=== PATIENT | female | born 1945 | race Two or more races ===

== ENCOUNTER 2019-12-06 09:49 | Outpatient (REF) | payer MEDICARE, SELFPAY ==
[2019-12-06 10:15] LABS: MANUAL DIFF FLAG NO
[2019-12-06 10:21] LABS: Basophils Percent Auto 0.5 % (0-2); Eosinophils Absolute Auto 0.2 X10*3/uL (0.0-0.4); Eosinophils Percent Auto 2.2 % (0-4); Hematocrit 36.3 % (37-47); Hemoglobin 11.6 g/dl (12.0-16.0); Imm Gran Abs Auto 0.02 X10*3/uL (0.00-0.03); Imm Gran Pct Auto 0.2 % (0.0-0.4); Lymphocytes Absolute Auto 2.4 X10*3/uL (1.2-4.9); Mean Corpuscular Hemoglobin 27.1 pg (27.0-33.0); Mean Corpuscular Volume 84.8 fL (80-98); Mean Platelet Volume 9.7 fL (9.4-12.3); Monocytes Absolute Auto 0.4 X10*3/uL (0.1-1.2); Monocytes Percent Auto 4.8 % (2-11); Neutrophils Absolute Auto 5.5 X10*3/uL (2.0-8.3); Neutrophils Percent Auto 64.3 % (45-73); Platelet Count 238 X10*3/uL (160-400); Red Blood Count 4.28 X10*6/uL (4.20-5.50); Red Cell Distribution Width 13.7 % (11.0-16.0); White Blood Count 8.6 X10*3/uL (4.8-10.8)
[2019-12-06 10:45] LABS: Alanine Aminotransferase 22 U/L (0-31); Albumin Level 4.1 g/dL (3.5-5.0); Alkaline Phosphatase 115 U/L (39-117); Anion Gap 13 (12-20); Aspartate Amino Transferase 32 U/L (5-31); Bilirubin Total 0.7 mg/dL (0.0-1.0); Blood Urea Nitrogen 13 mg/dL (9-16); Calcium 9.6 mg/dL (8.4-10.2); Carbon Dioxide 30 mmol/L (22-29); Chloride 97 mmol/L (96-108); Estimated Glomerular Filt Rate > 60; Glucose Random 273 mg/dL (60-115); Lipase 61 U/L (8-78); Sodium 136 mmol/L (135-145); Total Protein 7.2 g/dL (6.5-8.0)
== END 2019-12-06 09:50 | disposition home or self-care (01) ==
LOC: HO.LAB 09:49
PROVIDERS: PCP Internal Medicine; Visit Provider Internal Medicine
DX: R10.84 Generalized abdominal pain (principal)
CPT/HCPCS: 36415; 80053; 83690; 85025

== ENCOUNTER → 2020-01-03 12:53 | Outpatient (BNVA) | payer SELFPAY | PROVIDERS: PCP Internal Medicine; Referring Provider Internal Medicine; Visit Provider Internal Medicine Cardiovascular Disease | DX: R07.9 Chest pain, unspecified (principal); R06.01 Orthopnea; I10 Essential (primary) hypertension; G47.30 Sleep apnea, unspecified | CPT/HCPCS: 93005; 99212 ==

== ENCOUNTER → 2020-01-10 14:31 | Outpatient (BNVA) | payer MEDICARE, SELFPAY | PROVIDERS: PCP Internal Medicine; Visit Provider Internal Medicine Cardiovascular Disease | DX: Z76.89 Persons encountering health services in other specified circumstances (principal) ==

== ENCOUNTER → 2020-02-29 10:05 | Outpatient (BNVA) | payer SELFPAY | PROVIDERS: Visit Provider Nurse Practitioner Family | DX: Z13.89 Encounter for screening for other disorder (principal) ==

== ENCOUNTER → 2020-04-03 14:02 | Outpatient (BNVA) | payer OTHER, SELFPAY | PROVIDERS: PCP Internal Medicine; Visit Provider Internal Medicine Cardiovascular Disease | DX: R10.12 Left upper quadrant pain (principal) | CPT/HCPCS: 93005; 99212 ==

== ENCOUNTER → 2020-04-06 10:40 | Outpatient (BNVA) | payer OTHER, SELFPAY | PROVIDERS: PCP Internal Medicine; Visit Provider Nurse Practitioner Gerontology | DX: Z76.89 Persons encountering health services in other specified circumstances (principal) | CPT/HCPCS: Q3014 ==

== ENCOUNTER → 2020-04-25 08:28 | Outpatient (BNVA) | payer OTHER, SELFPAY | PROVIDERS: PCP Internal Medicine; Visit Provider Nurse Practitioner Family | DX: Z13.89 Encounter for screening for other disorder (principal) | CPT/HCPCS: Q3014 ==

== ENCOUNTER → 2020-05-02 08:07 | Outpatient (BNVA) | payer OTHER, SELFPAY | PROVIDERS: PCP Internal Medicine; Visit Provider Internal Medicine Gastroenterology | DX: R10.12 Left upper quadrant pain (principal); K62.5 Hemorrhage of anus and rectum; Z80.0 Family history of malignant neoplasm of digestive organs | CPT/HCPCS: Q3014 ==

== ENCOUNTER → 2020-05-25 14:30 | Outpatient (BNVA) | payer MEDICARE, SELFPAY | PROVIDERS: PCP Internal Medicine; Visit Provider Nurse Practitioner Gerontology | DX: Z13.89 Encounter for screening for other disorder (principal) | CPT/HCPCS: Q3014 ==

== ENCOUNTER 2020-06-02 09:09 | Outpatient (REF) | payer MEDICARE, SELFPAY ==
[2020-06-02 10:16] LABS: MANUAL DIFF FLAG NO
[2020-06-02 10:25] LABS: Estimated Average Glucose 217 mg/dL; Hemoglobin A1c % 9.2 %
[2020-06-02 10:31] LABS: Basophils Percent Auto 0.4 % (0-2); Eosinophils Absolute Auto 0.1 X10*3/uL (0.0-0.4); Eosinophils Percent Auto 1.2 % (0-4); Hematocrit 34.3 % (37-47); Imm Gran Abs Auto 0.03 X10*3/uL (0.00-0.03); Imm Gran Pct Auto 0.4 % (0.0-0.4); Lymphocytes Absolute Auto 2.6 X10*3/uL (1.2-4.9); Lymphocytes Percent Auto 31.2 % (20-40); Mean Corpuscular HGB Conc 32.1 g/dl (31.0-35.0); Mean Corpuscular Hemoglobin 26.5 pg (27.0-33.0); Mean Corpuscular Volume 82.7 fL (80-98); Mean Platelet Volume 9.8 fL (9.4-12.3); Monocytes Absolute Auto 0.5 X10*3/uL (0.1-1.2); Monocytes Percent Auto 5.4 % (2-11); Neutrophils Absolute Auto 5.1 X10*3/uL (2.0-8.3); Neutrophils Percent Auto 61.4 % (45-73); Platelet Count 267 X10*3/uL (160-400); Red Blood Count 4.15 X10*6/uL (4.20-5.50); Red Cell Distribution Width 14.6 % (11.0-16.0); White Blood Count 8.3 X10*3/uL (4.8-10.8)
[2020-06-02 10:34] LABS: Alanine Aminotransferase 25 U/L (0-31); Albumin Level 4.1 g/dL (3.5-5.0); Alkaline Phosphatase 143 U/L (39-117); Anion Gap 13 (12-20); Aspartate Amino Transferase 51 U/L (5-31); Bilirubin Total 0.3 mg/dL (0.0-1.0); Blood Urea Nitrogen 15 mg/dL (9-16); Calcium 9.2 mg/dL (8.4-10.2); Carbon Dioxide 32 mmol/L (22-29); Chloride 101 mmol/L (96-108); Cholesterol 211 mg/dL; Estimated Glomerular Filt Rate > 60; Glucose Fasting 219 mg/dL (60-99); HDL Cholesterol 44 mg/dL; LDL Cholesterol Calculated 122 mg/dl; Potassium 4.5 mmol/L (3.3-5.1); Sodium 141 mmol/L (135-145); Total Protein 7.4 g/dL (6.5-8.0); Triglycerides 229 mg/dL
[2020-06-02 10:47] LABS: Glucose Urine UA NEG (NEG); Leukocyte Esterase Urine TRACE (NEG); Nitrite Urine NEG (NEG); UACC Culture Trigger YES; Urine Blood NEG (NEG); Urine Ketones NEG (NEG); Urine Protein TRACE MG/DL (NEG-TRACE)
[2020-06-02 10:49] LABS: Appearance Urine HAZY; Color Urine YELLOW
[2020-06-02 10:56] LABS: TSH reflex Free T4 4.47 uIU/mL (0.32-4.0)
[2020-06-02 11:25] LABS: Bacteria Urine TRACE /LPF; RBC Urine 0-2 /HPF (0); Squamous Epithelial Cell Urine 1+ /LPF
[2020-06-02 11:40] LABS: Erythrocyte Sedimentation Rate 57 MM/HR (0-20)
[2020-06-02 11:44] LABS: Creatinine Urine 176.36 mg/dL; Microalbum/Creatinine Ratio Ur 76.5 ug/mg cr
[2020-06-03 07:07] LABS: LDL Cholesterol Direct 127 mg/dL (<100)
== END 2020-06-02 09:10 | disposition home or self-care (01) ==
LOC: HO.LAB 09:09
PROVIDERS: Absent Provider Internal Medicine; PCP Internal Medicine; Visit Provider Nurse Practitioner Gerontology
DX: E11.65 Type 2 diabetes mellitus with hyperglycemia (principal); I10 Essential (primary) hypertension; E78.00 Pure hypercholesterolemia, unspecified; E66.9 Obesity, unspecified; K21.9 Gastro-esophageal reflux disease without esophagitis; M19.011 Primary osteoarthritis, right shoulder; M51.36 Other intervertebral disc degeneration, lumbar region; Z79.4 Long term (current) use of insulin
CPT/HCPCS: 36415; 80053; 80061; 81001; 81003; 82043; 83036; 83721; 84439; 84443; 85025; 85652; 87086; 87147

== ENCOUNTER 2020-06-05 10:23 | Day surgery (SDC) | payer MEDICARE, SELFPAY ==
--- NOTE | 2020-06-01 14:23 | HO.ANESPROP2 ---
Documented by User: Sherry Sams 06/01/20 14:28 HPI - Anesthesia Eval Consult details Narrative: 75yo F for Colonoscopy PMFSH Active Problems Active Problems: All Active Problems (Updated 05/03/20 @ 12:57 by Sherry Sams) FH: colon cancer in first degree relative <60 years old (Acute) Rectal bleeding (Acute) LUQ abdominal pain (Acute) Type 2 diabetes mellitus with hyperglycemia, with long-term current use of insulin (Acute) Type 2 diabetes mellitus with other diabetic kidney complication (Acute) Proteinuria (Acute) Hypertension (Acute) Hyperlipidemia LDL goal <100 (Acute) Obesity (BMI 30-39.9) (Acute) Abdominal pain (Acute) Chest pain (Acute) Orthopnea (Acute) Sleep disorder breathing (Acute) Snoring (Acute) Hypersomnia (Acute) Benign essential hypertension (Acute) Diabetes mellitus (Acute) Pure hypercholesterolemia (Acute) Primary osteoarthritis, right shoulder (Acute) GERD without esophagitis (Acute) Anxiety (Acute) Depression (Acute) Lumbar degenerative disc disease (Acute) Past Medical History Medical History Anxiety Benign essential hypertension Chest pain Depression Diabetes mellitus GERD without esophagitis Hyperlipidemia LDL goal <100 Hypertension Lumbar degenerative disc disease Obesity (BMI 30-39.9) Primary osteoarthritis, right shoulder Proteinuria Pure hypercholesterolemia Type 2 diabetes mellitus with hyperglycemia, with long-term current use of insulin Type 2 diabetes mellitus with other diabetic kidney complication Family History Family History Father Diabetes Mother Diabetes Daughter Diabetes CVD (cardiovascular disease) Surgical History Surgical History H/O colonoscopy History of cataract surgery History of cholecystectomy History of esophagogastroduodenoscopy (EGD) History of mammogram Social History Social History Household Members: Children Alcohol intake: current Alcohol intake frequency: does not drink Smoking Status: Never smoker Advance Directives: No Advance Directives Information Provided: Yes Meds Allergies Allergy/AdvReac Type Severity Reaction Status Date / Time No Known Allergies Allergy Verified 05/25/20 15:02 [No Known Allergies*] Home Medications Medication Instructions Recorded Confirmed Last Taken Type buspirone 5 mg tablet 5 mg PO BID 01/03/20 05/25/20 Unknown History hydroxyzine HCl 25 mg tablet 25 mg PO Q8H PRN 01/03/20 05/25/20 Unknown History metformin 1,000 mg tablet 1,000 mg PO BID 01/03/20 05/25/20 Unknown History estradiol 1 g VAGINAL 3XW g 03/12/20 05/25/20 Unknown History Exam Exam Date and Time: June 01, 2020 1423 Narrative Narrative: Laboratory Tests 12/06/19 12/06/19 10:09 10:09 WBC 8.6 Hgb 11.6 L Hct 36.3 L Plt Count 238 Sodium 136 Potassium 4.0 Chloride 97 Carbon Dioxide 30 H BUN 13 Creatinine 0.82 EKG at cardiol : SR, left axis deviation, septal infarct, QTc 463 msec Assessment and Plan Assessment Anesthesia Assessment: Chart Reviewed Documented by User: Renita Osborne 06/05/20 10:54 PMFSH Past Medical History Medical History Anxiety Benign essential hypertension Chest pain Depression Diabetes mellitus GERD without esophagitis Hyperlipidemia LDL goal <100 Hypertension Lumbar degenerative disc disease Obesity (BMI 30-39.9) Primary osteoarthritis, right shoulder Proteinuria Pure hypercholesterolemia Type 2 diabetes mellitus with hyperglycemia, with long-term current use of insulin Type 2 diabetes mellitus with other diabetic kidney complication Family History Family History Father Diabetes Mother Diabetes Daughter Diabetes CVD (cardiovascular disease) Surgical History Surgical History H/O colonoscopy History of cataract surgery History of cholecystectomy History of esophagogastroduodenoscopy (EGD) History of mammogram Social History Social History Household Members: Children Alcohol intake: current Alcohol intake frequency: does not drink Smoking Status: Never smoker Advance Directives: No Advance Directives Information Provided: Yes Meds Allergies Allergy/AdvReac Type Severity Reaction Status Date / Time No Known Allergies Allergy Verified 05/25/20 15:02 [No Known Allergies*] Home Medications Medication Instructions Recorded Confirmed Last Taken Type buspirone 5 mg tablet 5 mg PO BID 01/03/20 05/25/20 Unknown History hydroxyzine HCl 25 mg tablet 25 mg PO Q8H PRN 01/03/20 05/25/20 Unknown History metformin 1,000 mg tablet 1,000 mg PO BID 01/03/20 05/25/20 Unknown History estradiol 1 g VAGINAL 3XW g 03/12/20 05/25/20 Unknown History Exam Airway Mallampati Class: II TM Dist: >3cm Neck ROM: Limited Denture: Upper Loose/Missing/Broken Teeth: Yes Heart: RRR Lungs: Acta Assessment and Plan Assessment Anesthesia Assessment: Anesthesia Plan Discussed and Chart Reviewed Final Anesthetic Review NPO: Yes ASA Class: III Final Preanesthetic Review: Meds/Allgs Chart Reviewed, Consent Obtained/Reviewed and Anes Risks/Benef Reviewed Patient Risk: Intermediate Procedure Risk: Intermediate Anesthetic Plan Anesthetic Plan: MAC: Disposition: Standard PACU
--- NOTE | 2020-06-05 10:40 | P.HPSUR_ITS ---
Pre-Procedural Eval Section B Chief Complaint: Rectal Bleeding Details of Present Illness: upper abdominal pain and FH of CRC in son Relevant Family History (Specify if Yes): Yes Relevant Social History: None Present Medications: see Short Stay Collaborative assessment Medical History: Significant History (Anxiety Benign essential hypertension Chest pain Depression Diabetes mellitus GERD without esophagitis Hyperlipidemia LDL goal <100 Hypertension Lumbar degenerative disc disease Obesity (BMI 30- 39.9) Primary osteoarthritis, right shoulder Proteinuria Pure hypercholesterolemia Type 2 diabetes mellitu) History of Previous Operations: Relevant previous surgery/procedure and date(s) (H/O colonoscopy History of cataract surgery History of cholecystectomy History of esophagogastroduodenoscopy (EGD) History of mammogram) Allergies: Allergies Allergy/AdvReac Type Severity Reaction Status Date / Time No Known Allergies Allergy Verified 05/25/20 15:02 [No Known Allergies*] Review of Systems Sugical H&P ROS: Negative: Constitution, Cardiovascular, Respiratory, Neurological, Psychiatric, Hem-Onc, Allergic/Immunologic, Gastrointestinal, Genitourinary, Musculoskeletal, Integumentary, Endocrine and Eyes/Ears/Nose/Throat Exam Surgical H&P Exam: Normal: HEENT, Normal: Heart, Normal: Lungs, Normal: Extr emities, Normal: Abdomen, Normal: Skin and Normal: Neurological Plan Diagnosis/Plan: Unchanged I have reviewed the history and physical and performed a pertinent physical examination on my patient. No changes have occurred unless specified.
--- NOTE | 2020-06-05 10:42 | PM.OP ---
Brief Operative Note Date of Service: 06/05/20 Pre-op diagnosis: LUQ pain, FH of CRC in son Post-op diagnosis: same Procedure: see op note Surgeon: Kristi Hernandez MD Anesthesia: MAC Estimated blood loss (mL): 0 Condition: stable Disposition: PACU
--- NOTE | 2020-06-05 10:43 | W.PM.OPN ---
Operative Note Operative Note Date of Service: 06/05/20 Narrative: Operative Information Procedure Description: EGD, Colonoscopy FLEXIBLE TRANSORAL UPPER GASTROINTESTINAL ENDOSCOPY AND COLONOSCOPY PROCEDURE NOTE UPPER ENDOSCOPY Consent: Indications for the procedure and potential complications of bleeding, perforation, reaction to medications and missed diagnosis were discussed with the patient and informed consent was obtained. Instrument: Olympus GIF H 190 J mid size upper endoscope Monitoring: Vital signs and clinical assessment, continuous EKG monitoring, Pulse oximetry, Carbon Dioxide monitoring and blood pressure monitoring were done throughout the procedure. Procedure: The patient was placed in the left lateral decubitis position and pre-procedure medications were administered and a bite block was placed. The endoscope was inserted into the mouth and advanced under direct vision to the third part of duodenum. A careful inspection was made as the upper endoscope was withdrawn including a retroflexed examination of the proximal stomach; Findings and interventions are described below. Findings: Larynx:normal Esophagus: GE junction at 39 cm, diaphragm hiatus at 39 cm, possible tongue of short segment barretts noted and biospy taken Stomach: Patchy erythema. Biopsies were obtained. Grade 2 flap valve on retroflexed examination of the cardia. Duodenum: Normal bulb and descending duodenum, bx taken Intervention: Biopsies as noted above COLONOSCOPY Instrument: Olympus variable stiffness Adult scope 190L Colonoscopy Monitoring: Vital signs and clinical assessment, continuous EKG monitoring, Pulse oximetry, Carbon Dioxide monitoring and blood pressure monitoring were done throughout the procedure. Colon withdrawal time was 10 minutes. Procedure: The patient was placed in the left lateral decubitis position and pre-procedure medications were administered. After a digital rectal examination of the ano-rectum, the video colonoscope was inserted into the rectum and advanced through the colon to the cecum/TI. The colonoscope was slowly withdrawn in a retrograde panoramic fashion and the colon mucosa was carefully examined including a retroflexed view of the rectum. Findings and interventions are described below. Procedure Difficulty:moderate due to looping Findings: Terminal Ileum-normal Cecum:normal Ascending Colon: normal Transverse Colon -normal Descending Colon:normal Sigmoid Colon: scattered diverticula Rectum: Retroflexion with moderate sized mildly inflammed internal hemorrhoids, grade II Anorectum - internal hemorrhoids seen at anal verge Colon preparation: [place] Bowel Preparation Scale Right colon; 2 Transverse colon: 3 Left colon; 2 (0 = Unprepared colon segment with mucosa not seen due to solid stool that cannot be cleared. 1 = Portion of mucosa of the colon segment seen, but other areas of the colon segment not well seen due to staining, residual stool and/or opaque liquid. 2 = Minor amount of residual staining, small fragments of stool and/or opaque liquid, but mucosa of colon segment seen well. 3 = Entire mucosa of colon segment seen well with no residual staining, small fragments of stool or opaque liquid) Impression and Post Procedure Diagnosis: Endoscopy Findings: gastritis possible barretts Colonoscopy Findings: internal hemorrhoids diverticular disease Plan: Await Pathology results Repeat Colonoscopy in 5 years due to FH of CRC or earlier if clinically indicated High fiber diet leaflet avoid straining at stool, epsom salts and sitz bath, anusol supps or cream prn Above findings were reviewed with the patient and relevant handouts were provided if indicated.
[2020-06-05 10:51] VITALS: BP 183/73; PULSE 86; RESP 18; TEMP 36.9; O2SAT 97
[2020-06-05 10:52] LABS: Glucose, Whole Blood 183 mg/dL (60-115)
[2020-06-05 10:59] VITALS: BMI 33.3
[2020-06-05] MEDS: Lactated Ringers 1,000 ML 100 ML IVCONT (11:05)
[2020-06-05 11:53] VITALS: BP 140/57; PULSE 89; RESP 16; TEMP 36.8; O2SAT 95
[2020-06-05 12:08] VITALS: BP 143/50; PULSE 84; RESP 16; O2SAT 96
== END 2020-06-05 13:01 | disposition home or self-care (01) ==
PROVIDERS: PCP Internal Medicine; Visit Provider Internal Medicine Gastroenterology
PROC: (CPT 45380; principal; 2020-06-05 11:10)
DX: K62.5 Hemorrhage of anus and rectum (principal); K57.30 Diverticulosis of large intestine without perforation or abscess without bleeding; K64.1 Second degree hemorrhoids; K29.70 Gastritis, unspecified, without bleeding; K44.9 Diaphragmatic hernia without obstruction or gangrene; K21.9 Gastro-esophageal reflux disease without esophagitis; I10 Essential (primary) hypertension; E11.65 Type 2 diabetes mellitus with hyperglycemia; E11.29 Type 2 diabetes mellitus with other diabetic kidney complication; N28.9 Disorder of kidney and ureter, unspecified; Z79.84 Long term (current) use of oral hypoglycemic drugs; Z79.899 Other long term (current) drug therapy
CPT/HCPCS: 45380; 43239; 82947; 88305; 88342; J3010

== ENCOUNTER 2020-06-17 08:53 | Outpatient (REF) | payer MEDICARE, SELFPAY ==
[2020-06-17 10:29] LABS: Alanine Aminotransferase 18 U/L (0-31); Albumin Level 4.1 g/dL (3.5-5.0); Alkaline Phosphatase 135 U/L (39-117); Anion Gap 16 (12-20); Aspartate Amino Transferase 31 U/L (5-31); Bilirubin Total 0.5 mg/dL (0.0-1.0); Blood Urea Nitrogen 18 mg/dL (9-16); Calcium 9.3 mg/dL (8.4-10.2); Carbon Dioxide 29 mmol/L (22-29); Chloride 99 mmol/L (96-108); Cholesterol 154 mg/dL; Estimated Glomerular Filt Rate 58; Glucose Fasting 183 mg/dL (60-99); HDL Cholesterol 48 mg/dL; LDL Cholesterol Calculated 79 mg/dl; Potassium 4.4 mmol/L (3.3-5.1); Sodium 140 mmol/L (135-145); Total Protein 7.4 g/dL (6.5-8.0); Triglycerides 139 mg/dL
[2020-06-17 10:35] LABS: Microalbum/Creatinine Ratio Ur 69.9 ug/mg cr
[2020-06-20 23:42] LABS: Alk.Phos Iso. Macrohepatic 0 % (<=0); Alk.Phos Isoenzymes Bone 28 % (28-66); Alk.Phos Isoenzymes Intest 13 % (1-24); Alk.Phos Isoenzymes Liver 59 % (25-69); Alk.Phos Isoenzymes Placental 0 % (<=0); Alk.Phos Isoenzymes Total 122 U/L (37-153)
== END 2020-06-17 08:54 | disposition home or self-care (01) ==
LOC: HO.LAB 08:53
PROVIDERS: PCP Internal Medicine; Visit Provider Nurse Practitioner Gerontology
DX: E11.9 Type 2 diabetes mellitus without complications (principal); E78.00 Pure hypercholesterolemia, unspecified; I10 Essential (primary) hypertension; R74.8 Abnormal levels of other serum enzymes
CPT/HCPCS: 36415; 80053; 80061; 82043; 84080

== ENCOUNTER 2020-06-28 09:25 | Outpatient (REF) | payer MEDICARE, SELFPAY ==
--- NOTE | ~2020-06-28 | US_ITS ---
EXAMINATION: US ABDOMEN COMPLETE CLINICAL INFORMATION: Left lower quadrant pain. COMPARISON: X-ray abdomen 07/05/2019.CT abdomen 10/10/2018. X-ray abdomen 04/15/2018. TECHNIQUE: Real-time imaging of the abdominal viscera. FINDINGS: PANCREAS: Normal. ABDOMINAL AORTA: Not well visualized due to bowel gas INFERIOR VENA CAVA: Not well visualized due to bowel gas LIVER: Liver echotexture is increased. The liver is enlarged. This probably represents fatty infiltration. The liver contour is normal. No focal hepatic lesion. There is no intrahepatic biliary duct dilatation seen. GALLBLADDER: Surgically absent. COMMON BILE DUCT: Normal in caliber measuring 0.4 cm in diameter. RIGHT KIDNEY: Normal. No hydronephrosis. No renal calculi or focal parenchymal lesions. The kidney measures 10.4 cm in maximum dimension. LEFT KIDNEY: There is a 4 mm stone in the lower pole. No hydronephrosis or focal parenchymal lesions. The kidney measures 10.3 cm in maximum dimension. SPLEEN: Normal. The spleen measures 9.6 cm in maximum dimension. FREE FLUID: None. US/US abdomen complete IMPRESSION: Enlarged echogenic liver probably representing fatty infiltration. Left renal stone. Limited visualization of the pancreas, aorta and IVC.
--- NOTE | ~2020-06-28 | US_ITS ---
EXAMINATION: US PELVIS COMPLETE CLINICAL INFORMATION: Left lower quadrant pain, COMPARISON: None TECHNIQUE: Transabdominal and transvaginal imaging of pelvis is performed. FINDINGS: The uterus is anteverted, anteflexed measuring 8.79 cm in length, 3.02 cm in AP and 4.40 cm in width and volume 61.16 mL. The endometrial thickness is 0.39 cm. There is is echogenic calcification along the periphery of the uterus. Left ovary measures 1.81 x 1.73 x 0.88 cm. It appears unremarkable. Right ovary measures 1.86 x 2.13 x 1.54 cm. It appears unremarkable. There is no free fluid in the cul-de-sac. US/US pelvic complete IMPRESSION: Echogenic calcifications along the periphery of the uterus likely old inflammatory process. No focal lesion seen. The ovaries are unremarkable
--- NOTE | ~2020-06-28 | US_ITS ---
EXAMINATION: US PELVIS COMPLETE CLINICAL INFORMATION: Left lower quadrant pain, COMPARISON: None TECHNIQUE: Transabdominal and transvaginal imaging of pelvis is performed. FINDINGS: The uterus is anteverted, anteflexed measuring 8.79 cm in length, 3.02 cm in AP and 4.40 cm in width and volume 61.16 mL. The endometrial thickness is 0.39 cm. There is is echogenic calcification along the periphery of the uterus. Left ovary measures 1.81 x 1.73 x 0.88 cm. It appears unremarkable. Right ovary measures 1.86 x 2.13 x 1.54 cm. It appears unremarkable. There is no free fluid in the cul-de-sac. US/US transvaginal IMPRESSION: Echogenic calcifications along the periphery of the uterus likely old inflammatory process. No focal lesion seen. The ovaries are unremarkable
== END 2020-06-28 09:26 | disposition home or self-care (01) ==
LOC: HO.US 09:25
PROVIDERS: PCP Internal Medicine; Visit Provider Internal Medicine
DX: R10.32 Left lower quadrant pain (principal)
CPT/HCPCS: 76700; 76830; 76856

== ENCOUNTER → 2020-08-08 11:32 | Outpatient (BNVA) | payer MEDICARE, SELFPAY | PROVIDERS: PCP Internal Medicine; Visit Provider Internal Medicine Gastroenterology ==

== ENCOUNTER → 2020-08-31 13:04 | Outpatient (BNVA) | payer MEDICARE, SELFPAY | PROVIDERS: PCP Internal Medicine; Visit Provider Nurse Practitioner Gerontology | CPT/HCPCS: Q3014 ==

== ENCOUNTER → 2020-09-29 10:43 | Outpatient (BNVA) | payer MEDICARE, SELFPAY | PROVIDERS: PCP Internal Medicine; Referring Provider Internal Medicine; Visit Provider Internal Medicine Gastroenterology | DX: R10.12 Left upper quadrant pain (principal) | CPT/HCPCS: 99212 ==

== ENCOUNTER → 2020-10-10 08:00 | Outpatient (REF) | payer MEDICARE, SELFPAY | LOC: HO.NUCMED 08:00 | PROVIDERS: Visit Provider Internal Medicine Gastroenterology | DX: Z13.89 Encounter for screening for other disorder (principal) ==

== ENCOUNTER 2021-05-31 13:47 | Outpatient (REF) | payer OTHER, SELFPAY ==
--- NOTE | 2021-05-31 14:14 | ECG_ITS ---
Test Reason : DIZZINESS Blood Pressure : / mmHG Vent. Rate : 072 BPM Atrial Rate : 072 BPM P-R Int : 164 ms QRS Dur : 086 ms QT Int : 386 ms P-R-T Axes : 062 007 047 degrees QTc Int : 422 ms Normal sinus rhythm Low voltage QRS Cannot rule out Anterior infarct , age undetermined Abnormal ECG When compared with ECG of 10-OCT-2018 18:19, Low voltage QRS is now Present Referred By: Joel Su Electronically Signed By:ESTUARDO IRIZARRY MD
[2021-05-31 14:50] LABS: Hematocrit 36.8 % (37.0-47.0); Hemoglobin 11.6 g/dl (12.0-16.0); Mean Corpuscular HGB Conc 31.5 g/dl (31.0-35.0); Mean Corpuscular Hemoglobin 26.2 pg (27.0-33.0); Mean Corpuscular Volume 83.3 fL (80.0-98.0); Mean Platelet Volume 9.5 fL (9.4-12.3); Platelet Count 268 X10*3/uL (160-400); Red Blood Count 4.42 X10*6/uL (4.20-5.50); Red Cell Distribution Width 14.5 % (11.0-16.0); White Blood Count 8.2 X10*3/uL (4.8-10.8)
[2021-05-31 15:21] LABS: Appearance Urine HAZY; Color Urine YELLOW; Glucose Urine UA 100 MG/DL (NEG); Leukocyte Esterase Urine TRACE (NEG); Nitrite Urine NEG (NEG); PH 5.5 (5.0-8.0); Specific Gravity - Urine >= 1.030 (1.005-1.025); UACC Culture Trigger YES; Urine Blood NEG (NEG); Urine Ketones NEG (NEG); Urine Protein TRACE MG/DL (NEG-TRACE)
[2021-05-31 15:26] LABS: Alanine Aminotransferase 23 U/L (0-31); Albumin Level 4.2 g/dL (3.5-5.0); Alkaline Phosphatase 154 U/L (39-117); Anion Gap 14 (12-20); Aspartate Amino Transferase 37 U/L (5-31); Bilirubin Direct 0.2 mg/dL (0.0-0.5); Bilirubin Total 0.5 mg/dL (0.0-1.0); Blood Urea Nitrogen 23 mg/dL (9-16); Calcium 9.9 mg/dL (8.4-10.2); Carbon Dioxide 29 mmol/L (22-29); Chloride 99 mmol/L (96-108); Estimated Glomerular Filt Rate 53; Glucose Random 354 mg/dL (60-115); Potassium 5.2 mmol/L (3.3-5.1); Sodium 137 mmol/L (135-145); Total Protein 7.9 g/dL (6.5-8.0)
[2021-05-31 15:34] LABS: Bacteria Urine 1+ /LPF; RBC Urine 0 /HPF (0); Squamous Epithelial Cell Urine 1+ /LPF; WBC Urine 0-2 /HPF (0-4)
== END 2021-05-31 13:48 | disposition home or self-care (01) ==
LOC: HO.LAB 13:47
PROVIDERS: PCP Internal Medicine; Visit Provider Physician Assistant
DX: R42 Dizziness and giddiness (principal)
CPT/HCPCS: 36415; 80048; 80076; 81001; 85027; 87086; 93005

== ENCOUNTER → 2021-11-14 13:41 | Outpatient (BNVA) | payer OTHER, SELFPAY | PROVIDERS: PCP Internal Medicine; Referring Provider Internal Medicine; Visit Provider Nurse Practitioner Family | DX: R07.89 Other chest pain (principal); I10 Essential (primary) hypertension; E78.5 Hyperlipidemia, unspecified; E11.65 Type 2 diabetes mellitus with hyperglycemia; Z79.4 Long term (current) use of insulin | CPT/HCPCS: 99212 ==

== ENCOUNTER 2021-12-18 11:11 | Outpatient (REF) | payer OTHER, SELFPAY ==
--- NOTE | ~2021-12-18 | XR_ITS ---
EXAMINATION: XR LUMBOSACRAL SPINE CLINICAL INFORMATION: Low back pain COMPARISON: 09/08/2019 TECHNIQUE: Three views of the lumbosacral spine. FINDINGS: There is lumbar lordotic straightening. 5 lumbar type vertebral bodies are maintained in height. Multilevel osteophytes again seen. No significant change grade 1 anterolisthesis L4 and L5 although increasing L4 for 5 moderate to moderately severe disc space narrowing. Severe disc space narrowing and sclerosis L5-S1 again seen. Pedicles are intact. Mild bilateral SI sclerotic changes are stable. Bilateral hip joint narrowings again seen. XR/XR lumbar spine 2-3V IMPRESSION: Stable lumbar lordotic straightening, severe L5-S1 disc space narrowing and L4 on L5 anterolisthesis. Increasing L4-L5 disc space narrowing.
[2021-12-18 11:33] LABS: MANUAL DIFF FLAG NO
[2021-12-18 12:49] LABS: Basophils Percent Auto 0.4 % (0-2); Eosinophils Absolute Auto 0.1 X10*3/uL (0.0-0.4); Eosinophils Percent Auto 1.5 % (0-4); Hematocrit 35.1 % (37.0-47.0); Imm Gran Abs Auto 0.03 X10*3/uL (0.00-0.03); Imm Gran Pct Auto 0.3 % (0.0-0.4); Lymphocytes Absolute Auto 2.9 X10*3/uL (1.2-4.9); Lymphocytes Percent Auto 29.7 % (20-40); Mean Corpuscular HGB Conc 31.3 g/dl (31.0-35.0); Mean Corpuscular Hemoglobin 26.7 pg (27.0-33.0); Mean Corpuscular Volume 85.2 fL (80.0-98.0); Mean Platelet Volume 10.2 fL (9.4-12.3); Monocytes Absolute Auto 0.5 X10*3/uL (0.1-1.2); Neutrophils Percent Auto 63.1 % (45-73); Platelet Count 229 X10*3/uL (160-400); Red Blood Count 4.12 X10*6/uL (4.20-5.50); White Blood Count 9.6 X10*3/uL (4.8-10.8)
[2021-12-18 13:30] LABS: Alanine Aminotransferase 17 U/L (0-31); Alkaline Phosphatase 124 U/L (39-117); Anion Gap 18 (12-20); Aspartate Amino Transferase 29 U/L (5-31); Bilirubin Total 0.6 mg/dL (0.0-1.0); Blood Urea Nitrogen 12 mg/dL (9-16); Calcium 9.3 mg/dL (8.4-10.2); Carbon Dioxide 29 mmol/L (22-29); Chloride 100 mmol/L (96-108); Cholesterol 132 mg/dL; Estimated Glomerular Filt Rate > 60; Glucose Fasting 216 mg/dL (60-99); HDL Cholesterol 45 mg/dL; LDL Cholesterol Calculated 61 mg/dl; Potassium 4.6 mmol/L (3.3-5.1); Sodium 142 mmol/L (135-145); Total Protein 7.2 g/dL (6.5-8.0); Triglycerides 130 mg/dL
[2021-12-18 13:42] LABS: Vitamin D 25-OH Total 14.1 ng/mL (>30)
[2021-12-18 15:09] LABS: Appearance Urine Turbid; Color Urine Dark Yellow; Glucose Urine UA Negative (Negative); Leukocyte Esterase Urine Large (3+) (Negative); Nitrite Urine Negative (Negative); Specific Gravity - Urine 1.025 (1.005-1.025); UMIC TRIGGER UACC YES; Urine Blood Negative (Negative); Urine Ketones Trace mg/dL (Negative); Urine Protein 100 (2+) mg/dL (Neg-Trace)
[2021-12-18 15:32] LABS: Creatinine Urine 197.08 mg/dL; Microalbum/Creatinine Ratio Ur 192.3 ug/mg cr
[2021-12-18 16:02] LABS: Bacteria Urine 4+ (None Seen); RBC Urine 0-2 /HPF (0-2); Squamous Epithelial Cell Urine >20 /HPF (0-2); UACC Culture Trigger YES; WBC Urine >50 /HPF (0-5)
[2021-12-19 16:56] LABS: C Peptide 1.83 ng/mL (0.80-3.85)
== END 2021-12-18 11:12 | disposition home or self-care (01) ==
LOC: HO.XRAY 11:11
PROVIDERS: PCP Internal Medicine; Visit Provider Internal Medicine
DX: I10 Essential (primary) hypertension (principal); M54.50 Low back pain, unspecified; E55.9 Vitamin D deficiency, unspecified; E78.00 Pure hypercholesterolemia, unspecified; E11.9 Type 2 diabetes mellitus without complications
CPT/HCPCS: 36415; 72100; 80053; 80061; 81001; 82043; 82306; 84681; 85025; 87086; 87147

== ENCOUNTER 2022-03-27 11:19 | Outpatient (REF) | payer OTHER, SELFPAY ==
--- NOTE | ~2022-03-27 | XR_ITS ---
EXAMINATION: XR LUMBOSACRAL SPINE CLINICAL INFORMATION: Lower back pain. COMPARISON: Radiographs dated 12/18/2021. TECHNIQUE: AP and lateral views of the lumbar spine and lateral view of the lumbosacral junction. FINDINGS: Vertebral body heights and alignment are normal. At L4-L5, there is a 4 mm anterolisthesis. At L5-S1, there is marked disc space narrowing, vacuum phenomenon. 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 No acute fracture or spondylolisthesis is seen. There is multi-level moderately severe lower thoracic and lumbar spondylosis. There is multi-level lumbar facet arthropathy, most pronounced at L4-L5 and L5-S1. There are aortoiliac atherosclerotic calcifications. XR/XR lumbar spine 2-3V IMPRESSION: 1. There is moderate degenerative disc disease at L4-L5, and marked degenerative disease is seen at L5-S1. 2. 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 3. There is multi-level lumbar spondylosis and facet arthropathy.
--- NOTE | ~2022-03-27 | XR_ITS ---
EXAMINATION: XR TIBIA AND FIBULA, LEFT CLINICAL INFORMATION: Pain. COMPARISON: None TECHNIQUE: AP and lateral views of the left tibia and fibula were obtained. FINDINGS: Bony alignment and mineralization are normal. No fracture or dislocation is seen. The lateral, medial and patellofemoral joint space compartments of the knee are well-maintained. There is left knee tricompartment peripheral osteophyte formation. There is no left ankle joint effusion. There is a moderately large posterior calcaneal spur. There are atherosclerotic calcifications. XR/XR tibia fibula LT 2V IMPRESSION: 1. No fracture or dislocation is seen. 2. There are degenerative changes of the knee. 3. A posterior calcaneal spur is noted.
== END 2022-03-27 11:20 | disposition home or self-care (01) ==
LOC: HO.XRAY 11:19
PROVIDERS: PCP Internal Medicine; Visit Provider Internal Medicine
DX: M79.662 Pain in left lower leg (principal); M54.50 Low back pain, unspecified; E11.65 Type 2 diabetes mellitus with hyperglycemia; Z79.4 Long term (current) use of insulin
CPT/HCPCS: 72100; 73590; 82947; 99212

== ENCOUNTER 2022-05-30 09:50 | Outpatient (REF) | payer OTHER, SELFPAY ==
[2022-05-30 10:42] LABS: Basophils Absolute Auto 0.1 X10*3/uL (0.0-0.2); Basophils Percent Auto 0.5 % (0-2); Eosinophils Absolute Auto 0.2 X10*3/uL (0.0-0.4); Eosinophils Percent Auto 2.4 % (0-4); Hematocrit 35.5 % (37.0-47.0); Hemoglobin 11.2 g/dl (12.0-16.0); Imm Gran Abs Auto 0.03 X10*3/uL (0.00-0.03); Imm Gran Pct Auto 0.3 % (0.0-0.4); Lymphocytes Absolute Auto 3.8 X10*3/uL (1.2-4.9); Lymphocytes Percent Auto 39.4 % (20-40); MANUAL DIFF FLAG NO; Mean Corpuscular HGB Conc 31.5 g/dl (31.0-35.0); Mean Corpuscular Hemoglobin 26.5 pg (27.0-33.0); Mean Corpuscular Volume 84.1 fL (80.0-98.0); Mean Platelet Volume 9.9 fL (9.4-12.3); Monocytes Absolute Auto 0.5 X10*3/uL (0.1-1.2); Monocytes Percent Auto 5.4 % (2-11); Neutrophils Absolute Auto 5.1 x10*3/uL (2.0-8.3); Platelet Count 260 X10*3/uL (160-400); Red Blood Count 4.22 X10*6/uL (4.20-5.50); Red Cell Distribution Width 14.4 % (11.0-16.0); White Blood Count 9.7 X10*3/uL (4.8-10.8)
[2022-05-30 10:58] LABS: Estimated Average Glucose 226 mg/dL; Hemoglobin A1c % 9.5 %
[2022-05-30 11:05] LABS: Appearance Urine Clear; Color Urine Yellow; Glucose Urine UA Negative (Negative); Leukocyte Esterase Urine Negative (Negative); Nitrite Urine Negative (Negative); UMIC TRIGGER UACC YES; Urine Blood Negative (Negative); Urine Ketones Negative (Negative); Urine Protein 30 (1+) mg/dL (Neg-Trace)
[2022-05-30 11:16] LABS: Alanine Aminotransferase 19 U/L (0-31); Albumin Level 3.9 g/dL (3.5-5.0); Alkaline Phosphatase 135 U/L (39-117); Anion Gap 14 (12-20); Aspartate Amino Transferase 21 U/L (5-31); Bilirubin Total 0.6 mg/dL (0.0-1.0); Blood Urea Nitrogen 14 mg/dL (9-16); Calcium 9.2 mg/dL (8.4-10.2); Carbon Dioxide 30 mmol/L (22-29); Chloride 103 mmol/L (96-108); Cholesterol 185 mg/dL; Estimated Glomerular Filt Rate > 60; Glucose Fasting 115 mg/dL (60-99); HDL Cholesterol 44 mg/dL; LDL Cholesterol Calculated 105 mg/dl; Potassium 4.2 mmol/L (3.3-5.1); Sodium 143 mmol/L (135-145); Total Protein 7.2 g/dL (6.5-8.0); Triglycerides 183 mg/dL
[2022-05-30 11:32] LABS: TSH reflex Free T4 7.67 uIU/mL (0.32-4.0); Vitamin D 25-OH Total 20.8 ng/mL (>30)
[2022-05-30 11:36] LABS: Creatinine Urine 143.72 mg/dL
[2022-05-30 12:11] LABS: Bacteria Urine None Seen (None Seen); Hyaline Casts Urine 0-2 /LPF (0-2); RBC Urine 0-2 /HPF (0-2); Specific Gravity - Urine >= 1.030 (1.005-1.025); WBC Urine 0-5 /HPF (0-5)
== END 2022-05-30 09:51 | disposition home or self-care (01) ==
LOC: HO.LAB 09:50
PROVIDERS: PCP Internal Medicine; Visit Provider Internal Medicine
DX: E55.9 Vitamin D deficiency, unspecified (principal); I10 Essential (primary) hypertension; E78.00 Pure hypercholesterolemia, unspecified; E11.9 Type 2 diabetes mellitus without complications; R30.0 Dysuria
CPT/HCPCS: 36415; 80053; 80061; 81001; 81003; 82043; 82306; 83036; 84439; 84443; 85025

== ENCOUNTER → 2022-08-13 13:34 | Outpatient (BNVA) | payer OTHER, SELFPAY | PROVIDERS: PCP Internal Medicine; Visit Provider Registered Nurse Diabetes Educator | DX: E11.65 Type 2 diabetes mellitus with hyperglycemia (principal); Z79.4 Long term (current) use of insulin | CPT/HCPCS: 99211 ==

== ENCOUNTER 2022-09-24 10:55 | Outpatient (AMB) | payer OTHER, SELFPAY ==
--- NOTE | 2022-09-24 10:58 | MHC.PC.OV ---
Vital Signs 09/24/22 10:59 Height 5 ft 2 in Weight 186 lb 6 oz BMI 34.1 BP 146/72 H Blood Pressure Location Lt brachial Position Sitting Pulse 75 Pulse Source Pulse Oximeter Pulse Oximetry (%) 95 Oxygen Delivery Method Room Air Intake Visit Reasons: DM, HTN, hyperlipidemia Skein Winder Required: No Accompanied by: Self / Same As Patient Allergies No Known Allergies [No Known Allergies*] Allergy (Verified 09/24/22 11:30) Medication List - Last Reconciled 09/24/22 by Charan Delgado MD amlodipine 10 mg PO DAILY 90 days atorvastatin 10 mg PO DAILY [bed pads As directed] [BLADDER PADS As directed] blood pressure test kit-large As directed blood sugar diagnostic (FreeStyle Lite Strips) As directed three times a day blood-glucose meter (FreeStyle Lite Meter kit) As directed 3x/day blood-glucose meter (FreeStyle Lite Meter kit) As directed 3x/day buspirone 5 mg PO BID 30 days clonidine HCl 0.1 mg PO BEDTIME gabapentin 100 mg PO BID 30 days hydroxyzine HCl 25 mg PO Q8H PRN ibuprofen 600 mg PO TID [incontinence wipes As directed] insulin degludec (Tresiba FlexTouch U-100 insulin) 24 units (0.24 mL) subcut BEDTIME lancets (FreeStyle Lancets) As directed three time a day lisinopril 40 mg PO BID 90 days lorazepam 1 mg PO Q8H PRN 30 days meclizine 25 mg PO DAILY 14 days metformin 1,000 mg PO BID metoprolol succinate ER 25 mg PO DAILY 90 days mirtazapine 15 mg PO BEDTIME miscellaneous medical supply 1 ea miscellaneous .QD miscellaneous medical supply size: Large, PADS for incontinence. nabumetone 500 mg PO BID omeprazole 20 mg PO DAILY 90 days pen needle, diabetic (BD Ultra-Fine Mini Pen Needle) USE 1 NEEDLE DAILY sertraline 150 mg (1.5 x 100 mg) PO DAILY 30 days Tobacco use date assessed: 09/24/22 Fall risk assessment: 1 Fall in past year Last assessed Fall Risk: 09/24/22 Dental Screening Dental Screen Date: 09/24/22 Did you have a dental visit in the last 12 months?: No Did you have a dental problem in the last 6 months where you did not have access to dental care?: No Was dental information given to patient?: Patient has dentist HPI DM, HTN, hyperlipidemia HPI Details Patient comes in today for her follow up visit States that she is still experiencing recurrent left-sided abdominal pains often Was scheduled for abdominal and pelvic US back in June 2022 for further evaluation of her abdominal complaints but patient did not get the tests done Her daughter would like for us to reorder these tests and states that she will make sure patient gets them done this time Patient denies any nausea / vomiting and states that she moves her bowels regularly so she is not constipated; also denies any diarrhea or change in her bowel habits lately She denies any headaches or dizziness Denies any chest pains, no SOB Needs her pen needle Rx refilled Also did not get her follow up labs done recently [facility] Medical History (Updated 09/24/22 @ 12:07 by Charan Delgado MD) Anxiety Benign essential hypertension Chest pain Depression Diabetes mellitus GERD without esophagitis Hyperlipidemia LDL goal <100 Hypertension Left lower quadrant abdominal pain Lumbar degenerative disc disease Obesity (BMI 30-39.9) Primary osteoarthritis, right shoulder Proteinuria Pure hypercholesterolemia Type 2 diabetes mellitus with hyperglycemia, with long-term current use of insulin Type 2 diabetes mellitus with other diabetic kidney complication Surgical History H/O colonoscopy History of cataract surgery History of cholecystectomy History of esophagogastroduodenoscopy (EGD) History of mammogram Family History Father Diabetes Mother Diabetes Daughter Diabetes CVD (cardiovascular disease) Unknown Substance use disorder Social History Household Members: Children Housing: Apartment Alcohol intake: current Alcohol intake frequency: does not drink Patient Tobacco Use Status: Never used Tobacco e-Cigarette/Vaping Use: Never Used Second Hand Smoke Exposure: No service: No Current occupational status: disabled Cognitive needs: Yes (Pt has a cane and walker at home.) Hearing needs: Yes (Bilateral hearng loss per Pt) Vision needs: Yes (wear glasses.) Questionnaire PHQ-9 Over the last 2 weeks, how often have you been bothered by any of the following problems? 1. Little interest or pleasure in doing things: more than half the days 2. Feeling down, depressed, or hopeless: more than half the days 3. Trouble falling or staying asleep, or sleeping too much: more than half the days 4. Feeling tired or having little energy: more than half the days 5. Poor appetite or overeating: more than half the days 6. Feeling bad about yourself - or that you are a failure or have let yourself or your family down: more than half the days 7. Trouble concentrating on things, such as reading the newspaper or watching television: more than half the days 8. Moving or speaking so slowly that other people could have noticed. Or the opposite - being so fidgety or restless that you have been moving around a lot more than usual: more than half the days 9. Thoughts that you would be better off or of hurting yourself in some way: not at all Total score: 16 Depression Screening Interpretation: Positive Depression Screening Follow-up: Existing condition and In treatment [address]70 - PHQ-9 Billing: Yes Source: Developed by Drs. Terrance Courtney, Latesha Ace, Romero Graham and colleagues, with an educational deidra from [employer] ([employer]). Thrive Questionnaire Date Thrive assessed: 09/24/22 I am a: Patient What is your living situation today?: I have a steady place to live Within the past 12 months, did the food you bought not last and you didn't have the money to get more?: Never true Within the past 12 months, did you worry whether your food would run out before you got money to buy more?: Never true Do you have trouble paying for medicines?: No Do you have trouble getting transportation to medical appointments?: No Do you have trouble paying your heating and electricity bill?: No Do you have trouble taking care of your child, family member or friend?: No Do you have trouble with day-to-day activities such as bathing, preparing meals, shopping, managing finances, etc.?: No Are you currently unemployed and looking for a job?: No Are you interested in more education?: No Please select the resources that you would like help with: None Currently or been in a relationship where the following occur: no concerns reported AUDIT C Alcohol Use Questionnaire (AUDIT-C) 1. How often do you have a drink containing alcohol?: Never 3. How often do you have six or more drinks on one occasion?: Never Total Score: 0 Score Reviewed/Action Taken: Yes ANTONIETA-7 AMB Questionnaire ANTONIETA-7 Date ANTONIETA - 7 assessed: 09/24/22 Feeling nervous, anxious, or on edge: 2 = More than half the days (family passing) Not being able to stop or control worryin = More than half the days Worrying too much about different things: 2 = More than half the days Trouble relaxin = More than half the days Being so restless that it is hard to sit still: 2 = More than half the days Becoming easily annoyed or irritable: 0 = Not at all Feeling afraid as if something awful might happen: 0 = Not at all Total ANTONIETA-7 score (0-4 normal; 5-9 mild; 10-14 moderate; 15-21 severe): 10 Source: Developed by Drs. Terrance Courtney, Latesha Ace, Romero Graham and colleagues, with an educational deidra from [employer] ([employer]). Review of Systems Const Reports difficulty sleeping, Denies fatigue, Denies fever(s) and Denies headache(s) ENT Denies dysphagia, Denies dizziness, Denies otalgia, Denies headache(s), Denies neck pain and Denies sore throat Card Denies chest pain, Denies palpitations and Denies dyspnea Resp Denies cough and Denies dyspnea GI Reports abdominal pain (on and off over the left side of the abdomen), Denies hematochezia, Denies constipation, Denies dysphagia, Denies heartburn, Denies diarrhea, Denies nausea and Denies vomiting Denies difficulty voiding, Denies nocturia and Denies dysuria Musc Details: (+) on and off pain over her left lower leg Reports back pain (over the lower back, on and off), Reports arthralgias (in the left knee) and Denies neck pain Neuro Denies dizziness and Denies headache(s) Psych Reports anxiety (controlled with Lorazepam as needed) Endo Denies fatigue and Denies palpitations Physical exam (Primary Care) Vital Signs: Last Vital Signs Pulse 75 09/24/22 10:59 BP 146/72 H 09/24/22 10:59 Pulse Ox 95 09/24/22 10:59 Oxygen Delivery Method Room Air 09/24/22 10:59 BMI result Body Mass Index 34.1 Tobacco/Smoking Status: Tobacco use Status Tobacco use date assessed 09/24/22 09/24/22 11:07 Patient Tobacco Use Status Never used Tobacco 09/24/22 11:07 e-Cigarette/Vaping Use Never Used 09/24/22 11:07 PHQ-9: PHQ-9 Score PHQ-9: Total score 16 09/24/22 11:07 Depression Screening Interpretation: Positive Depression Screening Follow-up: Existing condition and In treatment Thrive Assessment: Date of Thrive Assessment Date Thrive assessed 09/24/22 09/24/22 11:07 Currently or been in a relationship where the following occur: no concerns reported Const General: no acute distress and alert HENMT Ears: TM's normal bilaterally and EAC's normal Throat: Yes posterior oropharynx normal and Yes tonsils normal (no TP congestion) Neck Neck: Yes no lymphadenopathy and Yes supple Resp Auscultation: clear to auscultation bilaterally, no rales and no wheezes Cardio Rate: regular rate Rhythm: regular rhythm Heart sounds: no murmurs GI Palpation (GI): Soft to palpation, Tenderness to palpation present (GI) (over the left side of the abdomen, including the LLQ area), no guarding, not rigid, No hepatosplenomegaly present and No Rebound tenderness present Auscultation: normal bowel sounds Back/Spine/Pelvis Thoracic/Lumbar Spine: lumbar spinal tenderness Skin Rashes: no rashes Extrem General: No clubbing, No cyanosis and Yes edema (1+ bipedal edema) Left lower extremity: knee Details: tenderness; no swelling Results AMB Hemoglobin A1c AMB Hemoglobin A1c 10.6 % Last Edit by Parisa Urena on 09/24/22 11:32 Results Reviewed Results Reviewed: Laboratory Tests 05/30/22 05/30/22 05/30/22 09:55 10:00 10:00 WBC 9.7 Hgb 11.2 L Hct 35.5 L Plt Count 260 Sodium Potassium Creatinine Estimated GFR Fasting Glucose Hemoglobin A1c % Calcium AST ALT Triglycerides Cholesterol LDL Cholesterol, Calc HDL Cholesterol 25-OH Vitamin D Total TSH Free T4 Ur Specific [place] >= 1.030 H Urine Protein 30 (1+) H Urine Glucose (UA) Negative Urine Blood Negative Microalb/Creat Ratio 96.0 05/30/22 05/30/22 Unknown Unknown WBC Hgb Hct Plt Count Sodium 143 Potassium 4.2 Creatinine 0.76 Estimated GFR > 60 Fasting Glucose 115 H Hemoglobin A1c % 9.5 Calcium 9.2 AST 21 ALT 19 Triglycerides 183 Cholesterol 185 LDL Cholesterol, Calc 105 HDL Cholesterol 44 25-OH Vitamin D Total 20.8 TSH 7.67 H Free T4 1.00 Ur Specific [place] Urine Protein Urine Glucose (UA) Urine Blood Microalb/Creat Ratio Assessment and Plan Assessment & Plan (1) Type 2 diabetes mellitus with hyperglycemia, with long-term current use of insulin: Code(s): E11.65 - Type 2 diabetes mellitus with hyperglycemia; Z79.4 - shelter (current) use of insulin Plan: In-office HgbA1c done today was at 10.6% (HgbA1c was at 9.5% a few months ago in May 2022) - goal is < 7.0% Reinforced diabetic diet Continue Metformin 1000 mg BID and Tresiba FlexTouch 30 units once a day; Januvia was previoulsy discontinued due to her history of pancreatitis Patient now sees Dr. Paredes for endocrinology follow up and management of her diabetes Was last seen by unclaimed property officer in late July 2022 and has a follow up appointment with Dr. Paredes at the end of this month (2) Benign essential hypertension: Code(s): I10 - Essential (primary) hypertension Plan: Reinforced low-sodium diet - goal is systolic BP of at least 140 mm or less Continue Lisinopril 40 mg BID, Metoprolol ER 25 mg QD and Amlodipine 10 mg QD (3) Pure hypercholesterolemia: Code(s): E78.00 - Pure hypercholesterolemia, unspecified Plan: Was again not able to get her follow up labs done prior to her visit today She did have some labs done a day after her last appointment in May 2022 - results reviewed and discussed with patient's daughter Reinforced low cholesterol diet Continue Atorvastatin 20 mg QD Will recheck labs in 3 months for follow-up and she is again reminded to get these done BEFORE her appointment (4) GERD without esophagitis: Code(s): K21.9 - Gastro-esophageal reflux disease without esophagitis Plan: Dietary restrictions reinforced Continue Omeprazole 40 mg QD Abdominal and pelvic US done in 2020 revealed (+) left renal stone and enlarged echogenic liver due to fatty infiltration, echogenic calcifications along the periphery of the uterus likely old inflammatory process. Ovaries, pancreas, aorta and IVC are all unremarkable (5) Left sided abdominal pain: Code(s): R10.9 - Unspecified abdominal pain Plan: Will try sending her again for abdominal and pelvic US for further evaluation - US was ordered previously but patient was not able to get them done when they were scheduled in June 2022 (6) Primary osteoarthritis, right shoulder: Comment: X-rays of the right shoulder done in 2019 showed (+) OA changes Code(s): M19.011 - Primary osteoarthritis, right shoulder Plan: Symptoms have improved partially with physical therapy in the past; will refer again when needed Continue Nabumetone 500 mg twice a day with food as needed for pain (7) Lumbar degenerative disc disease: Code(s): M51.36 - Other intervertebral disc degeneration, lumbar region Plan: Reinforced activity and weight-lifting restrictions Lumbar spine x-rays done in November 2021 revealed stable lumbar lordotic straightening, severe L5-S1 disc space narrowing and L4 on L5 anterolisthesis and increasing L4-L5 disc space narrowing Repeat x-rays done again on 03/27/2022 revealed moderate degenerative disc disease at L4-L5 and marked degenerative disease at L5-S1, with multi-level lumbar spondylosis and facet arthropathy; no acute findings are seen Continue Lidocaine 5% patch to apply to the painful areas on her lower back QD PRN as instructed (8) Pain in left lower leg: Code(s): M79.662 - Pain in left lower leg Plan: X-rays (of the distal left lower leg) done previously came out normal but she does have (+) OA changes in the left knee and (+) large heel spurs on her left foot, which are most likely contributing to her leg symptoms Continue OTC Tylenol PRN for pain; continue Gabapentin 100 mg BID (9) Anxiety: Code(s): F41.9 - Anxiety disorder, unspecified Plan: Continue Lorazepam 1 mg every 8 hours as needed and Sertraline 150 mg (1.5 tablets) QD (10) Depression: Code(s): F32.9 - Major depressive disorder, single episode, unspecified Qualifiers: Depression Type: major depressive disorder Major depression recurrence: recurrent Active/Remission status: currently active Major depression episode severity: unspecified Qualified Code(s): F33.9 - Major depressive disorder, recurrent, unspecified Plan: Continue Mirtazapine 50 mg once a day at bedtime and Clonidine 0.1 mg 1 tablet daily at bedtime Continue Sertraline 150 mg QD - dose was increased at her last appt Follow-up with Psychiatry as scheduled (11) Obesity (BMI 30-39.9): Code(s): E66.9 - Obesity, unspecified Plan: Reinforced diet/exercise as tolerated/lose weight Plan Follow up in 3 months Orders: Orders US abdomen complete Today R10.32 - Left lower quadrant pain US pelvic complete Today R10.32 - Left lower quadrant pain Complete Blood Count Auto Diff 3 Months I10 - Essential (primary) hypertension Comprehensive [place]. Panel Fast 3 Months E78.00 - Pure hypercholesterolemia, unspecified Lipid Panel 3 Months E78.00 - Pure hypercholesterolemia, unspecified Hemoglobin A1c 3 Months E11.9 - Type 2 diabetes mellitus without complications Microalbumin, Random (w Creat) 3 Months E11.9 - Type 2 diabetes mellitus without complications TSH reflex Free T4 3 Months E78.00 - Pure hypercholesterolemia, unspecified UA CC w/rflx Micro + Cult 3 Months R30.0 - Dysuria Vitamin D 25-OH Total 3 Months E55.9 - Vitamin D deficiency, unspecified AMB Hemoglobin A1c Today E11.65 - Type 2 diabetes mellitus with hyperglycemia, Z79.4 - shelter (current) use of insulin Medications: New pen needle, diabetic (BD Stephanie 2nd Gen Pen Needle) As directed 100 ea 5RF E11.65 - Type 2 diabetes mellitus with hyperglycemia, Z79.4 - 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 of 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 Coding Level of Care Code Est Pt Level 4 (13926) Diagnoses Type 2 diabetes mellitus with hyperglycemia, with long-term current use of insulin E11.65; Z79.4 Benign essential hypertension I10 Pure hypercholesterolemia E78.00 GERD without esophagitis K21.9 Left sided abdominal pain R10.9 Primary osteoarthritis, right shoulder M19.011 Lumbar degenerative disc disease M51.36 Pain in left lower leg M79.662 Anxiety F41.9 Depression F33.9 Depression Type: major depressive disorder Major depression recurrence: recurrent Active/Remission status: currently active Major depression episode severity: unspecified Obesity (BMI 30-39.9) E66.9
[2022-09-24 10:59] VITALS: BP 146/72; PULSE 75; O2SAT 95; BMI 34.1
== END 2022-09-24 11:48 | disposition home or self-care (01) ==
PROVIDERS: Visit Provider Internal Medicine
DX: E11.65 Type 2 diabetes mellitus with hyperglycemia (principal); Z79.4 Long term (current) use of insulin; I10 Essential (primary) hypertension; K21.9 Gastro-esophageal reflux disease without esophagitis; E78.00 Pure hypercholesterolemia, unspecified; M19.011 Primary osteoarthritis, right shoulder; F41.9 Anxiety disorder, unspecified; R10.9 Unspecified abdominal pain; M51.36 Other intervertebral disc degeneration, lumbar region; M79.662 Pain in left lower leg; E66.9 Obesity, unspecified; F33.9 Major depressive disorder, recurrent, unspecified
CPT/HCPCS: 83036; 99214

== ENCOUNTER 2022-11-04 09:40 | Outpatient (REF) | payer OTHER, SELFPAY ==
--- NOTE | ~2022-11-04 | US_ITS ---
EXAMINATION: US ABDOMEN LIMITED CLINICAL INFORMATION: Left lower quadrant pain, left kidney and spleen. COMPARISON: Ultrasound abdomen complete 06/28/2020. TECHNIQUE: Real-time imaging of the abdominal viscera. FINDINGS: LEFT KIDNEY: Benign-appearing renal cysts and likely benign renal cysts measuring up to 1 cm, 1 with mural calcification or layering milk of calcium. No follow-up imaging recommended. No hydronephrosis or renal calculi. The kidney measures 10.3 cm in maximum dimension. SPLEEN: Normal. The spleen measures 9.8 cm in maximum dimension. FREE FLUID: None. US/US abdomen limited IMPRESSION: No findings to explain symptoms of abdominal pain.
--- NOTE | ~2022-11-04 | US_ITS ---
EXAMINATION: US PELVIS COMPLETE CLINICAL INFORMATION: Left lower quadrant pain COMPARISON: Pelvic ultrasound 06/28/2020 TECHNIQUE: Transabdominal and transvaginal imaging was performed. FINDINGS: The uterus is of normal size and echogenicity measuring 9.0 x 3.0 x 4.0 cm. The endometrium is abnormally thickened measuring 1.1 cm. No myometrial vascular calcifications. The right ovary was not identified sonographically. The left measures 1.3 x 0.9 x 1.2 cm for a volume of 0.7 mL and is unremarkable in appearance. There is no pelvic free fluid. US/US pelvic and transvaginal IMPRESSION: 1. Endometrium is abnormally thickened for the postmenopausal state measuring 1.1 cm. Recommend collection with any symptoms of postmenopausal bleeding and gynecologic evaluation and management. 2. Unremarkable sonographic appearance of the left ovary. The right ovary was not identified sonographically.
== END 2022-11-04 09:41 | disposition home or self-care (01) ==
LOC: HO.US 09:40
PROVIDERS: PCP Internal Medicine; Visit Provider Internal Medicine
DX: R10.32 Left lower quadrant pain (principal)
CPT/HCPCS: 76705; 76830; 76856

== ENCOUNTER 2023-01-02 09:47 | Outpatient (AMB) | payer OTHER, MEDICAID, SELFPAY ==
[2023-01-02 09:50] VITALS: BP 142/80; PULSE 75; O2SAT 95; BMI 33.7
--- NOTE | 2023-01-02 09:50 | MHC.PC.OV ---
Vital Signs 01/02/23 09:50 Height 5 ft 2 in Weight 184 lb 6 oz BMI 33.7 BP 142/80 H Blood Pressure Location Lt brachial Position Sitting Pulse 75 Pulse Source Pulse Oximeter Pulse Oximetry (%) 95 Oxygen Delivery Method Room Air Intake Visit Reasons: 3 month follow up/DM, HTN, hyperlipidemia Coal Shooter Required: No Accompanied by: Self / Same As Patient Allergies No Known Allergies [No Known Allergies*] Allergy (Verified 01/02/23 10:33) Medication List - Last Reconciled 01/02/23 by Charan Delgado MD [adult pull ups As directed] amlodipine 10 mg PO DAILY 90 days atorvastatin 10 mg PO DAILY [bed pads As directed] [BLADDER PADS As directed] blood pressure test kit-large As directed blood sugar diagnostic (FreeStyle Lite Strips) As directed three times a day blood-glucose meter (FreeStyle Lite Meter kit) As directed 3x/day blood-glucose meter (FreeStyle Lite Meter kit) As directed 3x/day buspirone 5 mg PO BID 30 days clonidine HCl 0.1 mg PO BEDTIME gabapentin 100 mg PO BID 30 days hydroxyzine HCl 25 mg PO Q8H PRN ibuprofen 600 mg PO TID [incontinence wipes As directed] insulin degludec (Tresiba FlexTouch U-100 insulin) 24 units (0.24 mL) subcut BEDTIME lancets (FreeStyle Lancets) As directed three time a day lisinopril 40 mg PO BID 90 days lorazepam 1 mg PO Q8H PRN 30 days meclizine 25 mg PO DAILY 14 days metformin 1,000 mg PO BID metoprolol succinate ER 25 mg PO DAILY 90 days mirtazapine 15 mg PO BEDTIME miscellaneous medical supply 1 ea miscellaneous .QD miscellaneous medical supply size: Large, PADS for incontinence. nabumetone 500 mg PO BID omeprazole 20 mg PO DAILY 90 days pen needle, diabetic (BD Stephanie 2nd Gen Pen Needle) As directed pen needle, diabetic (BD Ultra-Fine Mini Pen Needle) USE 1 NEEDLE DAILY sertraline 150 mg (1.5 x 100 mg) PO DAILY 30 days Tobacco use date assessed: 01/02/23 Fall risk assessment: 1 Fall in past year Last assessed Fall Risk: 01/02/23 Dental Screening Dental Screen Date: 11/09/23 Did you have a dental visit in the last 12 months?: Yes Did you have a dental problem in the last 6 months where you did not have access to dental care?: No Was dental information given to patient?: Patient has dentist HPI 3 month follow up/DM, HTN, hyperlipidemia HPI Details Patient comes in today for her follow up visit Is still complaining of recurrent lower left-sided abdominal pain and would like to know how her US done a few weeks ago came out States that she feels okay otherwise and mainly needs her Lorazepam Rx refilled today She denies any headaches or dizziness Denies any chest pains, no SOB No nausea/vomiting and no change in bowel habits noted She denies any acute urinary symptoms and denies any vaginal discharge or bleeding lately Patient again did not get her follow up labs done recently - her daughter thinks that she had some labs done a couple of months ago when she went for her sonogram but have advised them that patient's most recent labs in her file at [facility] was from May 2022 and she did not appear to have anything else done since other than HgbA1c readings that were done here in the office during her follow up visits [facility] Medical History Left lower quadrant abdominal pain Hyperlipidemia LDL goal <100 Proteinuria Type 2 diabetes mellitus with other diabetic kidney complication Type 2 diabetes mellitus with hyperglycemia, with long-term current use of insulin Lumbar degenerative disc disease Obesity (BMI 30-39.9) Depression Anxiety GERD without esophagitis Primary osteoarthritis, right shoulder Pure hypercholesterolemia Diabetes mellitus Benign essential hypertension Chest pain Hypertension Surgical History H/O colonoscopy History of esophagogastroduodenoscopy (EGD) History of mammogram History of cataract surgery History of cholecystectomy Family History Father Diabetes Mother Diabetes Daughter Diabetes CVD (cardiovascular disease) Unknown Substance use disorder Social History Household Members: Children Housing: Apartment Alcohol intake: current Alcohol intake frequency: does not drink Patient Tobacco Use Status: Never used Tobacco e-Cigarette/Vaping Use: Never Used Second Hand Smoke Exposure: No service: No Current occupational status: disabled Cognitive needs: Yes (Pt has a cane and walker at home.) Hearing needs: Yes (Bilateral hearng loss per Pt) Vision needs: Yes (wear glasses.) Questionnaire PHQ-9 Over the last 2 weeks, how often have you been bothered by any of the following problems? 1. Little interest or pleasure in doing things: more than half the days 2. Feeling down, depressed, or hopeless: more than half the days 3. Trouble falling or staying asleep, or sleeping too much: more than half the days 4. Feeling tired or having little energy: more than half the days 5. Poor appetite or overeating: more than half the days 6. Feeling bad about yourself - or that you are a failure or have let yourself or your family down: more than half the days 7. Trouble concentrating on things, such as reading the newspaper or watching television: more than half the days 8. Moving or speaking so slowly that other people could have noticed. Or the opposite - being so fidgety or restless that you have been moving around a lot more than usual: more than half the days 9. Thoughts that you would be better off or of hurting yourself in some way: not at all Total score: 16 Depression Screening Interpretation: Positive Depression Screening Follow-up: Existing condition and In treatment Depression Screening Done: Yes 14202 - PHQ-9 Billing: Yes Source: Developed by Drs. Terrance Courtney, Latesha Ace, Romero Graham and colleagues, with an educational deidra from [email or web address]. Thrive Questionnaire Date Thrive assessed: 01/02/23 I am a: Patient What is your living situation today?: I have a steady place to live Within the past 12 months, did the food you bought not last and you didn't have the money to get more?: Never true Within the past 12 months, did you worry whether your food would run out before you got money to buy more?: Never true Do you have trouble paying for medicines?: No Do you have trouble getting transportation to medical appointments?: No Do you have trouble paying your heating and electricity bill?: No Do you have trouble taking care of your child, family member or friend?: No Do you have trouble with day-to-day activities such as bathing, preparing meals, shopping, managing finances, etc.?: No Are you currently unemployed and looking for a job?: No Are you interested in more education?: No Please select the resources that you would like help with: None Currently or been in a relationship where the following occur: no concerns reported AUDIT C Alcohol Use Questionnaire (AUDIT-C) 1. How often do you have a drink containing alcohol?: Never 3. How often do you have six or more drinks on one occasion?: Never Total Score: 0 Score Reviewed/Action Taken: Yes ANTONIETA-7 AMB Questionnaire ANTONIETA-7 Date ANTONIETA - 7 assessed: 01/02/23 Feeling nervous, anxious, or on edge: 2 = More than half the days (family passing) Not being able to stop or control worryin = More than half the days Worrying too much about different things: 2 = More than half the days Trouble relaxin = More than half the days Being so restless that it is hard to sit still: 2 = More than half the days Becoming easily annoyed or irritable: 0 = Not at all Feeling afraid as if something awful might happen: 0 = Not at all Total ANTONIETA-7 score (0-4 normal; 5-9 mild; 10-14 moderate; 15-21 severe): 10 Source: Developed by Drs. Terrance Courtney, Latesha Ace, Romero Graham and colleagues, with an educational deidra from [email or web address]. Review of Systems Const Denies chills, Reports difficulty sleeping, Denies fatigue, Denies fever(s) and Denies headache(s) ENT Denies dysphagia, Denies dizziness, Denies otalgia, Denies headache(s), Denies neck pain, Denies odynophagia and Denies sore throat Card Denies chest pain, Denies palpitations and Denies dyspnea Resp Denies cough and Denies dyspnea GI Reports abdominal pain (on and off over the lower left side of the abdomen), Denies hematochezia, Denies constipation, Denies dysphagia, Denies heartburn, Denies diarrhea, Denies nausea, Denies odynophagia and Denies vomiting Denies abnormal vaginal bleeding, Denies difficulty voiding, Denies nocturia, Denies dysuria and Denies vaginal discharge Musc Details: (+) on and off pain over her left lower leg Reports back pain (over the lower back, on and off), Reports arthralgias (in the left knee) and Denies neck pain Skin/Breast Denies rash Neuro Denies dizziness and Denies headache(s) Psych Reports anxiety (controlled with Lorazepam as needed) Endo Denies fatigue and Denies palpitations Physical exam (Primary Care) Vital Signs: Last Vital Signs Pulse 75 01/02/23 09:50 BP 142/80 H 01/02/23 09:50 Pulse Ox 95 01/02/23 09:50 Oxygen Delivery Method Room Air 01/02/23 09:50 BMI result Body Mass Index 33.7 Tobacco/Smoking Status: Tobacco use Status Tobacco use date assessed 01/02/23 01/02/23 10:00 Patient Tobacco Use Status Never used Tobacco 01/02/23 10:00 e-Cigarette/Vaping Use Never Used 01/02/23 10:00 PHQ-9: PHQ-9 Score PHQ-9: Total score 16 01/02/23 10:06 Depression Screening Interpretation: Positive Depression Screening Follow-up: Existing condition and In treatment Thrive Assessment: Date of Thrive Assessment Date Thrive assessed 01/02/23 01/02/23 10:00 Currently or been in a relationship where the following occur: no concerns reported Const General: no acute distress and alert HENMT Ears: TM's normal bilaterally and EAC's normal Throat: Yes posterior oropharynx normal and Yes tonsils normal (no TP congestion) Neck Neck: Yes no lymphadenopathy and Yes supple Resp Auscultation: clear to auscultation bilaterally, no rales and no wheezes Cardio Rate: regular rate Rhythm: regular rhythm Heart sounds: no murmurs GI Palpation (GI): Soft to palpation, Tenderness to palpation present (GI) (over the left side of the abdomen, including the LLQ area), no guarding, not rigid, No hepatosplenomegaly present and No Rebound tenderness present Auscultation: normal bowel sounds Back/Spine/Pelvis Thoracic/Lumbar Spine: lumbar spinal tenderness Skin Rashes: no rashes Extrem General: No clubbing, No cyanosis and Yes edema (1+ bipedal edema) Left lower extremity: knee Details: tenderness; no swelling Results AMB Hemoglobin A1c AMB Hemoglobin A1c 9.6 % Last Edit by Parisa Urena on 01/02/23 10:06 Results Reviewed Results Reviewed: Laboratory Last Values Hgb A1c (Clinic) 9.6 % (4.0-6.0) H 01/02/23 10:05 Assessment and Plan Assessment & Plan (1) Endometrial thickening on ultrasound: Code(s): R93.89 - Abnormal findings on diagnostic imaging of other specified body structures Plan: Have advised patient and her daughter that patient's recent abdominal US done a couple of months ago came out normal with no findings that would help explain patient's left lower abdominal pain although her pelvic US revealed (+) abnormal thickening of the endometrium measuring 1.1 cm; left ovary was normal and right ovary was not seen Have recommended that she see gynecology TAMARA for further evaluation of her recent finding of thickened endometrial lining - URGENT referral to gynecology placed (2) Type 2 diabetes mellitus with hyperglycemia, with long-term current use of insulin: Code(s): E11.65 - Type 2 diabetes mellitus with hyperglycemia; Z79.4 - half-way (current) use of insulin Plan: In-office HgbA1c done today was at 9.6% (HgbA1c was at 10.6% a few months ago) - goal is < 7.0% Reinforced diabetic diet Continue Metformin 1000 mg BID and Tresiba FlexTouch 30 units once a day; Januvia was previoulsy discontinued due to her history of pancreatitis Patient now sees Dr. Paredes for endocrinology follow up and management of her diabetes - to follow up with endocrinology as scheduled (3) Benign essential hypertension: Code(s): I10 - Essential (primary) hypertension Plan: Reinforced low-sodium diet - goal is systolic BP of at least 140 mm or less Continue Lisinopril 40 mg BID, Metoprolol ER 25 mg QD and Amlodipine 10 mg QD (4) Pure hypercholesterolemia: Code(s): E78.00 - Pure hypercholesterolemia, unspecified Plan: Was again not able to get her follow up labs done prior to her visit today - they are instructed to go and get these done [facility] as she has not had any follow up labs done since May 2022 Reinforced low cholesterol diet Continue Atorvastatin 20 mg QD Will recheck her labs and fasting lipids in 3 months for follow-up - patient and her daughter are again reminded to get these done BEFORE her appointment (5) GERD without esophagitis: Code(s): K21.9 - Gastro-esophageal reflux disease without esophagitis Plan: Dietary restrictions reinforced Continue Omeprazole 40 mg QD Abdominal and pelvic US done in 2020 revealed (+) left renal stone and enlarged echogenic liver due to fatty infiltration, echogenic calcifications along the periphery of the uterus likely old inflammatory process. Ovaries, pancreas, aorta and IVC are all unremarkable (6) Primary osteoarthritis, right shoulder: Comment: X-rays of the right shoulder done in 2019 showed (+) OA changes Code(s): M19.011 - Primary osteoarthritis, right shoulder Plan: Symptoms have improved partially with physical therapy in the past; will refer again when needed Continue Nabumetone 500 mg twice a day with food as needed for pain (7) Lumbar degenerative disc disease: Code(s): M51.36 - Other intervertebral disc degeneration, lumbar region Plan: Reinforced activity and weight-lifting restrictions Lumbar spine x-rays done in November 2021 revealed stable lumbar lordotic straightening, severe L5-S1 disc space narrowing and L4 on L5 anterolisthesis and increasing L4-L5 disc space narrowing Repeat x-rays done again on 03/27/2022 revealed moderate degenerative disc disease at L4-L5 and marked degenerative disease at L5-S1, with multi-level lumbar spondylosis and facet arthropathy; no acute findings are seen Continue Lidocaine 5% patch to apply to the painful areas on her lower back QD PRN as instructed (8) Pain in left lower leg: Code(s): M79.662 - Pain in left lower leg Plan: X-rays (of the distal left lower leg) done previously came out normal but she does have (+) OA changes in the left knee and (+) large heel spurs on her left foot, which are most likely contributing to her leg symptoms Continue OTC Tylenol PRN for pain; continue Gabapentin 100 mg BID (9) Anxiety: Code(s): F41.9 - Anxiety disorder, unspecified Plan: Continue Lorazepam 1 mg every 8 hours as needed (Rx refilled) and Sertraline 150 mg (1.5 tablets) QD (10) Depression: Code(s): F32.9 - Major depressive disorder, single episode, unspecified Qualifiers: Depression Type: major depressive disorder Major depression recurrence: recurrent Active/Remission status: currently active Major depression episode severity: unspecified Qualified Code(s): F33.9 - Major depressive disorder, recurrent, unspecified Plan: Continue Mirtazapine 50 mg Q HS and Clonidine 0.1 mg Q HS Continue Sertraline 150 mg QD - dose was increased a few months ago Follow-up with Psychiatry as scheduled (11) Obesity (BMI 30-39.9): Code(s): E66.9 - Obesity, unspecified Plan: Reinforced diet; exercise and weight loss are unrealistic expectations in this patient due to her age, relative physical inactivity and comorbidities Plan Follow up in 3 months Orders: Orders Lipid Panel 3 Months E78.00 - Pure hypercholesterolemia, unspecified Complete Blood Count Auto Diff 3 Months I10 - Essential (primary) hypertension TSH reflex Free T4 3 Months E78.00 - Pure hypercholesterolemia, unspecified UA CC w/rflx Micro + Cult 3 Months R30.0 - Dysuria AMB Hemoglobin A1c Today Z13.9 - Encounter for screening, unspecified Comprehensive [place]. Panel Fast 3 Months E78.00 - Pure hypercholesterolemia, unspecified Hemoglobin A1c 3 Months E11.9 - Type 2 diabetes mellitus without complications Microalbumin, Random (w Creat) 3 Months E11.9 - Type 2 diabetes mellitus without complications Referrals [employer] Referral R93.89 - Abnormal findings on diagnostic imaging of other specified body structures Medications: Refilled lorazepam 1 mg PO Q8H PRN 90 tabs 1RF anxiety 30 days F41.9 - Anxiety disorder, unspecified Coding Level of Care Code Est Pt Level 4 (20739) Diagnoses Endometrial thickening on ultrasound R93.89 Type 2 diabetes mellitus with hyperglycemia, with long-term current use of insulin E11.65; Z79.4 Benign essential hypertension I10 Pure hypercholesterolemia E78.00 GERD without esophagitis K21.9 Primary osteoarthritis, right shoulder M19.011 Lumbar degenerative disc disease M51.36 Pain in left lower leg M79.662 Anxiety F41.9 Episode of recurrent major depressive disorder, unspecified depression episode severity F33.9 Depression Type: major depressive disorder Major depression recurrence: recurrent Active/Remission status: currently active Major depression episode severity: unspecified Obesity (BMI 30-39.9) E66.9
== END 2023-01-02 10:33 | disposition home or self-care (01) ==
PROVIDERS: PCP Internal Medicine; Visit Provider Internal Medicine
DX: E11.65 Type 2 diabetes mellitus with hyperglycemia (principal); Z79.4 Long term (current) use of insulin
CPT/HCPCS: 83036; 99214

== ENCOUNTER 2023-01-02 10:45 | Outpatient (REF) | payer OTHER, SELFPAY ==
[2023-01-02 11:07] LABS: MANUAL DIFF FLAG NO
[2023-01-02 12:04] LABS: Basophils Absolute Auto 0.1 X10*3/uL (0.0-0.2); Basophils Percent Auto 0.5 % (0-2); Eosinophils Absolute Auto 0.2 X10*3/uL (0.0-0.4); Eosinophils Percent Auto 1.5 % (0-4); Hematocrit 36.5 % (37.0-47.0); Hemoglobin 11.7 g/dl (12.0-16.0); Imm Gran Abs Auto 0.05 X10*3/uL (0.00-0.03); Imm Gran Pct Auto 0.5 % (0.0-0.4); Lymphocytes Absolute Auto 3.5 X10*3/uL (1.2-4.9); Lymphocytes Percent Auto 32.9 % (20-40); Mean Corpuscular HGB Conc 32.1 g/dl (31.0-35.0); Mean Corpuscular Volume 84.3 fL (80.0-98.0); Mean Platelet Volume 9.7 fL (9.4-12.3); Monocytes Absolute Auto 0.6 X10*3/uL (0.1-1.2); Neutrophils Absolute Auto 6.2 x10*3/uL (2.0-8.3); Neutrophils Percent Auto 58.6 % (45-73); Platelet Count 261 X10*3/uL (160-400); Red Blood Count 4.33 X10*6/uL (4.20-5.50); Red Cell Distribution Width 14.2 % (11.0-16.0); White Blood Count 10.6 X10*3/uL (4.8-10.8)
[2023-01-02 12:16] LABS: Estimated Average Glucose 220 mg/dL; Hemoglobin A1c % 9.3 % (<6.0)
[2023-01-02 13:03] LABS: Alanine Aminotransferase 17 U/L (0-31); Albumin Level 4.1 g/dL (3.5-5.0); Alkaline Phosphatase 118 U/L (39-117); Anion Gap 13 (12-20); Aspartate Amino Transferase 27 U/L (5-31); Bilirubin Total 0.5 mg/dL (0.0-1.0); Blood Urea Nitrogen 14 mg/dL (9-16); Calcium 9.6 mg/dL (8.4-10.2); Carbon Dioxide 32 mmol/L (22-29); Chloride 102 mmol/L (96-108); Cholesterol 166 mg/dL (<200); Estimated Glomerular Filt Rate > 60; Glucose Fasting 145 mg/dL (60-99); HDL Cholesterol 45 mg/dL (>40); LDL Cholesterol Calculated 82 mg/dL (<100); Potassium 4.5 mmol/L (3.3-5.1); Sodium 142 mmol/L (135-145); TSH reflex Free T4 5.19 uIU/mL (0.32-4.0); Triglycerides 196 mg/dL (<150); Vitamin D 25-OH Total 17.7 ng/mL (>30)
[2023-01-02 13:48] LABS: Free T4 (Free Thyroxine) 0.99 ng/dL (0.71-1.85)
== END 2023-01-02 10:46 | disposition home or self-care (01) ==
LOC: HO.LAB 10:45
PROVIDERS: PCP Internal Medicine; Visit Provider Internal Medicine
DX: E11.9 Type 2 diabetes mellitus without complications (principal); I10 Essential (primary) hypertension; E55.9 Vitamin D deficiency, unspecified; E78.00 Pure hypercholesterolemia, unspecified
CPT/HCPCS: 36415; 80053; 80061; 82306; 83036; 84439; 84443; 85025

== ENCOUNTER 2023-02-06 09:14 | Outpatient (AMB) | payer OTHER, SELFPAY ==
--- NOTE | 2023-02-06 09:20 | A.OFFVIS_ITS ---
Intake Vital Signs 02/06/23 09:23 Height 5 ft 2 in Weight 184 lb 15.485 oz BMI 33.8 BP 130/68 Blood Pressure Location Rt brachial Position Sitting Pulse 67 Pulse Source Pulse Oximeter Intake Visit Reasons: DM-CONFIRMED Intake Note: Patient presents today to follow up on DMT. 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 [employer] Allergies No Known Allergies [No Known Allergies*] Allergy (Verified 02/06/23 09:27) Medication List - Last Reconciled 02/06/23 by Lizbet Jovel LPN [adult pull ups As directed] amlodipine 10 mg PO DAILY 90 days atorvastatin 10 mg PO DAILY [bed pads As directed] [BLADDER PADS As directed] blood pressure test kit-large As directed blood sugar diagnostic (FreeStyle Lite Strips) As directed three times a day blood-glucose meter (FreeStyle Lite Meter kit) As directed 3x/day blood-glucose meter (FreeStyle Lite Meter kit) As directed 3x/day buspirone 5 mg PO BID 30 days clonidine HCl 0.1 mg PO BEDTIME gabapentin 100 mg PO BID 30 days hydroxyzine HCl 25 mg PO Q8H PRN ibuprofen 600 mg PO TID [incontinence wipes As directed] insulin degludec (Tresiba FlexTouch U-100 insulin) 30 units subcut BEDTIME lancets (FreeStyle Lancets) As directed three time a day lisinopril 40 mg PO BID 90 days lorazepam 1 mg PO Q8H PRN 30 days meclizine 25 mg PO DAILY 14 days metformin 1,000 mg PO BID metoprolol succinate ER 25 mg PO DAILY 90 days mirtazapine 15 mg PO BEDTIME miscellaneous medical supply 1 ea miscellaneous .QD miscellaneous medical supply size: Large, PADS for incontinence. nabumetone 500 mg PO BID omeprazole 20 mg PO DAILY 90 days pen needle, diabetic (BD Stephanie 2nd Gen Pen Needle) As directed pen needle, diabetic (BD Ultra-Fine Mini Pen Needle) USE 1 NEEDLE DAILY sertraline 150 mg (1.5 x 100 mg) PO DAILY 30 days HPI HPI Comments History of Present Illness Details Patient is a 78 yo female with DM type 2 diagnosed approximately 2000, who presents for for management of diabetes. Patient was last seen08/31 by Parvin Johsnon NP she relies on her family members to administer her insulin. Today reports has been able to use insulin on daily basis wiht the help of her family members and she has not missed any doses. Today she reports that she had pancreatitis 25 years ago. Past medical history:DM2, HTN, HLD, cataracts Micro and macrovascular complications: + nephropathy, Diabetes medications: Tresiba 30 units, Metformin 1000 mg BID, Intolerant of Invokana. Reports had pancreatitis 25 years ago and was in hospital for 2 months. Symptoms reported: numbness, tingling in toes Hypoglycemia: denies Hyperglycemia: + urinary frequency, + nocturia(5-6x/week), + polydypsia Blood glucose monitoring: checking sporadically - 2 blood sugars in glucometer Exercise: Lives on the 3rd floor and goes up and down stairs, does exercise at home Eye exam: 09/2022 and 10/2022 Laboratory Tests 06/02/20 06/02/20 06/17/20 09:30 09:30 09:15 Creatinine 0.94 Estimated GFR 58 Hemoglobin A1c % 9.2 LDL Cholesterol Di rect 127 H LDL Cholesterol, C alc 79 Microalb/Creat Rat io 06/17/20 09:15 Creatinine Estimated GFR Hemoglobin A1c % LDL Cholesterol Di rect LDL Cholesterol, C alc Microalb/Creat Rat io 69.9 [facility] Medical History Left lower quadrant abdominal pain Hyperlipidemia LDL goal <100 Proteinuria Type 2 diabetes mellitus with other diabetic kidney complication Type 2 diabetes mellitus with hyperglycemia, with long-term current use of insulin Lumbar degenerative disc disease Obesity (BMI 30-39.9) Depression Anxiety GERD without esophagitis Primary osteoarthritis, right shoulder Pure hypercholesterolemia Diabetes mellitus Benign essential hypertension Chest pain Hypertension Surgical History H/O colonoscopy History of esophagogastroduodenoscopy (EGD) History of mammogram History of cataract surgery History of cholecystectomy Family History Father Diabetes Mother Diabetes Daughter Diabetes CVD (cardiovascular disease) Unknown Substance use disorder Social History Household Members: Children Housing: Apartment Alcohol intake: current Alcohol intake frequency: does not drink Patient Tobacco Use Status: Never used Tobacco e-Cigarette/Vaping Use: Never Used Second Hand Smoke Exposure: No service: No Current occupational status: disabled Cognitive needs: Yes (Pt has a cane and walker at home.) Hearing needs: Yes (Bilateral hearng loss per Pt) Vision needs: Yes (wear glasses.) Physical Exam Vital Signs: Last Vital Signs Pulse 67 02/06/23 09:23 BP 130/68 02/06/23 09:23 BMI result Body Mass Index 33.8 Absence of Cushingoid features. Absence of acromegalic features. Neck exam reveals nl size thyroid about 15 gms. No thyroid nodules palpable. No carotid bruits present. Lungs CTA. Heart S1 S2, Reg R/R. No M/R/ G. Skin exam reveals absence of vitiligo or acanthosis nigricans. Abdominal exam reveals Soft NT/ND with NA BS. No organomegaly present. Neck Other: . Extrem Other: Visual exam of foot performed. No ulcerations or open lesions. No onchomycosis, no callouses.Pulses 2 + distally Sensation intact to monofilament exam. Vibratory sensation sensed is decreased with 128 Hz tuning fork Results Reviewed Results Reviewed: Laboratory Last Values Glucose (Clinic) 175 mg/dL (60-115) H 02/06/23 09:43 Assessment & Plan Assessment & Plan (1) Type 2 diabetes mellitus with hyperglycemia, with long-term current use of insulin: Code(s): E11.65 - Type 2 diabetes mellitus with hyperglycemia; Z79.4 - terminal operations manager (current) use of insulin Plan: This is a 78-year-old female with history of type 2 diabetes being treated with metformin and basal insulin with poor glycemic control and known microvascular complications namely micro albuminuria. The plan is that the patient check her point cares pre and post meals. Cannot make any changes to the regimen because of lack of data. Will f/u with educator to start Dexcom G7 Once we have more information, could start either prandial insulin or consider using an alternative SGLT 2 inhibitor like Farxiga for renal protection. With the help of the science interpreter I explained the relationship of poor glycemic control to development and progression complications Medications: Changed From insulin degludec (Tresiba FlexTouch U-100 insulin) 24 units (0.24 mL) subcut BEDTIME 15 mL 3RF E11.65 - Type 2 diabetes mellitus with hyperglycemia, Z79.4 - terminal operations manager (current) use of insulin To insulin degludec (Tresiba FlexTouch U-100 insulin) 30 units subcut BEDTIME E11.65 - Type 2 diabetes mellitus with hyperglycemia, Z79.4 - [facility] (current) use of insulin Refilled pen needle, diabetic (BD Stephanie 2nd Gen Pen Needle) As directed 1,200 ea 11RF E11.65 - Type 2 diabetes mellitus with hyperglycemia, Z79.4 - terminal operations manager (current) use of insulin blood sugar diagnostic (FreeStyle Lite Strips) As directed three times a day 300 ea 5RF E11.65 - Type 2 diabetes mellitus with hyperglycemia, Z79.4 - terminal operations manager (current) use of insulin Coding Level of Care Code Est Pt Level 4 (57759) Diagnoses Type 2 diabetes mellitus with hyperglycemia, with long-term current use of insulin E11.65; Z79.4
[2023-02-06 09:23] VITALS: BP 130/68; PULSE 67; BMI 33.8
[2023-02-06 09:53] LABS: Glucose, Whole Blood 175 mg/dL (60-115)
== END 2023-02-06 10:01 | disposition home or self-care (01) ==
PROVIDERS: PCP Internal Medicine; Visit Provider Internal Medicine Endocrinology, Diabetes & Metabolism
DX: E11.65 Type 2 diabetes mellitus with hyperglycemia (principal); Z79.4 Long term (current) use of insulin
CPT/HCPCS: 99214

== ENCOUNTER → 2023-02-06 09:14 | Outpatient (BNVA) | payer OTHER, SELFPAY | PROVIDERS: PCP Internal Medicine; Visit Provider Internal Medicine Endocrinology, Diabetes & Metabolism | DX: E11.65 Type 2 diabetes mellitus with hyperglycemia (principal); Z79.4 Long term (current) use of insulin | CPT/HCPCS: 82947; 99212 ==

== ENCOUNTER 2023-06-04 16:16 | Outpatient (AMB) | payer OTHER, SELFPAY ==
[2023-06-04 16:21] VITALS: BP 130/72; PULSE 78; O2SAT 97; BMI 32.9
--- NOTE | 2023-06-04 16:21 | A.OFFPC_ITS ---
Vital Signs 06/04/23 16:21 Height 5 ft 2 in Weight 180 lb 0.6 oz BMI 32.9 BP 130/72 Blood Pressure Location Lt brachial Position Sitting Pulse 78 Pulse Source Pulse Oximeter Pulse Oximetry (%) 97 Oxygen Delivery Method Room Air Intake Visit Reasons: DM, HTN, GERD Allergies No Known Allergies [No Known Allergies*] Allergy (Verified 06/04/23 17:00) Medication List - Last Reconciled 06/04/23 by Charan Delgado MD [adult pull ups As directed] amlodipine 10 mg PO DAILY 90 days atorvastatin 10 mg PO DAILY [bed pads As directed] [BLADDER PADS As directed] blood pressure test kit-large As directed blood sugar diagnostic (FreeStyle Lite Strips) As directed three times a day blood-glucose meter (FreeStyle Lite Meter kit) As directed 3x/day blood-glucose meter (FreeStyle Lite Meter kit) As directed 3x/day buspirone 5 mg PO BID 30 days clonidine HCl 0.1 mg PO BEDTIME gabapentin 100 mg PO BID 30 days hydroxyzine HCl 25 mg PO Q8H PRN ibuprofen 600 mg PO TID [incontinence wipes As directed] insulin degludec (Tresiba FlexTouch U-100 insulin) 30 units (0.3 mL) subcut BEDTIME lancets (FreeStyle Lancets) As directed three time a day lisinopril 40 mg PO BID 90 days lorazepam 1 mg PO Q8H PRN 30 days meclizine 25 mg PO DAILY 14 days metformin 1,000 mg PO BID metoprolol succinate ER 25 mg PO DAILY 90 days mirtazapine 15 mg PO BEDTIME miscellaneous medical supply 1 ea miscellaneous .QD miscellaneous medical supply size: Large, PADS for incontinence. nabumetone 500 mg PO BID nebulizer accessories nebulizer mask and accessories omeprazole 20 mg PO DAILY 90 days pen needle, diabetic (BD Ultra-Fine Mini Pen Needle) USE 1 NEEDLE DAILY pen needle, diabetic (BD Stephanie 2nd Gen Pen Needle) As directed sertraline 150 mg (1.5 x 100 mg) PO DAILY 30 days Tobacco use date assessed: 06/04/23 Fall risk assessment: 1 Fall in past year Last assessed Fall Risk: 06/04/23 Dental Screening Dental Screen Date: 06/04/23 Did you have a dental visit in the last 12 months?: No Did you have a dental problem in the last 6 months where you did not have access to dental care?: No HPI DM, HTN, GERD HPI Details Patient comes in today for her follow up visit States that she has been experiencing increased pain in her left shoulder since she fell on her left side about a month ago Notes that the pain has been gradually improving but has not yet cleared up completely Relates that she used to hardly be able to move her left arm but can now raise it up although she still notes (+) pain in the shoulder States that she has also been experiencing increasing anxiety lately, mostly related to one of her son going through some significant health issues lately, and states that her Lorazepam 1 mg TID is not helping enough Would also like to request for a referral for some therapy and counseling She denies any headaches or dizziness Denies any chest pains, no SOB No nausea/vomiting, no abdominal pain No change in bowel habits noted She did not get her follow up labs done prior to her appointment today - her daughter states that she had labs done right after her visit a few months ago and did not think that she needs to get any additional labs done since [facility] Medical History Left lower quadrant abdominal pain Hyperlipidemia LDL goal <100 Proteinuria Type 2 diabetes mellitus with other diabetic kidney complication Type 2 diabetes mellitus with hyperglycemia, with long-term current use of insulin Lumbar degenerative disc disease Obesity (BMI 30-39.9) Depression Anxiety GERD without esophagitis Primary osteoarthritis, right shoulder Pure hypercholesterolemia Diabetes mellitus Benign essential hypertension Chest pain Hypertension Surgical History H/O colonoscopy History of esophagogastroduodenoscopy (EGD) History of mammogram History of cataract surgery History of cholecystectomy Family History Father Diabetes Mother Diabetes Daughter Diabetes CVD (cardiovascular disease) Unknown Substance use disorder Social History Household Members: Children Housing: Apartment Alcohol intake: current Alcohol intake frequency: does not drink Patient Tobacco Use Status: Never used Tobacco e-Cigarette/Vaping Use: Never Used Second Hand Smoke Exposure: No service: No Current occupational status: disabled Cognitive needs: Yes (Pt has a cane and walker at home.) Hearing needs: Yes (Bilateral hearng loss per Pt) Vision needs: Yes (wear glasses.) Questionnaire PHQ-9 Over the last 2 weeks, how often have you been bothered by any of the following problems? 1. Little interest or pleasure in doing things: more than half the days 2. Feeling down, depressed, or hopeless: more than half the days 3. Trouble falling or staying asleep, or sleeping too much: more than half the days 4. Feeling tired or having little energy: more than half the days 5. Poor appetite or overeating: more than half the days 6. Feeling bad about yourself - or that you are a failure or have let yourself or your family down: more than half the days 7. Trouble concentrating on things, such as reading the newspaper or watching television: more than half the days 8. Moving or speaking so slowly that other people could have noticed. Or the opposite - being so fidgety or restless that you have been moving around a lot more than usual: more than half the days 9. Thoughts that you would be better off or of hurting yourself in some way: not at all Total score: 16 Depression Screening Interpretation: Positive Depression Screening Follow-up: Existing condition and In treatment Depression Screening Done: Yes [id number] - PHQ-9 Billing: Yes Source: Developed by Drs. Terrance Courtney, Latesha Ace, Romero Graham and colleagues, with an educational deidra from [employer]. Thrive Questionnaire Date Thrive assessed: 06/04/23 I am a: Patient What is your living situation today?: I have a steady place to live Within the past 12 months, did the food you bought not last and you didn't have the money to get more?: Never true Within the past 12 months, did you worry whether your food would run out before you got money to buy more?: Never true Do you have trouble paying for medicines?: No Do you have trouble getting transportation to medical appointments?: No Do you have trouble paying your heating and electricity bill?: No Do you have trouble taking care of your child, family member or friend?: No Do you have trouble with day-to-day activities such as bathing, preparing meals, shopping, managing finances, etc.?: No Are you currently unemployed and looking for a job?: No Are you interested in more education?: No Please select the resources that you would like help with: None Currently or been in a relationship where the following occur: no concerns reported THRIVE Score: 0 AUDIT C Alcohol Use Questionnaire (AUDIT-C) 1. How often do you have a drink containing alcohol?: Never 3. How often do you have six or more drinks on one occasion?: Never Total Score: 0 Score Reviewed/Action Taken: Yes ANTONIETA-7 AMB Questionnaire ANTONIETA-7 Date ANTONIETA - 7 assessed: 06/04/23 Feeling nervous, anxious, or on edge: 2 = More than half the days (family passing) Not being able to stop or control worryin = More than half the days Worrying too much about different things: 2 = More than half the days Trouble relaxin = More than half the days Being so restless that it is hard to sit still: 2 = More than half the days Becoming easily annoyed or irritable: 0 = Not at all Feeling afraid as if something awful might happen: 0 = Not at all Total ANTONIETA-7 score (0-4 normal; 5-9 mild; 10-14 moderate; 15-21 severe): 10 Source: Developed by Drs. Terrance Courtney, Latesha Ace, Romero Graham and colleagues, with an educational deidra from [employer]. Review of Systems Const Denies chills, Reports difficulty sleeping, Denies fatigue, Denies fever(s) and Denies headache(s) ENT Denies dysphagia, Denies dizziness, Denies otalgia, Denies headache(s), Denies neck pain, Denies odynophagia and Denies sore throat Card Denies chest pain, Denies palpitations and Denies dyspnea Resp Denies cough and Denies dyspnea GI Denies abdominal pain, Denies constipation, Denies dysphagia, Denies heartburn, Denies diarrhea, Denies nausea, Denies odynophagia and Denies vomiting Denies abnormal vaginal bleeding, Denies difficulty voiding, Denies nocturia, Denies dysuria and Denies urinary urgency Musc Details: (+) on and off pain over her left lower leg Reports back pain (over the lower back, on and off), Reports arthralgias (in the left knee; also in the left shoulder for the past month) and Denies neck pain Skin/Breast Denies rash Neuro Denies dizziness and Denies headache(s) Psych Reports anxiety (increased lately) Endo Denies fatigue and Denies palpitations Physical exam (Primary Care) Vital Signs: Last Vital Signs Pulse 78 06/04/23 16:21 BP 130/72 06/04/23 16:21 Pulse Ox 97 06/04/23 16:21 Oxygen Delivery Method Room Air 06/04/23 16:21 BMI result Body Mass Index 32.9 Tobacco/Smoking Status: Tobacco use Status Tobacco use date assessed 06/04/23 06/04/23 16:40 Patient Tobacco Use Status Never used Tobacco 06/04/23 16:21 e-Cigarette/Vaping Use Never Used 06/04/23 16:21 Depression Screening Interpretation: Positive Depression Screening Follow-up: Existing condition and In treatment Thrive Assessment: Date of Thrive Assessment Date Thrive assessed 01/02/23 06/04/23 16:21 Currently or been in a relationship where the following occur: no concerns repo rted Const General: no acute distress and alert HENMT Ears: TM's normal bilaterally and EAC's normal Throat: Yes posterior oropharynx normal and Yes tonsils normal (no TP congestion) Neck Neck: Yes no lymphadenopathy and Yes supple Thyroid: Thyroid normal Resp Auscultation: clear to auscultation bilaterally, no rales and no wheezes Cardio Rate: regular rate Rhythm: regular rhythm Heart sounds: no murmurs GI Palpation (GI): Soft to palpation and nontender Auscultation: normal bowel sounds General: Yes no CVA tenderness Back/Spine/Pelvis Back: no CVA tenderness Thoracic/Lumbar Spine: lumbar spinal tenderness Skin Rashes: no rashes Extrem General: No clubbing, No cyanosis and Yes edema (1+ bipedal edema) Left upper extremity: shoulder/upper arm Details: tenderness Location: of the A- C joint and over the deltoid bursa and normal ROM Left lower extremity: knee Details: tenderness; no swelling Results AMB Hemoglobin A1c AMB Hemoglobin A1c 9.5 % Last Edit by ANIYA Torres on 06/04/23 16:43 Results Reviewed Results Reviewed: Laboratory Last Values Hgb A1c (Clinic) 9.5 % (4.0-6.0) H 06/04/23 16:20 Assessment and Plan Assessment & Plan (1) Type 2 diabetes mellitus with hyperglycemia, with long-term current use of insulin: Code(s): E11.65 - Type 2 diabetes mellitus with hyperglycemia; 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 Paredes for endocrinology follow up and management of her diabetes and as she is scheduled to be seen by Dr. Paredes next week on 06/11/2023, I will hold off on making any changes to her diabetes medication regimen She is advised to get her follow up labs done BEFORE she goes to see Dr. Paredes next week - her previous lab orders are all updated and printed out for patient to help REMIND her to get these done TAMARA (2) Benign essential hypertension: Code(s): I10 - Essential (primary) hypertension Plan: Reinforced low-sodium diet - goal is systolic BP of at least 140 mm or less Continue Lisinopril 40 mg BID, Metoprolol ER 25 mg QD and Amlodipine 10 mg QD (3) Pure hypercholesterolemia: Code(s): E78.00 - Pure hypercholesterolemia, unspecified Plan: She is again not able to get her follow up labs done prior to her visit today - they are instructed to go and get these done TAMARA before her appointment with Dr. Paredes next week Reinforced low cholesterol diet Continue Atorvastatin 20 mg QD Will recheck her labs and fasting lipids in 3 months for follow-up - patient and her daughter are again reminded to get these done BEFORE her appointment and her orders are printed out and handed to them to help remind them although uncertain if they will remember this or not as they have proven to be unreliable multiple times in the past (4) GERD without esophagitis: Code(s): K21.9 - Gastro-esophageal reflux disease without esophagitis Plan: Dietary restrictions reinforced Continue Omeprazole 40 mg QD Abdominal and pelvic US done in 2020 revealed (+) left renal stone and enlarged echogenic liver due to fatty infiltration, echogenic calcifications along the periphery of the uterus likely old inflammatory process. Ovaries, pancreas, aorta and IVC are all unremarkable (5) Primary osteoarthritis, right shoulder: Comment: X-rays of the right shoulder done in 2019 showed (+) OA changes Code(s): M19.011 - Primary osteoarthritis, right shoulder Plan: Symptoms have improved partially with physical therapy in the past; will refer again when needed Continue Nabumetone 500 mg twice a day with food as needed for pain (6) Left shoulder pain: Code(s): M25.512 - Pain in left shoulder Qualifiers: Chronicity: acute Qualified Code(s): M25.512 - Pain in left shoulder Plan: Ongoing over the past month since she fell on her left side about a month ago She states that her shoulder pain has gradually improved since to the point that she is now able to move her left arm and shoulder much better than she did a month ago Will send her for left shoulder x-rays TAMARA for further evaluation (7) Lumbar degenerative disc disease: Code(s): M51.36 - Other intervertebral disc degeneration, lumbar region Plan: Reinforced activity and weight-lifting restrictions Lumbar spine x-rays done in November 2021 revealed stable lumbar lordotic straightening, severe L5-S1 disc space narrowing and L4 on L5 anterolisthesis and increasing L4-L5 disc space narrowing Repeat x-rays done again on 03/27/2022 revealed moderate degenerative disc disease at L4-L5 and marked degenerative disease at L5-S1, with multi-level lumbar spondylosis and facet arthropathy; no acute findings are seen Continue Lidocaine 5% patch to apply to the painful areas on her lower back QD PRN as instructed (8) Pain in left lower leg: Code(s): M79.662 - Pain in left lower leg Plan: X-rays (of the distal left lower leg) done previously came out normal but she does have (+) OA changes in the left knee and (+) large heel spurs on her left foot, which are most likely contributing to her leg symptoms Continue OTC Tylenol PRN for pain; continue Gabapentin 100 mg BID (9) Anxiety: Code(s): F41.9 - Anxiety disorder, unspecified Plan: Continue Lorazepam 1 mg every 8 hours as needed and Sertraline 150 mg (1.5 tablets) QD Per request, will refer her to psychiatry for counseling and therapy Will also increase her Buspirone from 5 mg BID to 10 mg BID to help with her increased anxiety lately (10) Depression: Code(s): F32.9 - Major depressive disorder, single episode, unspecified Qualifiers: Depression Type: major depressive disorder Major depression recurrence: recurrent Active/Remission status: currently active Major depression episode severity: unspecified Qualified Code(s): F33.9 - Major depressive disorder, recurrent, unspecified Plan: Continue Mirtazapine Q HS and Clonidine 0.1 mg Q HS - she was supposed to be on Mirtazapine 15 mg Q HS but admits to only taking 1/2 tablet (7.5 mg) lately as she did not want to get too sleepy or sedated since her son, who is currently having some significant health issues of his own, will try to wake her up at night when he needs her to do something Continue Sertraline 150 mg QD Follow up with psychiatry as scheduled (11) Obesity (BMI 30-39.9): Code(s): E66.9 - Obesity, unspecified Plan: Reinforced diet; exercise and weight loss are unrealistic expectations in this patient due to her age, relative physical inactivity and comorbidities Plan Follow up in 3 months Orders: Orders Comprehensive [place]. Panel Fast 3 Months E78.00 - Pure hypercholesterolemia, unspecified Microalbumin, Random (w Creat) 3 Months E11.9 - Type 2 diabetes mellitus without complications UA CC w/rflx Micro + Cult 3 Months R30.0 - Dysuria Vitamin D 25-OH Total 3 Months E55.9 - Vitamin D deficiency, unspecified Vitamin B12 and Folate 3 Months E53.8 - Deficiency of other specified B group vitamins AMB Hemoglobin A1c Today E11.29 - Type 2 diabetes mellitus with other diabetic kidney complication XR shoulder LT min 2V Today M25.512 - Pain in left shoulder Complete Blood Count Auto Diff 3 Months D64.9 - Anemia, unspecified Lipid Panel 3 Months E78.00 - Pure hypercholesterolemia, unspecified TSH reflex Free T4 3 Months E78.00 - Pure hypercholesterolemia, unspecified Hemoglobin A1c 3 Months E11.9 - Type 2 diabetes mellitus without complications Referrals Psychiatry Referral F33.9 - Major depressive disorder, recurrent, unspecified, F41.9 - Anxiety disorder, unspecified Medications: Changed From buspirone 5 mg PO BID 30 days 60 tabs 1RF To buspirone 10 mg PO BID 30 days 60 tabs 3RF Coding Level of Care Code Est Pt Level 4 (76460) Diagnoses Type 2 diabetes mellitus with hyperglycemia, with long-term current use of insulin E11.65; Z79.4 Benign essential hypertension I10 Pure hypercholesterolemia E78.00 GERD without esophagitis K21.9 Primary osteoarthritis, right shoulder M19.011 Acute pain of left shoulder M25.512 Chronicity: acute Lumbar degenerative disc disease M51.36 Pain in left lower leg M79.662 Anxiety F41.9 Episode of recurrent major depressive disorder, unspecified depression episode severity F33.9 Depression Type: major depressive disorder Major depression recurrence: recurrent Active/Remission status: currently active Major depression episode severity: unspecified Obesity (BMI 30-39.9) E66.9
== END 2023-06-04 17:09 | disposition home or self-care (01) ==
PROVIDERS: PCP Internal Medicine; Visit Provider Internal Medicine
DX: E11.29 Type 2 diabetes mellitus with other diabetic kidney complication (principal)
CPT/HCPCS: 83036; 99214

== ENCOUNTER 2023-06-10 08:42 | Outpatient (REF) | payer OTHER, SELFPAY ==
[2023-06-10 09:02] LABS: MANUAL DIFF FLAG NO
[2023-06-10 09:33] LABS: Basophils Percent Auto 0.4 % (0-2); Eosinophils Absolute Auto 0.2 X10*3/uL (0.0-0.4); Eosinophils Percent Auto 2.3 % (0-4); Hematocrit 37.6 % (37.0-47.0); Hemoglobin 11.8 g/dl (12.0-16.0); Imm Gran Abs Auto 0.03 X10*3/uL (0.00-0.03); Imm Gran Pct Auto 0.3 % (0.0-0.4); Lymphocytes Absolute Auto 3.3 X10*3/uL (1.2-4.9); Mean Corpuscular HGB Conc 31.4 g/dl (31.0-35.0); Mean Corpuscular Hemoglobin 26.5 pg (27.0-33.0); Mean Corpuscular Volume 84.3 fL (80.0-98.0); Mean Platelet Volume 9.9 fL (9.4-12.3); Monocytes Absolute Auto 0.5 X10*3/uL (0.1-1.2); Platelet Count 247 X10*3/uL (160-400); Red Blood Count 4.46 X10*6/uL (4.20-5.50); Red Cell Distribution Width 14.2 % (11.0-16.0)
[2023-06-10 10:02] LABS: Alanine Aminotransferase 24 U/L (0-31); Alkaline Phosphatase 151 U/L (39-117); Anion Gap 14 (12-20); Aspartate Amino Transferase 22 U/L (5-31); Bilirubin Total 0.4 mg/dL (0.0-1.0); Blood Urea Nitrogen 26 mg/dL (9-16); Carbon Dioxide 30 mmol/L (22-29); Chloride 102 mmol/L (96-108); Cholesterol 210 mg/dL (<200); Estimated Glomerular Filt Rate > 60; Glucose Fasting 209 mg/dL (60-99); HDL Cholesterol 45 mg/dL (>40); LDL Cholesterol Calculated 102 mg/dL (<100); Potassium 5.2 mmol/L (3.3-5.1); Sodium 141 mmol/L (135-145); Total Protein 7.8 g/dL (6.5-8.0); Triglycerides 318 mg/dL (<150)
[2023-06-10 10:10] LABS: Appearance Urine Cloudy; Color Urine Yellow; Glucose Urine UA Negative (Negative); Leukocyte Esterase Urine Moderate (2+) (Negative); Nitrite Urine Negative (Negative); PH 5.5 (5.0-9.0); Specific Gravity - Urine 1.025 (1.005-1.025); UMIC TRIGGER UACC YES; Urine Blood Negative (Negative); Urine Ketones Trace mg/dL (Negative); Urine Protein Trace mg/dL (Neg-Trace)
[2023-06-10 10:19] LABS: Bacteria Urine None Seen (None Seen); Hyaline Casts Urine 0-2 /LPF (0-2); RBC Urine 0-2 /HPF (0-2); UACC Culture Trigger YES
[2023-06-10 10:20] LABS: TSH reflex Free T4 7.81 uIU/mL (0.32-4.0)
[2023-06-10 11:00] LABS: Creatinine Urine 135.49 mg/dL; Microalbum/Creatinine Ratio Ur 68.6 ug/mg cr (<30)
[2023-06-10 11:40] LABS: Free T4 (Free Thyroxine) 1.09 ng/dL (0.71-1.85)
== END 2023-06-10 08:43 | disposition home or self-care (01) ==
LOC: HO.LAB 08:42
PROVIDERS: Visit Provider Internal Medicine
DX: E11.9 Type 2 diabetes mellitus without complications (principal); E78.00 Pure hypercholesterolemia, unspecified; I10 Essential (primary) hypertension; R30.0 Dysuria
CPT/HCPCS: 36415; 80053; 80061; 81001; 81003; 82043; 82570; 84439; 84443; 85025; 87086

== ENCOUNTER 2023-06-11 10:27 | Outpatient (AMB) | payer OTHER, SELFPAY ==
--- NOTE | 2023-06-11 10:31 | A.OFFVIS_ITS ---
Intake Vital Signs 06/11/23 10:32 Height 5 ft 2 in Weight 184 lb 1.376 oz BMI 33.7 BP 150/50 H Blood Pressure Location Lt brachial Position Sitting Pulse 96 Pulse Source Pulse Oximeter Intake Visit Reasons: f/u Type 2 DM-confirmed Intake Note: Patient presents today to follow up on D2MT. Last Diabetic Eye exam: 01/2023 Last Podiatry Visit: Doesn't have one Random Glucose: 255 mg/dl HgA1c: 9.5% 06/04/23 Generator Assembler Required: Yes Generator Assembler Language: Automotive Alignment Specialist Name: Deidra Information Interpreted: non-clinical & clinical Accompanied by: Grand Child Allergies No Known Allergies [No Known Allergies*] Allergy (Verified 06/11/23 10:37) Medication List - Last Reconciled 06/11/23 by Terrance Paredes MD [adult pull ups As directed] amlodipine 10 mg PO DAILY 90 days atorvastatin 10 mg PO DAILY [bed pads As directed] [BLADDER PADS As directed] blood pressure test kit-large As directed blood sugar diagnostic (FreeStyle Lite Strips) As directed three times a day blood-glucose meter (FreeStyle Lite Meter kit) As directed 3x/day blood-glucose meter (FreeStyle Lite Meter kit) As directed 3x/day buspirone 10 mg PO BID 30 days clonidine HCl 0.1 mg PO BEDTIME gabapentin 100 mg PO BID 30 days hydroxyzine HCl 25 mg PO Q8H PRN ibuprofen 600 mg PO TID [incontinence wipes As directed] insulin degludec (Tresiba FlexTouch U-100 insulin) 30 units (0.3 mL) subcut BEDTIME lancets (FreeStyle Lancets) As directed three time a day lisinopril 40 mg PO BID 90 days lorazepam 1 mg PO Q8H PRN 30 days meclizine 25 mg PO DAILY 14 days metformin 1,000 mg PO BID metoprolol succinate ER 25 mg PO DAILY 90 days mirtazapine 15 mg PO BEDTIME miscellaneous medical supply 1 ea miscellaneous .QD miscellaneous medical supply size: Large, PADS for incontinence. nabumetone 500 mg PO BID nebulizer accessories nebulizer mask and accessories omeprazole 20 mg PO DAILY 90 days pen needle, diabetic (BD Ultra-Fine Mini Pen Needle) USE 1 NEEDLE DAILY pen needle, diabetic (BD Stephanie 2nd Gen Pen Needle) As directed sertraline 150 mg (1.5 x 100 mg) PO DAILY 30 days HPI HPI Comments History of Present Illness Details Patient is a 78 yo female with DM type 2 diagnosed approximately 2000, who presents for for management of diabetes. she relies on her family members to administer her insulin. she reports that she had pancreatitis 25 years ago. Past medical history:DM2, HTN, HLD, cataracts Micro and macrovascular complications: + nephropathy, Diabetes medications: Tresiba 30 units, Metformin 1000 mg BID, Intolerant of Invokana. Reports had pancreatitis 25 years ago and was in hospit al for 2 months. Symptoms reported: numbness, tingling in toes Hypoglycemia: denies Hyperglycemia: + urinary frequency, + nocturia(5-6x/week), + polydypsia Blood glucose monitoring: Glucometer download shows she is checking her point cares once a day. Average glucose is 246 with a range of 127-353. 7% range with 93% hyperglycemia and no hypoglycemia Exercise: Lives on the 3rd floor and goes up and down stairs, does exercise at home Eye exam: Jan 2023 Laboratory Tests 06/02/20 06/02/20 06/17/20 09:30 09:30 09:15 Creatinine 0.94 Estimated GFR 58 Hemoglobin A1c % 9.2 LDL Cholesterol Di rect 127 H LDL Cholesterol, C alc 79 Microalb/Creat Rat io 06/17/20 09:15 Creatinine Estimated GFR Hemoglobin A1c % LDL Cholesterol Di rect LDL Cholesterol, C alc Microalb/Creat Rat io 69.9 PFSH Medical History Left lower quadrant abdominal pain Hyperlipidemia LDL goal <100 Proteinuria Type 2 diabetes mellitus with other diabetic kidney complication Type 2 diabetes mellitus with hyperglycemia, with long-term current use of insulin Lumbar degenerative disc disease Obesity (BMI 30-39.9) Depression Anxiety GERD without esophagitis Primary osteoarthritis, right shoulder Pure hypercholesterolemia Diabetes mellitus Benign essential hypertension Chest pain Hypertension Surgical History H/O colonoscopy History of esophagogastroduodenoscopy (EGD) History of mammogram History of cataract surgery History of cholecystectomy Family History Father Diabetes Mother Diabetes Daughter Diabetes CVD (cardiovascular disease) Unknown Substance use disorder Social History Household Members: Children Housing: Apartment Alcohol intake: current Alcohol intake frequency: does not drink Patient Tobacco Use Status: Never used Tobacco e-Cigarette/Vaping Use: Never Used Second Hand Smoke Exposure: No service: No Current occupational status: disabled Cognitive needs: Yes (Pt has a cane and walker at home.) Hearing needs: Yes (Bilateral hearng loss per Pt) Vision needs: Yes (wear glasses.) Physical Exam Vital Signs: Last Vital Signs Pulse 96 06/11/23 10:32 BP 150/50 H 06/11/23 10:32 BMI result Body Mass Index 33.7 Absence of Cushingoid features. Absence of acromegalic features. Neck exam reveals nl size thyroid about 15 gms. No thyroid nodules palpable. No carotid bruits present. Lungs CTA. Heart S1 S2, Reg R/R. No M/R/ G. Skin exam reveals absence of vitiligo or acanthosis nigricans. Abdominal exam reveals Soft NT/ND with NA BS. No organomegaly present. Neck Other: . Extrem Other: Visual exam of foot performed. No ulcerations or open lesions. No onchomycosis, no callouses.Pulses 2 + distally Sensation intact to monofilament exam. 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 The plan is that the patient check her point cares pre and post meals. Patient was prescribed with Dexcom last visit which daughter states was not compatible. I will represcribe Dexcom Cannot make any changes to the regimen because of la ck of data. Will have patient f/u with educator to start Dexcom Once we have more information, could start either prandial insulin or consider using an alternative SGLT 2 inhibitor like Farxiga for renal protection. With the help of the belt turner I explained the relationship of poor glycemic control to development and progression complications. 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
[2023-06-11 10:32] VITALS: BP 150/50; PULSE 96; BMI 33.7
[2023-06-11 10:42] LABS: Glucose, Whole Blood 255 mg/dL (60-115)
== END 2023-06-11 11:03 | disposition home or self-care (01) ==
PROVIDERS: PCP Internal Medicine; Visit Provider Internal Medicine Endocrinology, Diabetes & Metabolism
DX: E11.65 Type 2 diabetes mellitus with hyperglycemia (principal); Z79.4 Long term (current) use of insulin
CPT/HCPCS: 99214

== ENCOUNTER → 2023-06-11 10:27 | Outpatient (BNVA) | payer OTHER, SELFPAY | PROVIDERS: PCP Internal Medicine; Visit Provider Internal Medicine Endocrinology, Diabetes & Metabolism | DX: E11.65 Type 2 diabetes mellitus with hyperglycemia (principal); Z79.4 Long term (current) use of insulin | CPT/HCPCS: 82947; 99212 ==

== ENCOUNTER 2023-07-01 09:53 | Outpatient (AMB) | payer OTHER, SELFPAY ==
--- NOTE | 2023-07-01 10:26 | MHC.AMDMED ---
Intake Intake Visit Reasons: T2DM/CONFIRMED Want Ad Supervisor Required: Yes Want Ad Supervisor Language: Supply Coordinator Name: Tre [facility] Information Interpreted: non-clinical & clinical Accompanied by: Grand Child Allergies No Known Allergies [No Known Allergies*] Allergy (Verified 06/11/23 10:37) HPI Comprehensive Diabetes Asmnt Most Recent Diabetes Results: Hemoglobin A1c 10.9 % 04/06/18 Microalb/Creat Ratio 68.6 ug/mg cr (<30) H 06/10/23 Cholesterol 210 mg/dL (<200) H 06/10/23 HDL Cholesterol 45 mg/dL (>40) 06/10/23 Triglycerides 318 mg/dL (<150) H 06/10/23 Creatinine 0.90 mg/dL (0.5-1.4) 06/10/23 Blood Urea Nitrogen 26 mg/dL (9-16) H 06/10/23 Sodium 141 mmol/L (135-145) 06/10/23 Potassium 5.2 mmol/L (3.3-5.1) H 06/10/23 Chloride 102 mmol/L (96-108) 06/10/23 Carbon Dioxide 30 mmol/L (22-29) H 06/10/23 Calcium 10.0 mg/dL (8.4-10.2) 06/10/23 AST 22 U/L (5-31) 06/10/23 ALT 24 U/L (0-31) 06/10/23 Total Protein 7.8 g/dL (6.5-8.0) 06/10/23 Albumin 4.0 g/dL (3.5-5.0) 06/10/23 [facility] Medical History Left lower quadrant abdominal pain Hyperlipidemia LDL goal <100 Proteinuria Type 2 diabetes mellitus with other diabetic kidney complication Type 2 diabetes mellitus with hyperglycemia, with long-term current use of insulin Lumbar degenerative disc disease Obesity (BMI 30-39.9) Depression Anxiety GERD without esophagitis Primary osteoarthritis, right shoulder Pure hypercholesterolemia Diabetes mellitus Benign essential hypertension Chest pain Hypertension Surgical History H/O colonoscopy History of esophagogastroduodenoscopy (EGD) History of mammogram History of cataract surgery History of cholecystectomy Family History Father Diabetes Mother Diabetes Daughter Diabetes CVD (cardiovascular disease) Unknown Substance use disorder Social History Household Members: Children Housing: Apartment Alcohol intake: current Alcohol intake frequency: does not drink Patient Tobacco Use Status: Never used Tobacco e-Cigarette/Vaping Use: Never Used Second Hand Smoke Exposure: No service: No Current occupational status: disabled Cognitive needs: Yes (Pt has a cane and walker at home.) Hearing needs: Yes (Bilateral hearng loss per Pt) Vision needs: Yes (wear glasses.) Assessment & Plan Assessment & Plan (1) Type 2 diabetes mellitus with hyperglycemia, with long-term current use of insulin: Code(s): E11.65 - Type 2 diabetes mellitus with hyperglycemia; 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 Discussed lag time between finger stick and sensor data.? Instructed patient she should always keep blood glucometer for backup testing if needed Reviewed delay of CGM from fingersticks Reminded pt that if symptoms do not match sensor still needs to check fingersticks. Follow up with healthcare educator in 2 weeks Patient Instructions: Instrucciones para el paciente: CGM proporciona informaci?n sobre el control de la glucosa en rafia a lo amy del d?a, incluidas la hiperglucemia y la hipoglucemia. Contin?e controlando la glucosa en rafia seg?n las instrucciones. Siga las pautas de nutrici?n proporcionadas. Informe cualquier molestia de inmediato al proveedor de atenci?n m?dica. Mantente art hidratado. Puede ba?arse, ducharse, nadar y hacer ejercicio mientras usa el sensor de glucosa. No sumerja el sensor de glucosa en agua yoli m?s de 30 minutos. Retire el sensor para bailey resonancia magn?nils o bailey tomograf?a computarizada. Evite la m?quina de shane X en los aeropuertos: retire el sensor o solicite la varita Coding Level of Care Code Est Pt Level 1 (13606) Diagnoses Type 2 diabetes mellitus with hyperglycemia, with long-term current use of insulin E11.65; Z79.4
== END 2023-07-01 10:30 | disposition home or self-care (01) ==
PROVIDERS: PCP Internal Medicine; Visit Provider Registered Nurse Diabetes Educator
DX: E11.65 Type 2 diabetes mellitus with hyperglycemia (principal); Z79.4 Long term (current) use of insulin

== ENCOUNTER → 2023-07-01 09:53 | Outpatient (BNVA) | payer OTHER, SELFPAY | PROVIDERS: PCP Internal Medicine; Visit Provider Registered Nurse Diabetes Educator | DX: E11.65 Type 2 diabetes mellitus with hyperglycemia (principal); Z79.4 Long term (current) use of insulin | CPT/HCPCS: 99211 ==

== ENCOUNTER 2023-07-15 10:57 | Outpatient (AMB) | payer OTHER, SELFPAY ==
--- NOTE | 2023-07-15 11:29 | MHC.AMDMED ---
Intake Intake Visit Reasons: CGM review/CONFIRMED Hearth Feeder Required: Yes Hearth Feeder Name: Mehul [id number] Information Interpreted: non-clinical & clinical Accompanied by: Grand Child Allergies No Known Allergies [No Known Allergies*] Allergy (Verified 06/11/23 10:37) [facility] Comprehensive Diabetes Asmnt Most Recent Diabetes Results: Hemoglobin A1c 10.9 % 04/06/18 Microalb/Creat Ratio 68.6 ug/mg cr (<30) H 06/10/23 Cholesterol 210 mg/dL (<200) H 06/10/23 HDL Cholesterol 45 mg/dL (>40) 06/10/23 Triglycerides 318 mg/dL (<150) H 06/10/23 Creatinine 0.90 mg/dL (0.5-1.4) 06/10/23 Blood Urea Nitrogen 26 mg/dL (9-16) H 06/10/23 Sodium 141 mmol/L (135-145) 06/10/23 Potassium 5.2 mmol/L (3.3-5.1) H 06/10/23 Chloride 102 mmol/L (96-108) 06/10/23 Carbon Dioxide 30 mmol/L (22-29) H 06/10/23 Calcium 10.0 mg/dL (8.4-10.2) 06/10/23 AST 22 U/L (5-31) 06/10/23 ALT 24 U/L (0-31) 06/10/23 Total Protein 7.8 g/dL (6.5-8.0) 06/10/23 Albumin 4.0 g/dL (3.5-5.0) 06/10/23 [facility] Medical History Left lower quadrant abdominal pain Hyperlipidemia LDL goal <100 Proteinuria Type 2 diabetes mellitus with other diabetic kidney complication Type 2 diabetes mellitus with hyperglycemia, with long-term current use of insulin Lumbar degenerative disc disease Obesity (BMI 30-39.9) Depression Anxiety GERD without esophagitis Primary osteoarthritis, right shoulder Pure hypercholesterolemia Diabetes mellitus Benign essential hypertension Chest pain Hypertension Surgical History H/O colonoscopy History of esophagogastroduodenoscopy (EGD) History of mammogram History of cataract surgery History of cholecystectomy Family History Father Diabetes Mother Diabetes Daughter Diabetes CVD (cardiovascular disease) Unknown Substance use disorder Social History Household Members: Children Housing: Apartment Alcohol intake: current Alcohol intake frequency: does not drink Patient Tobacco Use Status: Never used Tobacco e-Cigarette/Vaping Use: Never Used Second Hand Smoke Exposure: No service: No Current occupational status: disabled Cognitive needs: Yes (Pt has a cane and walker at home.) Hearing needs: Yes (Bilateral hearng loss per Pt) Vision needs: Yes (wear glasses.) Assessment & Plan Assessment & Plan (1) Type 2 diabetes mellitus with hyperglycemia, with long-term current use of insulin: Code(s): E11.65 - Type 2 diabetes mellitus with hyperglycemia; 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 The patient met all learning objectives and was able to verbalize understanding and provide teach back of education topics discussed . The patient was provided with the opportunity to ask questions and all questions were answered. Patient Assessment Assess patient education level/literacy/barriers, Patient questions/concerns, patient's last A1c 06/04/2023 was 10% Patient currently taking Tresiba 30 units daily, recommended at today's visit to increase Tresiba to 36 units Metformin 1000 mg b.i.d. Recommended patient make appointment with registered dietitian, message sent to provider to submit nutrition referral What is Diabetes? Pathophysiology How the body produces and uses insulin Identify type of DM Risk factors Signs of Diabetes Brief overview of Diabetes Management Monitoring blood sugar Following a meal plan Regular exercise Maintaining a healthy weight Taking medication as needed Members of the care team (PCP, RN, MA, RD, CDE, concrete sculptor) Blood glucose monitoring When/how often to test Target blood sugar ranges Patient uses Dexcom G7 Average glucose for the past 14 days 280 mg/dL Patient above target 92% Patient at target 8% Patient below target 0% Patient's granddaughter assist patient in changing sensors every 10 days Introduction to Nutrition Importance of healthy diet in managing DM Diet is personalized to individual preference Review patient?s regular diet/food preferences Who prepares meals/does food shopping/ Dining out?/ Barriers? How diet effects glucose Eating 3 balanced meals a day with small, healthy snacks between meals Review food groups Carbohydrates: What is a carbohydrate/Which food/food groups are considered carbohydrates Effect of carbohydrates on blood glucose Portion sizes Reading food labels Basic carb counting (if applicable per nursing assessment) Plate method Meal planning Recommendations: Follow plate method, consistent carbs and read nutritional labels. Smart Goal: Educational Materials: The patient was provided with the following written educational materials: Planning Healthy Meals Carbohydrates in Common [place] [employer] foods Handout Patient Response to instructions: Comprehension of Instructions: Fair Readiness to make changes: Contemplation How confident they feel about making changes: Positive Patient Instructions: Incluir actividad diaria regular. ADA recomienda 30 minutos de ejercicio 5 d?as a la semana. P?rdida de peso, hable con el PCP o el cardi?logo antes de comenzar un nuevo plan. Mida el nivel de az?car en la rafia seg?n las indicaciones; Ayuno y comida m?s winnie de 2hpp. Observe las tendencias en los resultados. Utilice los resultados y eval?e c?mo los alimentos, la actividad f?duran y los medicamentos afectan los resultados de az?car en la rafia. Lleve el gluc?metro o CGM a la pr?xima visita. Conocer los medicamentos para la diabetes, mcgill acci?n, los efectos secundarios, la eficacia, la toxicidad, la dosis prescrita, el momento y la frecuencia de administraci?n apropiados, el efecto de las dosis olvidadas y retrasadas y las instrucciones de almacenamiento, viaje y seguridad. T?cnicas de resoluci?n de problemas para el seguimiento de episodios de hipo/hiperglucemia y tratamientos. Reducir los comportamientos de reducci?n de riesgos, dejar de fumar, ex?menes regulares de ojos, pies y dentales.Aumentar tresiba de 30 unidades a 36 unidades diarias Seguimiento en 1 mes Coding Level of Care Code Est Pt Level 1 (91736) Diagnoses Type 2 diabetes mellitus with hyperglycemia, with long-term current use of insulin E11.65; Z79.4
== END 2023-07-15 11:38 | disposition home or self-care (01) ==
PROVIDERS: PCP Internal Medicine; Visit Provider Registered Nurse Diabetes Educator
DX: E11.65 Type 2 diabetes mellitus with hyperglycemia (principal); Z79.4 Long term (current) use of insulin

== ENCOUNTER → 2023-07-15 10:57 | Outpatient (BNVA) | payer OTHER, SELFPAY | PROVIDERS: PCP Internal Medicine; Visit Provider Registered Nurse Diabetes Educator | DX: E11.65 Type 2 diabetes mellitus with hyperglycemia (principal); Z79.4 Long term (current) use of insulin | CPT/HCPCS: 99211 ==

== ENCOUNTER 2023-07-24 10:57 | Outpatient (AMB) | payer OTHER, SELFPAY ==
[2023-07-24 11:02] VITALS: BP 134/70; PULSE 74; O2SAT 96; BMI 34.7
--- NOTE | 2023-07-24 11:02 | A.OFFPC_ITS ---
Vital Signs 07/24/23 11:02 Height 5 ft 2 in Weight 190 lb BMI 34.7 BP 134/70 Blood Pressure Location Lt brachial Position Sitting Pulse 74 Pulse Source Pulse Oximeter Pulse Oximetry (%) 96 Oxygen Delivery Method Room Air Intake Visit Reasons: [facility] [place] 06/20 Fell Dynamometer Repairer Required: Yes Continuity Tester: Present Accompanied by: Grand Child Allergies No Known Allergies [No Known Allergies*] Allergy (Verified 07/24/23 11:30) Medication List - Last Reconciled 07/24/23 by Charan Delgado MD [adult pull ups As directed] amlodipine 10 mg PO DAILY 90 days atorvastatin 10 mg PO DAILY [bed pads As directed] [BLADDER PADS As directed] blood pressure test kit-large As directed blood sugar diagnostic (FreeStyle Lite Strips) As directed three times a day blood-glucose meter (FreeStyle Lite Meter kit) As directed 3x/day blood-glucose meter (FreeStyle Lite Meter kit) As directed 3x/day buspirone 10 mg PO BID 30 days clonidine HCl 0.1 mg PO BEDTIME gabapentin 100 mg PO BID 30 days hydroxyzine HCl 25 mg PO Q8H PRN ibuprofen 600 mg PO TID [incontinence wipes As directed] insulin degludec (Tresiba FlexTouch U-100 insulin) 36 units (0.36 mL) subcut BEDTIME lancets (FreeStyle Lancets) As directed three time a day lisinopril 40 mg PO BID 90 days lorazepam 1 mg PO Q8H PRN 30 days meclizine 25 mg PO DAILY 14 days metformin 1,000 mg PO BID metoprolol succinate ER 25 mg PO DAILY 90 days mirtazapine 15 mg PO BEDTIME miscellaneous medical supply 1 ea miscellaneous .QD miscellaneous medical supply size: Large, PADS for incontinence. nabumetone 500 mg PO BID nebulizer accessories nebulizer mask and accessories omeprazole 20 mg PO DAILY 90 days pen needle, diabetic (BD Ultra-Fine Mini Pen Needle) USE 1 NEEDLE DAILY pen needle, diabetic (BD Stephanie 2nd Gen Pen Needle) As directed sertraline 150 mg (1.5 x 100 mg) PO DAILY 30 days [shower bench As directed] Tobacco use date assessed: 06/04/23 Fall risk assessment: 1 Fall in past year Last assessed Fall Risk: 07/24/23 Dental Screening Dental Screen Date: 06/04/23 HPI [facility] 06/20 Fell HPI Details Patient comes in today for her F follow up visit She reportedly fell and her family found her on the floor when they came back from (bringing something out to) the car Patient does not remember how she fell but thinks that she lost her balance and fell on her left side She also thinks that she may have hit the left side of her forehead when she fell as she was also experiencing some pain over the left side of her forehead at the time but she did not appear to have lost consciousness from the fall She was brought by her family to the ER at [facility] for further evaluation Work ups done included labs, EKG and CT of the head, cervical spine, chest and abdomen, all of which came back negative for acute injuries She was sent home with reassurance that she had no significant injuries from her fall other than local musculoskeletal pain / injuries Patient's family has noticed that she has been experiencing frequent DOMINGO lately and often has to sit and rest for a while after walking some distance - states that patient has never had this issue before Patient has also been complaining of bilateral ear pain and discomfort, which she states have been going on for a couple of weeks now She denies any fever or sore throat; denies any headaches or dizziness Denies any exertional chest pains No nausea/vomiting, no abdominal pain No change in bowel habits noted [facility] Medical History Left lower quadrant abdominal pain Hyperlipidemia LDL goal <100 Proteinuria Type 2 diabetes mellitus with other diabetic kidney complication Type 2 diabetes mellitus with hyperglycemia, with long-term current use of insulin Lumbar degenerative disc disease Obesity (BMI 30-39.9) Depression Anxiety GERD without esophagitis Primary osteoarthritis, right shoulder Pure hypercholesterolemia Diabetes mellitus Benign essential hypertension Chest pain Hypertension Surgical History H/O colonoscopy History of esophagogastroduodenoscopy (EGD) History of mammogram History of cataract surgery History of cholecystectomy Family History Father Diabetes Mother Diabetes Daughter Diabetes CVD (cardiovascular disease) Unknown Substance use disorder Social History Household Members: Children Housing: Apartment Alcohol intake: current Alcohol intake frequency: does not drink Patient Tobacco Use Status: Never used Tobacco e-Cigarette/Vaping Use: Never Used Second Hand Smoke Exposure: No service: No Current occupational status: disabled Cognitive needs: Yes (Pt has a cane and walker at home.) Hearing needs: Yes (Bilateral hearng loss per Pt) Vision needs: Yes (wear glasses.) Questionnaire Thrive Questionnaire Date Thrive assessed: 06/04/23 ANTONIETA-7 AMB Questionnaire ANTONIETA-7 Date ANTONIETA - 7 assessed: 06/04/23 Source: Developed by Drs. Terrance Courtney, Latesha Ace, Romero Graham and colleagues, with an educational deidra from [employer]. Review of Systems Const Denies chills, Reports difficulty sleeping, Denies fatigue, Denies fever(s) and Denies headache(s) ENT Denies dysphagia, Denies dizziness, Denies ear discharge, Reports otalgia (bilaterally, over the past couple of weeks), Denies headache(s), Reports hearing loss (in both ears), Denies neck pain, Denies odynophagia and Denies sore throat Card Reports chest pain (over the upper left chest wall area), Denies chest pain with activity, Denies palpitations and Reports dyspnea on exertion (recurrent lately, per family) Resp Denies cough, Reports dyspnea on exertion (recurrent lately, per family) and Denies wheezing GI Denies abdominal pain, Denies constipation, Denies dysphagia, Denies heartburn, Denies diarrhea, Denies nausea, Denies odynophagia and Denies vomiting Denies abnormal vaginal bleeding, Denies difficulty voiding, Denies nocturia, Denies dysuria and Denies urinary urgency Musc Details: (+) on and off pain over her left lower leg Reports back pain (over the lower back, on and off), Reports arthralgias (in the left knee; also in the left shoulder for the past month) and Denies neck pain Skin/Breast Denies rash Neuro Denies dizziness and Denies headache(s) Psych Reports anxiety (increased lately) Endo Denies fatigue and Denies palpitations Aller/Immun Denies wheezing Physical exam (Primary Care) Vital Signs: Last Vital Signs Pulse 74 07/24/23 11:02 BP 134/70 07/24/23 11:02 Pulse Ox 96 07/24/23 11:02 Oxygen Delivery Method Room Air 07/24/23 11:02 BMI result Body Mass Index 34.7 Tobacco/Smoking Status: Tobacco use Status Tobacco use date assessed 06/04/23 07/24/23 11:08 Patient Tobacco Use Status Never used Tobacco 07/24/23 11:08 e-Cigarette/Vaping Use Never Used 07/24/23 11:08 Thrive Assessment: Date of Thrive Assessment Date Thrive assessed 06/04/23 07/24/23 11:08 Const General: no acute distress and alert HENMT Ears: TM's normal bilaterally and Abnormal EAC present EAC tenderness bilateral Throat: Yes posterior oropharynx normal and Yes tonsils normal (no TP congestion) Neck Neck: Yes no lymphadenopathy and Yes supple Thyroid: Thyroid normal Chest Other: (+) tenderness on deep palpation over the left upper chest wall/ribs; no external bruising noted Resp Auscultation: clear to auscultation bilaterally, no rales and no wheezes Cardio Rate: regular rate Rhythm: regular rhythm Heart sounds: no murmurs GI Palpation (GI): Soft to palpation and nontender Auscultation: normal bowel sounds General: Yes no CVA tenderness Back/Spine/Pelvis Back: no CVA tenderness Thoracic/Lumbar Spine: lumbar spinal tenderness Skin Rashes: no rashes Extrem General: No clubbing, No cyanosis and Yes edema (1+ bipedal edema) Left upper extremity: shoulder/upper arm Details: tenderness Location: of the A- C joint and over the deltoid bursa and normal ROM Left lower extremity: knee Details: tenderness; no swelling Assessment and Plan Assessment & Plan (1) Left-sided chest wall pain: Code(s): R07.89 - Other chest pain Plan: Patient is advised that this is likely still due to the chest wall contusion that she incurred when she fell last month and is not cardiac-related Have advised her to try applying some warm compress to her left chest wall PRN for symptomatic relief (2) Status post fall: Code(s): Z91.81 - History of falling Plan: Incident occurred on 06/21/2023 - see HPI Imaging studies, including CT of the head, cervical spine, chest and abdomen, al l revealed NO acute injuries Labs and EKG done at the ER came out normal as well She likely ended up with some left chest wall contusion and other musculoskeletal injuries of minor significance Fall precautions reinforced (3) Ear pain: Code(s): H92.09 - Otalgia, unspecified ear Qualifiers: Laterality: bilateral Qualified Code(s): H92.03 - Otalgia, bilateral Plan: Per request, and also in light of her hearing impairment, will refer her to ENT for further evaluation and management (4) Exertional dyspnea: Code(s): R06.09 - Other forms of dyspnea Plan: Will send her for echocardiogram for further evaluation Will refer her as well, per her daughter's request, to cardiology for further evaluation and management (5) Type 2 diabetes mellitus with hyperglycemia, with long-term current use of insulin: Code(s): E11.65 - Type 2 diabetes mellitus with hyperglycemia; Z79.4 - long-term (current) use of insulin Plan: Her in-office HgbA1c done last month was still elevated at 9.5% (was at 9.6% a few months ago) - goal is < 7.0% Reinforced diabetic diet Continue Metformin 1000 mg BID and Tresiba FlexTouch 30 units once a day; Januvia was previoulsy discontinued due to her history of pancreatitis Patient now sees Dr. Paredes for endocrinology follow up and management of her diabetes - was seen last month but no changes were made yet at the time (6) Benign essential hypertension: Code(s): I10 - Essential (primary) hypertension Plan: Reinforced low-sodium diet - goal is systolic BP of at least 140 mm or less Continue Lisinopril 40 mg BID, Metoprolol ER 25 mg QD and Amlodipine 10 mg QD (7) Pure hypercholesterolemia: Code(s): E78.00 - Pure hypercholesterolemia, unspecified Plan: Reinforced low cholesterol diet Continue Atorvastatin 20 mg QD Will recheck her labs and fasting lipids in 2 to 3 months for follow-up (8) GERD without esophagitis: Code(s): K21.9 - Gastro-esophageal reflux disease without esophagitis Plan: Dietary restrictions reinforced Continue Omeprazole 40 mg QD Abdominal and pelvic US done in 2020 revealed (+) left renal stone and enlarged echogenic liver due to fatty infiltration, echogenic calcifications along the periphery of the uterus likely old inflammatory process. Ovaries, pancreas, aorta and IVC are all unremarkable (9) Primary osteoarthritis, right shoulder: Comment: X-rays of the right shoulder done in 2019 showed (+) OA changes Code(s): M19.011 - Primary osteoarthritis, right shoulder Plan: Symptoms have improved partially with physical therapy in the past; will refer again when needed Continue Nabumetone 500 mg twice a day with food as needed for pain (10) Lumbar degenerative disc disease: Code(s): M51.36 - Other intervertebral disc degeneration, lumbar region Plan: Reinforced activity and weight-lifting restrictions Lumbar spine x-rays done in November 2021 revealed stable lumbar lordotic straightening, severe L5-S1 disc space narrowing and L4 on L5 anterolisthesis and increasing L4-L5 disc space narrowing Repeat x-rays done again on 03/27/2022 revealed moderate degenerative disc disease at L4-L5 and marked degenerative disease at L5-S1, with multi-level lumbar spondylosis and facet arthropathy; no acute findings are seen Continue Lidocaine 5% patch to apply to the painful areas on her lower back QD PRN as instructed (11) Pain in left lower leg: Code(s): M79.662 - Pain in left lower leg Plan: X-rays (of the distal left lower leg) done previously came out normal but she does have (+) OA changes in the left knee and (+) large heel spurs on her left foot, which are most likely contributing to her leg symptoms Continue OTC Tylenol PRN for pain; continue Gabapentin 100 mg BID (12) Anxiety: Code(s): F41.9 - Anxiety disorder, unspecified Plan: Continue Lorazepam 1 mg every 8 hours as needed, Sertraline 150 mg (1.5 tablets) QD and Buspirone 10 mg BID Per request, she was also referred to psychiatry for counseling and therapy We also increased her Buspirone from 5 mg BID to 10 mg BID last month to help with her increased anxiety (13) Depression: Code(s): F32.9 - Major depressive disorder, single episode, unspecified Qualifiers: Depression Type: major depressive disorder Major depression recurrence: recurrent Active/Remission status: currently active Major depression episode severity: unspecified Qualified Code(s): F33.9 - Major depressive disorder, recurrent, unspecified Plan: Continue Mirtazapine Q HS and Clonidine 0.1 mg Q HS - she was supposed to be on Mirtazapine 15 mg Q HS but admits to only taking 1/2 tablet (7.5 mg) lately as she did not want to get too sleepy or sedated since her son, who is currently having some significant health issues of his own, will try to wake her up at night when he needs her to do something Continue Sertraline 150 mg QD Follow up with psychiatry as scheduled (14) Obesity (BMI 30-39.9): Code(s): E66.9 - Obesity, unspecified Plan: Reinforced diet; exercise and weight loss are unrealistic expectations in this patient due to her age, relative physical inactivity and comorbidities Plan Follow up as scheduled in August 2023 Orders: Orders CA echo transthoracic complete Today R06.09 - Other forms of dyspnea Referrals Cardiology Referral R06.09 - Other forms of dyspnea Ear/Nose/Throat Referral H91.90 - Unspecified hearing loss, unspecified ear, H92.09 - Otalgia, unspecified ear Coding Level of Care Code Est Pt Level 4 (24676) Diagnoses Left-sided chest wall pain R07.89 Status post fall Z91.81 Otalgia of both ears H92.03 Laterality: bilateral Exertional dyspnea R06.09 Type 2 diabetes mellitus with hyperglycemia, with long-term current use of insulin E11.65; Z79.4 Benign essential hypertension I10 Pure hypercholesterolemia E78.00 GERD without esophagitis K21.9 Primary osteoarthritis, right shoulder M19.011 Lumbar degenerative disc disease M51.36 Pain in left lower leg M79.662 Anxiety F41.9 Episode of recurrent major depressive disorder, unspecified depression episode severity F33.9 Depression Type: major depressive disorder Major depression recurrence: recurrent Active/Remission status: currently active Major depression episode severity: unspecified Obesity (BMI 30-39.9) E66.9
== END 2023-07-24 11:40 | disposition home or self-care (01) ==
PROVIDERS: PCP Internal Medicine; Visit Provider Internal Medicine
DX: R07.89 Other chest pain (principal); Z91.81 History of falling; H92.03 Otalgia, bilateral; R06.09 Other forms of dyspnea; E11.65 Type 2 diabetes mellitus with hyperglycemia; Z79.4 Long term (current) use of insulin; I10 Essential (primary) hypertension; E78.00 Pure hypercholesterolemia, unspecified; K21.9 Gastro-esophageal reflux disease without esophagitis; M19.011 Primary osteoarthritis, right shoulder; F33.9 Major depressive disorder, recurrent, unspecified; M51.36 Other intervertebral disc degeneration, lumbar region
CPT/HCPCS: 99214

== ENCOUNTER 2023-08-29 09:28 | Outpatient (AMB) | payer OTHER, SELFPAY ==
[2023-08-29 09:33] VITALS: BP 136/64; PULSE 76; O2SAT 92; BMI 34.2
--- NOTE | 2023-08-29 09:33 | MHC.PC.OV ---
Vital Signs 08/29/23 09:33 Height 5 ft 2 in Weight 187 lb BMI 34.2 BP 136/64 Blood Pressure Location Lt brachial Position Sitting Pulse 76 Pulse Source Pulse Oximeter Pulse Oximetry (%) 92 Oxygen Delivery Method Room Air Intake Visit Reasons: abscess on LEFT BIG TOE Shank Rander Required: No Allergies No Known Allergies [No Known Allergies*] Allergy (Verified 08/29/23 09:48) Medication List - Last Reconciled 08/29/23 by Charan Delgado MD [adult pull ups As directed] amlodipine 10 mg PO DAILY 90 days atorvastatin 10 mg PO DAILY [bed pads As directed] [BLADDER PADS As directed] blood pressure test kit-large As directed blood sugar diagnostic (FreeStyle Lite Strips) As directed three times a day blood-glucose meter (FreeStyle Lite Meter kit) As directed 3x/day blood-glucose meter (FreeStyle Lite Meter kit) As directed 3x/day buspirone 10 mg PO BID 30 days cephalexin 500 mg PO QID clonidine HCl 0.1 mg PO BEDTIME gabapentin 100 mg PO BID 30 days hydroxyzine HCl 25 mg PO Q8H PRN ibuprofen 600 mg PO TID [incontinence wipes As directed] insulin degludec (Tresiba FlexTouch U-100 insulin) 36 units (0.36 mL) subcut BEDTIME lancets (FreeStyle Lancets) As directed three time a day lisinopril 40 mg PO BID 90 days lorazepam 1 mg PO Q8H PRN 30 days meclizine 25 mg PO DAILY 14 days metformin 1,000 mg PO BID metoprolol succinate ER 25 mg PO DAILY 90 days mirtazapine 15 mg PO BEDTIME miscellaneous medical supply 1 ea miscellaneous .QD miscellaneous medical supply size: Large, PADS for incontinence. nabumetone 500 mg PO BID nebulizer accessories nebulizer mask and accessories omeprazole 20 mg PO DAILY 90 days pen needle, diabetic (BD Ultra-Fine Mini Pen Needle) USE 1 NEEDLE DAILY pen needle, diabetic (BD Stephanie 2nd Gen Pen Needle) As directed sertraline 150 mg (1.5 x 100 mg) PO DAILY 30 days [shower bench As directed] [shower chair As directed] [walker As directed] Tobacco use date assessed: 06/04/23 Fall risk assessment: No Falls in past year Last assessed Fall Risk: 08/29/23 Dental Screening Dental Screen Date: 06/04/23 HPI abscess on LEFT BIG TOE HPI Details Patient comes in today for evaluation of an abscess on her left big toe that she states has been present for about a week now Her family states that they are not exactly sure how she got the wound on her toe but they first noticed it over a week ago when they were cleaning her feet States that the wound looks like it was slowly getting bigger and was starting to drain so they contacted her visiting nurse and patient somehow ended up being prescribed/started on Cephalexin 500 mg Q 6 hours x 7 days on 08/21/2023 - she is currently still finishing up her Abx States that the wound looks like it has gotten smaller and is starting to dry out; patient also denies any pain over her affected toe She denies any fever, headaches or dizziness Denies any chest pains, no SOB No nausea/vomiting, no abdominal pain No change in bowel habits noted PFSH Medical History (Updated 08/29/23 @ 10:08 by Charan Delgado MD) Left lower quadrant abdominal pain Hyperlipidemia LDL goal <100 Proteinuria Type 2 diabetes mellitus with other diabetic kidney complication Type 2 diabetes mellitus with hyperglycemia, with long-term current use of insulin Lumbar degenerative disc disease Obesity (BMI 30-39.9) Depression Anxiety GERD without esophagitis Primary osteoarthritis, right shoulder Pure hypercholesterolemia Diabetes mellitus Benign essential hypertension Chest pain Hypertension Surgical History H/O colonoscopy History of esophagogastroduodenoscopy (EGD) History of mammogram History of cataract surgery History of cholecystectomy Family History Father Diabetes Mother Diabetes Daughter Diabetes CVD (cardiovascular disease) Unknown Substance use disorder Social History Household Members: Children Housing: Apartment Alcohol intake: current Alcohol intake frequency: does not drink Patient Tobacco Use Status: Never used Tobacco e-Cigarette/Vaping Use: Never Used Second Hand Smoke Exposure: No service: No Current occupational status: disabled Cognitive needs: Yes (Pt has a cane and walker at home.) Hearing needs: Yes (Bilateral hearng loss per Pt) Vision needs: Yes (wear glasses.) Questionnaire Thrive Questionnaire Date Thrive assessed: 06/04/23 AUDIT C Alcohol Use Questionnaire (AUDIT-C) 1. How often do you have a drink containing alcohol?: Never 3. How often do you have six or more drinks on one occasion?: Never Total Score: 0 Score Reviewed/Action Taken: Yes ANTONIETA-7 AMB Questionnaire ANTONIETA-7 Date ANTONIETA - 7 assessed: 06/04/23 Source: Developed by Drs. Terrance Courtney, Latesha Ace, Romero Graham and colleagues, with an educational deidra from [employer]. Review of Systems Const Denies chills, Reports difficulty sleeping, Denies fatigue, Denies fever(s) and Denies headache(s) ENT Denies dysphagia, Denies dizziness, Denies otalgia, Denies headache(s), Reports hearing loss (in both ears), Denies neck pain, Denies odynophagia and Denies sore throat Card Denies chest pain, Denies palpitations and Reports dyspnea on exertion (mild) Resp Denies cough, Reports dyspnea on exertion (mild) and Denies wheezing GI Denies abdominal pain, Denies constipation, Denies dysphagia, Denies heartburn, Denies diarrhea, Denies nausea, Denies odynophagia and Denies vomiting Denies difficulty voiding, Denies nocturia, Denies dysuria and Denies urinary urgency Musc Details: (+) on and off pain over her left lower leg Reports back pain (over the lower back, on and off), Reports arthralgias (in the left knee; left shoulder at times) and Denies neck pain Skin/Breast Details: (+) ulcer on the left big toe Denies rash Neuro Denies dizziness and Denies headache(s) Psych Reports anxiety Endo Denies fatigue and Denies palpitations Aller/Immun Denies wheezing Physical exam (Primary Care) Vital Signs: Last Vital Signs Pulse 76 08/29/23 09:33 BP 136/64 08/29/23 09:33 Pulse Ox 92 08/29/23 09:33 Oxygen Delivery Method Room Air 08/29/23 09:33 BMI result Body Mass Index 34.2 Tobacco/Smoking Status: Tobacco use Status Tobacco use date assessed 06/04/23 08/29/23 09:33 Patient Tobacco Use Status Never used Tobacco 08/29/23 09:33 e-Cigarette/Vaping Use Never Used 08/29/23 09:33 Thrive Assessment: Date of Thrive Assessment Date Thrive assessed 06/04/23 08/29/23 09:33 Const General: no acute distress and alert HENMT Throat: Yes posterior oropharynx normal and Yes tonsils normal (no TP congestion) Neck Neck: Yes no lymphadenopathy and Yes supple Thyroid: Thyroid normal Resp Auscultation: clear to auscultation bilaterally, no rales and no wheezes Cardio Rate: regular rate Rhythm: regular rhythm Heart sounds: no murmurs GI Palpation (GI): Soft to palpation and nontender Auscultation: normal bowel sounds General: Yes no CVA tenderness Back/Spine/Pelvis Back: no CVA tenderness Thoracic/Lumbar Spine: lumbar spinal tenderness Skin Rashes: no rashes Extrem Other: (+) small ulcer on the medial and plantar aspect of the left big toe, with minimal clear drainage noted from the ulcer; there are callous formation noted along the edges of the ulcer but no increased erythema is seen General: No clubbing, No cyanosis and Yes edema (1+ bipedal edema) Left upper extremity: shoulder/upper arm Details: tenderness Location: of the A-C joint and over the deltoid bursa and normal ROM Left lower extremity: knee Details: tenderness; no swelling Results AMB Hemoglobin A1c AMB Hemoglobin A1c 8.2 % Last Edit by ANIYA Torres on 08/29/23 09:55 Assessment and Plan Assessment & Plan (1) Cellulitis of great toe, left: Code(s): L03.032 - Cellulitis of left toe Plan: Continue Cephalexin 500 mg Q 6 hours - she only has 1 day left on her current Rx Will start her additionally on Doxycycline 100 mg BID x 7 days as there is still some minimal drainage from the ulcer on her left big toe Have also advised patient to continue with daily wound care and to keep her left leg and foot elevated as often as she can (2) Skin ulcer of left great toe: Code(s): L97.529 - Non-pressure chronic ulcer of other part of left foot with unspecified severity Qualifiers: Non-pressure ulcer stage: unspecified non-pressure ulcer stage Qualified Code(s): L97.529 - Non-pressure chronic ulcer of other part of left foot with unspecified severity Plan: Will refer her to the [facility] for further management (3) Type 2 diabetes mellitus with hyperglycemia, with long-term current use of insulin: Code(s): E11.65 - Type 2 diabetes mellitus with hyperglycemia; 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
== END 2023-08-29 10:14 | disposition home or self-care (01) ==
PROVIDERS: PCP Internal Medicine; Visit Provider Internal Medicine
DX: L03.032 Cellulitis of left toe (principal); L97.529 Non-pressure chronic ulcer of other part of left foot with unspecified severity; E11.65 Type 2 diabetes mellitus with hyperglycemia; Z79.4 Long term (current) use of insulin
CPT/HCPCS: 83036; 99213

== ENCOUNTER 2023-09-09 14:24 | Outpatient (AMB) | payer OTHER, SELFPAY ==
--- NOTE | 2023-09-09 14:29 | A.OFFPC_ITS ---
Vital Signs 09/09/23 14:30 Height 5 ft 2 in Weight 183 lb 4 oz BMI 33.5 BP 112/72 Blood Pressure Location Lt brachial Position Sitting Pulse 65 Pulse Source Pulse Oximeter Pulse Oximetry (%) 95 Oxygen Delivery Method Room Air Intake Visit Reasons: Follow Up Intake Note: Patient is here to follow up on DM, HTN, HLD, LDDD. Complaint of left big toe open wound. Pt is request for naproxen for pain in her legs Driver/Sales Workers Required: Yes Driver/Sales Workers Language: Furs Salesperson Name: Gutierrez([phone]) Information Interpreted: non-clinical & clinical Credit Negotiator: Present Accompanied by: Self / Same As Patient Allergies No Known Allergies [No Known Allergies*] Allergy (Verified 09/09/23 15:29) Medication List - Last Reconciled 09/09/23 by Charan Delgado MD [adult pull ups As directed] amlodipine 10 mg PO DAILY 90 days atorvastatin 10 mg PO DAILY [bed pads As directed] [BLADDER PADS As directed] blood pressure test kit-large As directed blood sugar diagnostic (FreeStyle Lite Strips) As directed three times a day blood-glucose meter (FreeStyle Lite Meter kit) As directed 3x/day blood-glucose meter (FreeStyle Lite Meter kit) As directed 3x/day buspirone 10 mg PO BID 30 days clonidine HCl 0.1 mg PO BEDTIME gabapentin 100 mg PO BID 30 days hydroxyzine HCl 25 mg PO Q8H PRN [incontinence wipes As directed] insulin degludec (Tresiba FlexTouch U-100 insulin) 36 units (0.36 mL) subcut BEDTIME lancets (FreeStyle Lancets) As directed three time a day lisinopril 40 mg PO BID 90 days lorazepam 1 mg PO Q8H PRN 30 days meclizine 25 mg PO DAILY 14 days metformin 1,000 mg PO BID metoprolol succinate ER 25 mg PO DAILY 90 days mirtazapine 15 mg PO BEDTIME miscellaneous medical supply 1 ea miscellaneous .QD miscellaneous medical supply size: Large, PADS for incontinence. nebulizer accessories nebulizer mask and accessories omeprazole 20 mg PO DAILY 90 days pen needle, diabetic (BD Ultra-Fine Mini Pen Needle) USE 1 NEEDLE DAILY pen needle, diabetic (BD Stephanie 2nd Gen Pen Needle) As directed sertraline 150 mg (1.5 x 100 mg) PO DAILY 30 days [shower bench As directed] [shower chair As directed] [walker As directed] Tobacco use date assessed: 09/09/23 Fall risk assessment: No Falls in past year Last assessed Fall Risk: 09/09/23 Dental Screening Dental Screen Date: 06/04/23 HPI Follow Up HPI Details Patient comes in today for her follow-up visit States that she still has a wound on her left big toe that has been present for about 3 weeks now States that she just finished the oral Doxycycline that she was prescribed for an abscess on her left big toe back on 08/29/2023 She was also referred back then to the wound clinic but she still has no appointment scheduled with them yet Adds that she has been experiencing increased anxiety lately and would like to see if she can have her Lorazepam dosage increased - needs her Lorazepam Rx refilled today She denies any fever, headaches or dizziness Denies any chest pains; she still has frequent shortness of breath on exertion No nausea/ vomiting, no abdominal pain No change in bowel habits noted She has not been able to get her follow-up labs done yet [facility] Medical History Left lower quadrant abdominal pain Hyperlipidemia LDL goal <100 Proteinuria Type 2 diabetes mellitus with other diabetic kidney complication Type 2 diabetes mellitus with hyperglycemia, with long-term current use of insulin Lumbar degenerative disc disease Obesity (BMI 30-39.9) Depression Anxiety GERD without esophagitis Primary osteoarthritis, right shoulder Pure hypercholesterolemia Diabetes mellitus Benign essential hypertension Chest pain Hypertension Surgical History H/O colonoscopy History of esophagogastroduodenoscopy (EGD) History of mammogram History of cataract surgery History of cholecystectomy Family History Father Diabetes Mother Diabetes Daughter Diabetes CVD (cardiovascular disease) Unknown Substance use disorder Social History Household Members: Children Housing: Apartment Alcohol intake: current Alcohol intake frequency: does not drink Patient Tobacco Use Status: Never used Tobacco e-Cigarette/Vaping Use: Never Used Second Hand Smoke Exposure: No service: No Current occupational status: disabled Cognitive needs: Yes (Pt has a cane and walker at home.) Hearing needs: Yes (Bilateral hearng loss per Pt) Vision needs: Yes (wear glasses.) Questionnaire Thrive Questionnaire Date Thrive assessed: 06/04/23 ANTONIETA-7 AMB Questionnaire ANTONIETA-7 Date ANTONIETA - 7 assessed: 06/04/23 Source: Developed by Drs. Terrance Courtney, Latesha Ace, Romero lopez nd colleagues, with an educational deidra from [employer]. Review of Systems Const Denies chills, Reports difficulty sleeping, Denies fatigue, Denies fever(s) and Denies headache(s) ENT Denies dysphagia, Denies dizziness, Denies otalgia, Denies headache(s), Reports hearing loss (in both ears), Denies neck pain, Denies odynophagia and Denies sore throat Card Denies chest pain, Denies palpitations and Reports dyspnea on exertion (mild) Resp Denies cough, Reports dyspnea on exertion (mild) and Denies wheezing GI Denies abdominal pain, Denies constipation, Denies dysphagia, Denies heartburn, Denies diarrhea, Denies nausea, Denies odynophagia and Denies vomiting Denies difficulty voiding, Denies nocturia, Denies dysuria and Denies urinary urgency Musc Details: (+) on and off pain over her left lower leg Reports back pain (over the lower back, on and off), Reports arthralgias (in the left knee; left shoulder at times) and Denies neck pain Skin/Breast Details: (+) ulcer on the left big toe Denies rash Neuro Denies dizziness and Denies headache(s) Psych Reports anxiety Endo Denies fatigue and Denies palpitations Aller/Immun Denies wheezing Physical exam (Primary Care) Vital Signs: Last Vital Signs Pulse 65 09/09/23 14:30 BP 112/72 09/09/23 14:30 Pulse Ox 95 09/09/23 14:30 Oxygen Delivery Method Room Air 09/09/23 14:30 BMI result Body Mass Index 33.5 Tobacco/Smoking Status: Tobacco use Status Tobacco use date assessed 09/09/23 09/09/23 14:46 Patient Tobacco Use Status Never used Tobacco 09/09/23 14:46 e-Cigarette/Vaping Use Never Used 07/16/24 14:46 Thrive Assessment: Date of Thrive Assessment Date Thrive assessed 06/04/23 09/09/23 14:46 Const General: no acute distress and alert HENMT Throat: Yes posterior oropharynx normal and Yes tonsils normal (no TP con gestion) Neck Neck: Yes no lymphadenopathy and Yes supple Thyroid: Thyroid normal Resp Auscultation: clear to auscultation bilaterally, no rales and no wheezes Cardio Rate: regular rate Rhythm: regular rhythm Heart sounds: no murmurs GI Palpation (GI): Soft to palpation and nontender Auscultation: normal bowel sounds General: Yes no CVA tenderness Back/Spine/Pelvis Back: no CVA tenderness Thoracic/Lumbar Spine: lumbar spinal tenderness Skin Rashes: no rashes Extrem Other: (+) small ulcer on the medial and plantar aspect of the left big toe, with minimal clear drainage noted from the ulcer; there are callous formation noted along the edges of the ulcer but no increased erythema is seen General: No clubbing, No cyanosis and Yes edema (1+ bipedal edema) Left upper extremity: shoulder/upper arm Details: tenderness Location: of the A- C joint and over the deltoid bursa and normal ROM Left lower extremity: knee Details: tenderness; no swelling Assessment and Plan Assessment & Plan (1) Skin ulcer of left great toe: Code(s): L97.529 - Non-pressure chronic ulcer of other part of left foot with unspecified severity Qualifiers: Non-pressure ulcer stage: unspecified non-pressure ulcer stage Qualified Code(s): L97.529 - Non-pressure chronic ulcer of other part of left foot with unspecified severity Plan: S/P oral Doxycycline - states that she just finished her Abx a couple of days ago She was referred to the [facility] for further management of her left toe ulcer but she is currently still waiting for them to schedule her (2) Type 2 diabetes mellitus with hyperglycemia, with long-term current use of insulin: Code(s): E11.65 - Type 2 diabetes mellitus with hyperglycemia; 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 Paredes for endocrinology follow up and management of her diabetes (3) Exertional dyspnea: Code(s): R06.09 - Other forms of dyspnea Plan: She was sent for echocardiogram for further evaluation and is now scheduled to get this done next week on 09/17/2023 She was also referred to cardiology for further evaluation and management and is scheduled to see cardiology in early October 2023 (4) Benign essential hypertension: Code(s): I10 - Essential (primary) hypertension Plan: Reinforced low-sodium diet - goal is systolic BP of at least 140 mm or less Continue Lisinopril 40 mg BID, Metoprolol ER 25 mg QD and Amlodipine 10 mg QD (5) Pure hypercholesterolemia: Code(s): E78.00 - Pure hypercholesterolemia, unspecified Plan: She was not able to get her follow-up labs done prior to today's visit and she is advised to try to get her labs done TAMARA Reinforced low cholesterol diet Continue Atorvastatin 20 mg QD Will recheck her labs and fasting lipids in 3 months for follow-up (6) GERD without esophagitis: Code(s): K21.9 - Gastro-esophageal reflux disease without esophagitis Plan: Dietary restrictions reinforced Continue Omeprazole 40 mg QD Abdominal and pelvic US done in 2020 revealed (+) left renal stone and enlarged echogenic liver due to fatty infiltration, echogenic calcifications along the periphery of the uterus likely old inflammatory process. Ovaries, pancreas, aorta and IVC are all unremarkable (7) Primary osteoarthritis, right shoulder: Comment: X-rays of the right shoulder done in 2019 showed (+) OA changes Code(s): M19.011 - Primary osteoarthritis, right shoulder Plan: Symptoms have improved partially with physical therapy in the past; will refer again when needed Continue Nabumetone 500 mg twice a day with food as needed for pain (8) Lumbar degenerative disc disease: Code(s): M51.36 - Other intervertebral disc degeneration, lumbar region Plan: Reinforced activity and weight-lifting restrictions Lumbar spine x-rays done in November 2021 revealed stable lumbar lordotic straightening, severe L5-S1 disc space narrowing and L4 on L5 anterolisthesis and increasing L4-L5 disc space narrowing Repeat x-rays done again on 03/27/2022 revealed moderate degenerative disc disease at L4-L5 and marked degenerative disease at L5-S1, with multi-level lumbar spondylosis and facet arthropathy; no acute findings are seen Continue Lidocaine 5% patch to apply to the painful areas on her lower back QD PRN as instructed (9) Pain in left lower leg: Code(s): M79.662 - Pain in left lower leg Plan: X-rays (of the distal left lower leg) done previously came out normal but she does have (+) OA changes in the left knee and (+) large heel spurs on her left foot, which are most likely contributing to her leg symptoms Continue OTC Tylenol PRN for pain; continue Gabapentin 100 mg BID (10) Anxiety: Code(s): F41.9 - Anxiety disorder, unspecified Plan: Continue Lorazepam 1 mg every 8 hours as needed (Rx refilled), Sertraline 150 mg (1.5 tablets) QD and Buspirone 10 mg BID Per request, she was also referred to psychiatry for counseling and therapy We also increased her Buspirone from 5 mg BID to 10 mg BID last month to help with her increased anxiety but she reports that it is not helping Will now increase her Buspirone to 15 mg BID She is advised that I will not increase her Lorazepam dosage any further as it is likely not going to help much in the long run and will just increase her risk of dependence on the medication (11) Depression: Code(s): F32.9 - Major depressive disorder, single episode, unspecified Qualifiers: Active/Remission status: currently active Depression Type: major depressive disorder Major depression episode severity: unspecified Major depression recurrence: recurrent Qualified Code(s): F33.9 - Major depressive disorder, recurrent, unspecified Plan: Continue Mirtazapine Q HS and Clonidine 0.1 mg Q HS - she was supposed to be on Mirtazapine 15 mg Q HS but admits to only taking 1/2 tablet (7.5 mg) lately as she did not want to get too sleepy or sedated since her son, who is currently having some significant health issues of his own, will try to wake her up at night when he needs her to do something Continue Sertraline 150 mg QD Follow up with psychiatry as scheduled (12) Obesity (BMI 30-39.9): Code(s): E66.9 - Obesity, unspecified Plan: Reinforced diet; exercise and weight loss are unrealistic expectations in this patient due to her age, relative physical inactivity and comorbidities Plan Follow up in 3 months Orders: Orders Complete Blood Count Auto Diff 3 Months D64.9 - Anemia, unspecified Hemoglobin A1c 3 Months E11.9 - Type 2 diabetes mellitus without complications Lipid Panel 3 Months E78.00 - Pure hypercholesterolemia, unspecified Comprehensive [place]. Panel Fast 3 Months E78.00 - Pure hypercholesterolemia, unspecified Microalbumin, Random (w Creat) 3 Months E11.9 - Type 2 diabetes mellitus without complications Medications: Changed From buspirone 10 mg PO BID 30 days 60 tabs 1RF To buspirone 15 mg PO BID 30 days 60 tabs 1RF anxiety Refilled lorazepam 1 mg PO Q8H 30 days PRN 90 tabs 1RF anxiety F41.9 - Anxiety disorder, unspecified Coding Level of Care Code Est Pt Level 4 (98610) Complex EM visit Add On G2211 Diagnoses Skin ulcer of left great toe, unspecified ulcer stage L97.529 Non-pressure ulcer stage: unspecified non-pressure ulcer stage Type 2 diabetes mellitus with hyperglycemia, with long-term current use of insulin E11.65; Z79.4 Exertional dyspnea R06.09 Benign essential hypertension I10 Pure hypercholesterolemia E78.00 GERD without esophagitis K21.9 Primary osteoarthritis, right shoulder M19.011 Lumbar degenerative disc disease M51.36 Pain in left lower leg M79.662 Anxiety F41.9 Episode of recurrent major depressive disorder, unspecified depression episode severity F33.9 Active/Remission status: currently active Depression Type: major depressive disorder Major depression episode severity: unspecified Major depression recurrence: recurrent Obesity (BMI 30-39.9) E66.9
[2023-09-09 14:30] VITALS: BP 112/72; PULSE 65; O2SAT 95; BMI 33.5
== END 2023-09-09 15:47 | disposition home or self-care (01) ==
PROVIDERS: PCP Internal Medicine; Visit Provider Internal Medicine
DX: E11.65 Type 2 diabetes mellitus with hyperglycemia (principal); L97.529 Non-pressure chronic ulcer of other part of left foot with unspecified severity; F33.9 Major depressive disorder, recurrent, unspecified; Z79.4 Long term (current) use of insulin; R06.09 Other forms of dyspnea; I10 Essential (primary) hypertension; E78.00 Pure hypercholesterolemia, unspecified; K21.9 Gastro-esophageal reflux disease without esophagitis; M19.011 Primary osteoarthritis, right shoulder; M51.36 Other intervertebral disc degeneration, lumbar region; M79.662 Pain in left lower leg; F41.9 Anxiety disorder, unspecified; E66.9 Obesity, unspecified
CPT/HCPCS: 99214; G2211

== ENCOUNTER 2023-10-28 12:38 | Outpatient (RCR) | payer OTHER, SELFPAY | END 2024-01-16 14:06 | disposition home or self-care (01) | LOC: HO.WCC 12:38 | PROVIDERS: PCP Internal Medicine; Visit Provider Physician Assistant | DX: E10.621 Type 1 diabetes mellitus with foot ulcer (principal); L97.522 Non-pressure chronic ulcer of other part of left foot with fat layer exposed; E10.43 Type 1 diabetes mellitus with diabetic autonomic (poly)neuropathy; L84 Corns and callosities; Z79.899 Other long term (current) drug therapy | CPT/HCPCS: 11042; 99212 ==

== ENCOUNTER 2023-10-31 13:27 | Outpatient (AMB) | payer OTHER, SELFPAY ==
[2023-10-31 13:29] VITALS: BP 122/64; PULSE 82; O2SAT 94; BMI 32.8
--- NOTE | 2023-10-31 13:29 | MHC.PC.OV ---
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 Required: No Accompanied by: Self / Same As Patient Allergies No Known Allergies [No Known Allergies*] Allergy (Verified 11/02/23 19:07) Medication List - Last Reconciled 11/02/23 by Charan Delgado MD [adult pull ups As directed] amlodipine 10 mg PO DAILY 90 days atorvastatin 10 mg PO DAILY [bed pads As directed] [BLADDER PADS As directed] blood pressure test kit-large As directed blood sugar diagnostic (FreeStyle Lite Strips) As directed three times a day blood-glucose meter (FreeStyle Lite Meter kit) As directed 3x/day blood-glucose meter (FreeStyle Lite Meter kit) As directed 3x/day buspirone 15 mg PO BID 30 days clonidine HCl 0.1 mg PO BEDTIME gabapentin 100 mg PO BID 30 days hydroxyzine HCl 25 mg PO Q8H PRN [incontinence wipes As directed] insulin degludec (Tresiba FlexTouch U-100 insulin) 36 units (0.36 mL) subcut BEDTIME lancets (FreeStyle Lancets) As directed three time a day lisinopril 40 mg PO BID 90 days lorazepam 1 mg PO Q8H PRN 30 days meclizine 25 mg PO DAILY 14 days metformin 1,000 mg PO BID metoprolol succinate ER 25 mg PO DAILY 90 days mirtazapine 15 mg PO BEDTIME miscellaneous medical supply 1 ea miscellaneous .QD miscellaneous medical supply size: Large, PADS for incontinence. nebulizer accessories nebulizer mask and accessories omeprazole 20 mg PO DAILY 90 days pen needle, diabetic (BD Stephanie 2nd Gen Pen Needle) As directed pen needle, diabetic (BD Ultra-Fine Mini Pen Needle) USE 1 NEEDLE DAILY sertraline 150 mg (1.5 x 100 mg) PO DAILY 30 days [shower bench As directed] [shower chair As directed] [walker As directed] Tobacco use date assessed: 10/31/23 Fall risk assessment: 2 + Falls in past year Last assessed Fall Risk: 10/31/23 Dental Screening Dental Screen Date: 10/31/23 Did you have a dental visit in the last 12 months?: Yes Did you have a dental problem in the last 6 months where you did not have access to dental care?: No Was dental information given to patient?: Patient has dentist HPI referral podiatry HPI Details Patient comes in today mainly to request for a referral to podiatry for her left toe ulcer States that she's had an open sore/ulcer on the bottom of her left big toe for a while now She is currently being seen and managed by the wound clinic for her toe ulcer but has reportedly been advised that she should also try to get in to see podiatry for her ulcer as well as for her toenails, which are long, thickened and disfigured She also has a chronic red/erythematous rash on her left lower leg and her daughter would like for her to see dermatology for this Patient currently denies any headaches or dizziness She denies any chest pains, no increased SOB No nausea/vomiting, no abdominal pain No change in bowel habits noted She needs a few of her Rx refilled PFSH Medical History Left lower quadrant abdominal pain Hyperlipidemia LDL goal <100 Proteinuria Type 2 diabetes mellitus with other diabetic kidney complication Type 2 diabetes mellitus with hyperglycemia, with long-term current use of insulin Lumbar degenerative disc disease Obesity (BMI 30-39.9) Depression Anxiety GERD without esophagitis Primary osteoarthritis, right shoulder Pure hypercholesterolemia Diabetes mellitus Benign essential hypertension Chest pain Hypertension Surgical History H/O colonoscopy History of esophagogastroduodenoscopy (EGD) History of mammogram History of cataract surgery History of cholecystectomy Family History Father Diabetes Mother Diabetes Daughter Diabetes CVD (cardiovascular disease) Unknown Substance use disorder Social History Household Members: Children Housing: Apartment Alcohol intake: current Alcohol intake frequency: does not drink Patient Tobacco Use Status: Never used Tobacco e-Cigarette/Vaping Use: Never Used Second Hand Smoke Exposure: No service: No Current occupational status: disabled Cognitive needs: Yes (Pt has a cane and walker at home.) Hearing needs: Yes (Bilateral hearng loss per Pt) Vision needs: Yes (wear glasses.) Questionnaire PHQ-9 Over the last 2 weeks, how often have you been bothered by any of the following problems? 1. Little interest or pleasure in doing things: more than half the days 2. Feeling down, depressed, or hopeless: more than half the days 3. Trouble falling or staying asleep, or sleeping too much: more than half the days 4. Feeling tired or having little energy: more than half the days 5. Poor appetite or overeating: more than half the days 6. Feeling bad about yourself - or that you are a failure or have let yourself or your family down: more than half the days 7. Trouble concentrating on things, such as reading the newspaper or watching television: more than half the days 8. Moving or speaking so slowly that other people could have noticed. Or the opposite - being so fidgety or restless that you have been moving around a lot more than usual: more than half the days 9. Thoughts that you would be better off or of hurting yourself in some way: not at all Total score: 16 Depression Screening Interpretation: Positive Depression Screening Follow-up: Existing condition and In treatment Depression Screening Done: Yes 46223 - PHQ-9 Billing: Yes Source: Developed by Drs. Terrance Courtney, Latesha Ace, Romero Graham and colleagues, with an educational deidra from [employer] Thrive Questionnaire Date Thrive assessed: 10/31/23 I am a: Patient What is your living situation today?: I have a steady place to live Within the past 12 months, did the food you bought not last and you didn't have the money to get more?: Never true Within the past 12 months, did you worry whether your food would run out before you got money to buy more?: Never true Do you have trouble paying for medicines?: No Do you have trouble getting transportation to medical appointments?: No Do you have trouble paying your heating and electricity bill?: No Do you have trouble taking care of your child, family member or friend?: No Do you have trouble with day-to-day activities such as bathing, preparing meals, shopping, managing finances, etc.?: No Are you currently unemployed and looking for a job?: No Are you interested in more education?: No Please select the resources that you would like help with: None Currently or been in a relationship where the following occur: No concerns reported THRIVE Score: 0 AUDIT C Alcohol Use Questionnaire (AUDIT-C) 1. How often do you have a drink containing alcohol?: Never 3. How often do you have six or more drinks on one occasion?: Never Total Score: 0 Score Reviewed/Action Taken: Yes ANTONIETA-7 AMB Questionnaire ANTONIETA-7 Date ANTONIETA - 7 assessed: 10/31/23 Feeling nervous, anxious, or on edge: 0 = Not at all Not being able to stop or control worryin = Not at all Worrying too much about different things: 0 = Not at all Trouble relaxin = Not at all Being so restless that it is hard to sit still: 0 = Not at all Becoming easily annoyed or irritable: 0 = Not at all Feeling afraid as if something awful might happen: 0 = Not at all Total ANTONIETA-7 score (0-4 normal; 5-9 mild; 10-14 moderate; 15-21 severe): 0 Source: Developed by Drs. Terrance Courtney, Latesha Ace, Romero Graham and colleagues, with an educational deidra from [employer] Review of Systems Const Reports difficulty sleeping, Denies fatigue, Denies fever(s) and Denies headache(s) ENT Denies dysphagia, Denies dizziness, Denies otalgia, Denies headache(s), Reports hearing loss (in both ears), Denies neck pain, Denies odynophagia and Denies sore throat Card Denies chest pain, Denies palpitations and Reports dyspnea on exertion (mild) Resp Denies cough, Reports dyspnea on exertion (mild) and Denies wheezing GI Denies abdominal pain, Denies constipation, Denies dysphagia, Denies heartburn, Denies diarrhea, Denies nausea, Denies odynophagia and Denies vomiting Denies difficulty voiding, Denies nocturia, Denies dysuria and Denies urinary urgency Musc Details: (+) on and off pain over her left lower leg Reports back pain (over the lower back, on and off), Reports arthralgias (in the left knee; left shoulder at times) and Denies neck pain Skin/Breast Details: (+) ulcer on the left big toe Reports rash ((+) chronic rash on the left lower leg) Neuro Denies dizziness and Denies headache(s) Psych Reports anxiety Endo Denies fatigue and Denies palpitations Aller/Immun Denies wheezing Physical exam (Primary Care) Vital Signs: Last Vital Signs Pulse 82 10/31/23 13:29 BP 122/64 10/31/23 13:29 Pulse Ox 94 10/31/23 13:29 Oxygen Delivery Method Room Air 10/31/23 13:29 BMI result Body Mass Index 32.8 Tobacco/Smoking Status: Tobacco use Status Tobacco use date assessed 10/31/23 10/31/23 13:31 Patient Tobacco Use Status Never used Tobacco 10/31/23 13:31 e-Cigarette/Vaping Use Never Used 10/31/23 13:31 PHQ-9: PHQ-9 Score PHQ-9: Total score 16 10/31/23 14:09 Depression Screening Interpretation: Positive Depression Screening Follow-up: Existing condition and In treatment Thrive Assessment: Date of Thrive Assessment Date Thrive assessed 10/31/23 10/31/23 13:31 Currently or been in a relationship where the following occur: No concerns reported Const General: no acute distress and alert HENMT Throat: Yes posterior oropharynx normal and Yes tonsils normal (no TP congestion) Neck Neck: Yes no lymphadenopathy and Yes supple Thyroid: Thyroid normal Resp Auscultation: clear to auscultation bilaterally, no rales and no wheezes Cardio Rate: regular rate Rhythm: regular rhythm Heart sounds: no murmurs GI Palpation (GI): Soft to palpation and nontender Auscultation: normal bowel sounds General: Yes no CVA tenderness Back/Spine/Pelvis Back: no CVA tenderness Thoracic/Lumbar Spine: lumbar spinal tenderness Skin Other: (+) large patch of erythematous rash over the anteromedial aspect of the distal third of the left lower leg Extrem Other: (+) small ulcer on the medial and plantar aspect of the left big toe, with minimal clear drainage noted from the ulcer; there are callous formation noted along the edges of the ulcer but no increased erythema is seen General: No clubbing, No cyanosis and Yes edema (1+ bipedal edema) Left lower extremity: knee Details: tenderness; no swelling Assessment and Plan Assessment & Plan (1) Skin ulcer of left great toe: Code(s): L97.529 - Non-pressure chronic ulcer of other part of left foot with unspecified severity Qualifiers: Non-pressure ulcer stage: unspecified non-pressure ulcer stage Qualified Code(s): L97.529 - Non-pressure chronic ulcer of other part of left foot with unspecified severity Plan: Patient is now being seen by the wound clinic for management of her left big toe ulcer Per request, will refer her to podiatry for further evaluation and management (2) Onychomycosis: Code(s): B35.1 - Tinea unguium Plan: Involving the toenails on both feet Will refer her to podiatry for this issue as well (3) Erythematous rash: Code(s): R21 - Rash and other nonspecific skin eruption Plan: Per request, will refer her to dermatology for further evaluation and management (4) Type 2 diabetes mellitus with hyperglycemia, with long-term current use of insulin: Code(s): E11.65 - Type 2 diabetes mellitus with hyperglycemia; Z79.4 - FDC (current) use of insulin Plan: Her in-office HgbA1c was at 8.2% when checked a couple of months ago (was previously at 9.5%) - goal is < 7.0% Reinforced diabetic diet Continue Metformin 1000 mg BID and Tresiba FlexTouch 36 units QD (Rx refilled); Januvia was discontinued due to her history of pancreatitis Patient now sees Dr. Paredes for endocrinology follow up and management of her diabetes (5) Benign essential hypertension: Code(s): I10 - Essential (primary) hypertension Plan: Reinforced low-sodium diet - goal is systolic BP of at least 140 mm or less Continue Lisinopril 40 mg BID, Metoprolol ER 25 mg QD (Rx refilled) and Amlodipine 10 mg QD (6) Pure hypercholesterolemia: Code(s): E78.00 - Pure hypercholesterolemia, unspecified Plan: Reinforced low cholesterol diet Continue Atorvastatin 20 mg QD She is reminded to get her labs and fasting lipids rechecked as scheduled in a couple of months for follow-up (7) GERD without esophagitis: Code(s): K21.9 - Gastro-esophageal reflux disease without esophagitis Plan: Dietary restrictions reinforced Continue Omeprazole 40 mg QD Abdominal and pelvic US done in 2020 revealed (+) left renal stone and enlarged echogenic liver due to fatty infiltration (8) Primary osteoarthritis, right shoulder: Comment: X-rays of the right shoulder done in 2019 showed (+) OA changes Code(s): M19.011 - Primary osteoarthritis, right shoulder Plan: Her right shoulder symptoms have improved partially with physical therapy in the past; will refer again if needed Continue Nabumetone 500 mg twice a day with food as needed for pain (9) Lumbar degenerative disc disease: Code(s): M51.36 - Other intervertebral disc degeneration, lumbar region Plan: Reinforced activity and weight-lifting restrictions Lumbar spine x-rays done in November 2021 revealed stable lumbar lordotic straightening, severe L5-S1 disc space narrowing and L4 on L5 anterolisthesis and increasing L4-L5 disc space narrowing Repeat x-rays done again on 03/27/2022 revealed moderate degenerative disc disease at L4-L5 and marked degenerative disease at L5-S1, with multi-level lumbar spondylosis and facet arthropathy; no acute findings are seen Continue Lidocaine 5% patch to apply to the painful areas on her lower back QD PRN as instructed (10) Anxiety: Code(s): F41.9 - Anxiety disorder, unspecified Plan: Continue Lorazepam 1 mg every 8 hours as needed, Sertraline 150 mg (1.5 tablets) QD and Buspirone 15 mg BID Per request, she was referred to psychiatry for counseling and therapy (11) Depression: Code(s): F32.9 - Major depressive disorder, single episode, unspecified Qualifiers: Depression Type: major depressive disorder Major depression recurrence: recurrent Active/Remission status: currently active Major depression episode severity: unspecified Qualified Code(s): F33.9 - Major depressive disorder, recurrent, unspecified Plan: Continue Mirtazapine Q HS and Clonidine 0.1 mg Q HS - she was supposed to be on Mirtazapine 15 mg Q HS but admits to only taking 1/2 tablet (7.5 mg) lately as she did not want to get too sleepy or sedated since her son, who is currently having some significant health issues of his own, will try to wake her up at night when he needs her to do something Continue Sertraline 150 mg QD Follow up with psychiatry as scheduled (12) Obesity (BMI 30-39.9): Code(s): E66.9 - Obesity, unspecified Plan: Reinforced diet; exercise and weight loss are unrealistic expectations in this patient due to her age, relative physical inactivity and comorbidities Plan Follow up as scheduled in December 2023 Orders: Referrals Podiatry Referral E11.65 - Type 2 diabetes mellitus with hyperglycemia, L97.529 - Non-pressure chronic ulcer of other part of left foot with unspecified severity, Z79.4 - bed bug exterminator (current) use of insulin Dermatology Referral R21 - Rash and other nonspecific skin eruption Medications: Refilled pen needle, diabetic (BD Stephanie 2nd Gen Pen Needle) As directed 100 ea 11RF E11.65 - Type 2 diabetes mellitus with hyperglycemia, Z79.4 - FDC (current) use of insulin insulin degludec (Tresiba FlexTouch U-100 insulin) 36 units (0.36 mL) subcut BEDTIME 15 mL 3RF E11.65 - Type 2 diabetes mellitus with hyperglycemia, Z79.4 - FDC (current) use of insulin metoprolol succinate ER 25 mg PO DAILY 90 days 90 tabs 1RF I10 - Essential (primary) hypertension Coding Level of Care Code Est Pt Level 4 (24265) Diagnoses Skin ulcer of left great toe, unspecified ulcer stage L97.529 Non-pressure ulcer stage: unspecified non-pressure ulcer stage Onychomycosis B35.1 Erythematous rash R21 Type 2 diabetes mellitus with hyperglycemia, with long-term current use of insulin E11.65; Z79.4 Benign essential hypertension I10 Pure hypercholesterolemia E78.00 GERD without esophagitis K21.9 Primary osteoarthritis, right shoulder M19.011 Lumbar degenerative disc disease M51.36 Anxiety F41.9 Episode of recurrent major depressive disorder, unspecified depression episode severity F33.9 Depression Type: major depressive disorder Major depression recurrence: recurrent Active/Remission status: currently active Major depression episode severity: unspecified Obesity (BMI 30-39.9) E66.9
== END 2023-10-31 16:05 | disposition home or self-care (01) ==
PROVIDERS: PCP Internal Medicine; Visit Provider Internal Medicine
DX: L97.529 Non-pressure chronic ulcer of other part of left foot with unspecified severity (principal); B35.1 Tinea unguium; E11.65 Type 2 diabetes mellitus with hyperglycemia; Z79.4 Long term (current) use of insulin; I10 Essential (primary) hypertension; E78.00 Pure hypercholesterolemia, unspecified; K21.9 Gastro-esophageal reflux disease without esophagitis; M19.011 Primary osteoarthritis, right shoulder; M51.36 Other intervertebral disc degeneration, lumbar region; F41.9 Anxiety disorder, unspecified; F33.9 Major depressive disorder, recurrent, unspecified; E66.9 Obesity, unspecified
CPT/HCPCS: 99214

== ENCOUNTER 2023-11-18 10:28 | Outpatient (AMB) | payer OTHER, SELFPAY ==
[2023-11-18 10:31] VITALS: BP 110/72; PULSE 79; O2SAT 95; BMI 33.5
--- NOTE | 2023-11-18 10:31 | A.OFFPC_ITS ---
Vital Signs 11/18/23 10:31 Height 5 ft 2 in Weight 183 lb 3 oz BMI 33.5 BP 110/72 Blood Pressure Location Lt brachial Position Sitting Pulse 79 Pulse Source Pulse Oximeter Pulse Oximetry (%) 95 Oxygen Delivery Method Room Air Intake Visit Reasons: Ear pain Transcription Specialist Required: No Accompanied by: Self / Same As Patient Allergies No Known Allergies [No Known Allergies*] Allergy (Verified 11/18/23 10:50) Medication List - Last Reconciled 11/18/23 by Charan Delgado MD [adult pull ups As directed] amlodipine 10 mg PO DAILY 90 days atorvastatin 10 mg PO DAILY [bed pads As directed] [BLADDER PADS As directed] blood pressure test kit-large As directed blood sugar diagnostic (FreeStyle Lite Strips) As directed three times a day blood-glucose meter (FreeStyle Lite Meter kit) As directed 3x/day blood-glucose meter (FreeStyle Lite Meter kit) As directed 3x/day buspirone 15 mg PO BID 30 days clonidine HCl 0.1 mg PO BEDTIME gabapentin 100 mg PO BID 30 days hydroxyzine HCl 25 mg PO Q8H PRN [incontinence wipes As directed] insulin degludec (Tresiba FlexTouch U-100 insulin) 36 units (0.36 mL) subcut BEDTIME lancets (FreeStyle Lancets) As directed three time a day lisinopril 40 mg PO BID 90 days lorazepam 1 mg PO Q8H PRN 30 days meclizine 25 mg PO DAILY 14 days metformin 1,000 mg PO BID metoprolol succinate ER 25 mg PO DAILY 90 days mirtazapine 15 mg PO BEDTIME miscellaneous medical supply 1 ea miscellaneous .QD miscellaneous medical supply size: Large, PADS for incontinence. nebulizer accessories nebulizer mask and accessories omeprazole 20 mg PO DAILY 90 days pen needle, diabetic (BD Stephanie 2nd Gen Pen Needle) As directed pen needle, diabetic (BD Ultra-Fine Mini Pen Needle) USE 1 NEEDLE DAILY sertraline 150 mg (1.5 x 100 mg) PO DAILY 30 days [shower bench As directed] [shower chair As directed] [walker As directed] Tobacco use date assessed: 11/18/23 Fall risk assessment: 2 + Falls in past year Last assessed Fall Risk: 11/18/23 Dental Screening Dental Screen Date: 11/18/23 Did you have a dental visit in the last 12 months?: Yes Did you have a dental problem in the last 6 months where you did not have access to dental care?: No Was dental information given to patient?: Patient has dentist HPI Ear pain HPI Details Patient comes in today complaining of increased left ear pain for the past 2 to 3 days States that she now also has pain over the entire left side of her face and feels that all this is pain radiating from her ear States that she has been taking some OTC Acetaminophen lately but it is not helping much - would like to get something stronger to help with the pain, especially at night She has not noticed any ear drainage She denies any fever or sore throat Denies any chest pains, no SOB No nausea/vomiting, no abdominal pain No change in bowel habits noted States that she is already being seen by the wound clinic for her left big toe ulcer and she has another appointment with them later this afternoon [facility] Medical History Left lower quadrant abdominal pain Hyperlipidemia LDL goal <100 Proteinuria Type 2 diabetes mellitus with other diabetic kidney complication Type 2 diabetes mellitus with hyperglycemia, with long-term current use of insulin Lumbar degenerative disc disease Obesity (BMI 30-39.9) Depression Anxiety GERD without esophagitis Primary osteoarthritis, right shoulder Pure hypercholesterolemia Diabetes mellitus Benign essential hypertension Chest pain Hypertension Surgical History H/O colonoscopy History of esophagogastroduodenoscopy (EGD) History of mammogram History of cataract surgery History of cholecystectomy Family History Father Diabetes Mother Diabetes Daughter Diabetes CVD (cardiovascular disease) Unknown Substance use disorder Social History Household Members: Children Housing: Apartment Alcohol intake: current Alcohol intake frequency: does not drink Patient Tobacco Use Status: Never used Tobacco e-Cigarette/Vaping Use: Never Used Second Hand Smoke Exposure: No service: No Current occupational status: disabled Cognitive needs: Yes (Pt has a cane and walker at home.) Hearing needs: Yes (Bilateral hearng loss per Pt) Vision needs: Yes (wear glasses.) Questionnaire PHQ-9 Over the last 2 weeks, how often have you been bothered by any of the following problems? 1. Little interest or pleasure in doing things: more than half the days 2. Feeling down, depressed, or hopeless: more than half the days 3. Trouble falling or staying asleep, or sleeping too much: more than half the days 4. Feeling tired or having little energy: more than half the days 5. Poor appetite or overeating: more than half the days 6. Feeling bad about yourself - or that you are a failure or have let yourself or your family down: more than half the days 7. Trouble concentrating on things, such as reading the newspaper or watching television: more than half the days 8. Moving or speaking so slowly that other people could have noticed. Or the opposite - being so fidgety or restless that you have been moving around a lot more than usual: more than half the days 9. Thoughts that you would be better off or of hurting yourself in some way: not at all Total score: 16 Depression Screening Interpretation: Positive Depression Screening Follow-up: Existing condition and In treatment Depression Screening Done: Yes 37244 - PHQ-9 Billing: Yes Source: Developed by Drs. Terrance Courtney, Latesha Ace, Romero Graham and colleagues, with an educational deidra from [employer]. Thrive Questionnaire Date Thrive assessed: 11/18/23 I am a: Patient What is your living situation today?: I have a steady place to live Within the past 12 months, did the food you bought not last and you didn't have the money to get more?: Never true Within the past 12 months, did you worry whether your food would run out before you got money to buy more?: Never true Do you have trouble paying for medicines?: No Do you have trouble getting transportation to medical appointments?: No Do you have trouble paying your heating and electricity bill?: No Do you have trouble taking care of your child, family member or friend?: No Do you have trouble with day-to-day activities such as bathing, preparing meals, shopping, managing finances, etc.?: No Are you currently unemployed and looking for a job?: No Are you interested in more education?: No Please select the resources that you would like help with: None Currently or been in a relationship where the following occur: No concerns reported THRIVE Score: 0 AUDIT C Alcohol Use Questionnaire (AUDIT-C) 1. How often do you have a drink containing alcohol?: Never 3. How often do you have six or more drinks on one occasion?: Never Total Score: 0 Score Reviewed/Action Taken: Yes ANTONIETA-7 AMB Questionnaire ANTONIETA-7 Date ANTONIETA - 7 assessed: 11/18/23 Feeling nervous, anxious, or on edge: 0 = Not at all Not being able to stop or control worryin = Not at all Worrying too much about different things: 0 = Not at all Trouble relaxin = Not at all Being so restless that it is hard to sit still: 0 = Not at all Becoming easily annoyed or irritable: 0 = Not at all Feeling afraid as if something awful might happen: 0 = Not at all Total ANTONIETA-7 score (0-4 normal; 5-9 mild; 10-14 moderate; 15-21 severe): 0 Source: Developed by Drs. Terrance Corutney, Latesha Ace, Romero Graham and colleagues, with an educational deidra from [employer]. Review of Systems Const Reports difficulty sleeping, Denies fatigue, Denies fever(s) and Denies headache(s) ENT Denies dysphagia, Denies dizziness, Reports otalgia (in the left ear and over the entire left side of the face - see HPI), Denies headache(s), Reports hearing loss (in both ears), Denies neck pain, Denies odynophagia and Denies sore throat Card Denies chest pain, Denies palpitations and Reports dyspnea on exertion (mild) Resp Denies cough, Reports dyspnea on exertion (mild) and Denies wheezing GI Denies abdominal pain, Denies constipation, Denies dysphagia, Denies heartburn, Denies diarrhea, Denies nausea, Denies odynophagia and Denies vomiting Denies difficulty voiding, Denies nocturia, Denies dysuria and Denies urinary urgency Musc Details: (+) on and off pain over her left lower leg Reports back pain (over the lower back, on and off), Reports arthralgias (in the left knee; left shoulder at times) and Denies neck pain Skin/Breast Details: (+) ulcer on the left big toe Reports rash ((+) chronic rash on the left lower leg) Neuro Denies dizziness and Denies headache(s) Psych Reports anxiety Endo Denies fatigue and Denies palpitations Aller/Immun Denies wheezing Physical exam (Primary Care) Vital Signs: Last Vital Signs Pulse 79 11/18/23 10:31 BP 110/72 11/18/23 10:31 Pulse Ox 95 11/18/23 10:31 Oxygen Delivery Method Room Air 11/18/23 10:31 BMI result Body Mass Index 33.5 Tobacco/Smoking Status: Tobacco use Status Tobacco use date assessed 11/18/23 11/18/23 10:39 Patient Tobacco Use Status Never used Tobacco 11/18/23 10:39 e-Cigarette/Vaping Use Never Used 11/18/23 10:39 PHQ-9: PHQ-9 Score PHQ-9: Total score 16 11/18/23 10:39 Depression Screening Interpretation: Positive Depression Screening Follow-up: Existing condition and In treatment Thrive Assessment: Date of Thrive Assessment Date Thrive assessed 11/18/23 11/18/23 10:39 Currently or been in a relationship where the following occur: No concerns reported Const General: no acute distress and alert HENMT Ears: TM normal on the right, EAC's normal (in the right ear), Abnormal EAC pre sent (in the left ear) edema on the left; no otic discharge and unable to visualize TM (due to significant edema (and tenderness) of the EAC in the left ear) on the left Throat: Yes posterior oropharynx normal and Yes tonsils normal (no TP congestion) Neck Neck: Yes supple and Yes lymphadenopathy (on the left posterior cervical area of the neck) Thyroid: Thyroid normal Resp Auscultation: clear to auscultation bilaterally, no rales and no wheezes Cardio Rate: regular rate Rhythm: regular rhythm Heart sounds: no murmurs GI Palpation (GI): Soft to palpation and nontender Auscultation: normal bowel sounds General: Yes no CVA tenderness Back/Spine/Pelvis Back: no CVA tenderness Thoracic/Lumbar Spine: lumbar spinal tenderness Skin Other: (+) large patch of erythematous rash over the anteromedial aspect of the distal third of the left lower leg Extrem Other: (+) small ulcer on the medial and plantar aspect of the left big toe, with minimal clear drainage noted from the ulcer; there are callous formation noted along the edges of the ulcer but no increased erythema is seen General: No clubbing, No cyanosis and Yes edema (1+ bipedal edema) Left lower extremity: knee Details: tenderness; no swelling Assessment and Plan Assessment & Plan (1) Otitis externa of left ear: Code(s): H60.92 - Unspecified otitis externa, left ear Qualifiers: Otitis externa type: unspecified type Chronicity: acute Qualified Code(s): H60.502 - Unspecified acute noninfective otitis externa, left ear Plan: Will start her on Augmentin 875 mg BID x 10 days for her ear infection Will also start her on Tramadol 50 mg but advised her to take this only Q HS as it can cause drowsiness and can increase her risks of fall and injury if taken often during the daytime Can continue taking OTC Acetaminophen PRN during the day for pain (2) Skin ulcer of left great toe: Code(s): L97.529 - Non-pressure chronic ulcer of other part of left foot with unspecified severity Qualifiers: Non-pressure ulcer stage: unspecified non-pressure ulcer stage Qualified Code(s): L97.529 - Non-pressure chronic ulcer of other part of left foot with unspecified severity Plan: Patient is now being seen by the wound clinic for management of her left big toe ulcer and she has an appointment scheduled with them for later this afternoon (3) Type 2 diabetes mellitus with hyperglycemia, with long-term current use of insulin: Code(s): E11.65 - Type 2 diabetes mellitus with hyperglycemia; Z79.4 - scrap hooker (current) use of insulin Plan: Her in-office HgbA1c was at 8.2% when last checked a couple of months ago (was previously at 9.5%) - goal is < 7.0% Reinforced diabetic diet Continue Metformin 1000 mg BID and Tresiba FlexTouch 36 units QD; Januvia was discontinued due to her history of pancreatitis Follow up with endocrinology (Dr. Paredes) as scheduled (4) Urinary incontinence: Code(s): R32 - Unspecified urinary incontinence Qualifiers: Urinary Incontinence type: unspecified incontinence Qualified Code(s): R32 - Unspecified urinary incontinence Plan: Per request, will provide her with a new Rx for Adult pull-ups - they are instructed to bring this to their medical supply store for processing of this Rx Plan Follow up as scheduled in December 2023 Medications: New amoxicillin-pot clavulanate 875-125 mg 1 tab PO BID 10 days 20 tabs 0RF otitis externa of left ear tramadol Take at bedtime only as needed for severe pain 50 mg PO BEDTIME PRN 7 tabs 0RF severe ear pain Refilled [ADULT PULL-UPS (large)] As directed 100 ea 12RF incontinence R32 - Unspecified urinary incontinence Coding Level of Care Code Est Pt Level 3 (73190) Diagnoses Acute otitis externa of left ear, unspecified type H60.502 Otitis externa type: unspecified type Chronicity: acute Skin ulcer of left great toe, unspecified ulcer stage L97.529 Non-pressure ulcer stage: unspecified non-pressure ulcer stage Type 2 diabetes mellitus with hyperglycemia, with long-term current use of insulin E11.65; Z79.4 Urinary incontinence, unspecified type R32 Urinary Incontinence type: unspecified incontinence
== END 2023-11-18 16:43 | disposition home or self-care (01) ==
PROVIDERS: PCP Internal Medicine; Visit Provider Internal Medicine
DX: H60.502 Unspecified acute noninfective otitis externa, left ear (principal); L97.529 Non-pressure chronic ulcer of other part of left foot with unspecified severity; E11.65 Type 2 diabetes mellitus with hyperglycemia; Z79.4 Long term (current) use of insulin; R32 Unspecified urinary incontinence

== ENCOUNTER → 2023-11-18 10:28 | Outpatient (BNVA) | payer OTHER, SELFPAY | PROVIDERS: PCP Internal Medicine; Visit Provider Internal Medicine | DX: H60.502 Unspecified acute noninfective otitis externa, left ear (principal); L97.529 Non-pressure chronic ulcer of other part of left foot with unspecified severity; E11.65 Type 2 diabetes mellitus with hyperglycemia; R32 Unspecified urinary incontinence; Z79.4 Long term (current) use of insulin | CPT/HCPCS: 99212 ==

== ENCOUNTER 2023-12-26 09:29 | Outpatient (REF) | payer OTHER, SELFPAY ==
[2023-12-26 10:02] LABS: MANUAL DIFF FLAG NO
[2023-12-26 10:57] LABS: Basophils Percent Auto 0.4 % (0-2); Eosinophils Absolute Auto 0.2 X10*3/uL (0.0-0.4); Eosinophils Percent Auto 1.5 % (0-4); Hematocrit 34.3 % (37.0-47.0); Hemoglobin 11.1 g/dl (12.0-16.0); Imm Gran Abs Auto 0.03 X10*3/uL (0.00-0.03); Imm Gran Pct Auto 0.3 % (0.0-0.4); Lymphocytes Absolute Auto 3.1 X10*3/uL (1.2-4.9); Mean Corpuscular HGB Conc 32.4 g/dl (31.0-35.0); Mean Corpuscular Volume 80.3 fL (80.0-98.0); Mean Platelet Volume 9.1 fL (9.4-12.3); Monocytes Absolute Auto 0.6 X10*3/uL (0.1-1.2); Monocytes Percent Auto 5.7 % (2-11); Neutrophils Absolute Auto 6.1 x10*3/uL (2.0-8.3); Neutrophils Percent Auto 61.1 % (45-73); Platelet Count 295 X10*3/uL (160-400); Red Blood Count 4.27 X10*6/uL (4.20-5.50); Red Cell Distribution Width 16.7 % (11.0-16.0)
[2023-12-26 11:08] LABS: Estimated Average Glucose 146 mg/dL; Hemoglobin A1C 141.9693 umol/L; Hemoglobin A1c % 6.7 % (<6.0); Total Hemoglobin (HGBA1C) 2878.7397 umol/L
[2023-12-26 12:07] LABS: Vitamin D 25-OH Total 12.7 ng/mL (>30)
[2023-12-26 12:08] LABS: Anion Gap 14 (12-20)
[2023-12-26 12:11] LABS: Folate 10.9 ng/mL (> or = 4.0); Vitamin B12 237 pg/mL (200-900)
[2023-12-26 12:13] LABS: Alanine Aminotransferase 17 U/L (0-31); Alkaline Phosphatase 101 U/L (39-117); Aspartate Amino Transferase 27 U/L (5-31); Bilirubin Total 0.4 mg/dL (0.0-1.0); Blood Urea Nitrogen 18 mg/dL (9-16); Calcium 10.5 mg/dL (8.4-10.2); Carbon Dioxide 29 mmol/L (22-29); Chloride 104 mmol/L (96-108); Cholesterol 144 mg/dL (<200); Estimated Glomerular Filt Rate > 60; Glucose Fasting 106 mg/dL (60-99); HDL Cholesterol 46 mg/dL (>40); LDL Cholesterol Calculated 68 mg/dL (<100); Potassium 4.3 mmol/L (3.3-5.1); Sodium 143 mmol/L (135-145); Total Protein 7.7 g/dL (6.5-8.0); Triglycerides 154 mg/dL (<150)
[2023-12-26 12:38] LABS: Free T4 (Free Thyroxine) 1.02 ng/dL (0.71-1.85)
== END 2023-12-26 09:30 | disposition home or self-care (01) ==
LOC: HO.LAB 09:29
PROVIDERS: PCP Internal Medicine; Visit Provider Internal Medicine
DX: D64.9 Anemia, unspecified (principal); E11.9 Type 2 diabetes mellitus without complications; E78.00 Pure hypercholesterolemia, unspecified; E55.9 Vitamin D deficiency, unspecified; E53.8 Deficiency of other specified B group vitamins
CPT/HCPCS: 36415; 80053; 80061; 82306; 82607; 82746; 83036; 84439; 84443; 85025

== ENCOUNTER 2023-12-29 14:12 | Outpatient (REF) | payer OTHER, SELFPAY ==
[2023-12-29 17:19] LABS: Appearance Urine Clear; Color Urine Yellow; Glucose Urine UA Negative (Negative); Leukocyte Esterase Urine Negative (Negative); Nitrite Urine Negative (Negative); Specific Gravity - Urine 1.015 (1.005-1.025); Urine Blood Negative (Negative); Urine Ketones Negative (Negative); Urine Protein Trace mg/dL (Neg-Trace)
[2023-12-29 17:41] LABS: Creatinine Urine 56.71 mg/dL; Microalbum/Creatinine Ratio Ur 126.9 ug/mg cr (<30)
== END 2023-12-29 14:13 | disposition home or self-care (01) ==
LOC: HO.LNP 14:12
PROVIDERS: PCP Internal Medicine; Visit Provider Internal Medicine
DX: M54.16 Radiculopathy, lumbar region (principal); L97.529 Non-pressure chronic ulcer of other part of left foot with unspecified severity; E11.65 Type 2 diabetes mellitus with hyperglycemia; I10 Essential (primary) hypertension; E78.00 Pure hypercholesterolemia, unspecified; K21.9 Gastro-esophageal reflux disease without esophagitis; M19.011 Primary osteoarthritis, right shoulder; F41.9 Anxiety disorder, unspecified; F33.9 Major depressive disorder, recurrent, unspecified; E66.9 Obesity, unspecified; H91.93 Unspecified hearing loss, bilateral; R30.0 Dysuria; Z79.4 Long term (current) use of insulin; Z79.899 Other long term (current) drug therapy
CPT/HCPCS: 81003; 82043; 82570; 96127; 99212

== ENCOUNTER 2023-12-29 14:12 | Outpatient (AMB) | payer OTHER, SELFPAY ==
[2023-12-29 14:24] VITALS: BP 126/74; PULSE 87; O2SAT 95; BMI 32.6
--- NOTE | 2023-12-29 14:24 | MHC.PC.OV ---
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: No Accompanied by: Self / Same As Patient Allergies No Known Allergies [No Known Allergies*] Allergy (Verified 12/29/23 14:57) Medication List - Last Reconciled 12/29/23 by Charan Delgado MD [ADULT PULL-UPS (large) As directed] amlodipine 10 mg PO DAILY 90 days atorvastatin 10 mg PO DAILY [bed pads As directed] [BLADDER PADS As directed] blood pressure test kit-large As directed blood sugar diagnostic (FreeStyle Lite Strips) As directed three times a day blood-glucose meter (FreeStyle Lite Meter kit) As directed 3x/day blood-glucose meter (FreeStyle Lite Meter kit) As directed 3x/day buspirone 15 mg PO BID 30 days clonidine HCl 0.1 mg PO BEDTIME gabapentin 100 mg PO BID 30 days hydroxyzine HCl 25 mg PO Q8H PRN [incontinence wipes As directed] insulin degludec (Tresiba FlexTouch U-100 insulin) 36 units (0.36 mL) subcut BEDTIME lancets (FreeStyle Lancets) As directed three time a day lisinopril 40 mg PO BID 90 days lorazepam 1 mg PO Q8H PRN 30 days meclizine 25 mg PO DAILY 14 days metformin 1,000 mg PO BID metoprolol succinate ER 25 mg PO DAILY 90 days mirtazapine 15 mg PO BEDTIME miscellaneous medical supply 1 ea miscellaneous .QD miscellaneous medical supply size: Large, PADS for incontinence. nebulizer accessories nebulizer mask and accessories omeprazole 20 mg PO DAILY 90 days pen needle, diabetic (BD Stephanie 2nd Gen Pen Needle) As directed pen needle, diabetic (BD Ultra-Fine Mini Pen Needle) USE 1 NEEDLE DAILY sertraline 150 mg (1.5 x 100 mg) PO DAILY 30 days [shower bench As directed] [shower chair As directed] tramadol 50 mg PO BEDTIME PRN [walker As directed] Tobacco use date assessed: 12/29/23 Fall risk assessment: 2 + Falls in past year Last assessed Fall Risk: 12/29/23 Dental Screening Dental Screen Date: 12/29/23 Did you have a dental visit in the last 12 months?: Yes Did you have a dental problem in the last 6 months where you did not have access to dental care?: No Was dental information given to patient?: Patient has dentist HPI 3mth f/u HPI Details Patient comes in today for her follow-up visit States that she has been experiencing increased pain over her right lower back and in her right hip lately She denies any recent injury or trauma to her lower back or right hip States that she feels okay otherwise She denies any headaches or dizziness Denies any chest pains, no increased shortness of breath No nausea/vomiting, no abdominal pain No change in bowel habits noted She had her follow-up labs done a few days ago - to discuss her results [facility] Medical History Left lower quadrant abdominal pain Hyperlipidemia LDL goal <100 Proteinuria Type 2 diabetes mellitus with other diabetic kidney complication Type 2 diabetes mellitus with hyperglycemia, with long-term current use of insulin Lumbar degenerative disc disease Obesity (BMI 30-39.9) Depression Anxiety GERD without esophagitis Primary osteoarthritis, right shoulder Pure hypercholesterolemia Diabetes mellitus Benign essential hypertension Chest pain Hypertension Surgical History H/O colonoscopy History of esophagogastroduodenoscopy (EGD) History of mammogram History of cataract surgery History of cholecystectomy Family History Father Diabetes Mother Diabetes Daughter Diabetes CVD (cardiovascular disease) Unknown Substance use disorder Social History Household Members: Children Housing: Apartment Alcohol intake: current Alcohol intake frequency: does not drink Patient Tobacco Use Status: Never used Tobacco e-Cigarette/Vaping Use: Never Used Second Hand Smoke Exposure: No service: No Current occupational status: disabled Cognitive needs: Yes (Pt has a cane and walker at home.) Hearing needs: Yes (Bilateral hearng loss per Pt) Vision needs: Yes (wear glasses.) Questionnaire PHQ-9 Over the last 2 weeks, how often have you been bothered by any of the following problems? 1. Little interest or pleasure in doing things: more than half the days 2. Feeling down, depressed, or hopeless: more than half the days 3. Trouble falling or staying asleep, or sleeping too much: more than half the days 4. Feeling tired or having little energy: more than half the days 5. Poor appetite or overeating: more than half the days 6. Feeling bad about yourself - or that you are a failure or have let yourself or your family down: more than half the days 7. Trouble concentrating on things, such as reading the newspaper or watching television: more than half the days 8. Moving or speaking so slowly that other people could have noticed. Or the opposite - being so fidgety or restless that you have been moving around a lot more than usual: more than half the days 9. Thoughts that you would be better off or of hurting yourself in some way: not at all Total score: 16 Depression Screening Interpretation: Positive Depression Screening Follow-up: Existing condition and In treatment Depression Screening Done: Yes [id number] - PHQ-9 Billing: Yes Source: Developed by Drs. Terrance Courtney, Latesha Ace, Romero Graham and colleagues, with an educational deidra from [employer]. Thrive Questionnaire Date Thrive assessed: 12/29/23 I am a: Patient What is your living situation today?: I have a steady place to live Within the past 12 months, did the food you bought not last and you didn't have the money to get more?: Never true Within the past 12 months, did you worry whether your food would run out before you got money to buy more?: Never true Do you have trouble paying for medicines?: No Do you have trouble getting transportation to medical appointments?: No Do you have trouble paying your heating and electricity bill?: No Do you have trouble taking care of your child, family member or friend?: No Do you have trouble with day-to-day activities such as bathing, preparing meals, shopping, managing finances, etc.?: No Are you currently unemployed and looking for a job?: No Are you interested in more education?: No Please select the resources that you would like help with: None Currently or been in a relationship where the following occur: No concerns reported THRIVE Score: 0 AUDIT C Alcohol Use Questionnaire (AUDIT-C) 1. How often do you have a drink containing alcohol?: Never 3. How often do you have six or more drinks on one occasion?: Never Total Score: 0 Score Reviewed/Action Taken: Yes ANTONIETA-7 AMB Questionnaire ANTONIETA-7 Date ANTONIETA - 7 assessed: 12/29/23 Feeling nervous, anxious, or on edge: 0 = Not at all Not being able to stop or control worryin = Not at all Worrying too much about different things: 0 = Not at all Trouble relaxin = Not at all Being so restless that it is hard to sit still: 0 = Not at all Becoming easily annoyed or irritable: 0 = Not at all Feeling afraid as if something awful might happen: 0 = Not at all Total ANTONIETA-7 score (0-4 normal; 5-9 mild; 10-14 moderate; 15-21 severe): 0 Source: Developed by Drs. Terrance Courtney, Latesha Ace, Romero Graham and colleagues, with an educational deidra from [employer]. Review of Systems Const Reports difficulty sleeping, Denies fatigue, Denies fever(s) and Denies headache(s) ENT Denies dysphagia, Denies dizziness, Denies otalgia, Denies headache(s), Reports hearing loss (in both ears), Denies neck pain, Denies odynophagia and Denies sore throat Card Denies chest pain, Denies palpitations and Reports dyspnea on exertion (mild) Resp Denies chest congestion, Denies cough and Reports dyspnea on exertion (mild) GI Denies abdominal pain, Denies constipation, Denies dysphagia, Denies heartburn, Denies diarrhea, Denies nausea, Denies odynophagia and Denies vomiting Denies difficulty voiding, Denies nocturia, Denies dysuria and Denies urinary urgency Musc Details: (+) on and off pain over her left lower leg Reports back pain (increased pain over the right lower back lately), Reports arthralgias (in the left knee; left shoulder at times; in the R hip lately) and Denies neck pain Skin/Breast Details: (+) ulcer on the left big toe Reports rash ((+) chronic rash on the left lower leg) Neuro Denies dizziness and Denies headache(s) Psych Reports anxiety Endo Denies fatigue and Denies palpitations Physical exam (Primary Care) Vital Signs: Last Vital Signs Pulse 87 12/29/23 14:24 BP 126/74 12/29/23 14:24 Pulse Ox 95 12/29/23 14:24 Oxygen Delivery Method Room Air 12/29/23 14:24 BMI result Body Mass Index 32.6 Tobacco/Smoking Status: Tobacco use Status Tobacco use date assessed 12/29/23 12/29/23 14:29 Patient Tobacco Use Status Never used Tobacco 12/29/23 14:29 e-Cigarette/Vaping Use Never Used 12/29/23 14:29 PHQ-9: PHQ-9 Score PHQ-9: Total score 16 12/29/23 15:08 Depression Screening Interpretation: Positive Depression Screening Follow-up: Existing condition and In treatment Thrive Assessment: Date of Thrive Assessment Date Thrive assessed 12/29/23 12/29/23 14:29 Currently or been in a relationship where the following occur: No concerns reported Const General: no acute distress and alert HENMT Ears: TM's normal bilaterally and EAC's normal Throat: Yes posterior oropharynx normal and Yes tonsils normal (no TP congestion) Neck Neck: Yes no lymphadenopathy and Yes supple Thyroid: Thyroid normal Resp Auscultation: clear to auscultation bilaterally, no rales and no wheezes Cardio Rate: regular rate Rhythm: regular rhythm Heart sounds: no murmurs GI Palpation (GI): Soft to palpation and nontender Auscultation: normal bowel sounds General: Yes no CVA tenderness Back/Spine/Pelvis Back: no CVA tenderness Thoracic/Lumbar Spine: lumbar spinal tenderness Skin Rashes: no rashes Extrem Other: (+) small ulcer on the medial and plantar aspect of the left big toe, with minimal clear drainage noted from the ulcer; there are callous formation noted along the edges of the ulcer but no increased erythema is seen General: No clubbing, No cyanosis and Yes edema (1+ bipedal edema) Left lower extremity: knee Details: tenderness; no swelling Results Reviewed Results Reviewed: Laboratory Tests 12/26/23 10:00 WBC 10.0 Hgb 11.1 L Hct 34.3 L Plt Count 295 Sodium 143 Potassium 4.3 Creatinine 0.81 Estimated GFR > 60 Fasting Glucose 106 H Hemoglobin A1c % 6.7 H Calcium 10.5 H AST 27 ALT 17 Triglycerides 154 H Cholesterol 144 LDL Cholesterol, Calc 68 HDL Cholesterol 46 Vitamin B12 237 25-OH Vitamin D Total 12.7 L TSH 4.70 H Free T4 1.02 Coding Level of Care Code Est Pt Level 4 (14593) Diagnoses Lumbar back pain with radiculopathy affecting right lower extremity M54.16 Skin ulcer of left great toe, unspecified ulcer stage L97.529 Non-pressure ulcer stage: unspecified non-pressure ulcer stage Type 2 diabetes mellitus with hyperglycemia, with long-term current use of insulin E11.65; Z79.4 Benign essential hypertension I10 Pure hypercholesterolemia E78.00 GERD without esophagitis K21.9 Primary osteoarthritis, right shoulder M19.011 Anxiety F41.9 Episode of recurrent major depressive disorder, unspecified depression episode severity F33.9 Depression Type: major depressive disorder Major depression recurrence: recurrent Active/Remission status: currently active Major depression episode severity: unspecified Obesity (BMI 30-39.9) E66.9 Bilateral hearing loss, unspecified hearing loss type H91.93 Hearing loss type: unspecified Laterality: bilateral Assessment & Plan Assessment & Plan (1) Lumbar back pain with radiculopathy affecting right lower extremity: Code(s): M54.16 - Radiculopathy, lumbar region Category: Medical Plan: Reinforced activity and weight-lifting restrictions Lumbar spine x-rays done in November 2021 revealed stable lumbar lordotic straightening, severe L5-S1 disc space narrowing and L4 on L5 anterolisthesis and increasing L4-L5 disc space narrowing Repeat x-rays done again on 03/27/2022 revealed moderate degenerative disc disease at L4-L5 and marked degenerative disease at L5-S1, with multi-level lumbar spondylosis and facet arthropathy; no acute findings are seen Due to her recently increased right-sided low back pain, will send patient for repeat x-rays of the lumbar spine and right hip TAMARA for further evaluation Will start her back on Lidocaine 5% patches QD PRN (2) Skin ulcer of left great toe: Code(s): L97.529 - Non-pressure chronic ulcer of other part of left foot with unspecified severity Category: Medical Qualifiers: Non-pressure ulcer stage: unspecified non-pressure ulcer stage Qualified Code(s): L97.529 - Non-pressure chronic ulcer of other part of left foot with unspecified severity Plan: Follow up with the wound clinic and with podiatry as scheduled (3) Type 2 diabetes mellitus with hyperglycemia, with long-term current use of insulin: Code(s): E11.65 - Type 2 diabetes mellitus with hyperglycemia; Z79.4 - 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 Paredes) as scheduled (4) Benign essential hypertension: Code(s): I10 - Essential (primary) hypertension Category: Medical Plan: Reinforced low-sodium diet - goal is systolic BP of at least 140 mm or less Continue Lisinopril 40 mg BID, Metoprolol ER 25 mg QD and Amlodipine 10 mg QD (5) Pure hypercholesterolemia: Code(s): E78.00 - Pure hypercholesterolemia, unspecified Category: Medical Plan: Results of her labs done a few days ago reviewed and discussed with patient Reinforced low cholesterol diet Continue Atorvastatin 20 mg QD Will recheck her labs and fasting lipids in 3 months for follow up (6) GERD without esophagitis: Code(s): K21.9 - Gastro-esophageal reflux disease without esophagitis Category: Medical Plan: Dietary restrictions reinforced Continue Omeprazole 40 mg QD Abdominal and pelvic US done in 2020 revealed (+) left renal stone and enlarged echogenic liver due to fatty infiltration (7) Primary osteoarthritis, right shoulder: Comment: X-rays of the right shoulder done in 2019 showed (+) OA changes Code(s): M19.011 - Primary osteoarthritis, right shoulder Category: Medical Plan: Her right shoulder symptoms have improved partially with physical therapy in the past; will refer again if needed Continue Nabumetone 500 mg twice a day with food as needed for pain (8) Anxiety: Code(s): F41.9 - Anxiety disorder, unspecified Category: Medical Plan: Continue Lorazepam 1 mg every 8 hours as needed, Sertraline 150 mg (1.5 tablets) QD and Buspirone 15 mg BID (9) Depression: Code(s): F32.9 - Major depressive disorder, single episode, unspecified Category: Medical Qualifiers: Depression Type: major depressive disorder Major depression recurrence: recurrent Active/Remission status: currently active Major depression episode severity: unspecified Qualified Code(s): F33.9 - Major depressive disorder, recurrent, unspecified Plan: Continue Mirtazapine Q HS and Clonidine 0.1 mg Q HS - she was supposed to be on Mirtazapine 15 mg Q HS but admits to only taking 1/2 tablet (7.5 mg) lately as she did not want to get too sleepy or sedated since her son, who is currently having some significant health issues of his own, will try to wake her up at night when he needs her to do something Continue Sertraline 150 mg QD Follow up with psychiatry as scheduled (10) Obesity (BMI 30-39.9): Code(s): E66.9 - Obesity, unspecified Category: Medical Plan: Reinforced diet/exercise as tolerated/lose weight (11) Hearing impairment: Code(s): H91.90 - Unspecified hearing loss, unspecified ear Category: Medical Qualifiers: Hearing loss type: unspecified Laterality: bilateral Qualified Code(s): H91.93 - Unspecified hearing loss, bilateral Plan: Per request, will refer patient for hearing evaluation Plan Follow up in 3 months Orders: Orders XR hip RT min 2V 12/29/23 M25.551 - Pain in right hip, M54.16 - Radiculopathy, lumbar region, M54.50 - Low back pain, unspecified Complete Blood Count Auto Diff 3 Months D64.9 - Anemia, unspecified Vitamin D 25-OH Total 3 Months E55.9 - Vitamin D deficiency, unspecified XR lumbar spine 2-3V 12/29/23 M54.16 - Radiculopathy, lumbar region, M54.50 - Low back pain, unspecified XR sacroiliac joint 1-2V 12/29/23 M54.16 - Radiculopathy, lumbar region, M54.50 - Low back pain, unspecified Comprehensive Stevenson. Panel Fast 3 Months E78.00 - Pure hypercholesterolemia, unspecified Lipid Panel 3 Months E78.00 - Pure hypercholesterolemia, unspecified Hemoglobin A1c 3 Months E11.9 - Type 2 diabetes mellitus without complications UA CC w/rflx Micro + Cult 3 Months R30.0 - Dysuria TSH reflex Free T4 3 Months E78.00 - Pure hypercholesterolemia, unspecified Microalbumin, Random (w Creat) 3 Months E11.9 - Type 2 diabetes mellitus without complications Referrals Speech and Hearing Referral H91.90 - Unspecified hearing loss, unspecified ear Medications: New lidocaine 5% leave on most painful area for up to 12 hrs 1 patch topical DAILY 30 ea 1RF pain cholecalciferol (vitamin D3) 50 mcg PO DAILY 90 days 90 caps 3RF E55.9 - Vitamin D deficiency, unspecified Refilled [incontinence wipes] As directed 300 ea 5RF K62.5 - Hemorrhage of anus and rectum, R32 - Unspecified urinary incontinence
== END 2023-12-29 15:13 | disposition home or self-care (01) ==
LOC: HO.HMCH 14:12
PROVIDERS: PCP Internal Medicine; Visit Provider Internal Medicine
DX: E11.65 Type 2 diabetes mellitus with hyperglycemia (principal); Z79.4 Long term (current) use of insulin; L97.529 Non-pressure chronic ulcer of other part of left foot with unspecified severity; F33.9 Major depressive disorder, recurrent, unspecified; E66.9 Obesity, unspecified; Z68.32 Body mass index [BMI] 32.0-32.9, adult; M54.16 Radiculopathy, lumbar region; I10 Essential (primary) hypertension; E78.00 Pure hypercholesterolemia, unspecified; K21.9 Gastro-esophageal reflux disease without esophagitis; M19.011 Primary osteoarthritis, right shoulder; F41.9 Anxiety disorder, unspecified

== ENCOUNTER → 2024-01-16 12:35 | Outpatient (REF) | payer OTHER, SELFPAY ==
--- NOTE | 2024-01-16 12:38 | CA_ITS ---
Transthoracic Echocardiogram Patient (Last, First, Middle): Clarisa Soto, Gender: Female Date of : 1945 Age: 79 Procedure Date: 01/16/2024 Procedure Type: Transthoracic Echocardiogram Location: OP Height: 154.94 cm Weight: 83.01 kg BSA: 1.82 m2 Heart Rate: 71 bpm BP: 130 / 82 mmHg Sign Erector: Referring MD: Charan Delgado MD Wool Supplier: Andres Duggan MD Symptoms: R06.09 - Other forms of dyspnea Study Quality: Technically Difficult ECG Rhythm: Sinus Conclusions: - 1. Technically limited study 2. Normal LV ejection fraction of 60 65% with mild LVH with elevated filling pressures 3. At least mild biatrial enlargement 4. Cardiac valvular Dopplers within normal limits Findings Left Ventricle Normal left ventricular size and systolic function. There is mildly increased left ventricular wall thickness. The visually estimated ejection fraction is between 60-65%. Regional wall motion abnormalities can not be excluded due to suboptimal endocardial definition. Spectral Doppler is indicative of an impaired relaxation filling pattern. Elevated filling pressures. E/E prime ratio is >15, consistent with elevated filling pressures. Right Ventricle Normal right ventricular cavity size and systolic function. Atria The left atrium is mildly dilated. There is no evidence of interatrial shunt. The right atrium is likely dilated. Aortic Valve The aortic valve was not well visualized. There is no aortic valve stenosis. There is no aortic valve regurgitation. Mitral Valve The mitral valve was not well visualized. There is trace mitral valve regurgitation. There is no mitral valve stenosis. Pulmonic Valve The pulmonic valve was not well visualized. Tricuspid Valve The tricuspid valve was not well visualized. There is mild tricuspid valve regurgitation. The right ventricular systolic pressure is not calculated. Indeterminate right atrial pressure. Great Vessels The aorta was not well visualized. The pulmonary artery was not well visualized. There is no dilatation of the ascending aorta measuring 3.20 cm. Venous The inferior vena cava was not well visualized. Pericardium/Pleural The pericardium was not well visualized. Measurements 2D Linear Measurements IVSd: 1.25 0.6-0.9/0.6-1.0 cm LVIDd: 4.22 3.9-5.3/4.2-5.9 cm LVIDd Index: 2.32 2.4-3.2/2.2-3.1 cm/m2 LVIDs: 2.61 2.0-3.6 cm LVPWd: 1.25 0.7-1.1 cm LA Diam: 3.70 2.7-3.8/3.0-4.0 cm LAIDs Index: 2.03 1.5-2.3 cm/m2 LV Mass: 237.45 67-162/88-224 g LV Mass Index: 130.46 43-95/49-115 g/m2 LVOT Diam: 2.10 3.0+(-)1.3 cm Mitral Valve MV Pk E: 0.99 MV PK A: 1.07 MV Decel Time: 157.00 E/A: 0.90 E'Lateral: 6.09 E'Medial: 4.46 E/E' Med: 22.20 E/E' Lat: 16.30 PHT: 46.00 MVA PHT: 4.78 Decel [place]: 6.32 Aortic Valve AoV Pk Chris: 1.47 AoV Pk Grad: 9.00 JACINTA: 2.11 LVOT LVOT Pk Chris: 0.90 LVOT Mn Chris: 0.63 LVOT VTI: 0.23 LVOT Pk Grad: 3.00 LVOT Mn Grad: 2.00 LVOT Diam: 2.10 LVOT Area: 3.46 Diastolic Function MV Pk E: 0.99 MV Pk A: 1.07 E/A: 0.90 E'Medial: 4.46 E/E' Med: 22.20 E' Laterial: 6.09 E/E' Lat: 16.30 Right Ventricle TAPSE (mm): 27.20 TVS' Chris: 13.10 Tricuspid Valve TR Pk Chris: 2.60 TR Pk Grad: 27.00 Great Vessels Aorta Sinus of Valsalva: 2.60 2.0-3.5 cm Ao Asc: 3.20 2.1-3.4 cm Pulmonary Valve PV Pk Chris: 0.95 Peak PV Grad: 4.00 Updated in Other Vendor System with Status of Final Andres Duggan MD electronically signed on 01/17/2024 10:26:58 AM with status of Final
== END ==
LOC: HO.CARD 12:35
PROVIDERS: PCP Internal Medicine; Visit Provider Internal Medicine
DX: R06.09 Other forms of dyspnea (principal)
CPT/HCPCS: 93306

== ENCOUNTER → 2024-01-16 12:38 | Outpatient (BNV) | payer OTHER, SELFPAY | PROVIDERS: PCP Internal Medicine; Visit Provider Internal Medicine Cardiovascular Disease | DX: I36.1 Nonrheumatic tricuspid (valve) insufficiency (principal); I51.7 Cardiomegaly | CPT/HCPCS: 93306 ==

== ENCOUNTER 2024-01-26 11:17 | Outpatient (REF) | payer OTHER, SELFPAY ==
--- NOTE | ~2024-01-26 | XR_ITS ---
EXAMINATION: XR LUMBAR SPINE CLINICAL INFORMATION: Low back pain, unspecified M54.50. COMPARISON: XR Lumbar spine 03/27/2022 TECHNIQUE: Three views of the lumbosacral spine. FINDINGS: Normal vertebral body heights. No acute fractures. Degenerative changes with disc space narrowing and osteophyte formation is seen at L4/5 and L5/S1. Posterior facet joint arthropathy is seen L3/4, L4/5 and L5/S1. There is a grade 1 anterolisthesis of L4 on L5 due to posterior facet joint arthropathy at this level. The paraspinal soft tissues are normal. XR/XR lumbar spine 2-3V IMPRESSION: Degenerative disc disease and posterior facet joint arthropathy as described above. Electronically signed by: Daniel Quezada MD 02/17/2024 11:11 AM [facility]
== END 2024-01-26 11:18 | disposition home or self-care (01) ==
LOC: HO.XRAY 11:17
PROVIDERS: PCP Internal Medicine; Visit Provider Internal Medicine
DX: M54.50 Low back pain, unspecified (principal); M54.16 Radiculopathy, lumbar region; M25.551 Pain in right hip
CPT/HCPCS: 72100; 72200; 73502

== ENCOUNTER 2024-03-12 11:09 | Outpatient (AMB) | payer OTHER, SELFPAY ==
--- NOTE | 2024-03-12 11:33 | A.OFFPC_ITS ---
Vital Signs 03/12/24 11:34 Height 5 ft 2 in Weight 172 lb BMI 31.5 BP 128/72 Blood Pressure Location Lt brachial Position Sitting Pulse 75 Pulse Source Pulse Oximeter Pulse Oximetry (%) 98 Oxygen Delivery Method Room Air Intake Visit Reasons: fell-lump on head Certified Master Safe Technician Required: Yes Certified Master Safe Technician Language: French Allergies No Known Allergies [No Known Allergies*] Allergy (Verified 03/12/24 11:54) Medication List - Last Reconciled 03/12/24 by Charan Delgado MD [ADULT PULL-UPS (large) As directed] amlodipine 10 mg PO DAILY 90 days atorvastatin 10 mg PO DAILY [bed pads As directed] [BLADDER PADS As directed] blood pressure test kit-large As directed blood sugar diagnostic (FreeStyle Lite Strips) As directed three times a day blood-glucose meter (FreeStyle Lite Meter kit) As directed 3x/day blood-glucose meter (FreeStyle Lite Meter kit) As directed 3x/day buspirone 15 mg PO BID 30 days cholecalciferol (vitamin D3) 50 mcg PO DAILY 90 days clonidine HCl 0.1 mg PO BEDTIME gabapentin 100 mg PO BID 30 days hydroxyzine HCl 25 mg PO Q8H PRN [incontinence wipes As directed] insulin degludec (Tresiba FlexTouch U-100 insulin) 36 units (0.36 mL) subcut BEDTIME lancets (FreeStyle Lancets) As directed three time a day lidocaine 5% 1 patch topical DAILY lisinopril 40 mg PO BID 90 days lorazepam 1 mg PO Q8H PRN 30 days meclizine 25 mg PO DAILY 14 days metformin 1,000 mg PO BID metoprolol succinate ER 25 mg PO DAILY 90 days mirtazapine 15 mg PO BEDTIME miscellaneous medical supply 1 ea miscellaneous .QD miscellaneous medical supply size: Large, PADS for incontinence. nebulizer accessories nebulizer mask and accessories omeprazole 20 mg PO DAILY 90 days pen needle, diabetic (BD Stephanie 2nd Gen Pen Needle) As directed pen needle, diabetic (BD Ultra-Fine Mini Pen Needle) USE 1 NEEDLE DAILY sertraline 150 mg (1.5 x 100 mg) PO DAILY 30 days [shower bench As directed] [shower chair As directed] tramadol 50 mg PO BEDTIME PRN [walker As directed] Tobacco use date assessed: 03/12/24 Fall risk assessment: 1 Fall in past year Last assessed Fall Risk: 03/12/24 Dental Screening Dental Screen Date: 03/12/24 Did you have a dental visit in the last 12 months?: Yes Did you have a dental problem in the last 6 months where you did not have access to dental care?: No Was dental information given to patient?: Patient has dentist HPI fell-lump on head HPI Details Patient comes in today for further evaluation of a lump on the back of her head Her granddaughter states that patient's legs apparently got crossed up after she closed her refrigerator door about 3 days ago, lost her balance and fell onto her back with the back of her head hitting the floor of her kitchen Patient recalls feeling dizzy for a while after her fall and head trauma but denies any LOC Her granddaughter states that patient had a large lump on the back of her head then but no bleeding was noted They brought patient to the ER at [facility] at the time for further evaluation but after supposedly waiting over 5 hours without being seen yet, patient decided that she wants to go home so she was never evaluated after her fall Her granddaughter states that the lump on the back of her head appears to have subsided now as they can no longer see or feel it Other than some residual soreness over the back of her head, patient currently denies any headaches or dizziness Denies any chest pains, no SOB No nausea/vomiting but reports that she has been experiencing frequent abdominal bloating and abdominal fullness and discomfort for a few days now - thinks that she may have a hernia inside her abdomen that is exerting a lot of pressure and causing her abdominal pain and discomfort No change in bowel habits noted They would also like to know how her lower back x-rays done early last month came out [facility] Medical History Left lower quadrant abdominal pain Hyperlipidemia LDL goal <100 Proteinuria Type 2 diabetes mellitus with other diabetic kidney complication Type 2 diabetes mellitus with hyperglycemia, with long-term current use of insulin Lumbar degenerative disc disease Obesity (BMI 30-39.9) Depression Anxiety GERD without esophagitis Primary osteoarthritis, right shoulder Pure hypercholesterolemia Diabetes mellitus Benign essential hypertension Chest pain Hypertension Surgical History H/O colonoscopy History of esophagogastroduodenoscopy (EGD) History of mammogram History of cataract surgery History of cholecystectomy Family History Father Diabetes Mother Diabetes Daughter Diabetes CVD (cardiovascular disease) Unknown Substance use disorder Social History Household Members: Children Housing: Apartment Alcohol intake: current Alcohol intake frequency: does not drink Patient Tobacco Use Status: Never used Tobacco Tobacco use type: Cigarette e-Cigarette/Vaping Use: Never Used Second Hand Smoke Exposure: No service: No Current occupational status: disabled Cognitive needs: Yes (Pt has a cane and walker at home.) Hearing needs: Yes (Bilateral hearng loss per Pt) Vision needs: Yes (wear glasses.) Questionnaire PHQ-9 Over the last 2 weeks, how often have you been bothered by any of the following problems? 1. Little interest or pleasure in doing things: more than half the days 2. Feeling down, depressed, or hopeless: more than half the days 3. Trouble falling or staying asleep, or sleeping too much: more than half the days 4. Feeling tired or having little energy: more than half the days 5. Poor appetite or overeating: more than half the days 6. Feeling bad about yourself - or that you are a failure or have let yourself or your family down: more than half the days 7. Trouble concentrating on things, such as reading the newspaper or watching television: more than half the days 8. Moving or speaking so slowly that other people could have noticed. Or the opposite - being so fidgety or restless that you have been moving around a lot more than usual: more than half the days 9. Thoughts that you would be better off or of hurting yourself in some way: not at all Total score: 16 Depression Screening Interpretation: Positive Depression Screening Follow-up: Existing condition and In treatment Depression Screening Done: Yes 18827 - PHQ-9 Billing: Yes Source: Developed by Drs. Terrance Courtney, Latesha Ace, Romero Graham and colleagues, with an educational deidra from [employer]. Thrive Questionnaire Date Thrive assessed: 03/12/24 I am a: Patient What is your living situation today?: I have a steady place to live Within the past 12 months, did the food you bought not last and you didn't have the money to get more?: Never true Within the past 12 months, did you worry whether your food would run out before you got money to buy more?: Never true Do you have trouble paying for medicines?: No Do you have trouble getting transportation to medical appointments?: No Do you have trouble paying your heating and electricity bill?: No Do you have trouble taking care of your child, family member or friend?: No Do you have trouble with day-to-day activities such as bathing, preparing meals, shopping, managing finances, etc.?: No Are you currently unemployed and looking for a job?: No Are you interested in more education?: No Please select the resources that you would like help with: None Currently or been in a relationship where the following occur: No concerns reported THRIVE Score: 0 AUDIT C Alcohol Use Questionnaire (AUDIT-C) 1. How often do you have a drink containing alcohol?: Never 3. How often do you have six or more drinks on one occasion?: Never Total Score: 0 Score Reviewed/Action Taken: Yes ANTONIETA-7 AMB Questionnaire ANTONIETA-7 Date ANTONIETA - 7 assessed: 03/12/24 Feeling nervous, anxious, or on edge: 0 = Not at all Not being able to stop or control worryin = Not at all Worrying too much about different things: 0 = Not at all Trouble relaxin = Not at all Being so restless that it is hard to sit still: 0 = Not at all Becoming easily annoyed or irritable: 0 = Not at all Feeling afraid as if something awful might happen: 0 = Not at all Total ANTONIETA-7 score (0-4 normal; 5-9 mild; 10-14 moderate; 15-21 severe): 0 Source: Developed by Drs. Terrance Courtney, Latesha Ace, Romero Graham and colleagues, with an educational deidra from [employer]. Review of Systems Const Details: (+) mild pain over the right side of the back of the head Denies fatigue, Denies fever(s) and Denies headache(s) ENT Denies dysphagia, Reports dizziness, Denies otalgia, Denies headache(s), Reports hearing loss (in both ears), Denies neck pain, Denies odynophagia and Denies sore throat Card Denies chest pain, Denies palpitations and Reports dyspnea on exertion (mild) Resp Denies chest congestion, Denies cough and Reports dyspnea on exertion (mild) GI Reports abdominal pain (mild, diffuse), Reports bloating, Denies constipation, Denies dysphagia, Denies heartburn, Denies diarrhea, Denies nausea, Denies odynophagia and Denies vomiting Denies difficulty voiding, Denies nocturia, Denies dysuria and Denies urinary urgency Musc Details: (+) on and off pain over her left lower leg Reports back pain (increased pain over the right lower back lately), Reports arthralgias (in the left knee; left shoulder at times; in the R hip lately) and Denies neck pain Skin/Breast Details: (+) ulcer on the left big toe Reports rash ((+) chronic rash on the left lower leg) Neuro Reports dizziness and Denies headache(s) Psych Reports anxiety Endo Denies fatigue and Denies palpitations Physical exam (Primary Care) Vital Signs: Last Vital Signs Pulse 75 03/12/24 11:34 BP 128/72 03/12/24 11:34 Pulse Ox 98 03/12/24 11:34 Oxygen Delivery Method Room Air 03/12/24 11:34 BMI result Body Mass Index 31.5 Tobacco/Smoking Status: Tobacco use Status Tobacco use date assessed 03/12/24 03/12/24 11:36 Patient Tobacco Use Status Never used Tobacco 03/12/24 11:34 Tobacco use type Cigarette 03/12/24 11:36 e-Cigarette/Vaping Use Never Used 03/12/24 11:34 PHQ-9: PHQ-9 Score PHQ-9: Total score 16 03/12/24 11:36 Depression Screening Interpretation: Positive Depression Screening Follow-up: Existing condition and In treatment Thrive Assessment: Date of Thrive Assessment Date Thrive assessed 03/12/24 03/12/24 11:36 Currently or been in a relationship where the following occur: No concerns reported Const General: no acute distress and alert HENMT Other: (+) mild tenderness over the right occipital scalp area, with (+) mild abrasions noted but no palpable lump or swelling is evident on exam today Throat: Yes posterior oropharynx normal and Yes tonsils normal (no TP congestion) Neck Neck: Yes supple and No lymphadenopathy Thyroid: Thyroid normal Resp Auscultation: clear to auscultation bilaterally, no rales and no wheezes Cardio Rate: regular rate Rhythm: regular rhythm Heart sounds: no murmurs GI Palpation (GI): Soft to palpation, Tenderness to palpation present (GI) (mild diffuse tenderness and discomfort on exam), no guarding, not rigid, no masses and No Rebound tenderness present Auscultation: normal bowel sounds General: Yes no CVA tenderness Back/Spine/Pelvis Back: no CVA tenderness Thoracic/Lumbar Spine: lumbar spinal tenderness Sacroiliac joints: bilaterally tender to palpation (L > R) Skin Other: (+) minor / superficial abrasions noted over the right occipital scalp area Rashes: no rashes Extrem General: No clubbing, No cyanosis and Yes edema (1+ bipedal edema) Left lower extremity: knee Details: tenderness; no swelling Coding Level of Care Code Est Pt Level 4 (70083) Diagnoses Fall, initial encounter W19.XXXA Encounter type: initial encounter Traumatic injury of head, initial encounter S09.90XA Encounter type: initial encounter Left upper quadrant abdominal pain R10.12 Abdominal location: left upper quadrant Lumbar back pain with radiculopathy affecting right lower extremity M54.16 Otalgia of both ears H92.03 Laterality: bilateral Additional Codes PHQ-9 - 00930 - PHQ-9 Billing: Yes ([id number]) Assessment & Plan Assessment & Plan (1) Fall: Code(s): W19.XXXA - Unspecified fall, initial encounter Category: Medical Qualifiers: Encounter type: initial encounter Qualified Code(s): W19.XXXA - Unspecified fall, initial encounter Plan: Fall occurred about 3 days ago on 03/09/2024 when patient's leg apparently got crossed up and she lost her balance and fell on her back after closing the door to her refrigerator at home (2) Head trauma: Code(s): S09.90XA - Unspecified injury of head, initial encounter Category: Medical Qualifiers: Encounter type: initial encounter Qualified Code(s): S09.90XA - Unspecified injury of head, initial encounter Plan: Patient relates that she fell on her back and the back of her head hit the kitchen floor but she denies any LOC She recalls feeling dizzy for a while after her fall and head trauma Her granddaughter states that patient had a large lump on the back of her head at the time but no bleeding was noted They brought patient to the ER at [facility] for further evaluation but after supposedly waiting over 5 hours without being seen, patient decided that she wa nts to go home so she was never evaluated after her fall She presently still has some mild tenderness and superficial abrasions on the right side of her occipital area but no palpable masses or lumps are noted Will go ahead and send her for a head CT TAMARA for further evaluation (3) Abdominal pain: Comment: Epigastric and left-sided upper abdominal pain and tenderness. She has background of esophagitis and gastroesophageal reflux disease. She is saying abdominal pain gets worse with eating. Code(s): R10.9 - Unspecified abdominal pain Category: Medical Qualifiers: Abdominal location: left upper quadrant Qualified Code(s): R10.12 - Left upper quadrant pain Plan: Patient reports experiencing frequent abdominal bloating and abdominal fullness and discomfort for the past few days and thinks that she may have a hernia inside her abdomen causing her abdominal pressure/pain and discomfort Will send her for abdominal US for further evaluation (4) Lumbar back pain with radiculopathy affecting right lower extremity: Code(s): M54.16 - Radiculopathy, lumbar region Category: Medical Plan: Patient is advised that her x-rays done last month revealed (+) degenerative disc disease and posterior facet joint arthropathy, moderate right hip osteoarthritis and mild left SI joint osteoarthritis She is advised that all of these are likely contributing to her increased low back pain recently and would recommend physical therapy if her symptoms do not subside over the next few weeks or so As she appears to also be having some issues with balance and gait (appears unsteady), advised that physical therapy can also help with gait training and strengthening - patient states that she will think about this and decide if she wants to try PT She does have an upcoming appointment scheduled in about 2 to 3 weeks and we can discuss this again at her next appointment then (5) Ear pain: Code(s): H92.09 - Otalgia, unspecified ear Category: Medical Qualifiers: Laterality: bilateral Qualified Code(s): H92.03 - Otalgia, bilateral Plan: She continues to complain of on and off bilateral ear pain that is worse in the right ear She was referred to ENT back in June 2023 but they have not yet been scheduled for an appointment Her granddaughter recalls that they were told by the ENT office that they were booking out into early 2025 and they wanted to check with us first if they can be referred to another ENT office and be seen earlier Have advised them that the ENT practice that they were referred to were the only group that accepts her insurance - have advised them to just take whatever appointment they are given and ask to be placed also on a cancellation list Will start her in the meantime on Cortisporin ear drops 5 drops into the affected ear TID x 7 days for symptomatic relief Plan Follow up as scheduled next month Orders: Orders CT head/brain wo IV con Today R42 - Dizziness and giddiness, S09.90XA - Unspecified injury of head, initial encounter, W19.XXXA - Unspecified fall, initial encounter US abdomen complete Today R10.9 - Unspecified abdominal pain Medications: New [id number]-[id number]-thonzonium 3.3-3-10-0.5 mg/mL (Cortisporin-TC) 5 drps otic (ear) left QID 7 days 10 mL 0RF
[2024-03-12 11:34] VITALS: BP 128/72; PULSE 75; O2SAT 98; BMI 31.5
== END 2024-03-12 12:12 | disposition home or self-care (01) ==
PROVIDERS: PCP Internal Medicine; Visit Provider Internal Medicine
DX: R10.12 Left upper quadrant pain (principal); S09.90XA Unspecified injury of head, initial encounter; W19.XXXA Unspecified fall, initial encounter; M54.16 Radiculopathy, lumbar region; H92.03 Otalgia, bilateral

== ENCOUNTER → 2024-03-12 11:09 | Outpatient (BNVA) | payer OTHER, SELFPAY | PROVIDERS: PCP Internal Medicine; Visit Provider Internal Medicine | DX: S09.90XA Unspecified injury of head, initial encounter (principal); W19.XXXA Unspecified fall, initial encounter; R10.12 Left upper quadrant pain; H92.03 Otalgia, bilateral; M54.16 Radiculopathy, lumbar region | CPT/HCPCS: 96127; 99212 ==

== ENCOUNTER → 2024-03-31 13:26 | Outpatient (BNVA) | payer OTHER, SELFPAY | PROVIDERS: PCP Internal Medicine; Visit Provider Internal Medicine | DX: M54.16 Radiculopathy, lumbar region (principal); L97.529 Non-pressure chronic ulcer of other part of left foot with unspecified severity; E11.65 Type 2 diabetes mellitus with hyperglycemia; I10 Essential (primary) hypertension; E78.00 Pure hypercholesterolemia, unspecified; K21.9 Gastro-esophageal reflux disease without esophagitis; M19.011 Primary osteoarthritis, right shoulder; M79.641 Pain in right hand; M79.671 Pain in right foot; F41.9 Anxiety disorder, unspecified; F33.9 Major depressive disorder, recurrent, unspecified; E66.9 Obesity, unspecified; Z79.4 Long term (current) use of insulin | CPT/HCPCS: 83036; 96127; 99212 ==

== ENCOUNTER 2024-09-06 12:43 | Outpatient (AMB) | payer OTHER, SELFPAY ==
--- NOTE | 2024-09-06 12:47 | A.OFFPC_ITS ---
Vital Signs 09/06/24 12:48 Height 5 ft 2 in Weight 171 lb BMI 31.3 BP 128/70 Blood Pressure Location Lt brachial Position Sitting Pulse 72 Pulse Source Pulse Oximeter Pulse Oximetry (%) 97 Oxygen Delivery Method Room Air Intake Visit Reasons: 3M follow up Intake Note: Patient here for a 3 month follow up Trauma Manager Required: No Accompanied by: Grand Child Allergies No Known Allergies (No Known Allergies*) Allergy (Verified 09/06/24 13:04) Medication List - Last Reconciled 09/06/24 by Charan Delgado MD [ADULT PULL-UPS (large) As directed] amlodipine 10 mg PO DAILY 90 days atorvastatin 10 mg PO DAILY [bed pads As directed] [BLADDER PADS As directed] blood pressure test kit-large As directed blood sugar diagnostic (FreeStyle Lite Strips) As directed three times a day blood-glucose meter (FreeStyle Lite Meter kit) As directed 3x/day blood-glucose meter (FreeStyle Lite Meter kit) As directed 3x/day buspirone 15 mg PO BID 30 days cholecalciferol (vitamin D3) 50 mcg PO DAILY 90 days clonidine HCl 0.1 mg PO BEDTIME gabapentin 100 mg PO BID 30 days hydroxyzine HCl 25 mg PO Q8H PRN [incontinence wipes As directed] insulin degludec (Tresiba FlexTouch U-100 insulin) 36 units (0.36 mL) subcut BEDTIME lancets (FreeStyle Lancets) As directed three time a day lidocaine 5% 1 patch topical DAILY lisinopril 40 mg PO BID 90 days lorazepam 1 mg PO Q8H PRN 30 days meclizine 25 mg PO DAILY 14 days metformin 1,000 mg PO BID metoprolol succinate ER 25 mg PO DAILY 90 days mirtazapine 15 mg PO BEDTIME miscellaneous medical supply 1 ea miscellaneous .QD miscellaneous medical supply size: Large, PADS for incontinence. nebulizer accessories nebulizer mask and accessories rmbnmmib-vyxklu-TH-thonzonium 3.3-3-10-0.5 mg/mL (Cortisporin-TC) 5 drps otic (ear) left QID 7 days ofloxacin 0.3% 5 drps otic (ears) BID 7 days omeprazole 20 mg PO DAILY 90 days pen needle, diabetic (BD Stephanie 2nd Gen Pen Needle) As directed pen needle, diabetic (BD Ultra-Fine Mini Pen Needle) USE 1 NEEDLE DAILY sertraline 150 mg (1.5 x 100 mg) PO DAILY 30 days [shower bench As directed] [shower chair As directed] tramadol 50 mg PO BEDTIME PRN [walker As directed] Tobacco use date assessed: 03/31/24 Dental Screening Dental Screen Date: 03/31/24 HPI 3M follow up HPI Details Patient comes in today for her follow up visit - is accompanied as before by her granddaughter, who acts as foreign language interpreter and spokesperson for patient as patient does not speak Fijian Patient states that she feels okay Still has frequent sensation of a ball or something falling out of her vaginal area and she would like to get a referral again to gynecology to get this checked out She has been referred for this previously but her granddaughter states that patient missed her last appointment She denies any headaches or dizziness Denies any chest pains, no increased SOB No nausea/vomiting, no abdominal pain No change in bowel habits noted Adds that she has been experiencing frequent/recurrent numbness of her entire left leg for the past month or so Her granddaughter has noticed that patient has a tendency to curl up her toes on her left foot when she is walking and she puts her weight on her left foot Patient denies any pain in her left foot and leg Needs her glucometer test strips Rx refilled She was again not able to get her previously ordered follow up labs done prior to her visit today [facility] Medical History Left lower quadrant abdominal pain Hyperlipidemia LDL goal <100 Proteinuria Type 2 diabetes mellitus with other diabetic kidney complication Type 2 diabetes mellitus with hyperglycemia, with long-term current use of insulin Lumbar degenerative disc disease Obesity (BMI 30-39.9) Depression Anxiety GERD without esophagitis Primary osteoarthritis, right shoulder Pure hypercholesterolemia Diabetes mellitus Benign essential hypertension Chest pain Hypertension Surgical History H/O colonoscopy History of esophagogastroduodenoscopy (EGD) History of mammogram History of cataract surgery History of cholecystectomy Family History Father Diabetes Mother Diabetes Daughter Diabetes CVD (cardiovascular disease) Unknown Substance use disorder Social History Household Members: Children Housing: Apartment Alcohol intake: current Alcohol intake frequency: does not drink Patient Tobacco Use Status: Never used Tobacco e-Cigarette/Vaping Use: Never Used Second Hand Smoke Exposure: No service: No Current occupational status: disabled Cognitive needs: Yes (Pt has a cane and walker at home.) Hearing needs: Yes (Bilateral hearng loss per Pt) Vision needs: Yes (wear glasses.) Questionnaire PHQ-9 Over the last 2 weeks, how often have you been bothered by any of the following problems? 1. Little interest or pleasure in doing things: not at all 2. Feeling down, depressed, or hopeless: not at all 3. Trouble falling or staying asleep, or sleeping too much: not at all 4. Feeling tired or having little energy: more than half the days 5. Poor appetite or overeating: not at all 6. Feeling bad about yourself - or that you are a failure or have let yourself or your family down: not at all 7. Trouble concentrating on things, such as reading the newspaper or watching television: not at all 8. Moving or speaking so slowly that other people could have noticed. Or the opposite - being so fidgety or restless that you have been moving around a lot more than usual: not at all 9. Thoughts that you would be better off or of hurting yourself in some way: not at all Total score: 2 Depression Screening Interpretation: Negative Depression Screening Done: Yes [id number] - PHQ-9 Billing: Yes Source: Developed by Drs. Terrance Courtney, Latesha Ace, Romero Graham and colleagues, with an educational deidra from [email or web address] Thrive Questionnaire Date Thrive assessed: 09/06/24 I am a: Patient What is your living situation today?: I have a steady place to live Within the past 12 months, did the food you bought not last and you didn't have the money to get more?: I choose not to answer this question Within the past 12 months, did you worry whether your food would run out before you got money to buy more?: I choose not to answer this question Do you have trouble paying for medicines?: I choose not to answer this question Do you have trouble getting transportation to medical appointments?: I choose not to answer this question Do you have trouble paying your heating and electricity bill?: I choose not to answer this question Do you have trouble taking care of your child, family member or friend?: I choose not to answer this question Do you have trouble with day-to-day activities such as bathing, preparing meals, shopping, managing finances, etc.?: I choose not to answer this question Are you currently unemployed and looking for a job?: I choose not to answer this question Are you interested in more education?: I choose not to answer this question Please select the resources that you would like help with: None Currently or been in a relationship where the following occur: I choose not to answer THRIVE Score: 0 AUDIT C Alcohol Use Questionnaire (AUDIT-C) 1. How often do you have a drink containing alcohol?: Never Total Score: 0 Score Reviewed/Action Taken: Yes ANTONIETA-7 AMB Questionnaire ANTONIETA-7 Date ANTONIETA - 7 assessed: 03/31/24 Feeling nervous, anxious, or on edge: 1 = Several days Not being able to stop or control worryin = Not at all Worrying too much about different things: 1 = Several days Trouble relaxin = Several days Being so restless that it is hard to sit still: 0 = Not at all Becoming easily annoyed or irritable: 0 = Not at all Feeling afraid as if something awful might happen: 0 = Not at all Total ANTONIETA-7 score (0-4 normal; 5-9 mild; 10-14 moderate; 15-21 severe): 3 Source: Developed by Drs. Terrance Courtney, Latesha Ace, Romero Graham and colleagues, with an educational deidra from [email or web address] Review of Systems Const Denies chills, Denies fatigue, Denies fever(s) and Denies headache(s) ENT Denies dysphagia, Denies dizziness, Denies otalgia, Denies headache(s), Reports hearing loss (in both ears), Denies neck pain, Denies odynophagia and Denies sore throat Card Denies chest pain, Denies palpitations and Reports dyspnea on exertion (mild) Resp Denies chest congestion, Denies cough and Reports dyspnea on exertion (mild) GI Denies abdominal pain, Denies constipation, Denies dysphagia, Denies heartburn, Denies diarrhea, Denies nausea, Denies odynophagia and Denies vomiting Details: persistent/frequent sensation of vaginal pressure and discomfort - feels like something is trying to drop out of her vagina Denies difficulty voiding, Denies nocturia, Denies dysuria and Denies urinary urgency Musc Reports back pain (over the right lower back - chronic), Denies neck pain and Reports numbness (of the entire left leg - see HPI) Skin/Breast Denies rash Neuro Denies dizziness, Denies headache(s) and Reports numbness (of the entire left leg - see HPI) Psych Reports anxiety Endo Denies fatigue and Denies palpitations Physical exam (Primary Care) Vital Signs: Last Vital Signs Pulse 72 09/06/24 12:48 BP 128/70 09/06/24 12:48 Pulse Ox 97 09/06/24 12:48 Oxygen Delivery Method Room Air 09/06/24 12:48 BMI result Body Mass Index 31.3 Tobacco/Smoking Status: Tobacco use Status Tobacco use date assessed 03/31/24 09/06/24 12:52 Patient Tobacco Use Status Never used Tobacco 09/06/24 12:52 Tobacco use type 09/06/24 12:57 e-Cigarette/Vaping Use Never Used 09/06/24 12:52 PHQ-9: PHQ-9 Score PHQ-9: Total score 2 09/06/24 12:57 Depression Screening Interpretation: Negative Thrive Assessment: Date of Thrive Assessment Date Thrive assessed 09/06/24 09/06/24 12:52 Currently or been in a relationship where the following occur: I choose not to answer Const General: no acute distress and alert HENMT Ears: TM's normal bilaterally and EAC's normal Throat: Yes posterior oropharynx normal and Yes tonsils normal (no TP congestion) Neck Neck: Yes supple and No lymphadenopathy Thyroid: Thyroid normal Resp Auscultation: clear to auscultation bilaterally, no rales and no wheezes Cardio Rate: regular rate Rhythm: regular rhythm Heart sounds: no murmurs GI Palpation (GI): Soft to palpation, nontender and no masses Auscultation: normal bowel sounds General: Yes no CVA tenderness Back/Spine/Pelvis Back: no CVA tenderness Thoracic/Lumbar Spine: lumbar spinal tenderness (mild) Skin Rashes: no rashes Extrem General: No clubbing, No cyanosis and Yes edema (1+ bipedal edema) Results AMB Hemoglobin A1c AMB Hemoglobin A1c 7.2 % Last Edit by ANIYA Moses on 09/06/24 12:5 9 Results Reviewed Results Reviewed: Laboratory Last Values Hgb A1c (Clinic) 7.2 % (4.0-6.0) H 09/06/24 12:53 Coding Level of Care Code Est Pt Level 4 (01335) Diagnoses Paresthesia of left leg R20.2 Lumbar back pain with radiculopathy affecting right lower extremity M54.16 Type 2 diabetes mellitus with hyperglycemia, with long-term current use of insulin E11.65; Z79.4 Benign essential hypertension I10 Pure hypercholesterolemia E78.00 GERD without esophagitis K21.9 Vaginal prolapse N81.10 Primary osteoarthritis, right shoulder M19.011 Anxiety F41.9 Episode of recurrent major depressive disorder, unspecified depression episode severity F33.9 Depression Type: major depressive disorder Major depression recurrence: recurrent Active/Remission status: currently active Major depression episode severity: unspecified Obesity (BMI 30-39.9) E66.9 Additional Codes PHQ-9 - 72802 - PHQ-9 Billing: Yes ([id number]) Assessment & Plan Assessment & Plan (1) Paresthesia of left leg: Code(s): R20.2 - Paresthesia of skin Category: Medical Plan: Will send patient for x-rays of the left hip as well as EMG and NCV of the left lower extremity for further evaluation (2) Lumbar back pain with radiculopathy affecting right lower extremity: Code(s): M54.16 - Radiculopathy, lumbar region Category: Medical Plan: Reinforced activity and weight-lifting restrictions Lumbar spine x-rays done in November 2021 revealed stable lumbar lordotic straightening, severe L5-S1 disc space narrowing and L4 on L5 anterolisthesis and increasing L4-L5 disc space narrowing Repeat x-rays done again on 03/27/2022 revealed moderate degenerative disc disease at L4-L5 and marked degenerative disease at L5-S1, with multi-level lumbar spondylosis and facet arthropathy; no acute findings are seen Repeat x-rays of the lumbar spine done in January 2024 revealed similar findings of degenerative disc disease and posterior facet joint arthropathy Right hip x-rays revealed (+) moderate right hip osteoarthritis and SI joint x- rays showed (+) mild left sacroiliac joint osteoarthritis Continue Lidocaine 5% patches QD PRN (3) Type 2 diabetes mellitus with hyperglycemia, with long-term current use of insulin: Code(s): E11.65 - Type 2 diabetes mellitus with hyperglycemia; Z79.4 - correction (current) use of insulin Category: Medical Plan: Her in-office HgbA1c done today is at 7.2% (was previously at 6.9% a few months ago) - goal is at least < 7.0% Reinforced diabetic diet Continue Metformin 1000 mg BID and Tresiba FlexTouch 36 units QD; Januvia was discontinued due to her history of pancreatitis Follow up with endocrinology (Dr. Paredes) as scheduled (4) Benign essential hypertension: Code(s): I10 - Essential (primary) hypertension Category: Medical Plan: Reinforced low-sodium diet - goal is systolic BP of at least 140 mm or less Continue Lisinopril 40 mg BID, Metoprolol ER 25 mg QD and Amlodipine 10 mg QD (5) Pure hypercholesterolemia: Code(s): E78.00 - Pure hypercholesterolemia, unspecified Category: Medical Plan: She was not able to get her previously ordered follow up labs done prior to her appointment today - have advised her granddaughter to help patient get her follow up labs done TAMARA (lab orders printed out to help remind them about this) Reinforced low cholesterol diet Continue Atorvastatin 20 mg QD Will have patient recheck her labs and fasting lipids in 3 months for follow up (6) GERD without esophagitis: Code(s): K21.9 - Gastro-esophageal reflux disease without esophagitis Category: Medical Plan: Dietary restrictions reinforced Continue Omeprazole 40 mg QD Abdominal and pelvic US done in 2020 revealed (+) left renal stone and enlarged echogenic liver due to fatty infiltration (7) Vaginal prolapse: Code(s): N81.10 - Cystocele, unspecified Category: Medical Plan: Her recent vaginal symptoms are highly suggestive of this Will refer her to Dr. Eldridge for further evaluation and management (8) Primary osteoarthritis, right shoulder: Comment: X-rays of the right shoulder done in 2019 showed (+) OA changes Code(s): M19.011 - Primary osteoarthritis, right shoulder Category: Medical Plan: Her right shoulder symptoms have improved partially with physical therapy in the past; will refer again if needed Continue Nabumetone 500 mg twice a day with food as needed for pain (9) Anxiety: Code(s): F41.9 - Anxiety disorder, unspecified Category: Medical Plan: Continue Lorazepam 1 mg every 8 hours as needed, Sertraline 150 mg (1.5 tablets) QD and Buspirone 15 mg BID (10) Depression: Code(s): F32.9 - Major depressive disorder, single episode, unspecified Category: Medical Qualifiers: Depression Type: major depressive disorder Major depression recurrence: recurrent Active/Remission status: currently active Major depression episode severity: unspecified Qualified Code(s): F33.9 - Major depressive disorder, recurrent, unspecified Plan: Continue Mirtazapine Q HS and Clonidine 0.1 mg Q HS - she was supposed to be on Mirtazapine 15 mg Q HS but admits to only taking 1/2 tablet (7.5 mg) lately as she did not want to get too sleepy or sedated since her son, who has some significant health issues of his own, will try to wake her up at night when he needs her to do something Continue Sertraline 150 mg QD Follow up with psychiatry as scheduled (11) Obesity (BMI 30-39.9): Code(s): E66.9 - Obesity, unspecified Category: Medical Plan: Reinforced diet/exercise as tolerated/lose weight Plan Follow up in 3 months Orders: Orders NE electromyogram (EMG) Today R20.2 - Paresthesia of skin Vitamin B12 and Folate Today E53.8 - Deficiency of other specified B group vitamins Hemoglobin A1c 3 Months E11.9 - Type 2 diabetes mellitus without complications Lipid Panel 3 Months E78.00 - Pure hypercholesterolemia, unspecified AMB Hemoglobin A1c Today E11.9 - Type 2 diabetes mellitus without complications XR hip LT min 2V Today M25.552 - Pain in left hip NE nerve conduction velocity Today R20.2 - Paresthesia of skin Comprehensive [place]. Panel Fast 3 Months E78.00 - Pure hypercholesterolemia, unspecified Referrals [employer] Referral N81.10 - Cystocele, unspecified Medications: Refilled lisinopril 40 mg PO BID 180 tabs 1RF 90 days I10 - Essential (primary) hypertension lancets (FreeStyle Lancets) As directed three time a day 300 ea 3RF E11.65 - Type 2 diabetes mellitus with hyperglycemia, Z79.4 - correction (current) use of insulin blood sugar diagnostic (FreeStyle Lite Strips) As directed three times a day 300 ea 5RF E11.65 - Type 2 diabetes mellitus with hyperglycemia, Z79.4 - pickle sorter (current) use of insulin lorazepam 1 mg PO Q8H PRN 90 tabs 1RF anxiety 30 days F41.9 - Anxiety disorder, unspecified
[2024-09-06 12:48] VITALS: BP 128/70; PULSE 72; O2SAT 97; BMI 31.3
--- OUTSIDE RECORDS SUMMARY | 2024-09-06 13:37 | XMS_ITS | Clinical Summary ---
Author Organization [email or web address] Address [address] [place] [address] Care Team Providers Care Kitchen Lead Name Role Phone Unavailable Primary Care Provider Unavailabl e Social History Tobacco Use Types Packs/Day Years Used Date Smoking Tobacco: Never Assessed Comments Unknown Sex and Gender Information Value Date Recorded Sex Assigned at Female 12/24/2021 10:39 AM EDT Legal Sex Female 10:39 AM EDT Gender Identity Female 12/24/2021 10:39 AM EDT Sexual Orientation Straight 12/24/2021 10 :39 AM EDT Plan of Treatment Health Maintenance Due Date Last Done Comments Depression Screening 1945 Alcohol/Substance Use Screening 1958 Tobacco Screening 1957 DTaP/Tdap/Td Vaccines (1 - Tdap) 1965 Pneumococcal Vaccine: 50+ Ye ars (1 of 1 - PCV) 01/07/1996 Zoster Vaccines (1 of 2) 01/07/1996 RSV Patients and Pa tients Aged 60 years or older (1 - 1-dose 75+ series) 2021 COVID-19 Vaccine ( - 2023-2 5 season) 2023 Influenza Vaccine (#1) 2024 HIB Vaccines Aged Out No longer eligi ble based on patient's age to complete this topic HPV Vaccines Aged Out No longer eligi ble based on patient's age to complete this topic Hepatitis A Vaccines Aged Out No long er eligible based on patient's age to complete this topic Hepatitis B Vaccines Aged Out No long er eligible based on patient's age to complete this topic IPV Vaccines Aged Out No longer eligi ble based on patient's age to complete this topic Meningococcal B Vaccine Aged Out No l onger eligible based on patient's age to complete this topic Meningococcal Vaccine Aged Out No mariam malvin eligible based on patient's age to complete this topic RSV under 20 months Aged Out No longe r eligible based on patient's age to complete this topic Rotavirus Vaccines Aged Out No longer eligible based on patient's age to complete this topic
== END 2024-09-06 13:22 | disposition home or self-care (01) ==
LOC: HO.HMCH 12:44
PROVIDERS: PCP Internal Medicine; Visit Provider Internal Medicine
DX: E11.65 Type 2 diabetes mellitus with hyperglycemia (principal); Z79.4 Long term (current) use of insulin; R20.2 Paresthesia of skin; M54.16 Radiculopathy, lumbar region; I10 Essential (primary) hypertension; E78.00 Pure hypercholesterolemia, unspecified; K21.9 Gastro-esophageal reflux disease without esophagitis; N81.10 Cystocele, unspecified; M19.011 Primary osteoarthritis, right shoulder; F41.9 Anxiety disorder, unspecified; F33.9 Major depressive disorder, recurrent, unspecified

== ENCOUNTER → 2024-09-06 12:43 | Outpatient (BNVA) | payer OTHER, SELFPAY | PROVIDERS: PCP Internal Medicine; Visit Provider Internal Medicine | DX: R20.2 Paresthesia of skin (principal); M54.16 Radiculopathy, lumbar region; E11.65 Type 2 diabetes mellitus with hyperglycemia; I10 Essential (primary) hypertension; E78.00 Pure hypercholesterolemia, unspecified; K21.9 Gastro-esophageal reflux disease without esophagitis; N81.10 Cystocele, unspecified; M19.011 Primary osteoarthritis, right shoulder; F41.9 Anxiety disorder, unspecified; F33.9 Major depressive disorder, recurrent, unspecified; E66.9 Obesity, unspecified; Z68.31 Body mass index [BMI] 31.0-31.9, adult; Z79.4 Long term (current) use of insulin; Z79.84 Long term (current) use of oral hypoglycemic drugs; Z79.899 Other long term (current) drug therapy; Z13.31 Encounter for screening for depression | CPT/HCPCS: 83036; 96127; 99212 ==

== ENCOUNTER 2024-10-05 08:28 | Outpatient (REF) | payer OTHER, SELFPAY ==
--- NOTE | 2024-10-05 08:32 | EMG_ITS ---
Left tibial and peroneal motor studies were performed left superficial peroneal and sural sensory studies were performed an EMG needle examination was performed. This test was somewhat limited because of patient's inability to be flat creating some technical difficulties Impression: 1. Garbtdmr-[id number]-vuzmma axonal sensory motor peripheral neuropathy 2. Left lower lumbar radiculopathy MTDD
--- OUTSIDE RECORDS SUMMARY | 2024-10-05 08:45 | XMS_ITS | Clinical Summary ---
Author Organization [employer] Address [address] [place] [address] Care Team Providers Care Bleach Machine Operator Name Role Phone Unavailable Primary Care Provider [...]
== END 2024-10-05 08:29 | disposition home or self-care (01) ==
LOC: HO.NEURO 08:28
PROVIDERS: PCP Internal Medicine; Visit Provider Internal Medicine
DX: G62.9 Polyneuropathy, unspecified (principal); R20.2 Paresthesia of skin
CPT/HCPCS: 95886; 95909

== ENCOUNTER → 2024-10-05 08:32 | Outpatient (BNV) | payer OTHER, SELFPAY | PROVIDERS: PCP Internal Medicine; Visit Provider Psychiatry & Neurology Neurology | DX: G62.89 Other specified polyneuropathies (principal); M54.16 Radiculopathy, lumbar region | CPT/HCPCS: 95886; 95908 ==

== ENCOUNTER 2024-11-26 09:52 | Outpatient (AMB) | payer OTHER, SELFPAY ==
[2024-11-26 10:01] VITALS: BP 158/88; PULSE 78; O2SAT 96; BMI 32.7
--- NOTE | 2024-11-26 10:01 | A.OFFPC_ITS ---
Vital Signs 11/26/24 10:01 Height 5 ft 2 in Weight 179 lb BMI 32.7 BP 158/88 H Blood Pressure Location Lt brachial Position Sitting Pulse 78 Pulse Source Pulse Oximeter Pulse Oximetry (%) 96 Oxygen Delivery Method Room Air Intake Visit Reasons: 3 month follow up Delivery Driver/Customer Service Required: Yes Delivery Driver/Customer Service Language: Sami Allergies No Known Allergies (No Known Allergies*) Allergy (Verified 11/26/24 10:01) Medication List - Last Reconciled 11/26/24 by Lew Mcdowell MD [ADULT PULL-UPS (large) As directed] amlodipine 10 mg PO DAILY 90 days atorvastatin 10 mg PO DAILY [bed pads As directed] [BLADDER PADS As directed] blood pressure test kit-large As directed blood sugar diagnostic (FreeStyle Lite Strips) As directed three times a day blood-glucose meter (FreeStyle Lite Meter kit) As directed 3x/day blood-glucose meter (FreeStyle Lite Meter kit) As directed 3x/day buspirone 15 mg PO BID 30 days cholecalciferol (vitamin D3) 50 mcg PO DAILY 90 days clonidine HCl 0.1 mg PO BEDTIME gabapentin 100 mg PO BID 30 days hydroxyzine HCl 25 mg PO Q8H PRN [incontinence wipes As directed] insulin degludec (Tresiba FlexTouch U-100 insulin) 36 units (0.36 mL) subcut BEDTIME lancets (FreeStyle Lancets) As directed three time a day lidocaine 5% 1 patch topical DAILY lisinopril 40 mg PO BID 90 days lorazepam 1 mg PO Q8H PRN 30 days meclizine 25 mg PO DAILY 14 days metformin 1,000 mg PO BID metoprolol succinate ER 25 mg PO DAILY 90 days mirtazapine 15 mg PO BEDTIME miscellaneous medical supply 1 ea miscellaneous .QD miscellaneous medical supply size: Large, PADS for incontinence. nebulizer accessories nebulizer mask and accessories eyhyfrnb-[id number]-[id number]-thonzonium 3.3-3-10-0.5 mg/mL (Cortisporin-TC) 5 drps otic (ear) left QID 7 days ofloxacin 0.3% 5 drps otic (ears) BID 7 days omeprazole 20 mg PO DAILY 90 days pen needle, diabetic (BD Stephanie 2nd Gen Pen Needle) As directed pen needle, diabetic (BD Ultra-Fine Mini Pen Needle) USE 1 NEEDLE DAILY sertraline 150 mg (1.5 x 100 mg) PO DAILY 30 days [shower bench As directed] [shower chair As directed] tramadol 50 mg PO BEDTIME PRN [walker As directed] Tobacco use date assessed: 03/31/24 Fall risk assessment: No Falls in past year Last assessed Fall Risk: 11/26/24 Dental Screening Dental Screen Date: 03/31/24 HPI 3 month follow up HPI Details gaye [id number] interrpet. BP in the office is high. review of the previous blood pressure- good will continue to monitor. went to ER due to leg sweling - advise change with med for now [facility] Medical History Left lower quadrant abdominal pain Hyperlipidemia LDL goal <100 Proteinuria Type 2 diabetes mellitus with other diabetic kidney complication Type 2 diabetes mellitus with hyperglycemia, with long-term current use of insulin Lumbar degenerative disc disease Obesity (BMI 30-39.9) Depression Anxiety GERD without esophagitis Primary osteoarthritis, right shoulder Pure hypercholesterolemia Diabetes mellitus Benign essential hypertension Chest pain Hypertension Surgical History H/O colonoscopy History of esophagogastroduodenoscopy (EGD) History of mammogram History of cataract surgery History of cholecystectomy Family History Father Diabetes Mother Diabetes Daughter Diabetes CVD (cardiovascular disease) Unknown Substance use disorder Social History Household Members: Children Housing: Apartment Alcohol intake: current Alcohol intake frequency: does not drink Patient Tobacco Use Status: Never used Tobacco Tobacco use type: Cigarette e-Cigarette/Vaping Use: Never Used Second Hand Smoke Exposure: No service: No Current occupational status: disabled Cognitive needs: Yes (Pt has a cane and walker at home.) Hearing needs: Yes (Bilateral hearng loss per Pt) Vision needs: Yes (wear glasses.) Questionnaire Thrive Questionnaire Date Thrive assessed: 09/06/24 I am a: Patient What is your living situation today?: I have a steady place to live Within the past 12 months, did the food you bought not last and you didn't have the money to get more?: I choose not to answer this question Within the past 12 months, did you worry whether your food would run out before you got money to buy more?: I choose not to answer this question Do you have trouble paying for medicines?: I choose not to answer this question Do you have trouble getting transportation to medical appointments?: I choose not to answer this question Do you have trouble paying your heating and electricity bill?: I choose not to answer this question Do you have trouble taking care of your child, family member or friend?: I choose not to answer this question Do you have trouble with day-to-day activities such as bathing, preparing meals, shopping, managing finances, etc.?: I choose not to answer this question Are you currently unemployed and looking for a job?: I choose not to answer this question Are you interested in more education?: I choose not to answer this question Please select the resources that you would like help with: None Currently or been in a relationship where the following occur: I choose not to answer THRIVE Score: 0 ANTONIETA-7 AMB Questionnaire ANTONIETA-7 Date ANTONIETA - 7 assessed: 03/31/24 Source: Developed by Drs. Terrance Courtney, Latesha Ace, Romero lopez nd colleagues, with an educational deidra from [employer]. Physical exam (Primary Care) Vital Signs: Last Vital Signs Pulse 78 11/26/24 10:01 BP 158/88 H 11/26/24 10:01 Pulse Ox 96 11/26/24 10:01 Oxygen Delivery Method Room Air 11/26/24 10:01 BMI result Body Mass Index 32.7 Tobacco/Smoking Status: Tobacco use Status Tobacco use date assessed 03/31/24 11/26/24 10:02 Patient Tobacco Use Status Never used Tobacco 11/26/24 10:02 Tobacco use type Cigarette 11/26/24 10:02 e-Cigarette/Vaping Use Never Used 11/26/24 10:02 Thrive Assessment: Date of Thrive Assessment Date Thrive assessed 09/06/24 11/26/24 10:02 Currently or been in a relationship where the following occur: I choose not to answer Const General: alert; No acute distress Eyes Conjunctivae: conjunctivae normal Resp Auscultation: clear to auscultation bilaterally Cardio Rate: regular rate Rhythm: regular rhythm GI Inspection: Yes normal to inspection Extrem General: Yes normal to inspection and No edema Results AMB Hemoglobin A1c AMB Hemoglobin A1c 7.7 % Last Edit by Mary Anne Mason CMA on 11/26/24 10 :18 Results Reviewed Results Reviewed: Laboratory Last Values Hgb A1c (Clinic) 7.7 % (4.0-6.0) H 11/26/24 10:03 Coding Level of Care Code Est Pt Level 4 (06102) Complex EM visit Add On G2211 Diagnoses Type 2 diabetes mellitus with hyperglycemia, with long-term current use of insulin E11.65; Z79.4 Obesity (BMI 30-39.9) E66.9 Pure hypercholesterolemia E78.00 Benign essential hypertension I10 GERD without esophagitis K21.9 Generalized anxiety disorder F41.1 Assessment & Plan Assessment & Plan (1) Type 2 diabetes mellitus with hyperglycemia, with long-term current use of insulin: Code(s): E11.65 - Type 2 diabetes mellitus with hyperglycemia; Z79.4 - FDC (current) use of insulin Category: Medical Plan: Decrease the amount of carbohydrate intake, pasta, bread, rice and potatoes are all sugar and that is aside from all the sweet stuff, remember that fruits are good but they are Sweet also. Hemoglobin A1c goal of less than 7.0. Patient is on Tresiba metformin (2) Obesity (BMI 30-39.9): Code(s): E66.9 - Obesity, unspecified Category: Medical Plan: Diet and exercise (3) Pure hypercholesterolemia: Code(s): E78.00 - Pure hypercholesterolemia, unspecified Category: Medical Plan: Avoid fried foods, chicken skin, eggs, butter margarine, pastries and meat. Be it pork or beef they have a lot of cholesterol December 2023 last blood work LDL goal of less than 100 and triglyceride of less than 150 patient is on atorvastatin 10 mg once a day (4) Benign essential hypertension: Code(s): I10 - Essential (primary) hypertension Category: Medical Plan: Continue with blood pressure medication. Decrease salt intake and exercise patient takes amlodipine 10 mg once a day clonidine 0.1 mg at bedtime lisinopril 40 mg twice a day metoprolol 25 mg once a day (5) GERD without esophagitis: Code(s): K21.9 - Gastro-esophageal reflux disease without esophagitis Category: Medical Plan: Avoid the foods that causes that usually spicy foods, tomato products, juices, coffee, soda and foods that your sensitive to. After eating do not lie down, allow 3-4 hours before in lie down. And keep the head of bed above 30 degrees to avoid the acid from going up. (6) Generalized anxiety disorder: Code(s): F41.1 - Generalized anxiety disorder Category: Medical Plan: continue with present therapy Plan History of Present Illness The patient is a 79-year-old female presenting with the management of multiple chronic conditions, including diabetes, hypertension, and hypercholesterolemia, as well as addressing peripheral edema. The patient has a history of Generalized Anxiety Disorder and Major Depressive Disorder, which have been ongoing concerns. She also suffers from Gastroesophageal Reflux Disease (GERD), which has been managed with medication. The patient has been diagnosed with hypercholesterolemia and is currently on atorvastatin 10 mg once daily. Her last LDL cholesterol was 68 mg/dL, and triglycerides were 154 mg/dL, with a goal of maintaining LDL below 100 mg/dL and triglycerides below 150 mg/dL. The patient has Type 2 Diabetes Mellitus, with a current hemoglobin A1c of 7.7%. She is on insulin Tresiba and metformin for management, with a target A1c of less than 7.0%. Her A1c has been increasing, from 6.9% in March to 7.2% in August, indicating worsening glycemic control. The patient has Essential Hypertension, managed with multiple antihypertensive medications including amlodipine, lisinopril, metoprolol, and clonidine. Her blood pressure has been generally well-controlled, although it was elevated during this visit. 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 Recent blood work indicated anemia with hemoglobin at 11.1 g/dL and hematocrit at 34.3%. Additionally, she has low vitamin D levels and elevated TSH, suggesting hypothyroidism. The patient reports peripheral edema, which is attributed to amlodipine use. She has been advised to increase physical activity to help manage the swelling. Health Maintenance - Diabetes management: Target hemoglobin A1c of less than 7.0%. - Cholesterol management: LDL goal of less than 100 mg/dL and triglyceride goal of less than 150 mg/dL. - Blood pressure monitoring: Regular monitoring due to history of hypertension. - Physical activity: Encouraged to increase activity to manage peripheral edema. Social History - Family involvement: Family is encouraged to assist in dietary management to prevent complications from diabetes. - Dietary habits: Consumes coffee with sugar and pineapple pie, contributing to elevated blood sugar levels. Review of Systems - Cardiovascular: Reports high blood pressure during the visit. - Musculoskeletal: Reports leg swelling, attributed to medication use. Physical Exam - Cardiovascular: Blood pressure was noted to be high during the visit. - Musculoskeletal: Swelling observed in the legs, attributed to medication side effects. Results - Labs: Hemoglobin 11.1 g/dL, Hematocrit 34.3%, Hemoglobin A1c 7.7%, LDL 68 mg/dL, Triglycerides 154 mg/dL, Elevated TSH, Low Vitamin D. 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 Plan Patient was informed and verbally consented to the use of an ambient scribe for clinic note documentation during this visit. 1. Generalized Anxiety Disorder The patient has a history of Generalized Anxiety Disorder, which is being monitored as part of her overall mental health management. 2. Major Depressive Disorder The patient has a history of Major Depressive Disorder, which is being managed alongside her anxiety disorder. 3. Gastroesophageal Reflux Disease (Gerd) The patient is managing her Gastroesophageal Reflux Disease with medication, and no changes were discussed during this visit. 4. Hypercholesterolemia The patient is on atorvastatin 10 mg once daily for hypercholesterolemia, with a goal to maintain LDL below 100 mg/dL and triglycerides below 150 mg/dL. 5. Type 2 Diabetes Mellitus The patient's Type 2 Diabetes Mellitus is managed with insulin Tresiba and metformin, aiming for a hemoglobin A1c of less than 7.0%. Her current A1c is 7.7%, indicating a need for dietary modifications to improve glycemic control. 6. Essential Hypertension The patient is on multiple antihypertensive medications, including amlodipine, lisinopril, metoprolol, and clonidine, with a plan to monitor blood pressure closely. 7. 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 8. Lumbar Radiculopathy The patient has left lower lumbar radiculopathy, as indicated by the nerve conduction test results. 9. Anemia The patient has anemia with a hemoglobin level of 11.1 g/dL, which will be monitored in future blood work. 10. Vitamin D Deficiency The patient has low vitamin D levels, which may require supplementation. 11. Hypothyroidism The patient has elevated TSH levels, suggesting hypothyroidism, which will be monitored. 12. Peripheral Edema The patient reports peripheral edema, likely due to amlodipine use, and has been advised to increase physical activity to manage the swelling. Discussion Notes During the visit, I discussed the importance of managing diabetes, hypertension, and hypercholesterolemia to prevent complications such as heart attacks and strokes. We reviewed the patient's current medications and made adjustments to her antihypertensive regimen to address peripheral edema. I emphasized the need for dietary modifications to improve glycemic control and encouraged increased physical activity. We also discussed the importance of family support in managing her health conditions. Patient Instructions - Continue taking all prescribed medications as directed. - Monitor blood pressure regularly and report any significant changes. - Aim for a hemoglobin A1c of less than 7.0% by following dietary recommendations and increasing physical activity. - Avoid foods high in sugar, such as pineapple pie, to help control blood sugar levels. - Schedule follow-up appointments with your primary care physician to monitor your health conditions. Orders: Orders AMB Hemoglobin A1c Today Z13.9 - Encounter for screening, unspecified Complete Blood Count Auto Diff 1 Month E11.65 - Type 2 diabetes mellitus with hyperglycemia, Z79.4 - terminal system operator (current) use of insulin Comprehensive Met. Panel 1 Month E11.65 - Type 2 diabetes mellitus with hyperglycemia, Z79.4 - terminal system operator (current) use of insulin Free T4 (Free Thyroxine) 1 Month E11.65 - Type 2 diabetes mellitus with hyperglycemia, Z79.4 - FDC (current) use of insulin Lipid Panel 1 Month E11.65 - Type 2 diabetes mellitus with hyperglycemia, E78.00 - Pure hypercholesterolemia, unspecified, Z79.4 - terminal system operator (current) use of insulin IRON PROFILE 1 Month E11.65 - Type 2 diabetes mellitus with hyperglycemia, Z79.4 - terminal system operator (current) use of insulin Reticulocyte Count 1 Month E11.65 - Type 2 diabetes mellitus with hyperglycemia, Z79.4 - terminal system operator (current) use of insulin Thyroid Stimulating Hormone 1 Month E11.65 - Type 2 diabetes mellitus with hyperglycemia, Z79.4 - FDC (current) use of insulin Creatinine Urine 1 Month E11.65 - Type 2 diabetes mellitus with hyperglycemia, Z79.4 - terminal system operator (current) use of insulin NT Pro B Type Natriuretic Pept 1 Month I10 - Essential (primary) hypertension Ferritin 1 Month E11.65 - Type 2 diabetes mellitus with hyperglycemia, Z79.4 - terminal system operator (current) use of insulin Hemoglobin A1c 1 Month E11.65 - Type 2 diabetes mellitus with hyperglycemia, Z79.4 - FDC (current) use of insulin Vitamin B12 and Folate 1 Month E11.65 - Type 2 diabetes mellitus with hyperglycemia, Z79.4 - FDC (current) use of insulin Vitamin D 25-OH Total 1 Month E11.65 - Type 2 diabetes mellitus with hyperglycemia, Z79.4 - terminal system operator (current) use of insulin UA CC w/rflx Micro + Cult 1 Month E11.65 - Type 2 diabetes mellitus with hyperglycemia, R30.0 - Dysuria, Z79.4 - terminal system operator (current) use of insulin Medications: Changed From amlodipine Keep follow-up appt this month w cardiology for future refills 10 mg PO DAILY 90 days 90 tabs 1RF E11.65 - Type 2 diabetes mellitus with hyperglycemia, Z79.4 - FDC (current) use of insulin To amlodipine Keep follow-up appt this month w cardiology for future refills 5 mg PO DAILY 90 tabs 1RF 90 days E11.65 - Type 2 diabetes mellitus with hyperglycemia, Z79.4 - FDC (current) use of insulin From metoprolol succinate ER 25 mg PO DAILY 90 days 90 tabs 1RF I10 - Essential (primary) hypertension To metoprolol succinate ER 50 mg PO DAILY 90 tabs 1RF 90 days I10 - Essential (primary) hypertension
--- OUTSIDE RECORDS SUMMARY | 2024-11-26 10:34 | XMS_ITS | Encounter Summary ---
Author Organization [employer] Address [address] [place] [address] Care Team Providers Care Senior Mechanical Engineer Name Role Phone Unavailable Primary Care Provider Unavailabl e Encounter Details Date Type Department Care Team (Latest Contact Info) Description 05/04/2021 Abstract [facility] Dental, Provider, DDS Social History Tobacco Use Types Packs/Day Years Used Date Smoking Tobacco: Never Assessed Comments Unknown Sex and Gender Information Value Date Recorded Sex Assigned at Female 12/24/2021 10:39 AM EDT Legal Sex Female 10:39 AM EDT Gender Identity Female 12/24/2021 10:39 AM EDT Sexual Orientation Straight 12/24/2021 10 :39 AM EDT documented as of this encounter Plan of Treatment Not on file documented as of this encounter Visit Diagnoses Not on filedocumented in this encounter
--- OUTSIDE RECORDS SUMMARY | 2024-11-26 10:34 | XMS_ITS | Clinical Summary ---
Author Organization [employer] Address [address] [place] [address] Care Team Providers Care Two Needle Machine Operator Name Role Phone Unavailable Primary [...] - 1-dose 75+ series) 2021 COVID-19 Vaccine (1 - 2023-2 5 season) 2024 Influenza Vaccine (#1) 2024 HIB Vaccines Aged [...]
--- OUTSIDE RECORDS SUMMARY | 2024-11-26 10:34 | XMS_ITS | Clinical Summary ---
Author Organization [facility] Address [address] [place] [address] Phone Care Team Providers Care [employer] Player Name Role Phone Charan Delgado MD Primary Care Provider Allergies No known active allergies Medications No known medications Active Problems No known active problems Encounters Date Type Department Care Team Description 11/24/2024 Telephone [facility] Cardiology [facility] [address] [place] [phone] Charan Delgado MD 11/13/2024 2:16 PM EDT - 11/13/2024 8:10 PM EDT Emergency [facility] Emergency [address] [place] [address] Farhad Koch MD Bilateral edema of lower extremity (Primary Dx); Chest discomfort Discharge Disposition: Home or Self Care from Last 3 Months Social History Tobacco Use Types Packs/Day Years Used Date Smoking Tobacco: Never Assessed Comments Unknown Sex and Gender Information Value Date Recorded Sex Assigned at Not on file Legal Sex Female 2:10 PM EDT Gender Identity Not on file Sexual Orientation Not on file Obstetrics History Last Filed Vital Signs Vital Sign Reading Time Taken Comments Blood Pressure 119/62 11/13/2024 6:31 PM EDT Pulse 90 11/13/2024 6:31 PM EDT Temperature 36.6 C (97.9 F) 11/13/2024 6:31 PM EDT Respiratory Rate 14 11/13/2024 6:31 PM EDT Oxygen Saturation 97% 11/13/2024 6:31 PM EDT Inhaled Oxygen Concentration - - Weight 78.9 kg (174 lb) 11/13/2024 3:29 PM EDT Height 157.5 cm (5' 2 ) 11/13/2024 3:29 PM EDT Body Mass Index 31.83 11/13/2024 3:29 PM EDT Plan of Treatment Health Maintenance Due Date Last Done Comments DTaP,Tdap,and Td Vaccines (1 - Tdap) 1964 Pneumococcal Vaccine: 50+ Years (1 of 1 - PCV) 01/07/1996 Zoster Vaccines (1 of 2) 01/07/1996 RSV Immunization Adult Patients (1 - 1-dose 75+ series) 2021 Depression Screening 02/25/2024 COVID-19 Vaccine (3 - 2024-2 6 season) 2024 04/26/2021, 04/05/2021 Influenza Vaccine (#1) 2024 Falls Risk Assessment 11/13/2024 Hepatitis C Screening 11/13/2024 Medicare Annual Wellness Visit 11/13/2024 Osteoporosis Screening (Bone Density Screening) 11/13/2024 Social Influencers of Health Screening 11/13/2024 HIB Vaccines Aged Out No longer eligi [...] on patient's age to complete this topic MMR Vaccines Aged Out No longer eligi ble based on patient's age to complete this topic Meningococcal ACWY Vaccine Aged Out N o longer eligible based on patient's age to complete this topic Meningococcal B Vaccine Aged Out No l onger eligible based on patient's age to complete this topic RSV Immunization Patients Under 20 months Aged Out No longer eligible b ased on patient's age to complete this topic Varicella Vaccines Aged Out No longer eligible based on patient's age to complete this topic Procedures Procedure Name Priority Date/Time Associated Diagnosis Comments ECG ANNOTATED 11/15/2024 ECG 12-LEAD STAT 11/13/2024 4:57 PM EDT VAS US DUPLEX LOWER EXT VENOUS BILAT STAT 11/13/2024 4:27 PM EDT Bilateral edema of lower extremity B-TYPE NATRIURETIC PEPTIDE STAT 11/13/2024 3:20 PM EDT CBC WITH AUTO DIFFERENTIAL STAT 11/13/2024 2:42 PM EDT TROPONIN I HIGH SENSITIVITY STAT 11/13/2024 2:42 PM EDT COMPREHENSIVE METABOLIC PANEL STAT 11/13/2024 2:42 PM EDT CBC AND DIFFERENTIAL STAT 11/13/2024 2:42 PM EDT XR CHEST 1 VIEW STAT 11/13/2024 2:34 PM EDT from Last 3 Months Results * ECG-Annotated (11/15/2024) us Provider Onbase ECG ORDERABLES Final Result * 12-Lead ECG (11/13/2024 4:57 PM EDT) Ventricular Rate ECG 83 BPM GEMUSE Atrial Rate 84 BPM GEMUSE P-R Interval 144 ms GEMUSE QRS Duration 70 ms GEMUSE Q-T Interval 366 ms GEMUSE QTc 430 ms GEMUSE P Wave Martell 49 degrees GEMUSE R Martell -8 degrees GEMUSE T Martell 33 degrees GEMUSE ECG Interpretation Normal sinus rhythm Septal infarct , age undetermined Abnormal ECG No previous ECGs available Confirmed by Harshad WEBER JAMES ([id number]) on 11/13/2024 10:30:03 PM GEMUSE 11/13/2024 4:57 PM EDT 11/13/2024 10:30 PM EDT us Farhad Koch MD ECG ORDERABLES Final Resu lt GEMUSE * Vascular US Duplex Lower Extremity Venous Bilateral (11/13/2024 4:27 PM EDT) Anatomical Region Laterality Modality Vascular, Abdomen Ultrasound 11/13/2024 4:51 PM EDT Impressions 11/13/2024 4:51 PM EDT Impression: 1. Bilateral lower extremity venous duplex ultrasound negative for DVT. 2. Left Maier's cyst and right groin collection as described above. This document has been electronically signed by: Manish Good MD on 11/13/2024 16:51:47 Narrative 11/13/2024 4:51 PM EDT INDICATION: edema Bilateral lower extremity venous duplex ultrasound. Comparison: None Technique: Real time sonographic imaging, including color-flow imaging and spectral analysis, was performed by the solar development engineer. Multiple franchise sales representative static images were saved for review. Findings: The deep venous systems of both lower extremities are fully compressible from common femoral through the proximal leg veins. There is spontaneous and phasic flow, and augmentation. Color Doppler and spectral tracings are unremarkable. There is a left-sided complex popliteal fossa cyst measuring 3.1 x 2.4 x 2.1 cm. In the right groin region there is a complex collection measuring 6.9 x 3.8 x 2.2 cm, possible hematoma or less likely infected collection. Doppler interrogation reveals no significant vascularity, which argues against infected or inflammatory collection. Procedure Note Manish Good MD - 11/13/2024 INDICATION: edema Bilateral lower extremity venous duplex ultrasound. Comparison: None Technique: Real time sonographic imaging, including color-flow imagingand spectral analysis, was performed by the solar development engineer. Multiple franchise sales representative static images were saved for review. Findings: The deep venous systems of both lower extremities are fully compressible from common femoral through the proximal leg veins. There is spontaneous and phasic flow, and augmentation. Color Doppler and spectral tracings are unremarkable. There is a left-sided complex popliteal fossa cyst measuring 3.1 x 2.4 x 2.1 cm. In the right groin region there is a complex collection measuring 6.9 x 3.8 x 2.2 cm, possible hematoma or less likely infected collection. Doppler interrogation reveals no significant vascularity, which argues against infected or inflammatory collection. IMPRESSION: Impression: 1. Bilateral lower extremity venous duplex ultrasound negative for DVT. 2. Left Maier's cyst and right groin collection as described above. This document has been electronically signed by: Manish Good MD on 11/13/2024 16:51:47 us Farhad Koch MD CV VASCULAR PROCEDURES Fin al Result * B-type natriuretic peptide (11/13/2024 3:20 PM EDT) [facility] BNP 40 <=100 pcg/mL LAB CHEMISTRY METHOD 11/13/2024 4:44 PM EDT [facility] Blood Venous blood specimen / Unknown Venipuncture / Unknown 11/13/2024 3:20 PM EDT 11/13/2024 3:24 PM EDT us Farhad Koch MD LAB BLOOD ORDERABLES Final Result Performing Organization Address [facility] Co de Phone Number [facility] [address] [place] [address], [place] [phone] * Troponin I High Sensitivity (11/13/2024 2:42 PM EDT) [facility] High Sensitivity Troponin I 4 <=54 ng/L LAB CHEMISTRY METHOD 11/13/2024 3:26 PM EDT [facility] Blood Venous blood specimen / Unknown Venipuncture / Unknown 11/13/2024 2:42 PM EDT 11/13/2024 2:51 PM EDT Narrative [facility] - 11/13/2024 3:26 PM EDT High levels of biotin in samples may falsely decrease hsTroponin values. Use caution when interpreting hsTroponin results in patients taking biotin who exhibit renal impairment (eGFR <60) or in patients taking more than 20 mg/day of biotin. us Farhad Koch MD LAB BLOOD ORDERABLES Final Result Performing Organization Address City/[facility]/ZIP Co de Phone Number [facility] [address] [place] [address], [place] [phone] * (ABNORMAL) CBC auto differential (11/13/2024 2:42 PM EDT) [facility] WBC 9.5 4.8 - 10.8 K/mcL LAB HEMETOLOGY [facility] RBC 4.10 3.80 - 4.80 M/mcL LAB HEMETOLOGY METHOD [facility] Hemoglobin 11.0(L) 11.5 - 16.0 g/dL LAB HEMETOLOGY METHOD [facility]/13[facility]2024 [facility] Hematocrit 35.0 35.0 - 47.0 % LAB HEMETOLOGY METHOD 11/13/2024 3:00 PM [facility] MCV 85.8 79.0 - 98.0 FL LAB HEMETOLOGY METHOD 11/13/2024 3:00 PM [facility] MCH 27.0 27.0 - 32.0 pcg LAB HEMETOLOGY METHOD 11/13/2024 3:00 PM [facility] MCHC 31.4(L) 32.0 - 37.0 g/dL LAB HEMETOLOGY METHOD 11/13/2024 3:00 PM [facility] RDW 14.3 11.0 - 15.0 % LAB HEMETOLOGY METHOD 11/13/2024 3:00 PM [facility] Platelets 259 130 - 400 K/mcL LAB HEMETOLOGY METHOD 11/13/2024 3:00 PM [facility] MPV 9.3 7.0 - 11.0 FL LAB HEMETOLOGY METHOD 11/13[facility]2024 [facility] NRBC 0.0 <1.0 % LAB HEMETOLOGY METHOD 11/13/2024 3:00 PM [facility] NRBC Absolute 0.00 <0.10 K/mcL LAB HEMETOLOGY METHOD 11/13/2024 3:00 PM [facility] Neutrophils Relative 59.5 % LAB HEMETOLOGY METHOD 11/13/2024 3:00 PM [facility] Lymphocytes Relative 32.5 % LAB HEMETOLOGY METHOD 11/13/2024 3:00 PM [facility] Monocytes Relative 5.9 % LAB HEMETOLOGY METHOD 11/13/2024 3:00 PM [facility] Eosinophils Relative 1.5 % LAB HEMETOLOGY METHOD 11/13/2024 3:00 PM [facility] Basophils Relative 0.3 % LAB HEMETOLOGY METHOD 11/13/2024 3:00 PM [facility] Immature Granulocytes Relative 0.3 % LAB HEMETOLOGY METHOD 11/13/2024 3:00 PM [facility] Neutrophils Absolute 5.65 1.50 - 7.00 K/mcL LAB HEMETOLOGY METHOD 11/13/2024 3:00 PM [facility] Lymphocytes Absolute 3.08 1.00 - 5.00 K/mcL LAB HEMETOLOGY METHOD 11/13/2024 3:00 PM [facility] Monocytes Absolute 0.56 0.20 - 1.00 K/mcL LAB HEMETOLOGY METHOD 11/13/2024 3:00 PM [facility] Eosinophils Absolute 0.14 0.00 - 0.50 K/mcL LAB HEMETOLOGY METHOD 11/13/2024 3:00 PM [facility] Basophils Absolute 0.03 0.00 - 0.20 K/mcL LAB HEMETOLOGY METHOD 11/13/2024 3:00 PM [facility] Immature Granulocytes Absolute 0.03 0.00 - 0.03 K/mcL LAB HEMETOLOGY METHOD 11/13/2024 3:00 PM [facility] Blood Venous blood specimen / Unknown Venipuncture / Unknown 11/13/2024 2:42 PM EDT 11/13/2024 2:51 PM EDT Farhad Koch MD LAB BLOOD ORDERABLES Final Result [facility] [address] [place] [address], * (ABNORMAL) Comprehensive Metabolic Panel (CMP) (11/13/2024 2:42 PM EDT) Sodium 141 133 - 145 mmol/L LAB CHEMISTRY METHOD 11/13/2024 3:33 PM [facility] Potassium 4.9 3.5 - 5.5 mmol/L LAB CHEMISTRY METHOD 11/13/2024 3:33 PM [facility] Chloride 105 96 - 110 mmol/L LAB CHEMISTRY METHOD 11/13/2024 3:33 PM T [facility] CO2 30 21 - 32 mmol/L LAB CHEMISTRY METHOD 11/13/2024 3:33 PM [facility] Anion Gap 6 3 - 11 LAB CHEMISTRY METHOD 11/13/2024 3:33 PM [facility] Glucose 147(H) 70 - 100 mg/dL LAB CHEMISTRY METHOD 11/13/2024 3:33 PM [facility] BUN 28(H) 5 - 25 mg/dL LAB CHEMISTRY METHOD 11/13/2024 3:33 PM [facility] Creatinine 0.93 0.50 - 1.10 mg/dL LAB CHEMISTRY METHOD 11/13/2024 3:33 PM [facility] eGFR 63 >=60 mL/min/1. 73m2 LAB CHEMISTRY METHOD 11/13/2024 3:33 PM T [facility] Comment:Calculation based on the Chronic Kidney Disease Epidemiology Collaboration (CKD-EPI) equation refit without adjustment for race. BUN/Creatinine Ratio 30.1 LAB CHEMISTRY METHOD 11/13/2024 3:33 PM EDT [facility] Calcium 9.2 8.5 - 10.5 mg/dL LAB CHEMISTRY METHOD 11/13/2024 3:33 PM EDT [facility] AST (SGOT) 19 10 - 42 unit/L LAB CHEMISTRY METHOD 11/13/2024 3:33 PM EDT [facility] ALT (SGPT) 26 10 - 60 unit/L LAB CHEMISTRY METHOD 11/13/2024 3:33 PM EDT [facility] Alkaline Phosphatase 126(H) 42 - 121 unit/L LAB CHEMISTRY METHOD 11/13/2024 3:33 PM EDT [facility] Total Protein 6.8 6.0 - 8.0 g/dL LAB CHEMISTRY METHOD 11/13/2024 3:33 PM EDT [facility] Albumin 3.4 3.2 - 5.0 g/dL LAB CHEMISTRY METHOD 11/13/2024 3:33 PM EDT [facility] Total Bilirubin 0.4 0.0 - 1.4 mg/dL LAB CHEMISTRY METHOD 11/13/2024 3:33 PM EDT [facility] Blood Venous blood specimen / Unknown Venipuncture / Unknown 11/13/2024 2:42 PM EDT 11/13/2024 2:51 PM EDT Farhad Koch MD LAB BLOOD ORDERABLES Final Result [facility] [address] [place] [address], * XR Chest 1 View (11/13/2024 2:34 PM EDT) Anatomical Region Laterality Modality Body Radiographic Kristy ging 11/13/2024 4:08 PM EDT Impressions 11/13/2024 4:09 PM EDT No definite acute pneumonia or alveolar edema. -------- FINAL REPORT -------- Dictated By: Jean Claude Martinez Dictated Date: 11/13/2024 16:08 ET Assigned Physician: Jean Claude Martinez Reviewed and Electronically Signed By: Jean Claude Martinez Signed Date: 11/13/2024 16:09 ET Workstation ID: [id number] Transcribed By: Self Edit Transcribed Date: 11/13/2024 16:08 ET Narrative 11/13/2024 4:09 PM EDT EXAMINATION: CHEST CLINICAL INFORMATION: Chest pain COMPARISON: None. TECHNIQUE: Portable frontal sitting view of the chest FINDINGS: Faint calcification of the aortic arch. The cardiac size is top normal. Indistinctness adjacent to the left heart border could be related to a pericardial fat pad. There is no large hilar mass. There is no dense focal pneumonia, pleural fluid or pneumothorax. There are osteophytes in the spine and there are degenerative changes around both shoulders. Procedure Note Jean Claude Martinez, - 11/13/2024 EXAMINATION: CHEST CLINICAL INFORMATION: Chest pain COMPARISON: None. TECHNIQUE: Portable frontal sitting view of the chest FINDINGS: Faint calcification of the aortic arch. The cardiac size is top normal.Indistinctness adjacent to the left heart border could be related to apericardial fat pad. There is no large hilar mass. There is no dense focalpneumonia, pleural fluid or pneumothorax. There are osteophytes in the spine and there are degenerative changesaround both shoulders. IMPRESSION: No definite acute pneumonia or alveolar edema. -------- FINAL REPORT -------- Dictated By: Jean Claude Martinez Dictated Date: 11/13/2024 16:08 ET Assigned Physician: Jean Claude Martinez Reviewed and Electronically Signed By: Jean Claude Martinez Signed Date: 11/13/2024 16:09 ET Workstation ID: [id number] Transcribed By: Self Edit Transcribed Date: 11/13/2024 16:08 ET Farhad Koch MD IMG XR PROCEDURES Final Re sult from Last 3 Months Insurance [facility] [employer] Member Subscriber Plan / Payer (Ef fective 2024-Present) Name:Ron Bhatia Relation to Subscriber:Self Name:Ron Bhatia Payer ID:[id number] Group ID:Not on file Type:Not on file Address: [place] [address] [address] [id number] MEDICAID - [place] Care Teams 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
--- OUTSIDE RECORDS SUMMARY | 2024-11-26 10:34 | XMS_ITS | Encounter Summary ---
Author Organization [facility] Address [id number] [place] [phone] Care Team Providers Care Portfolio Director Name Role Phone Charan Delgado MD Primary Care Provider Encounter Details Date Type Department Care Team (Late st Contact Info) Description 11/24/2024 Telephone [facility] [address] [place] [phone] Charan Delgado MD [address] [place] [address] Dr [address] [place], [place] Social History Tobacco Use Types Packs/Day Years Used Date Smoking Tobacco: Never Assessed Comments Unknown Sex and Gender Information Value Date Recorded Sex Assigned at Not on file Legal Sex Female 2:10 PM EDT Gender Identity Not on file Sexual Orientation Not on file documented as of this encounter Plan of Treatment Not on file documented as of this encounter Visit Diagnoses Not on filedocumented in this encounter Care Teams Portfolio Director Relationship Specialty Start Date End Date Charan Delgado MD [address] [place] [address] Dr [address] [place], [place] PCP - General Internal Medicine 11/18/24 documented as of this encounter
== END 2024-11-26 10:56 | disposition home or self-care (01) ==
LOC: HO.HMCH 09:53
PROVIDERS: PCP Internal Medicine; Visit Provider Internal Medicine
DX: E11.65 Type 2 diabetes mellitus with hyperglycemia (principal); Z79.4 Long term (current) use of insulin; E66.9 Obesity, unspecified; Z68.32 Body mass index [BMI] 32.0-32.9, adult; E78.00 Pure hypercholesterolemia, unspecified; I10 Essential (primary) hypertension; K21.9 Gastro-esophageal reflux disease without esophagitis; F41.1 Generalized anxiety disorder

== ENCOUNTER → 2024-11-26 09:52 | Outpatient (BNVA) | payer OTHER, SELFPAY | PROVIDERS: PCP Internal Medicine; Visit Provider Internal Medicine | DX: E11.65 Type 2 diabetes mellitus with hyperglycemia (principal); E11.51 Type 2 diabetes mellitus with diabetic peripheral angiopathy without gangrene; E66.9 Obesity, unspecified; E78.00 Pure hypercholesterolemia, unspecified; M54.16 Radiculopathy, lumbar region; I10 Essential (primary) hypertension; K21.9 Gastro-esophageal reflux disease without esophagitis; F41.1 Generalized anxiety disorder; E11.9 Type 2 diabetes mellitus without complications; D64.9 Anemia, unspecified; R60.0 Localized edema; F32.A Depression, unspecified; E55.9 Vitamin D deficiency, unspecified; E03.9 Hypothyroidism, unspecified; R30.0 Dysuria; Z79.4 Long term (current) use of insulin | CPT/HCPCS: 83036; 99212 ==

== ENCOUNTER 2025-02-11 12:55 | Outpatient (AMB) | payer OTHER, SELFPAY ==
--- NOTE | 2025-02-11 12:58 | MHC.PC.OV ---
Vital Signs 02/11/25 12:59 Height 5 ft 2 in Weight 169 lb 15.622 oz BMI 31.1 BP 132/80 Blood Pressure Location Lt brachial Position Sitting Pulse 85 Pulse Source Pulse Oximeter Temp 97.1 F Temp Source Temporal Artery Scan Pulse Oximetry (%) 98 Oxygen Delivery Method Room Air Intake Visit Reasons: [facility] 02/03 Intake Note: Patient is here for hospital discharge follow up. Patient was discharged from [facility] on 02/03/25. Marine Diesel Technician Required: Yes Marine Diesel Technician Language: Rounder Hand Name: Brandon [id number] Information Interpreted: non-clinical & clinical Electromechanical Equipment Assembler: Present Accompanied by: REGULATORY PROCESS MANAGER Allergies No Known Allergies (No Known Allergies*) Allergy (Verified 02/11/25 12:59) Medication List - Last Reconciled 02/11/25 by Mary Lou Martinez NP [ADULT PULL-UPS (large) As directed] amlodipine 10 mg PO DAILY [bed pads As directed] [bed side commode As directed] [BLADDER PADS As directed] blood pressure test kit-large As directed blood sugar diagnostic (FreeStyle Lite Strips) As directed three times a day blood-glucose meter (FreeStyle Lite Meter kit) As directed 3x/day carvedilol 6.25 mg PO BID chlorthalidone 12.5 mg PO DAILY [incontinence wipes As directed] insulin degludec (Tresiba FlexTouch U-100 insulin) 36 units (0.36 mL) subcut BEDTIME lancets (FreeStyle Lancets) As directed three time a day lidocaine 5% 1 patch topical DAILY lisinopril 20 mg PO BID lorazepam 1 mg PO Q8H PRN 30 days metformin 1,000 mg PO BID miscellaneous medical supply 1 ea miscellaneous .QD miscellaneous medical supply size: Large, PADS for incontinence. nebulizer accessories nebulizer mask and accessories omeprazole 20 mg PO DAILY 90 days pen needle, diabetic (BD Stephanie 2nd Gen Pen Needle) As directed pen needle, diabetic (BD Ultra-Fine Mini Pen Needle) USE 1 NEEDLE DAILY [reclining chair As directed] sertraline 150 mg (1.5 x 100 mg) PO DAILY 30 days [shower bench As directed] [shower chair As directed] [walker As directed] walker (Ultra-Light Rollator misc) As directed [wheelchair As directed] Tobacco use date assessed: 02/11/25 Fall risk assessment: No Falls in past year Last assessed Fall Risk: 02/11/25 Dental Screening Dental Screen Date: 03/31/24 HPI HPI Comments History of Present Illness Details 80 y/o female presents to the clinic today for hospital discharge follow-up. PMHx significant for Hypertension and Type 2 Diabetes Mellitus. Patient was originally admitted to [facility] from 01/11?01/12 after a fall at home. She reports she was sitting on her couch when she slipped off and fell to the ground. She remained on the ground for approximately 2 hours before being found. She denies head strike, loss of consciousness, or fractures. Patient lives at home with her son and daughter, both of whom are disabled and unable to assist with her care. She reports difficulty ambulating, only able to walk short distances with the aid of a walker. She has a history of multiple falls, and family is unable to provide adequate assistance at home. During hospitalization, patient was diagnosed with a UTI and treated with IV antibiotics. She was also found to have hypomagnesemia, which was treated with oral magnesium 400 mg. She was evaluated by Physical Therapy and Social Work, who recommended a short-term stay at a [facility] facility for continued rehabilitation. She was subsequently admitted to [facility] from 01/12?02/03. Patient was discharged home with Home Health Care services through [facility]. Today, patient complains of diarrhea since yesterday evening, reporting several episodes since last night. She states she experienced nausea and vomiting on Friday, which has since resolved. She denies fever, chills, blood in stool, or new foods. Recent Abx use. [facility] Medical History (Updated 02/11/25 @ 13:43 by Mary Lou Martinez NP) Nausea vomiting and diarrhea Left lower quadrant abdominal pain Hyperlipidemia LDL goal <100 Proteinuria Type 2 diabetes mellitus with other diabetic kidney complication Type 2 diabetes mellitus with hyperglycemia, with long-term current use of insulin Lumbar degenerative disc disease Obesity (BMI 30-39.9) Depression Anxiety GERD without esophagitis Primary osteoarthritis, right shoulder Pure hypercholesterolemia Diabetes mellitus Benign essential hypertension Chest pain Hypertension Surgical History H/O colonoscopy History of esophagogastroduodenoscopy (EGD) History of mammogram History of cataract surgery History of cholecystectomy Family History Father Diabetes Mother Diabetes Daughter Diabetes CVD (cardiovascular disease) Unknown Substance use disorder Social History Household Members: Children Housing: Apartment Alcohol intake: current Alcohol intake frequency: does not drink Patient Tobacco Use Status: Never used Tobacco Tobacco use type: Cigarette e-Cigarette/Vaping Use: Never Used Second Hand Smoke Exposure: No service: No Current occupational status: disabled Cognitive needs: Yes (Pt has a cane, walker and wheelchair at home.) Hearing needs: Yes (Bilateral hearng loss per Pt) Vision needs: Yes (wear glasses.) Questionnaire Thrive Questionnaire Date Thrive assessed: 09/06/24 I am a: Patient What is your living situation today?: I have a steady place to live Within the past 12 months, did the food you bought not last and you didn't have the money to get more?: I choose not to answer this question Within the past 12 months, did you worry whether your food would run out before you got money to buy more?: I choose not to answer this question Do you have trouble paying for medicines?: I choose not to answer this question Do you have trouble getting transportation to medical appointments?: I choose not to answer this question Do you have trouble paying your heating and electricity bill?: I choose not to answer this question Do you have trouble taking care of your child, family member or friend?: I choose not to answer this question Do you have trouble with day-to-day activities such as bathing, preparing meals, shopping, managing finances, etc.?: I choose not to answer this question Are you currently unemployed and looking for a job?: I choose not to answer this question Are you interested in more education?: I choose not to answer this question Currently or been in a relationship where the following occur: I choose not to answer THRIVE Score: 0 ANTONIETA-7 AMB Questionnaire ANTONIETA-7 Date ANTONIETA - 7 assessed: 03/31/24 Source: Developed by Drs. Terrance Courtney, Latesha Ace, Romero Graham and colleagues, with an educational deidra from [employer]. Review of Systems Const All systems reviewed & are unremarkable except as noted in HPI and below Physical exam (Primary Care) Vital Signs: Last Vital Signs Temp 97.1 F 02/11/25 12:59 Pulse 85 02/11/25 12:59 BP 132/80 02/11/25 12:59 Pulse Ox 98 02/11/25 12:59 Oxygen Delivery Method Room Air 02/11/25 12:59 BMI result Body Mass Index 31.1 Tobacco/Smoking Status: Tobacco use Status Tobacco use date assessed 02/11/25 02/11/25 13:16 Patient Tobacco Use Status Never used Tobacco 02/11/25 13:16 Tobacco use type Cigarette 02/11/25 13:16 e-Cigarette/Vaping Use Never Used 02/11/25 13:16 Thrive Assessment: Date of Thrive Assessment Date Thrive assessed 09/06/24 02/11/25 13:16 Currently or been in a relationship where the following occur: I choose not to answer Const General: no acute distress Nutritional Appearance: obese Orientation/consciousness: patient oriented x3 Limitations: wheelchair Resp Effort & Inspection: normal respiratory effort Cardio Rate: regular rate GI Inspection: Yes Abdominal panniculus present and Yes obesity Palpation (GI): Soft to palpation, not firm, Tenderness to palpation present (GI) (Generalized tenderness), no guarding, not rigid and Hernia present ventral (Large Abdominal Hernia) Auscultation: normal bowel sounds Rectal Exam - Female: deferred General: Yes no CVA tenderness Back/Spine/Pelvis Back: no CVA tenderness Neuro General: patient oriented x3 and moves all extremities Psych Speech and movement: Normal speech and movement present Coding Level of Care Code Est Pt Level 4 (00099) Diagnoses Status post fall Z91.81 Nausea vomiting and diarrhea R11.2; R19.7 Time Spent (min) 25 Assessment & Plan Assessment & Plan (1) Status post fall: Code(s): Z91.81 - History of falling Category: Medical Plan: History of recurrent falls. Impaired mobility and functional decline. Continue Home Health services through [facility] Continue home PT/OT as ordered Reinforce fall precautions at home Encouraged use of walker at all times. (2) Nausea vomiting and diarrhea: Code(s): R11.2 - Nausea with vomiting, unspecified; R19.7 - Diarrhea, unspecified Category: Medical Plan: Diarrhea, acute, likely viral gastroenteritis vs. post-infectious etiology. Encourage oral hydration and electrolyte replacement BRAT diet as tolerated. Ordered Imodium and zofran. Monitor frequency and duration of diarrhea Educate on red flag symptoms (fever, worsening abdominal pain, bloody stools, signs of dehydration) If symptoms persist >48?72 hours, consider stool studies. Medications: Discontinued meclizine Discontinued Reason: Patient Completed Course 25 mg PO DAILY 14 days 14 tabs 0RF motion sickness R42 - Dizziness and giddiness mirtazapine Discontinued Reason: Patient Completed Course 15 mg PO BEDTIME 90 tabs 1RF gabapentin Discontinued Reason: Patient Completed Course 100 mg PO BID 30 days 60 caps 2RF leg pain clonidine HCl Discontinued Reason: Patient Completed Course 0.1 mg PO BEDTIME 90 tabs 1RF tramadol Take at bedtime only as needed for severe pain Discontinued Reason: Patient Completed Course 50 mg PO BEDTIME PRN 7 tabs 0RF severe ear pain ofloxacin 0.3% Discontinued Reason: Patient Completed Course 5 drps otic (ears) BID 7 days 5 mL 0RF buspirone Discontinued Reason: Patient Completed Course 15 mg PO BID 30 days 60 tabs 1RF anxiety [id number]-[id number]-[id number]-thonzonium 3.3-3-10-0.5 mg/mL (Cortisporin-TC) Discontinued Reason: Patient Completed Course 5 drps otic (ear) left QID 7 days 10 mL 0RF
[2025-02-11 12:59] VITALS: BP 132/80; PULSE 85; TEMP 36.2; O2SAT 98; BMI 31.1
--- OUTSIDE RECORDS SUMMARY | 2025-02-11 14:40 | XMS_ITS | Clinical Summary ---
Author Organization [employer] Address [address] [facility] [place] [address] [place] [address] Care Team Providers Care Real Time Analyst Name Role Phone Unavailable Primary Care Provider [...] 75+ series) 2021 COVID-19 Vaccine ( - 2024-2 6 season) 2024 Influenza Vaccine (#1) 2024 HIB [...]
--- OUTSIDE RECORDS SUMMARY | 2025-02-11 14:41 | XMS_ITS | Encounter Summary ---
Author Organization [facility] Address [id number] [place] [id number] Care Team Providers Care Cancer Genetic Counselor Name Role Phone Charan Delgado MD Primary Care Provider + [phone] Encounter Details Date Type Department Care Team (Late st Contact Info) Description 01/15/2025 Results Follow-Up [facility] [address] [place] [address] Esther Martinez, RN Social History Tobacco Use Types Packs/Day Years Used Date Smoking Tobacco: Never Passive Smoke Exposure: Never Smokeless Tobacco: Never Interpersonal Safety Answer Date Record ed Physical Abuse Unrecognized value 12/29/2024 Verbal Abuse Unrecognized value 12/29/2024 Comments Unknown Sex and Gender Information Value Date Recorded Sex Assigned at Female 12/26/2024 6:05 PM EST Legal Sex Female 2:10 PM EDT Gender Identity Female 12/26/2024 6:05 PM EST Sexual Orientation Straight 12/26/2024 6: 05 PM EST documented as of this encounter Progress Notes * Esther Martinez RN - 01/15/2025 12:32 PM EST [facility] documented in this encounter Plan of Treatment Not on file documented as of this encounter Visit Diagnoses Not on filedocumented in this encounter Additional Health Concerns Infection Onset Date Last Indicated Resolved Time ESBL 01/11/2025 01/11/2025 documented as of this encounter Care Teams Cancer Genetic Counselor Relationship Specialty Start Date End Date Charan Delgado MD [address] [place] [address] Dr [address] WAYNE Dave PCP - General Internal Medicine 11/18/24 documented as of this encounter
--- OUTSIDE RECORDS SUMMARY | 2025-02-11 14:41 | XMS_ITS | Clinical Summary ---
Author Organization [facility] Address [address] [place] [address] Phone Care Team Providers Care Tail Board Man Name Role Phone Charan Delgado MD Primary Care Provider + [phone] Allergies No known active allergies Medications Tresiba FlexTouch U-100 100 unit/mL (3 mL) injection pen Inject 36 Units under the skin at bedtime. Active lisinopril (PRINIVIL,ZESTR IL) 40 mg tablet Take 1 tablet (40 mg total) by mouth 2 (two) times a day. Active LORazepam (ATIVAN) 1 mg tablet Take 1 tablet (1 mg total) by mouth every 8 (eight) hours if needed. for anxiety Active metFORMIN (GLUCOPHAGE) 1,000 mg tablet Take 1 tablet (1,000 mg total) by mouth 2 (two) times a day with meals. Active omeprazole (PriLOSEC) [address] capsule Take 1 capsule (20 mg total) by mouth 1 (one) time each day. 10/14/2024 Active aspirin 81 mg EC tablet Take 1 tablet (81 mg total) by mouth 1 (one) time each day. 30 each 1 12/29/2024 02/27/19 26 Active carvediloL (COREG) 6.25 mg tablet Take 1 tablet (6.25 mg total) by mouth 2 (two) times a day with meals. 60 each 12/29/2024 Active amLODIPine (NORVASC) 10 mg tablet Take 1 tablet (10 mg total) by mouth 1 (one) time each day. Active metoprolol succinate (TOPROL-XL) 25 mg 24 hr tablet Take 1 tablet (25 mg total) by mouth 1 (one) time each day. Do not crush or chew. Active cephalexin (KEFLEX) 500 mg capsule Take 1 capsule (500 mg total) by mouth 3 (three) times a day for 7 days. 21 each 01/12/2025 01/20/20 25 magnesium oxide (MAG-OX) 400 mg magnesium tablet Take 1 tablet (400 mg total) by mouth 1 (one) time each day for 3 days. 3 tablet 01/13/2025 01/17/20 25 Active Problems Problem Noted Date Diagnosed Date NSTEMI (non-ST elevated myocardial infarction) 1 02/28/2024 Troponin level elevated 12/26/2024 Chest discomfort 11/30/2024 Bilateral edema of lower extremity 11/30/2024 Encounters Date Type Department Care Team Description 02/03/2025 Lab Requisition [facility] [address] [place] [phone] Aren Dela Cruz MD Vitamin B12 deficiency anemia, unspecified; Type 2 diabetes mellitus without complications ([facility] V24, [facility] V28); Hyperlipidemia, unspecified; Essential (primary) hypertension; Adult failure to thrive 01/27/2025 Lab Requisition [facility] [address] [place] [phone] Aren Dela Cruz MD Vitamin B12 deficiency anemia, unspecified; Type 2 diabetes mellitus without complications ([facility] V24, [facility] V28); Hyperlipidemia, unspecified; Essential (primary) hypertension; Adult failure to thrive 01/26/2025 Lab Requisition [facility] [address] [place] [phone] Aren Dela Cruz MD Type 2 diabetes mellitus without complications (CMS/[facility] V24, CMS/HCC V28) 01/19/2025 Lab Requisition [facility] [address] [place] [phone] Aren Dela Cruz MD Vitamin B12 deficiency anemia, unspecified; Type 2 diabetes mellitus without complications (CMS/HCC V24, CMS/[facility] V28); Hyperlipidemia, unspecified; Essential (primary) hypertension; Adult failure to thrive 01/15/2025 Results Follow-Up [facility] Emergency [address] [place] [phone] Esther Martinez RN 01/14/2025 Lab Requisition [facility] [address] [facility] [place] [phone] Aren Dela Cruz MD Adult failure to thrive; Essential (primary) hypertension; Type 2 diabetes mellitus without complications ([facility] V24, [facility] V28); Hyperlipidemia, unspecified; Vitamin D deficiency, unspecified; Hypomagnesemia; Vitamin B12 deficiency anemia, unspecified 01/11/2025 11:17 AM EST - 01/12/2025 4:20 PM EST Emergency [facility] Emergency [address] [place] [phone] Bennett Etienne MD Goebel, Mathew, MD Muhoozi, Bannet, MD Mersier, Jasmine, DO Multiple falls (Primary Dx); Low magnesium level; Failure to thrive in adult; Generalized weakness; Urinary tract infection in female Discharge Disposition: Residential Facility 12/26/2024 5:12 PM EST - 12/29/2024 4:08 PM EST Hospital Encounter [facility]mediate Care Unit [address] [place] [phone] Colten Ott MD Kokkinos, Erika, MD Sondhi, Vikram, MD Santoyo-Pachec o, Omar D, MD NSTEMI (non-ST elevated myocardial infarction) ([facility] V24, [facility] V28) (Primary Dx); Physical deconditioning; Ground-level fall; Hypomagnesemia; Bilateral edema of lower extremity; Chest discomfort; Troponin level elevated Discharge Disposition: Residential Facility 11/24/2024 Telephone [facility] [address] [place] [phone] Charan Delgado MD 11/13/2024 2:16 PM EDT - 11/13/2024 8:10 PM EDT Emergency [facility] Emergency [address] [place] [address] Farhad Koch MD Bilateral edema of lower extremity (Primary Dx); Chest discomfort Discharge Disposition: Home or Self Care from Last 3 Months Medical History Medical History Date Comments Hypertension Hyperlipidemia Bilateral edema of lower extremity Left shoulder pain Left knee pain Hypomagnesemia Social History Tobacco Use Types Packs/Day Years Used Date Smoking Tobacco: Never Passive Smoke Exposure: Never Smokeless Tobacco: Never Tobacco Cessation:Counseling Given: No Interpersonal Safety Answer Date Record ed Physical Abuse Unrecognized value 12/29/2024 Verbal Abuse Unrecognized value 12/29/2024 Comments Unknown Sex and Gender Information Value Date Recorded Sex Assigned at Female 12/26/2024 6:05 PM EST Legal Sex Female 2:10 PM EDT Gender Identity Female 12/26/2024 6:05 PM EST Sexual Orientation Straight 12/26/2024 6: 05 PM EST Last Filed Vital Signs Vital Sign Reading Time Taken Comments Blood Pressure 171/58 01/12/2025 7:24 AM EST Pulse 70 01/12/2025 7:24 AM EST Temperature 36.3 C (97.3 F) 01/12/2025 7:24 AM EST Respiratory Rate 18 01/12/2025 7:24 AM EST Oxygen Saturation 95% 01/12/2025 7:24 AM EST Inhaled Oxygen Concentration - - Weight 73.9 kg (163 lb) 01/11/2025 11:58 AM EST Height 157.5 cm (5' 2 ) 01/11/2025 11:58 AM EST Body Mass Index 29.81 01/11/2025 11:58 AM EST Plan of Treatment Health Maintenance Due Date Last Done Comments Drug Screen 1945 Non-Opioid Controlled Substance Agreement 1945 Diabetes: Annual Foot Exam 01/07/1956 Diabetes: Annual Retina Eye Exam 01/07/1956 DTaP,Tdap,and Td Vaccines (1 - Tdap) 1965 Pneumococcal Vaccine: 50+ Years (1 of 2 - PCV) 1965 Zoster Vaccines (1 of 2) 01/07/1996 RSV Immunization Adult Patients (1 - 1-dose 75+ series) 2021 Depression Screening 02/25/2024 COVID-19 Vaccine (3 - 2025-26 season) 2024 04/26/2021, 04/05/2021 Influenza Vaccine (#1) 2024 Hepatitis C Screening 11/13/2024 Medicare Annual Wellness Visit 11/13/2024 Osteoporosis Screening (Bone Density Screening) 11/13/2024 Social Influencers of Health Screening 11/13/2024 Diabetes: Annual Urine Albumin-Creatinine Ratio (uACR) 01/14/2025 Diabetes: Blood Sugar Control Test (HGBA1C) 06/25/2025 12/26/2024 Falls Risk Assessment 12/29/2025 12/29/2024 Diabetes: Annual GFR (Glomerular Filtration Rate) 01/28/2026 01/28/2025, 01/21/2025, 01/14/2025, Additional history exists Hypertension/CHF/CAD Annual BMP Blood Test 01/28/2026 01/28/2025, 01/21/2025, 01/14/2025, Additional history exists Cholesterol Screening (Lipid Panel) 01/14/2030 01/14/2025, 12/27/2024 HIB Vaccines Aged Out No longer eligi [...] 20 months Aged Out No longer eligible based on patient's age to complete this topic Varicella Vaccines Aged Out No longer eligible based on patient's age to complete this topic Procedures Procedure Name Priority Date/Time Associated Diagnosis Comments BASIC METABOLIC PANEL Routine 01/28/2025 8:54 AM EST Vitamin B12 deficiency anemia, unspecified Type 2 diabetes mellitus without complications (CMS/HCC V24, CMS/HCC V28) Hyperlipidemia, unspecified Essential (primary) hypertension Adult failure to thrive COMPLETE BLOOD COUNT Routine 01/28/2025 8:54 AM EST Vitamin B12 deficiency anemia, unspecified Type 2 diabetes mellitus without complications (CMS/HCC V24, CMS/[facility] V28) Hyperlipidemia, unspecified Essential (primary) hypertension Adult failure to thrive BASIC METABOLIC PANEL Routine 01/21/2025 5:24 AM EST Vitamin B12 deficiency anemia, unspecified Type 2 diabetes mellitus without complications (CMS/HCC V24, CMS/HCC V28) Hyperlipidemia, unspecified Essential (primary) hypertension Adult failure to thrive COMPLETE BLOOD COUNT Routine 01/21/2025 5:24 AM EST Vitamin B12 deficiency anemia, unspecified Type 2 diabetes mellitus without complications (CMS/HCC V24, CMS/HCC V28) Hyperlipidemia, unspecified Essential (primary) hypertension Adult failure to thrive MAGNESIUM Routine 01/14/2025 5:36 AM EST Adult failure to thrive Essential (primary) hypertension Type 2 diabetes mellitus without complications (CMS/HCC V24, CMS/[facility] V28) Hyperlipidemia, unspecified Vitamin D deficiency, unspecified Hypomagnesemia Vitamin B12 deficiency anemia, unspecified VITAMIN D 25 HYDROXY Routine 01/14/2025 5:36 AM EST Adult failure to thrive Essential (primary) hypertension Type 2 diabetes mellitus without complications (CMS/HCC V24, CMS/HCC V28) Hyperlipidemia, unspecified Vitamin D deficiency, unspecified Hypomagnesemia Vitamin B12 deficiency anemia, unspecified VITAMIN B12 AND FOLATE Routine 01/14/2025 5:36 AM EST Adult failure to thrive Essential (primary) hypertension Type 2 diabetes mellitus without complications (CMS/HCC V24, CMS/HCC V28) Hyperlipidemia, unspecified Vitamin D deficiency, unspecified Hypomagnesemia Vitamin B12 deficiency anemia, unspecified LIPID PANEL WITH REFLEX TO DIRECT LDL Routine 01/14/2025 5:36 AM EST Adult failure to thrive Essential (primary) hypertension Type 2 diabetes mellitus without complications (CMS/HCC V24, CMS/[facility] V28) Hyperlipidemia, unspecified Vitamin D deficiency, unspecified Hypomagnesemia Vitamin B12 deficiency anemia, unspecified COMPREHENSIVE METABOLIC PANEL Routine 01/14/2025 5:36 AM EST Adult failure to thrive Essential (primary) hypertension Type 2 diabetes mellitus without complications ([facility] V24, [facility] V28) Hyperlipidemia, unspecified Vitamin D deficiency, unspecified Hypomagnesemia Vitamin B12 deficiency anemia, unspecified COMPLETE BLOOD COUNT Routine 01/14/2025 5:36 AM EST Adult failure to thrive Essential (primary) hypertension Type 2 diabetes mellitus without complications (CMS/[facility] V24, CMS/[facility] V28) Hyperlipidemia, unspecified Vitamin D deficiency, unspecified Hypomagnesemia Vitamin B12 deficiency anemia, unspecified ECG ANNOTATED 01/12/2025 PATEL URINE CULTURE TUBE STAT 01/11/2025 9:19 PM EST URINALYSIS WITH REFLEX MICROSCOPIC AND CULTURE STAT 01/11/2025 9:19 PM EST URINALYSIS WITH REFLEX MICROSCOPIC AND CULTURE STAT 01/11/2025 9:19 PM EST CULTURE URINE STAT 01/11/2025 9:19 PM EST XR KNEE 4+ VIEWS LEFT STAT 01/11/2025 1:49 PM EST XR HIP 2-3 VIEWS RIGHT STAT 01/11/2025 1:49 PM EST ECG 12-LEAD STAT 01/11/2025 12:59 PM EST CBC WITH AUTO DIFFERENTIAL STAT 01/11/2025 12:22 PM EST MAGNESIUM STAT 01/11/2025 12:22 PM EST CREATINE KINASE STAT 01/11/2025 12:22 PM EST COMPREHENSIVE METABOLIC PANEL STAT 01/11/2025 12:22 PM EST TROPONIN I HIGH SENSITIVITY STAT 01/11/2025 12:22 PM EST CBC AND DIFFERENTIAL STAT 01/11/2025 12:[address] HEAD WO CONTRAST STAT 01/11/2025 1 2:05 PM EST NM LEXISCAN STRESS TEST W/ MYOCARDIAL PERFUSION Routine 12/29/2024 12:35 PM EST NSTEMI (non-ST elevated myocardial infarction) (CMS/HCC V24, CMS/HCC V28) POCT GLUCOSE BLOOD Routine 12/29/2024 12 :08 PM EST POCT GLUCOSE BLOOD Routine 12/29/2024 7: 22 AM EST LAVENDER - EDTA Routine 12/29/2024 5:48 AM EST EXTRA TUBES Routine 12/29/2024 5:48 AM EST BASIC METABOLIC PANEL Routine 12/29/2024 5:48 AM EST POCT GLUCOSE BLOOD Routine 12/28/2024 7: 50 PM EST POCT GLUCOSE BLOOD Routine 12/28/2024 3: 35 PM EST POCT GLUCOSE BLOOD Routine 12/28/2024 11 :32 AM EST XR SHOULDER 2+ VIEWS LEFT Routine 12/28/2024 10:18 AM EST POCT GLUCOSE BLOOD Routine 12/28/2024 7: 29 AM EST BASIC METABOLIC PANEL Routine 12/28/2024 5:36 AM EST LAVENDER - EDTA Routine 12/28/2024 5:31 AM EST EXTRA TUBES Routine 12/28/2024 5:31 AM EST ECG ANNOTATED 12/28/2024 POCT GLUCOSE BLOOD Routine 12/27/2024 8: 02 PM EST POCT GLUCOSE BLOOD Routine 12/27/2024 4: 34 PM EST POCT GLUCOSE BLOOD Routine 12/27/2024 9: 24 AM EST TRANSTHORACIC ECHOCARDIOGRAM (TTE) COMPLETE W/ CONTRAST Routine 12/27/2024 7:58 AM EST Bilateral edema of lower extremity Chest discomfort MAGNESIUM Add-On 12/27/2024 4:56 AM EST LIPID PANEL WITH REFLEX TO DIRECT LDL Routine 12/27/2024 4:56 AM EST TROPONIN I HIGH SENSITIVITY Routine 12/27/2024 4:56 AM EST COMPLETE BLOOD COUNT Routine 12/27/2024 4:56 AM EST BASIC METABOLIC PANEL Routine 12/27/2024 4:56 AM EST IRON AND TIBC Add-On 12/26/2024 11:05 PM EST VITAMIN B12 AND FOLATE STAT Add-on 12/26/2024 11:05 PM EST THYROID STIMULATING HORMONE WITH REFLEX TO FREE T4 AND FREE T3 Add-On 12/26/2024 11:05 PM EST CREATINE KINASE STAT 12/26/2024 11:05 PM EST XR CHEST 1 VIEW STAT 12/26/2024 9:00 PM EST TROPONIN I HIGH SENSITIVITY Timed 12/26/2024 6:[address] CERVICAL SPINE WO CONTRAST STAT 12/26/2024 6:[address] HEAD WO CONTRAST STAT 12/26/2024 6 :35 PM EST ECG 12-LEAD STAT 12/26/2024 5:45 PM EST HEMOGLOBIN A1C Add-On 12/26/2024 5:32 PM EST CREATINE KINASE AND CKMB Add-On 12/26/2024 5:32 PM EST CBC WITH AUTO DIFFERENTIAL STAT 12/26/2024 5:32 PM EST PROTHROMBIN TIME WITH INR STAT 12/26/2024 5:32 PM EST B-TYPE NATRIURETIC PEPTIDE STAT 12/26/2024 5:32 PM EST MAGNESIUM STAT 12/26/2024 5:32 PM EST LIPASE STAT 12/26/2024 5:32 PM EST COMPREHENSIVE METABOLIC PANEL STAT 12/26/2024 5:32 PM EST CBC AND DIFFERENTIAL STAT 12/26/2024 5:32 PM EST TROPONIN I HIGH SENSITIVITY Timed 12/26/2024 5:32 PM EST ECG ANNOTATED 11/15/2024 ECG 12-LEAD STAT 11/13/2024 [...] EDT from Last 3 Months Results * (ABNORMAL) Complete blood count (01/28/2025 8:54 AM EST) Only the most recent of4 resultswithin the time period is included. WBC 5.9 4.8 - 10.8 K/mcL LAB HEMETOLOGY METHOD 01/28/2025 11:45 AM [facility] RBC 4.00 3.80 - 4.80 M/mcL LAB HEMETOLOGY METHOD 01/28/2025 11:45 AM [facility] Hemoglobin 10.6(L) 11.5 - 16.0 g/dL LAB HEMETOLOGY METHOD 01/28/2025 11:45 AM [facility] Hematocrit 34.2(L) 35.0 - 47.0 % LAB HEMETOLOGY METHOD 01/28/2025 11:45 AM [facility] MCV 86.1 79.0 - 98.0 FL LAB HEMETOLOGY METHOD 01/28/2025 11:45 AM [facility] MCH 26.7(L) 27.0 - 32.0 pcg LAB HEMETOLOGY METHOD 01/28/2025 11:45 AM [facility] MCHC 31.0(L) 32.0 - 37.0 g/dL LAB HEMETOLOGY METHOD 01/28/2025 11:45 AM [facility] RDW 14.6 11.0 - 15.0 % LAB HEMETOLOGY METHOD 01/28/2025 11:45 AM [facility] Platelets 222 130 - 400 K/mcL LAB HEMETOLOGY METHOD 01/28/2025 11:45 AM [facility] MPV 10.0 7.0 - 11.0 FL LAB HEMETOLOGY METHOD 01/28/2025 11:[address] [facility] NRBC 0.0 <1.0 % LAB HEMETOLOGY METHOD 01/28/2025 11:45 AM [facility] NRBC Absolute 0.00 <0.10 K/mcL LAB HEMETOLOGY METHOD 01/28/2025 11:45 AM [facility] Blood Venous blood specimen / Unknown Venipuncture / Unknown 01/28/2025 8:54 AM EST 01/28/2025 11:01 AM EST Aren Dela Cruz MD LAB BLOOD ORDERABLES Final Resul t [facility] [address] [place] [address], * Basic metabolic panel (01/28/2025 8:54 AM EST) Only the most recent of5 resultswithin the time period is included. Sodium 140 133 - 145 mmol/L 01/28/2025 11:58 AM [facility] Potassium 4.6 3.5 - 5.5 mmol/L 01/28/2025 11:58 AM [facility] Chloride 103 96 - 110 mmol/L 01/28/2025 11:58 AM [facility] CO2 27 21 - 32 mmol/L 01/28/2025 11:58 AM [facility] Anion Gap 10 3 - 11 01/28/2025 11:58 AM [facility] Glucose 95 70 - 100 mg/dL 01/28/2025 11:58 AM [facility] BUN 25 5 - 25 mg/dL 01/28/2025 11:58 AM [facility] Creatinine 0.75 0.50 - 1.10 mg/dL 01/28/2025 11:[address] [facility] eGFR 81 >=60 mL/min/1. 73m2 01/28/2025 11:58 AM [facility] Comment:Calculation based on the Chronic Kidney Disease Epidemiology Collaboration (CKD-EPI) equation refit without adjustment for race. BUN/Creatinine Ratio 33.3 01/28/2025 11:58 AM [facility] Calcium 9.1 8.5 - 10.5 mg/dL 01/28/2025 11:58 AM [facility] Blood Venous blood specimen / Unknown Venipuncture / Unknown 01/28/2025 8:54 AM EST 01/28/2025 11:01 AM EST us Aren Dela Cruz MD LAB BLOOD ORDERABLES Final Resul t Performing Organization Address City/[facility]/ZIP Co de Phone Number [facility] [address] [place] [address], [place] [phone] * Vitamin B12 and folate (01/14/2025 5:36 AM EST) Only the most recent of2 resultswithin the time period is included. Pathologist [facility] Vitamin B-12 250 211 - 911 pcg/mL 01/14/2025 1:[address] [facility] Folate 10.8 >=5.4 ng/ml 01/14/2025 1:[address] [facility] Blood Venous blood specimen / Unknown Venipuncture / Unknown 01/14/2025 5:36 AM EST 01/14/2025 8:34 AM EST us Aren Dela Cruz MD LAB BLOOD ORDERABLES Final Resul t Performing Organization Address City/[facility]/ZIP Co de Phone Number [facility] [address] [place] [address], [place] [phone] * (ABNORMAL) Lipid panel with reflex to direct LDL (01/14/2025 5:36 AM EST) Only the most recent of2 resultswithin the time period is included. Cholesterol 201(H) 0 - 200 mg/dL 01/14/2025 10:[address] [facility] Triglycerides 214(H) 0 - 150 mg/dL 01/14/2025 10:13 AM [facility] HDL 46 >=40 mg/dL 01/14/2025 10:13 AM [facility] LDL Calculated 112(H) 0 - 100 mg/dL 01/14/2025 10:13 AM [facility] Comment:Estimated LDL Calcul ated using equation: Total cholesterol - HDL cholesterol - (Triglycerides/5) VLDL Cholesterol Deric 42.8 mg/dL 01/14/2025 10:13 AM [facility] Non HDL Chol. (LDL+VLDL) 155(H) <145 mg/dL 01/14/2025 10:13 AM [facility] Chol/HDL Ratio 4.4 0.0 - 4.4 01/14/2025 10:13 AM [facility] Blood Venous blood specimen / Unknown Venipuncture / Unknown 01/14/2025 5:36 AM EST 01/14/2025 8:34 AM EST us Aren Dela Cruz MD LAB BLOOD ORDERABLES Final Resul t [facility] [address] [place] [address], * (ABNORMAL) Vitamin D 25 hydroxy (01/14/2025 5:36 AM EST) Vit D, 25-Hydroxy 11.3(L) 30.0 - 80.0 ng/mL 01/14/2025 10:12 AM EST [facility] Blood Venous blood specimen / Unknown Venipuncture / Unknown 01/14/2025 5:36 AM EST 01/14/2025 8:34 AM EST us Aren Dela Cruz MD LAB BLOOD ORDERABLES Final Resul t Performing Organization Address [facility]/ZIP Co de Phone Number [facility] [address] [place] [address], [place] [phone] * (ABNORMAL) Magnesium (01/14/2025 5:36 AM EST) Only the most recent of4 resultswithin the time period is included. Magnesium 1.2(L) 1.9 - 2.6 mg/dL 01/14/2025 10:13 AM [facility] Blood Venous blood specimen / Unknown Venipuncture / Unknown 01/14/2025 5:36 AM EST 01/14/2025 8:34 AM EST us Aren Dela Cruz MD LAB BLOOD ORDERABLES Final Resul t Performing Organization Address [facility]/ZIP Co de Phone Number [facility] [address] [place] [address], [place] [phone] * (ABNORMAL) Comprehensive metabolic panel (01/14/2025 5:36 AM EST) Only the most recent of4 resultswithin the time period is included. Sodium 141 133 - 145 mmol/L 01/14/2025 10:[address] [facility] Potassium 4.4 3.5 - 5.5 mmol/L 01/14/2025 10:[address] [facility] Chloride 101 96 - 110 mmol/L 01/14/2025 10:13 AM [facility] CO2 30 21 - 32 mmol/L 01/14/2025 10:13 AM [facility] Anion Gap 10 3 - 11 01/14/2025 10:13 AM [facility] Glucose 122(H) 70 - 100 mg/dL 01/14/2025 10:13 AM [facility] BUN 16 5 - 25 mg/dL 01/14/2025 10:13 AM [facility] Creatinine 0.83 0.50 - 1.10 mg/dL 01/14/2025 10:13 AM [facility] eGFR 72 >=60 mL/min/1. 73m2 01/14/2025 10:13 AM [facility] Comment:Calculation based on the Chronic Kidney Disease Epidemiology Collaboration (CKD-EPI) equation refit without adjustment for race. BUN/Creatinine Ratio 19.3 01/14/2025 10:13 AM [facility] Calcium 9.0 8.5 - 10.5 mg/dL 01/14/2025 10:13 AM [facility] AST (SGOT) 17 10 - 42 unit/L 01/14/2025 10:13 AM [facility] ALT (SGPT) 12 10 - 60 unit/L 01/14/2025 10:13 AM [facility] Alkaline Phosphatase 86 42 - 121 unit/L 01/14/2025 10:13 AM [facility] Total Protein 6.3 6.0 - 8.0 g/dL 01/14/2025 10:13 AM [facility] Albumin 3.7 3.2 - 5.0 g/dL 01/14/2025 10:13 AM [facility] Total Bilirubin 0.3 0.0 - 1.4 mg/dL 01/14/2025 10:13 AM [facility] Blood Venous blood specimen / Unknown Venipuncture / Unknown 01/14/2025 5:36 AM EST 01/14/2025 8:34 AM EST Aren Dela Cruz MD LAB BLOOD ORDERABLES Final Resul t [facility] [address] [place] [address], [place] [phone] * ECG-Annotated (01/12/2025) Only the most recent of3 resultswithin the time period is included. Provider Onbase ECG ORDERABLES Final Result * (ABNORMAL) Urinalysis with reflex microscopic and culture (01/11/2025 9:19 PM EST) Specific [place] Urine 1.019 1.003 - 1.030 LAB URINALYSIS - AUTOMATED METHOD 01/11/2025 10:02 PM [facility] pH, Urine 6.0 5.0 - 8.0 pH LAB URINALYSIS - AUTOMATED METHOD 01/11/2025 10:02 PM [facility] Leukocytes, Urine Large(A) Negative LAB URINALYSIS - AUTOMATED METHOD 01/11/2025 10:02 PM [facility] Nitrite, Urine Positive(A) Negative LAB URINALYSIS - AUTOMATED METHOD 01/11/2025 10:02 PM [facility] Protein, Urine 30(A) <=Trace mg/dL LAB URINALYSIS - AUTOMATED METHOD 01/11/2025 10:02 PM [facility] Glucose, Urine Negative Negative mg/dL LAB URINALYSIS - AUTOMATED METHOD 01/11/2025 10:02 PM [facility] Ketones, Urine Negative Negative mg/dL LAB URINALYSIS - AUTOMATED METHOD 01/11/2025 10:02 PM [facility] Urobilinogen , Urine 0.2 0.2 - 1.0 mg/dL LAB URINALYSIS - AUTOMATED METHOD 01/11/2025 10:02 PM [facility] Bilirubin, Urine Negative Negative LAB URINALYSIS - AUTOMATED METHOD 01/11/2025 10:02 PM [facility] Blood, Urine Small(A) Negative LAB URINALYSIS - AUTOMATED METHOD 01/11/2025 10:02 PM [facility] RBC, Urine 5(H) 0 - 4 /HPF 01/11/2025 10:02 PM [facility] WBC, Urine >100(H) 0 - 4 /HPF 01/11/2025 10:02 PM [facility] Squamous Epithelial, Urine 10 0 - 60 /LPF 01/11/2025 10:02 PM [facility] Bacteria, Urine Many(A) Negative /HPF 01/11/2025 10:02 PM [facility] Hyaline Casts, Urine 1 0 - 3 /LPF 01/11/2025 10:02 PM [facility] Urine Urine specimen obtained by clean catch procedure / Unknown Non-blood Collection / Unknown 01/11/2025 9:19 PM EST 01/11/2025 9:26 PM EST us Bennett Etienne MD LAB URINE ORDERABLES Final Result Performing Organization Address [facility]/ZIP Co de Phone Number [facility] [address] [place] [address], [place] [phone] * Patel urine culture tube (01/11/2025 9:19 PM EST) Extra Tube Hold for add-ons. 01/11/2025 11:01 PM [facility] Comment:Auto resulted. Urine Urine specimen obtained by clean catch procedure / Unknown Non-blood Collection / Unknown 01/11/2025 9:19 PM EST 01/11/2025 9:26 PM EST us Bennett Etienne MD LAB URINE ORDERABLES Final Result Performing Organization Address City/[facility]/ZIP Co de Phone Number [facility] [address] [place] [address], [place] [phone] * (ABNORMAL) Culture urine (01/11/2025 9:19 PM EST) [facility] Signature Culture, Urine >=100,000 CFU/mL Escherichia coli ESBL(A) ZOILA 01/14/2025 8:24 AM EST [facility] Comment: THIS ORGANISM IS POSITIVE FOR EXTENDED SPECTRUM BETA-LACTAMASE (ESBL). EXTENDED SPECTRUM BETA-LACTAMASE PRODUCING ORGANISMS DEMONSTRATE DECREASED ACTIVITY WITH PENICILLINS, CEPHALOSPORINS AND AZTREONAM. The organism value for this result has been updated. These results have been appended to the previously preliminary verified report. Urine Urine specimen obtained by clean catch procedure / Unknown Non-blood Collection / Unknown 01/11/2025 9:19 PM EST 01/11/2025 10:02 PM EST Narrative Organism Antibiotic Method Susceptibility Escherichia coli ESBL Amoxicillin/Clavulanate ZOILA 8 ug/ml: Susceptible Escherichia coli ESBL Ampicillin/Sulbactam ZOILA >=32 ug/ml: Resistant Escherichia coli ESBL Piperacillin/Tazobactam ZOILA 64 ug/ml: Resistant Escherichia coli ESBL Cefazolin (Urine) ZOILA >=32 ug/ml: Resistant Escherichia coli ESBL Cefoxitin ZOILA <=4 ug/ml: Susceptible Escherichia coli ESBL Ceftazidime ZOILA >=32 ug/ml: Resistant Escherichia coli ESBL Ceftriaxone ZOILA >=64 ug/ml: Resistant Escherichia coli ESBL Cefepime ZOILA 16 ug/ml: Resistant Escherichia coli ESBL Meropenem ZOILA <=0.25 ug/ml: Susceptible Escherichia coli ESBL Amikacin ZOILA 2 ug/ml: Susceptible Escherichia coli ESBL Gentamicin ZOILA <=1 ug/ml: Susceptible Escherichia coli ESBL Ciprofloxacin ZOILA >=4 ug/ml: Resistant Escherichia coli ESBL Levofloxacin ZOILA >=8 ug/ml: Resistant Escherichia coli ESBL Nitrofurantoin ZOILA <=16 ug/ml: Susceptible Escherichia coli ESBL Trimethoprim/Sulfa methoxazol e ZOILA >=320 ug/ml: Resistant Bennett Etienne MD LAB MICROBIOLOGY - GENERAL ORDERABLES Final Result [facility] ([facility] [address] [place], [place] [address] [phone] * XR Knee 4+ Views Left (01/11/2025 1:49 PM EST) Anatomical Region Laterality Modality Lower Extremities, Knee Left [facility] 01/11/2025 2:05 PM EST Impressions 01/11/2025 2:06 PM EST FINDINGS/IMPRESSION: No acute fracture or dislocation. Fragmented superior patellar spur with quadriceps enthesophyte. Severe medial compartment predominant degenerative change. Moderate suprapatellar joint effusion. Arterial calcifications. No focal soft tissue swelling. -------- FINAL REPORT -------- Dictated By: TENZIN SHEEHAN Dictated Date: 01/11/2025 14:05 ET Assigned Physician: TENZIN SHEEHAN Reviewed and Electronically Signed By: TENZIN SHEEHAN Signed Date: 01/11/2025 14:06 ET Workstation ID: [id number] Transcribed By: Self Edit Transcribed Date: 01/11/2025 14:05 ET Narrative 01/11/2025 2:06 PM EST XR KNEE 4+ VIEWS LEFT INDICATION: Pain TECHNIQUE: XR KNEE 4+ VIEWS LEFT COMPARISON: No priors available. Procedure Note Tenzin Sheehan MD - 01/11/2025 XR KNEE 4+ VIEWS LEFT INDICATION: Pain TECHNIQUE: XR KNEE 4+ VIEWS LEFT COMPARISON: No priors available. IMPRESSION: FINDINGS/IMPRESSION: No acute fracture or dislocation. Fragmentedsuperior patellar spur with quadriceps enthesophyte. Severe medialcompartment predominant degenerative change. Moderate suprapatellar jointeffusion. Arterial calcifications. No focal soft tissue swelling. -------- FINAL REPORT -------- Dictated By: TENZIN SHEEHAN Dictated Date: 01/11/2025 14:05 ET Assigned Physician: TENZIN SHEEHAN Reviewed and Electronically Signed By: TENZIN SHEEHAN Signed Date: 01/11/2025 14:06 ET Workstation ID: [id number] Transcribed By: Self Edit Transcribed Date: 01/11/2025 14:05 ET Bennett Etienne MD IMG XR PROCEDURES Final Res ult * XR Hip 2-3 Views Right (01/11/2025 1:49 PM EST) Anatomical Region Laterality Modality Lower Extremities, Hip Right Radiograp hic Imaging 01/11/2025 1:58 PM EST Impressions 01/11/2025 2:06 PM EST FINDINGS/IMPRESSION: No acute fracture or dislocation. Moderate degenerative changes at the hips. No focal soft tissue swelling. Degenerative change noted in the lower lumbar spine and sacroiliac joints bilaterally. Arterial calcifications. -------- FINAL REPORT -------- Dictated By: TENZIN SHEEHAN Dictated Date: 01/11/2025 13:58 ET Assigned Physician: TENZIN SHEEHAN Reviewed and Electronically Signed By: TENZIN SHEEHAN Signed Date: 01/11/2025 14:06 ET Workstation ID: [id number] Transcribed By: Self Edit Transcribed Date: 01/11/2025 13:58 ET Narrative 01/11/2025 2:06 PM EST XR HIP 2-3 VIEWS RIGHT INDICATION: Fall, pain TECHNIQUE: XR HIP 2-3 VIEWS RIGHT COMPARISON: No priors available. Procedure Note Tenzin Sheehan MD - 01/11/2025 XR HIP 2-3 VIEWS RIGHT INDICATION: Fall, pain TECHNIQUE: XR HIP 2-3 VIEWS RIGHT COMPARISON: No priors available. IMPRESSION: FINDINGS/IMPRESSION: No acute fracture or dislocation. Moderatedegenerative changes at the hips. No focal soft tissue swelling.Degenerative change noted in the lower lumbar spine and sacroiliac jointsbilaterally. Arterial calcifications. -------- FINAL REPORT -------- Dictated By: TENZIN SHEEHAN Dictated Date: 01/11/2025 13:58 ET Assigned Physician: TENZIN SHEEHAN Reviewed and Electronically Signed By: TENZIN SHEEHAN Signed Date: 01/11/2025 14:06 ET Workstation ID: [id number] Transcribed By: Self Edit Transcribed Date: 01/11/2025 13:58 ET us Bennett Etienne MD IMG XR PROCEDURES Final Res ult * 12-Lead ECG (01/11/2025 12:59 PM EST) Only the most recent of3 resultswithin the time period is included. [facility] Ventricular Rate ECG 76 BPM GEMUSE Atrial Rate 76 BPM GEMUSE P-R Interval 178 ms GEMUSE QRS Duration 86 ms GEMUSE Q-T Interval 390 ms GEMUSE QTc 438 ms GEMUSE P Wave Vale 67 degrees GEMUSE R Vale -21 degrees GEMUSE T Vale 41 degrees GEMUSE ECG Interpretation Normal sinus rhythm Low voltage QRS Cannot rule out Anterior infarct (cited on or before 13-NOV-2024) Abnormal ECG When compared with ECG of 26-DEC-2024 17:45, Questionable change in initial forces of Anteroseptal leads Nonspecific T wave abnormality no longer evident in Anterior leads Confirmed by MD Dale, Mau ([id number]) on 01/12/2025 9:39:53 AM GEMUSE 01/11/2025 12:5 9 PM EST 01/12/2025 9:39 AM EST us Bennett Etienne MD ECG ORDERABLES Final Resul t Performing Organization Address City/[facility]/ZIP Co de Phone Number GEMUSE * Troponin I High Sensitivity (01/11/2025 12:22 PM EST) Only the most recent of5 resultswithin the time period is included. [facility] High Sensitivity Troponin I 5 <=54 ng/L LAB CHEMISTRY METHOD 01/11/2025 1:[address] [facility] Blood Venous blood specimen / Unknown Venipuncture / Unknown 01/11/2025 12:22 PM EST 01/11/2025 12:38 PM EST us Bennett Etienne MD LAB BLOOD ORDERABLES Final Result Performing Organization Address City/[facility]/ZIP Co de Phone Number [facility] [address] [place] [address], * (ABNORMAL) CBC auto differential (01/11/2025 12:22 PM EST) Only the most recent of3 resultswithin the time period is included. [facility] WBC 7.5 4.8 - 10.8 K/mcL LAB HEMETOLOGY METHOD 01/11/2025 12:47 PM [facility] RBC 4.00 3.80 - 4.80 M/[facility] LAB HEMETOLOGY METHOD 01/11/2025 12:47 PM [facility] Hemoglobin 10.6(L) 11.5 - 16.0 g/dL LAB HEMETOLOGY METHOD 01/11/2025 12:47 PM [facility] Hematocrit 33.1(L) 35.0 - 47.0 % LAB HEMETOLOGY METHOD 01/11/2025 12:47 PM [facility] MCV 83.2 79.0 - 98.0 FL LAB HEMETOLOGY METHOD 01/11/2025 12:47 PM [facility] MCH 26.6(L) 27.0 - 32.0 pcg LAB HEMETOLOGY METHOD 01/11/2025 12:47 PM [facility] MCHC 32.0 32.0 - 37.0 g/dL LAB HEMETOLOGY METHOD 01/11/2025 12:47 PM [facility] RDW 13.9 11.0 - 15.0 % LAB HEMETOLOGY METHOD 01/11/2025 12:47 PM [facility] Platelets 237 130 - 400 K/mcL LAB HEMETOLOGY METHOD 01/11/2025 12:47 PM [facility] MPV 9.4 7.0 - 11.0 FL LAB HEMETOLOGY METHOD 01/11/2025 12:47 PM [facility] NRBC 0.0 <1.0 % LAB HEMETOLOGY METHOD 01/11/2025 12:47 PM [facility] NRBC Absolute 0.00 <0.10 K/[facility] LAB HEMETOLOGY METHOD 01/11/2025 12:47 PM [facility] Neutrophils Relative 61.9 % LAB HEMETOLOGY METHOD 01/11/2025 12:47 PM [facility] Lymphocytes Relative 30.7 % LAB HEMETOLOGY METHOD 01/11/2025 12:47 PM [facility] Monocytes Relative 5.0 % LAB HEMETOLOGY METHOD 01/11/2025 12:47 PM [facility] Eosinophils Relative 1.6 % LAB HEMETOLOGY METHOD 01/11/2025 12:47 PM [facility] Basophils Relative 0.4 % LAB HEMETOLOGY METHOD 01/11/2025 12:47 PM [facility] Immature Granulocytes Relative 0.4 % LAB HEMETOLOGY METHOD 01/11/2025 12:47 PM [facility] Neutrophils Absolute 4.61 1.50 - 7.00 K/mcL LAB HEMETOLOGY METHOD 01/11/2025 12:47 PM [facility] Lymphocytes Absolute 2.29 1.00 - 5.00 K/mcL LAB HEMETOLOGY METHOD 01/11/2025 12:47 PM [facility] Monocytes Absolute 0.37 0.20 - 1.00 K/mcL LAB HEMETOLOGY METHOD 01/11/2025 12:47 PM [facility] Eosinophils Absolute 0.12 0.00 - 0.50 K/mcL LAB HEMETOLOGY METHOD 01/11/2025 12:47 PM [facility] Basophils Absolute 0.03 0.00 - 0.20 K/mcL LAB HEMETOLOGY METHOD 01/11/2025 12:47 PM [facility] Immature Granulocytes Absolute 0.03 0.00 - 0.03 K/mcL LAB HEMETOLOGY METHOD 01/11/2025 12:47 PM [facility] Blood Venous blood specimen / Unknown Venipuncture / Unknown 01/11/2025 12:22 PM EST 01/11/2025 12:38 PM EST Bennett Etienne MD LAB BLOOD ORDERABLES Final Result Performing Organization Address [facility] de Phone Number [facility] [address] [place] [address], [place] [phone] * Creatine kinase (01/11/2025 12:22 PM EST) Only the most recent of2 resultswithin the time period is included. Total CK 66 34 - 145 unit/L 01/11/2025 1:[address] [facility] Blood Venous blood specimen / Unknown Venipuncture / Unknown 01/11/2025 12:22 PM EST 01/11/2025 12:38 PM EST Bennett Etienne MD LAB BLOOD ORDERABLES Final Result Performing Organization Address [facility] de Phone Number [facility] [address] [place] [address], [place] [phone] * CT Head wo Contrast (01/11/2025 12:05 PM EST) Only the most recent of2 resultswithin the time period is included. Anatomical Region Laterality Modality Head and Neck Computed Tomogra phy 01/11/2025 12:1 2 PM EST Impressions 01/11/2025 12:25 PM EST NO ACUTE INTRACRANIAL ABNORMALITY. -------- FINAL REPORT -------- Dictated By: TENZIN SHEEHAN Dictated Date: 01/11/2025 12:12 ET Assigned Physician: TENZIN SHEEHAN Reviewed and Electronically Signed By: TENZIN SHEEHAN Signed Date: 01/11/2025 12:25 ET Workstation ID: [id number] Transcribed By: Self Edit Transcribed Date: 01/11/2025 12:12 ET Narrative 01/11/2025 12:25 PM EST PROCEDURE: HEAD CT INDICATION: Fall, pain TECHNIQUE: CT of the head without intravenous contrast. Multiplanar reformats. The examination was performed utilizing dose reduction techniques. Total DLP 1574 COMPARISON: 12/26/2024. FINDINGS: No acute territorial infarct, mass effect, or intracranial hemorrhage. Mild scattered periventricular and subcortical white matter hypodensities are most likely related to chronic small vessel ischemic change. Ventricles are stable in size. No hydrocephalus. Visualized paranasal sinuses and mastoid air cells are clear. No scalp hematoma or skull fracture. Bilateral lens implants. Procedure Note Tenzin Sheehan MD - 01/11/2025 PROCEDURE: HEAD CT INDICATION: Fall, pain TECHNIQUE: CT of the head without intravenous contrast. Multiplanarreformats. The examination was performed utilizing dose reductiontechniques. Total DLP 1574 COMPARISON: 12/26/2024. FINDINGS: No acute territorial infarct, mass effect, or intracranial hemorrhage. Mild scattered periventricular and subcortical white matter hypodensitiesare most likely related to chronic small vessel ischemic change. Ventricles are stable in size. No hydrocephalus. Visualized paranasal sinuses and mastoid air cells are clear. No scalp hematoma or skull fracture. Bilateral lens implants. IMPRESSION: NO ACUTE INTRACRANIAL ABNORMALITY. -------- FINAL REPORT -------- Dictated By: TENZIN SHEEHAN Dictated Date: 01/11/2025 12:12 ET Assigned Physician: TENZIN SHEEHAN Reviewed and Electronically Signed By: TENZIN SHEEHAN Signed Date: 01/11/2025 12:25 ET Workstation ID: [id number] Transcribed By: Self Edit Transcribed Date: 01/11/2025 12:12 ET us Bennett Etienne MD IM CT PROCEDURES Final Res ult * NM LEXISCAN STRESS TEST W/ MYOCARDIAL PERFUSION (12/29/2024 12:35 PM EST) Exercise/inject ion duration (min) 0 CV PACS STRESS Exercise/inject ion duration (sec) 48 CV PACS STRESS Peak SBP 159 mmHg CV PACS STRESS Peak DBP 63 mmHg CV PACS STRESS Peak HR 107 bpm CV PACS STRESS Baseline HR 85 bpm CV PACS STRESS Baseline SBP 161 mmHg CV PACS STRESS Baseline DBP 68 mmHg CV PACS STRESS Estimated workload 1.0 METS CV PACS STRESS Percent HR 75 % CV PACS STRESS Rate Pressure Product 17,013.0 mmHg*bpm CV PACS STRESS Target HR 121 bpm CV PACS STRESS Max HR Percent 75 % CV PA CS STRESS ST Depression (mm) 0 mm CV PACS STRESS TID 1.14 CV PACS STRESS Nuc Stress EF 72 % CV PAC S STRESS Nuc Rest EF 73 % CV PACS STRESS Anatomical Region Laterality Modality Nuclear Medicine 12/29/2024 11:0 5 AM EST 12/29/2024 11:40 AM EST Narrative 12/29/2024 1:32 PM EST LV perfusion is normal. Heavy coronary calcifications suggestive of non-obstructive coronary disease. Normal left ventricular function post-stress. Stress ejection fraction is 72%. Normal wall motion and thickening. No TID. Stress: Blood pressure demonstrated a normal response. Heart rate demonstrated a normal response. The patient reported no symptoms during the stress test. Vasodilator (regadenoson) stress test was performed . Patient reported no symptoms during the stress test. Normal blood pressure response. Stress Findings A pharmacological stress test was performed using regadenoson, 0.4 mg IV over 10-15 seconds, followed by radiopharmacological injection 10 seconds post infusion. Total stress time was 0 min and 48 sec. The patient reached the end of the protocol. Blood pressure demonstrated a normal response. Heart rate demonstrated a normal response. The patient reported no symptoms during the stress test. ECG 79 yo female with a history of HTN, DM and NSTEMI referred for CP. The ECG shows normal sinus rhythm. There were no arrhythmias during stress. There is no ST segment changes during stress. There were no arrhythmias during recovery. Nuclear Study Quality Study technique: MPI, SPECT, multi, rest and stress, 1 day. Overall image quality is good. CT attenuation correction was utilized. Breast attenuation There was no increased lung uptake of the radiopharmaceutical. Perfusion Defect Conclusion There is no evidence of transient ischemic dilation (TID). Stress Function Comments Left ventricular systolic function post-stress is normal. Stress ejection fraction is 72%. Normal regional wall motion and thickening. Rest Function Comments Left ventricular function at rest was normal. Resting ejection fraction was 73%. CT Findings CT performed for attenuation correction not for diagnosis. Heavy 3 vessel coronary calcifications noted. Nuclear Prior Study There is no prior study available for comparison. Perfusion Comments LV perfusion is normal. Mild fixed anterior defect that corrects with CT correction consistent with breast attenuation us Ishan RATLIFF CV STRESS PROCEDURES Kimber l Result * (ABNORMAL) POCT Glucose, blood (12/29/2024 12:08 PM EST) Only the most recent of9 resultswithin the time period is included. Glucose POCT 155(H) 70 - 100 mg/dL 12/29/2024 12:[address] [facility] Blood Capillary blood specimen / Unknown 12/29/2024 12:08 PM EST 12/29/2024 12:15 PM EST us Fred London MD LAB POINT OF C ARE TEST DOCKED DEVICE UNSOLICITED RESULTS Final Result Performing Organization Address [facility]/ZIP Co de Phone Number [facility] [address] [place] [address], [place] [phone] * Lavender tube (12/29/2024 5:48 AM EST) Only the most recent of2 resultswithin the time period is included. Extra Tube Hold for add-ons. 12/29/2024 8:[address] [facility] Comment:Auto resulted. Blood Venous blood specimen / Unknown Venipuncture / Unknown 12/29/2024 5:48 AM EST 12/29/2024 6:22 AM EST us Fred London MD LAB BLOOD ORDERABLES F inal Result Performing Organization Address City/[facility]/ZIP Co de Phone Number [facility] [address] [place] [address], [place] [phone] * XR Shoulder 2+ Views Left (12/28/2024 10:18 AM EST) Anatomical Region Laterality Modality Upper Extremities, Shoulder Left Radi ographic Imaging 12/28/2024 1:27 PM EST Impressions 12/28/2024 1:29 PM EST No acute fracture or subluxation. Chronic changes around the left shoulder -------- FINAL REPORT -------- Dictated By: Jean Claude Martinez Dictated Date: 12/28/2024 13:27 ET Assigned Physician: Jean Claude Martinez Reviewed and Electronically Signed By: Jean Claude Martinez Signed Date: 12/28/2024 13:29 ET Workstation ID: [id number] Transcribed By: Self Edit Transcribed Date: 12/28/2024 13:27 ET Narrative 12/28/2024 1:29 PM EST EXAMINATION: LEFT SHOULDER CLINICAL INFORMATION: Pain. Fall COMPARISON: None. TECHNIQUE: 3 views left shoulder FINDINGS: No acute fracture or subluxation. There is at least moderate narrowing of the glenohumeral joint space and there is narrowing of the acromiohumeral interval. This can be seen with chronic rotator cuff disease There are osteophytes at the AC joint and humeral head. There is no suspicious abnormality in the visualized chest. Procedure Note Jean Claude Martinez MD - 12/28/2024 EXAMINATION: LEFT SHOULDER CLINICAL INFORMATION: Pain. Fall COMPARISON: None. TECHNIQUE: 3 views left shoulder FINDINGS: No acute fracture or subluxation. There is at least moderate narrowing of the glenohumeral joint space andthere is narrowing of the acromiohumeral interval. This can be seen withchronic rotator cuff disease There are osteophytes at the AC joint andhumeral head. There is no suspicious abnormality in the visualized chest. IMPRESSION: No acute fracture or subluxation. Chronic changes around the leftshoulder -------- FINAL REPORT -------- Dictated By: Jean Claude Martinez Dictated Date: 12/28/2024 13:27 ET Assigned Physician: Jean Claude Martinez Reviewed and Electronically Signed By: Jean Claude Martinez Signed Date: 12/28/2024 13:29 ET Workstation ID: [id number] Transcribed By: Self Edit Transcribed Date: 12/28/2024 13:27 ET Lievin Umba-Phukuta PA IMG XR PROCEDURES Final R esult * (ABNORMAL) TRANSTHORACIC ECHOCARDIOGRAM (TTE) COMPLETE W/ CONTRAST (12/27/2024 7:58 AM EST) Left Atrium Minor Vale 5.9 cm CV PACS Left Atrium Major Vale 5.5 cm CV PACS LA Area Sys (A2C) 21 cm2 CV PACS LA Area Sys (A4C) 17 cm2 CV PACS LA Volume (BP) 53 mL CV PACS RA Area 11.3 cm2 CV PACS RA 2D Volume 26 mL CV PACS Aortic Sinus Valsalva 2.4 cm CV PACS Ascending Aorta 3.2 cm CV PACS IVSD 1.2(A) 0.6 - 0.9 cm CV PACS LVIDD 4.1 3.8 - 5.2 cm CV PACS LVIDS 2.3 2.2 - 3.5 cm CV PACS LVOT Diameter 1.7 cm CV PACS LVPWD 1.3(A) 0.6 - 0.9 cm CV PACS MV E' Tissue Velocity Lateral 7 cm/s CV PACS MV E' Tissue Velocity Septal 7 cm/s CV PACS LVOT Area 2.3 cm2 CV PACS MV Deceleration Bond 2.8 m/s2 CV PACS E Wave Deceleration Time 238 119 - 242 ms CV PACS MV PHT 70 ms CV PACS MV Peak A Chris 0.90 m/s CV PACS MV Peak E Chris 0.67 m/s CV PACS MV Area PHT 3.1 cm2 CV PACS PV Acceleration Time 120 ms CV PACS PV Acceleration Time 120 ms CV PACS RV S' 15 cm/s CV PACS TAPSE 19 mm CV PACS TR Peak Velocity 1.95 m/s CV PACS TR Peak Gradient 15 mmHg CV PACS E/E' Ratio Septal 10 CV PACS E/E' Ratio Averaged 10 CV PACS Relative Wall Thickness ratio 0.63 CV PACS FS 44 % CV PACS LV Mass 2D 182 g CV PACS Ascending Aorta Index 1.83 cm/m2 CV PACS RA 2D Volume Index 15 mL/m2 CV PACS LVIDD Index 2.34 cm/m2 CV PACS LVIDS Index 1.31 cm/m2 CV PACS E/A Ratio 0.7 CV PACS E/E' Ratio Lateral 10 CV PACS LA Volume Index (BP) 30 mL/m2 CV PACS LV Mass Index 2D 104 g/m2 CV PACS BSA 1.8 m2 CV PACS Right Ventricular Peak Systolic Pressure 18 mmHg CV PACS Est. RA Pressure 3 mmHg CV PACS Anatomical Region Laterality Modality Ultrasound Narrative 12/27/2024 8:46 AM EST Left ventricle cavity size is normal. There is mild hypertrophy. Systolic function is normal with an ejection fraction of 60-65%. There are no regional LV wall motion abnormalities. There is Grade I (mild) diastolic dysfunction. Right ventricle cavity is normal. Right ventricular systolic function is normal. No hemodynamic significant valvular disease. Left Ventricle Left ventricle cavity size is normal. There is mild hypertrophy. Systolic function is normal with an ejection fraction of 60-65%. There are no regional LV wall motion abnormalities. There is Grade I (mild) diastolic dysfunction. Right Ventricle Right ventricle cavity appears normal. Systolic function is normal. Left Atrium Left atrium cavity size is normal. Right Atrium Right atrium cavity is normal. IVC/SVC Inferior vena cava structure is normal. Mitral Valve The leaflets are mildly thickened. There is no regurgitation or stenosis. Tricuspid Valve Tricuspid valve structure is normal. There is trace regurgitation. There is no evidence of tricuspid valve stenosis. Cannot assess RVSP. Estimated RA pressure is 3 mmHg. Aortic Valve Number of aortic valve cusps cannot be determined. The leaflets exhibit normal excursion. There is no regurgitation or stenosis. Pulmonic Valve Visualized portions of the pulmonic valve appear normal. There is no regurgitation or stenosis. Ascending Aorta The aorta appears normal in size. Pericardium Pericardium appears normal. There is no pericardial effusion. Study Details Overall the study quality was technically difficult. Definity contrast was given to enhance imaging. us Joaquin Shafer MD CV ECHO PROCEDURES Final Result * Thyroid stimulating hormone with reflex to free t4 and free t3 (12/26/2024 11:05 PM EST) TSH 3.87 0.40 - 4.00 mcIU/mL LAB CHEMISTRY METHOD 12/27/2024 1:00 AM EST [facility] ([facility]) [facility] Blood Venous blood specimen / Unknown Venipuncture / Unknown 12/26/2024 11:05 PM EST 12/26/2024 11:19 PM EST Zi RATLIFF LAB BLOOD ORDERABLES Final Resu lt Performing Organization Address [facility]/ZIP Co de Phone Number [facility] [address] [place] [address], [place] [phone] * Iron and TIBC (12/26/2024 11:05 PM EST) Iron 49 40 - 150 mcg/dL LAB CHEMISTRY METHOD 12/27/2024 12:[address] [facility] TIBC 323 250 - 450 mcg/dL LAB CHEMISTRY METHOD 12/27/2024 12:[address] [facility] Iron Saturation 15 15 - 50 % LAB CHEMISTRY METHOD 12/27/2024 12:[address] [facility] Blood Venous blood specimen / Unknown Venipuncture / Unknown 12/26/2024 11:05 PM EST 12/26/2024 11:19 PM EST [facility]i [facility]AT[facility] LAB BLOOD ORDERABLES Final Resu lt Performing Organization Address [facility]/ZIP Co de Phone Number [facility] [address] [place] [address], [place] [phone] * XR Chest 1 View (12/26/2024 9:00 PM EST) Only the most recent of2 resultswithin the time period is included. Anatomical Region Laterality Modality Body Radiographic Kristy ging 12/27/2024 8:14 AM EST Impressions 12/27/2024 8:26 AM EST FINDINGS/IMPRESSION: Pulmonary vascular congestion with cardiac silhouette enlargement. No pleural effusion or pneumothorax. Degenerative changes seen throughout the bones. -------- FINAL REPORT -------- Dictated By: TENZIN SHEEHAN Dictated Date: 12/27/2024 08:14 ET Assigned Physician: TENZIN SHEEHAN Reviewed and Electronically Signed By: TENZIN SHEEHAN Signed Date: 12/27/2024 08:26 ET Workstation ID: [id number] Transcribed By: Self Edit Transcribed Date: 12/27/2024 08:14 ET Narrative 12/27/2024 8:26 AM EST XR CHEST 1 VIEW INDICATION: Chest pain TECHNIQUE: XR CHEST 1 VIEW COMPARISON: 11/13/2024 Procedure Note Tenzin Sheehan MD - 12/27/2024 XR CHEST 1 VIEW INDICATION: Chest pain TECHNIQUE: XR CHEST 1 VIEW COMPARISON: 11/13/2024 IMPRESSION: FINDINGS/IMPRESSION: Pulmonary vascular congestion with cardiac silhouetteenlargement. No pleural effusion or pneumothorax. Degenerative changesseen throughout the bones. -------- FINAL REPORT -------- Dictated By: TENZIN SHEEHAN Dictated Date: 12/27/2024 08:14 ET Assigned Physician: TENZIN SHEEHAN Reviewed and Electronically Signed By: TENZIN SHEEHAN Signed Date: 12/27/2024 08:26 ET Workstation ID: [id number] Transcribed By: Self Edit Transcribed Date: 12/27/2024 08:14 ET Colten Ott MD IMG XR PROCEDURES Final Result * CT Cervical Spine wo Contrast (12/26/2024 6:35 PM EST) Anatomical Region Laterality Modality Spine, C-spine Computed Tomogra phy 12/26/2024 7:14 PM EST Impressions 12/26/2024 7:14 PM EST 1. Multilevel degenerative changes. 2. Disc bulge osteophytes at C4-C5, C5-C6 and C6-C7 causing brka-dw-hrhsespi spinal canal and neural foraminal stenosis. 3. No acute fracture or subluxation. This document has been electronically signed by: Wallace Nieto MD on 12/26/2024 19:14:51 Narrative 12/26/2024 7:14 PM EST INDICATION: pain after fall on thinners CT cervical spine without contrast Comparison: None provided Findings: Normal vertebral body alignment. Multilevel degenerative changes. Disc bulge osteophytes at C4-C5, C5-C6 and C6-C7 causing asdm-hw-cluescgr spinal canal and neural foraminal stenosis. No acute fracture or subluxation. No acute findings on limited view of the intracranial contents. No cervical fluid collections or masses. Lung apices are clear. Procedure Note Wallace Nieto MD - 12/26/2024 INDICATION: pain after fall on thinners CT cervical spine without contrast Comparison: None provided Findings: Normal vertebral body alignment. Multilevel degenerative changes. Disc bulge osteophytes at C4-C5, C5-C6 and C6-C7 zbzjvxuicss-gd-rmurjquq spinal canal and neural foraminal stenosis. No acute fracture or subluxation. No acute findings on limited view of the intracranial contents. No cervical fluid collections or masses. Lung apices are clear. IMPRESSION: 1. Multilevel degenerative changes. 2. Disc bulge osteophytes at C4-C5, C5-C6 and C6-C7 causing reob-ve-tilfajtc spinal canal and neural foraminal stenosis. 3. No acute fracture or subluxation. This document has been electronically signed by: Wallace Nieto MD on 12/26/2024 19:14:51 Colten Ott MD IMG CT PROCEDURES Final Result * Protime-INR (12/26/2024 5:32 PM EST) Protime 12.0 10.6 - 13.9 sec LAB COAGULATION METHOD 12/26/2024 6:[address] [facility] INR 1.0 LAB COAGULATION METHOD 12/26/2024 6:[address] [facility] Blood Venous blood specimen / Unknown Venipuncture / Unknown 12/26/2024 5:32 PM EST 12/26/2024 5:49 PM EST Colten Ott MD LAB BLOOD ORDERABLES Final Resul t [facility] [address] [place] [address], [place] [phone] * B-type natriuretic peptide (12/26/2024 5:32 PM EST) Only the most recent of2 resultswithin the time period is included. BNP 16 <=100 pcg/mL LAB CHEMISTRY METHOD 12/26/2024 6:[address] [facility] Blood Venous blood specimen / Unknown Venipuncture / Unknown 12/26/2024 5:32 PM EST 12/26/2024 5:49 PM EST us Colten Ott MD LAB BLOOD ORDERABLES Final Resul t Performing Organization Address City/[facility]/ZIP Co de Phone Number [facility] [address] [place] [address], [place] [phone] * Lipase (12/26/2024 5:32 PM EST) Pathologist [facility] Lipase 51 13 - 75 unit/L LAB CHEMISTRY METHOD 12/26/2024 6:[address] [facility] Blood Venous blood specimen / Unknown Venipuncture / Unknown 12/26/2024 5:32 PM EST 12/26/2024 5:49 PM EST us Colten Ott MD LAB BLOOD ORDERABLES Final Resul t Performing Organization Address [facility]/ZIP Co de Phone Number [facility] [address] [place] [address], [place] [phone] * (ABNORMAL) Hemoglobin A1c (12/26/2024 5:32 PM EST) Hemoglobin A1C 6.8(H) <6.5 % LAB CHEMISTRY METHOD 12/27/2024 12:[address] [facility] Mean Bld Glu Estim. 148 mg/dL LAB CHEMISTRY METHOD 12/27/2024 12:[address] [facility] Blood Venous blood specimen / Unknown Venipuncture / Unknown 12/26/2024 5:32 PM EST 12/26/2024 5:49 PM EST us [facility] [employer] LAB BLOOD ORDERABLES Final Resu lt Performing Organization Address [facility]/ZIP Co de Phone Number [facility] [address] [place] [address], [place] [phone] * Creatine kinase and CKMB (12/26/2024 5:32 PM EST) Total CK 156 22 - 269 unit/L LAB CHEMISTRY METHOD 12/26/2024 10:[address] [facility] CK-MB 2.2 1.0 - 3.6 ng/mL LAB CHEMISTRY METHOD 12/26/2024 10:[address] [facility] CK-MB Index 0.0 0.0 - 5.0 LAB CHEMISTRY METHOD 12/26/2024 10:[address] [facility] Blood Venous blood specimen / Unknown Venipuncture / Unknown 12/26/2024 5:32 PM EST 12/26/2024 5:49 PM EST [employer] LAB BLOOD ORDERABLES Final Resu lt Performing Organization Address [facility] Co de Phone Number [facility] [address] [place] [address], [place] [phone] * Vascular US Duplex Lower Extremity Venous [...] and spectral analysis, was performed by the web solutions architect. Multiple sales representative leather goods static images were saved for review. Findings: [...] imagingand spectral analysis, was performed by the web solutions architect. Multiple sales representative leather goods static images were saved for review. Findings: [...] by: Manish Good MD on 11/13/2024 16:51:47 Farhad Koch MD CV VASCULAR PROCEDURES Fin al Result from Last 3 Months Additional Health Concerns Infection Onset Date Last Indicated ESBL 01/11/2025 01/11/[id number] [place] [address] LONG-TERM OPTIONS Member Subscriber Plan / Payer (Ef fective 2019-Present) Name:Clarisa Souza Relation to Subscriber:Self Name:Clarisa Soto Payer ID:[id number] Group ID:[id number] Type:Not on file Address: [place] [address] [place] [id number] Advance Directives * Full Code - Confirmed (Latest Code Status on File) Date Activated Date Inactivated Comments 12/27/2024 12:18 AM 12/29/2024 6:08 PM This code s tatus was ascertained in the following way: Code status discussion: discussion with patient To update the patient's code status, place a code status order. Do not modify or discontinue any currently active code status orders. * Full Code - Default Date Activated Date Inactivated Comments 12/26/2024 10:28 PM 12/27/2024 12:18 AM This is or jorden is used when code status has not been discussed with the patient, or code status is otherwise unknown/unconfirmed To update the patient's code status, place a code status order. Do not modify or discontinue any currently active code status orders. Care Teams Tail Board Man Relationship Specialty Start Date End Date Charan Delgado MD [address] [place] [address] [address] [place], [place] PCP - General Internal Medicine 11/18/24
--- OUTSIDE RECORDS SUMMARY | 2025-02-11 14:41 | XMS_ITS | Encounter Summary ---
Author Organization [facility] Address [address] [place] [address] Care Team Providers Care Activity Aid Name Role Phone Charan Delgado MD Primary Care Provider + [phone] Encounter Details Date Type Department Care Team (Late st Contact Info) Description 02/03/2025 Lab Requisition [facility] - Main Lab [address] [facility] [place] [address] Aren Dela Cruz MD [address] [place] [address] Vitamin B12 deficiency anemia, unspecified; Type 2 diabetes mellitus without complications (CMS/HCC V24, CMS/HCC V28); Hyperlipidemia, unspecified; Essential (primary) hypertension; Adult failure to thrive Social History Tobacco Use Types Packs/Day Years [...] PM EST documented as of this encounter Plan of Treatment Not on file documented as of this encounter Visit Diagnoses Diagnosis Vitamin B12 deficiency anemia, unspecified Type 2 diabetes mellitus without complications (CMS/HCC V24, CMS/HCC V28) Hyperlipidemia, unspecified Essential (primary) hypertension Unspecified essential hypertension Adult failure to thrive documented in this encounter Additional Health Concerns Infection Onset Date Last Indicated Resolved Time ESBL 01/11/2025 01/11/2025 documented as of this encounter Care Teams Activity Aid Relationship Specialty Start Date End Date Charan Delgado MD [address] [place] [address] Dr [address] [place] Dave PCP - General Internal Medicine 11/18/24 documented as of this encounter
--- OUTSIDE RECORDS SUMMARY | 2025-02-11 14:41 | XMS_ITS | Encounter Summary ---
Author Organization [employer] Address [address] [facility] [address] [place] [address] Care Team Providers Care Senior Abap Developer Name Role Phone Unavailable Primary Care Provider Unavailabl e Encounter Details Date Type Department Care Team (Latest Contact Info) Description 05/04/2021 Abstract [facility] CONVERSIONS Dental, Provider, DDS Social History Tobacco [...]
--- OUTSIDE RECORDS SUMMARY | 2025-02-11 14:41 | XMS_ITS | Encounter Summary ---
Author Organization [facility] Address [address] [place] [address] Care Team Providers Care Clean Room Technician Name Role Phone Charan Delgado MD Primary Care Provider + [phone] Encounter Details Date Type Department Care Team (Late st Contact Info) Description 01/14/2025 Lab Requisition [facility] - Main Lab [address] [facility] [place] [address] Aren Dela Cruz MD [address] [place] [address] Adult failure to thrive; Essential (primary) hypertension; Type 2 diabetes mellitus without complications (CMS/HCC V24, CMS/HCC V28); Hyperlipidemia, unspecified; Vitamin D deficiency, unspecified; Hypomagnesemia; Vitamin B12 deficiency anemia, unspecified Social History Tobacco Use Types Packs/Day Years [...] on file documented as of this encounter Procedures Procedure Name Priority Date/Time Associated Diagnosis Comments VITAMIN B12 AND FOLATE Routine 01/14/2025 5:36 AM EST Adult failure to thrive Essential (primary) hypertension Type 2 diabetes mellitus without complications ([facility]/HCC V24, CMS/HCC V28) Hyperlipidemia, unspecified Vitamin D deficiency, unspecified Hypomagnesemia Vitamin B12 deficiency anemia, unspecified LIPID PANEL WITH REFLEX TO DIRECT LDL Routine 01/14/2025 5:36 AM EST Adult failure to thrive Essential (primary) hypertension Type 2 diabetes mellitus without complications ([facility] V24, CMS/[facility] V28) Hyperlipidemia, unspecified Vitamin D deficiency, unspecified Hypomagnesemia Vitamin B12 deficiency anemia, unspecified VITAMIN D 25 HYDROXY Routine 01/14/2025 5:36 AM EST Adult failure to thrive Essential (primary) hypertension Type 2 diabetes mellitus without complications (CMS/[facility] V24, CMS/[facility] V28) Hyperlipidemia, unspecified Vitamin D deficiency, unspecified Hypomagnesemia Vitamin B12 deficiency anemia, unspecified COMPLETE BLOOD COUNT Routine 01/14/2025 5:36 AM EST Adult failure to thrive Essential (primary) hypertension Type 2 diabetes mellitus without complications ([facility]/HCC V24, CMS/[facility] V28) Hyperlipidemia, unspecified Vitamin D deficiency, unspecified Hypomagnesemia Vitamin B12 deficiency anemia, unspecified MAGNESIUM Routine 01/14/2025 5:36 AM EST Adult failure to thrive Essential (primary) hypertension Type 2 diabetes mellitus without complications ([facility] V24, CMS/[facility] V28) Hyperlipidemia, unspecified Vitamin D deficiency, unspecified Hypomagnesemia Vitamin B12 deficiency anemia, unspecified COMPREHENSIVE METABOLIC PANEL Routine 01/14/2025 5:36 AM EST Adult failure to thrive Essential (primary) hypertension Type 2 diabetes mellitus without complications ([facility]/HCC V24, CMS/HCC V28) Hyperlipidemia, unspecified Vitamin D deficiency, unspecified Hypomagnesemia Vitamin B12 deficiency anemia, unspecified documented in this encounter Results * (ABNORMAL) Magnesium (01/14/2025 5:36 AM EST) [facility] Signature Magnesium 1.2(L) 1.9 - 2.6 mg/dL 01/14/2025 10:13 AM EST [facility] Blood Venous blood specimen / Unknown Venipuncture / Unknown 01/14/2025 5:36 AM EST 01/14/2025 8:34 AM EST us Aren Dela Cruz MD LAB BLOOD ORDERABLES Final Resul t Performing Organization Address City/[facility]/ZIP Co de Phone Number [facility] [address] [place] [address], [place] [phone] * (ABNORMAL) Vitamin D 25 hydroxy (01/14/2025 5:36 AM EST) Vit D, 25-Hydroxy 11.3(L) 30.0 - 80.0 ng/mL 01/14/2025 10:12 AM EST [facility] Blood Venous blood specimen / Unknown Venipuncture / Unknown 01/14/2025 5:36 AM EST 01/14/2025 8:34 AM EST us Aren Dela Cruz MD LAB BLOOD ORDERABLES Final Resul t Performing Organization Address [facility] Co de Phone Number [facility] [address] [place] [address], [place] [phone] * Vitamin B12 and folate (01/14/2025 5:36 AM EST) Vitamin B-12 250 211 - 911 pcg/mL 01/14/2025 1:48 PM EST [facility] Folate 10.8 >=5.4 ng/ml 01/14/2025 1:48 PM EST [facility] Blood Venous blood specimen / Unknown Venipuncture / Unknown 01/14/2025 5:36 AM EST 01/14/2025 8:34 AM EST us Aren Dela Cruz MD LAB BLOOD ORDERABLES Final Resul t [facility] [address] [place] [address], [place] [phone] * (ABNORMAL) Lipid panel with reflex to direct LDL (01/14/2025 5:36 AM EST) Cholesterol 201(H) 0 - 200 mg/dL 01/14/2025 10:13 AM EST [facility] Triglycerides 214(H) 0 - 150 mg/dL 01/14/2025 10:13 AM [facility] HDL 46 >=40 mg/dL 01/14/2025 10:13 AM [facility] LDL Calculated 112(H) 0 - 100 mg/dL 01/14/2025 10:13 AM [facility] Comment:Estimated LDL Calcul ated using equation: Total cholesterol - HDL cholesterol - (Triglycerides/5) VLDL Cholesterol Deric 42.8 mg/dL 01/14/2025 10:13 AM [facility] Non HDL Chol. (LDL+VLDL) 155(H) <145 mg/dL 01/14/2025 10:13 AM [facility] Chol/HDL Ratio 4.4 0.0 - 4.4 01/14/2025 10:13 AM [facility] Blood Venous blood specimen / Unknown Venipuncture / Unknown 01/14/2025 5:36 AM EST 01/14/2025 8:34 AM EST us Aren Dela Cruz MD LAB BLOOD ORDERABLES Final Resul t [facility] [address] [place] [address], [place] [phone] * (ABNORMAL) Comprehensive metabolic panel (01/14/2025 5:36 AM EST) Sodium 141 133 - 145 mmol/L 01/14/2025 10:13 AM [facility] Potassium 4.4 3.5 - 5.5 mmol/L 01/14/2025 10:13 AM [facility] Chloride 101 96 - 110 mmol/L 01/14/2025 10:13 AM [facility] CO2 30 21 - 32 mmol/L 01/14/2025 10:13 AM [facility] Anion Gap 10 3 - 11 01/14/2025 10:13 AM [facility] Glucose 122(H) 70 - 100 mg/dL 01/14/2025 10:13 AM [facility] BUN 16 5 - 25 mg/dL 01/14/2025 10:13 AM [facility] Creatinine 0.83 0.50 - 1.10 mg/dL 01/14/2025 10:13 AM [facility] eGFR 72 >=60 mL/min/1. 73m2 01/14/2025 10:13 AM [facility] Comment:Calculation based on the Chronic Kidney Disease Epidemiology Collaboration (CKD-EPI) equation refit without adjustment for race. BUN/Creatinine Ratio 19.3 01/14/2025 10:13 AM [facility] Calcium 9.0 8.5 - 10.5 mg/dL 01/14/2025 10:13 AM [facility] AST (SGOT) 17 10 - 42 unit/L 01/14/2025 10:13 AM [facility] ALT (SGPT) 12 10 - 60 unit/L 01/14/2025 10:13 AM [facility] Alkaline Phosphatase 86 42 - 121 unit/L 01/14/2025 10:13 AM [facility] Total Protein 6.3 6.0 - 8.0 g/dL 01/14/2025 10:13 AM [facility] Albumin 3.7 3.2 - 5.0 g/dL 01/14/2025 10:13 AM [facility] Total Bilirubin 0.3 0.0 - 1.4 mg/dL 01/14/2025 10:13 AM [facility] Blood Venous blood specimen / Unknown Venipuncture / Unknown 01/14/2025 5:36 AM EST 01/14/2025 8:34 AM EST Aren Dela Cruz MD LAB BLOOD ORDERABLES Final Resul t [facility] [address] [place] [address], * (ABNORMAL) Complete blood count (01/14/2025 5:36 AM EST) WBC 7.9 4.8 - 10.8 K/mcL LAB HEMETOLOGY METHOD 01/14/2025 9:12 AM [facility] RBC 4.00 3.80 - 4.80 M/[facility] LAB HEMETOLOGY METHOD 01/14/2025 9:12 AM [facility] Hemoglobin 10.5(L) 11.5 - 16.0 g/dL LAB HEMETOLOGY METHOD 01/14/2025 9:12 AM [facility] Hematocrit 33.6(L) 35.0 - 47.0 % LAB HEMETOLOGY METHOD 01/14/2025 9:12 AM [facility] MCV 85.1 79.0 - 98.0 FL LAB HEMETOLOGY METHOD 01/14/2025 9:12 AM [facility] MCH 26.6(L) 27.0 - 32.0 pcg LAB HEMETOLOGY METHOD 01/14/2025 9:12 AM [facility] MCHC 31.3(L) 32.0 - 37.0 g/dL LAB HEMETOLOGY METHOD 01/14/2025 9:12 AM EST [facility] RDW 14.0 11.0 - 15.0 % LAB HEMETOLOGY METHOD 01/14/2025 9:12 AM EST [facility] Platelets 207 130 - 400 K/mcL LAB HEMETOLOGY METHOD 01/14/2025 9:12 AM EST [facility] MPV 9.9 7.0 - 11.0 FL LAB HEMETOLOGY METHOD 01/14/2025 9:12 AM EST [facility] NRBC 0.0 <1.0 % LAB HEMETOLOGY METHOD 01/14/2025 9:12 AM [facility] NRBC Absolute 0.00 <0.10 K/mcL LAB HEMETOLOGY METHOD 01/14/2025 9:12 AM [facility] Blood Venous blood specimen / Unknown Venipuncture / Unknown 01/14/2025 5:36 AM EST 01/14/2025 8:34 AM EST us Aren Dela Cruz MD LAB BLOOD ORDERABLES Final Resul t [facility] [address] [place] [address], documented in this encounter Visit Diagnoses Diagnosis Adult failure to thrive Essential (primary) hypertension Unspecified essential hypertension Type 2 diabetes mellitus without complications (CMS/HCC V24, CMS/HCC V28) Hyperlipidemia, unspecified Vitamin D deficiency, unspecified Hypomagnesemia Disorders of magnesium metabolism Vitamin B12 deficiency anemia, unspecified documented in this encounter Additional Health Concerns Infection Onset Date Last Indicated Resolved Time ESBL 01/11/2025 01/11/2025 documented as of this encounter Care Teams Clean Room Technician Relationship Specialty Start Date End Date Charan Delgado MD [address] [place] [address] Dr Cinthya Dave [place] PCP - General Internal Medicine 11/18/24 documented as of this encounter
--- OUTSIDE RECORDS SUMMARY | 2025-02-11 14:41 | XMS_ITS | Encounter Summary ---
Author Organization [facility] Address [address] [place] [address] Care Team Providers Care Harness Worker Name Role Phone Charan Delgado MD Primary Care Provider Encounter Details Date Type Department Care Team (Late st Contact Info) Description 01/27/2025 Lab Requisition [facility] - Main Lab [address] [facility] [place] [address] Aren Dela Cruz MD [address] [place] [address] Vitamin B12 deficiency anemia, unspecified; Type 2 [...] Procedure Name Priority Date/Time Associated Diagnosis Comments COMPLETE BLOOD COUNT Routine 01/28/2025 8:54 AM EST Vitamin B12 deficiency anemia, unspecified Type 2 diabetes mellitus without complications (CMS/HCC V24, CMS/HCC V28) Hyperlipidemia, unspecified Essential (primary) hypertension Adult failure to thrive BASIC METABOLIC PANEL Routine 01/28/2025 8:54 AM EST Vitamin B12 deficiency anemia, unspecified Type 2 diabetes mellitus without complications ([facility] V24, [facility] V28) Hyperlipidemia, unspecified Essential (primary) hypertension Adult failure to thrive documented in this encounter Results * Basic metabolic panel (01/28/2025 8:54 AM EST) Sodium 140 133 - 145 mmol/L 01/28/2025 11:58 AM [facility] Potassium 4.6 3.5 - 5.5 mmol/L 01/28/2025 11:58 AM [facility] Chloride 103 96 - 110 mmol/L 01/28/2025 11:58 AM [facility] CO2 27 21 - 32 mmol/L 01/28/2025 11:58 AM [facility] Anion Gap 10 3 - 11 01/28/2025 11:58 AM [facility] Glucose 95 70 - 100 mg/dL 01/28/2025 11:58 AM [facility] BUN 25 5 - 25 mg/dL 01/28/2025 11:58 AM [facility] Creatinine 0.75 0.50 - 1.10 mg/dL 01/28/2025 11:58 AM [facility] eGFR 81 >=60 mL/min/1. 73m2 01/28/2025 11:58 AM [facility] Comment:Calculation based on the Chronic Kidney Disease Epidemiology Collaboration (CKD-EPI) equation refit without adjustment for race. BUN/Creatinine Ratio 33.3 01/28/2025 11:58 AM [facility] Calcium 9.1 8.5 - 10.5 mg/dL 01/28/2025 11:58 AM [facility] Blood Venous blood specimen / Unknown Venipuncture / Unknown 01/28/2025 8:54 AM EST 01/28/2025 11:01 AM EST Aren Dela Cruz MD LAB BLOOD ORDERABLES Final Resul t [facility] [address] [place] [address], * (ABNORMAL) Complete blood count (01/28/2025 8:54 AM EST) WBC 5.9 4.8 - 10.8 K/mcL LAB HEMETOLOGY METHOD 01/28/2025 11:45 AM [facility] RBC 4.00 3.80 - 4.80 M/mcL LAB HEMETOLOGY METHOD 01/28/2025 11:45 AM [facility] Hemoglobin 10.6(L) 11.5 - 16.0 g/dL LAB HEMETOLOGY METHOD 01/28/2025 11:45 AM [facility] Hematocrit 34.2(L) 35.0 - 47.0 % LAB HEMETOLOGY METHOD 01/28/2025 11:45 AM [facility] MCV 86.1 79.0 - 98.0 FL LAB HEMETOLOGY METHOD 01/28/2025 11:45 AM [facility] MCH 26.7(L) 27.0 - 32.0 pcg LAB HEMETOLOGY METHOD 01/28/2025 11:45 AM [facility] MCHC 31.0(L) 32.0 - 37.0 g/dL LAB HEMETOLOGY METHOD 01/28/2025 11:45 AM [facility] RDW 14.6 11.0 - 15.0 % LAB HEMETOLOGY METHOD 01/28/2025 11:45 AM [facility] Platelets 222 130 - 400 K/mcL LAB HEMETOLOGY METHOD 01/28/2025 11:45 AM EST [facility] MPV 10.0 7.0 - 11.0 FL LAB HEMETOLOGY METHOD 01/28/2025 11:45 AM EST [facility] NRBC 0.0 <1.0 % LAB HEMETOLOGY METHOD 01/28/2025 11:45 AM EST [facility] NRBC Absolute 0.00 <0.10 K/mcL LAB HEMETOLOGY METHOD 01/28/2025 11:45 AM EST [facility] Blood Venous blood specimen / Unknown Venipuncture / Unknown 01/28/2025 8:54 AM EST 01/28/2025 11:01 AM EST us Aren Dela Cruz MD LAB BLOOD ORDERABLES Final Resul t [facility] [address] [place] [address], [place] [phone] documented in this encounter Visit Diagnoses Diagnosis Vitamin B12 deficiency anemia, unspecified Type 2 diabetes mellitus without complications (CMS/HCC V24, CMS/HCC V28) Hyperlipidemia, unspecified Essential (primary) hypertension Unspecified essential hypertension Adult failure to thrive documented in this encounter Additional Health Concerns Infection Onset Date Last Indicated Resolved Time ESBL 01/11/2025 01/11/2025 documented as of this encounter Care Teams Harness Worker Relationship Specialty Start Date End Date Charan Delgado MD [address] [place] [address] Dr [address] Dave PCP - General Internal Medicine 11/18/24 documented as of this encounter
--- OUTSIDE RECORDS SUMMARY | 2025-02-11 14:41 | XMS_ITS | Continuity of Care Document ---
Author Name [facility] Medical Address [address] [place] [id number] Organization Unknown Address [address] [place] [address] Medications No known medications Problems No known problems
--- OUTSIDE RECORDS SUMMARY | 2025-02-11 14:41 | XMS_ITS | Encounter Summary ---
Author Organization [facility] Address [address] [place] [address] Care Team Providers Care Paleology Teacher Name Role Phone Charan Delgado MD Primary Care Provider Encounter Details Date Type Department Care Team (Late st Contact Info) Description 01/26/[address] [facility] - Main Lab [address] [facility] [place] [address] Aren Dela Cruz MD [address] [place] [address] Type 2 diabetes mellitus without complications (CMS/HCC V24, CMS/HCC V28) Social History Tobacco Use Types Packs/Day Years [...] as of this encounter Visit Diagnoses Diagnosis Type 2 diabetes mellitus without complications (CMS/HCC V24, CMS/HCC V28) documented in this encounter Additional Health Concerns Infection Onset Date Last Indicated Resolved Time ESBL 01/11/2025 01/11/2025 documented as of this encounter Care Teams Paleology Teacher Relationship Specialty Start Date End Date Charan Delgado MD [address] [place] [address] Dr [address] WAYNE Dave PCP - General Internal Medicine 11/18/24 documented as of this encounter
--- OUTSIDE RECORDS SUMMARY | 2025-02-11 14:41 | XMS_ITS | Encounter Summary ---
Author Organization [facility] Address [address] [place] [address] Care Team Providers Care Bonding Equipment Operator Name Role Phone Charan Delgado MD Primary Care Provider Encounter Details Date Type Department Care Team (Late st Contact Info) Description 01/19/2025 Lab Requisition [facility] - Main Lab [address] [facility] [place] [address] Aren Dela Cruz MD [address] [place] [address] Vitamin B12 deficiency anemia, unspecified; Type 2 [...] Associated Diagnosis Comments COMPLETE BLOOD COUNT Routine 01/21/2025 5:24 AM EST Vitamin B12 deficiency anemia, unspecified Type 2 diabetes mellitus without complications (CMS/HCC V24, CMS/HCC V28) Hyperlipidemia, unspecified Essential (primary) hypertension Adult failure to thrive BASIC METABOLIC PANEL Routine 01/21/2025 5:24 AM EST Vitamin B12 deficiency anemia, unspecified Type 2 diabetes mellitus without complications ([facility] V24, [facility] V28) Hyperlipidemia, unspecified Essential (primary) hypertension Adult failure to thrive documented in this encounter Results * Basic metabolic panel (01/21/2025 5:24 AM EST) Sodium 142 133 - 145 mmol/L 01/21/2025 9:55 AM [facility] Potassium 5.2 3.5 - 5.5 mmol/L 01/21/2025 9:55 AM [facility] Chloride 103 96 - 110 mmol/L 01/21/2025 9:55 AM [facility] CO2 30 21 - 32 mmol/L 01/21/2025 9:55 AM [facility] Anion Gap 9 3 - 11 01/21/2025 9:55 AM [facility] Glucose 98 70 - 100 mg/dL 01/21/2025 9:55 AM [facility] BUN 24 5 - 25 mg/dL 01/21/2025 9:55 AM [facility] Creatinine 0.86 0.50 - 1.10 mg/dL 01/21/2025 9:55 AM [facility] eGFR 69 >=60 mL/min/1. 73m2 01/21/2025 9:55 AM [facility] Comment:Calculation based on the Chronic Kidney Disease Epidemiology Collaboration (CKD-EPI) equation refit without adjustment for race. BUN/Creatinine Ratio 27.9 01/21/2025 9:55 AM [facility] Calcium 8.8 8.5 - 10.5 mg/dL 01/21/2025 9:55 AM [facility] Blood Venous blood specimen / Unknown Venipuncture / Unknown 01/21/2025 5:24 AM EST 01/21/2025 9:07 AM EST Aren Dela Cruz MD LAB BLOOD ORDERABLES Final Resul t [facility] [address] [place] [address], * (ABNORMAL) Complete blood count (01/21/2025 5:24 AM EST) WBC 6.9 4.8 - 10.8 K/mcL LAB HEMETOLOGY METHOD 01/21/2025 9:33 AM [facility] RBC 3.80 3.80 - 4.80 M/mcL LAB HEMETOLOGY METHOD 01/21/2025 9:33 AM [facility] Hemoglobin 10.1(L) 11.5 - 16.0 g/dL LAB HEMETOLOGY METHOD 01/21/2025 9:33 AM [facility] Hematocrit 32.1(L) 35.0 - 47.0 % LAB HEMETOLOGY METHOD 01/21/2025 9:33 AM [facility] MCV 85.1 79.0 - 98.0 FL LAB HEMETOLOGY METHOD 01/21/2025 9:33 AM [facility] MCH 26.8(L) 27.0 - 32.0 pcg LAB HEMETOLOGY METHOD 01/21/2025 9:33 AM [facility] MCHC 31.5(L) 32.0 - 37.0 g/dL LAB HEMETOLOGY METHOD 01/21/2025 9:33 AM [facility] RDW 14.5 11.0 - 15.0 % LAB HEMETOLOGY METHOD 01/21/2025 9:33 AM [facility] Platelets 192 130 - 400 K/mcL LAB HEMETOLOGY METHOD 01/21/2025 9:33 AM EST [facility] MPV 10.0 7.0 - 11.0 FL LAB HEMETOLOGY METHOD 01/21/2025 9:33 AM EST [facility] NRBC 0.0 <1.0 % LAB HEMETOLOGY METHOD 01/21/2025 9:33 AM EST [facility] NRBC Absolute 0.00 <0.10 K/mcL LAB HEMETOLOGY METHOD 01/21/2025 9:33 AM EST [facility] Blood Venous blood specimen / Unknown Venipuncture / Unknown 01/21/2025 5:24 AM EST 01/21/2025 9:07 AM EST us Aren Dela Cruz MD LAB BLOOD ORDERABLES Final Resul t [facility] [address] [place] [address], documented in this encounter Visit Diagnoses Diagnosis Vitamin B12 deficiency anemia, unspecified Type 2 diabetes mellitus without complications (CMS/HCC V24, CMS/HCC V28) Hyperlipidemia, unspecified Essential (primary) hypertension Unspecified essential hypertension Adult failure to thrive documented in this encounter Additional Health Concerns Infection Onset Date Last Indicated Resolved Time ESBL 01/11/2025 01/11/2025 documented as of this encounter Care Teams Bonding Equipment Operator Relationship Specialty Start Date End Date Charan Delgado MD [address] [place] [address] Dr [address]es [address] Dave PCP - General Internal Medicine 11/18/24 documented as of this encounter
--- OUTSIDE RECORDS SUMMARY | 2025-02-11 14:41 | XMS_ITS | Data Portability ---
Author Organization [facility], [facility] Address [address] [place] [phone] Care Team Providers Care Clinical Partner Name Role Phone HIM CCA OTHER Assessment No assessment recorded. Plan of Treatment Reminders Order Date Submit Date Provider Last Modified By Organization Details Last Modified Time Details Appointments None recorded. Lab None recorded. Referral None recorded. Procedures None recorded. Surgeries None recorded. Imaging electrocard iogram 2023 [facility], [address] [place] [address], [phone] 11:44:49 Medication Orders cephalexin 500 mg capsule 2023 024 [facility] #[id number], [address] [place], [address], 4 13:24:23 Diflucan 150 mg tablet 2023 024 [facility] #[id number], [address] [place], [address], 4 13:23:05 Patient TargetsNo targets recorded. Patient InstructionsNo instructions recorded. Reason for Referral None Reported. Results Created Date Observation Date Name Description Value Unit Range Abnormal Flag Note LastModifiedBy Organization Detail LastModifiedTime 09/19/19 24 09/19/2023 elect ricar diogr am No observ ation record ed. [address], [phone] 09/19/2023 11:44:47 Result Notes None recorded. Medical Equipment None Reported. Medications Name Sig Start Date Stop Date Status Note LastModified by Organization Details LastModified Time buspirone 5 mg tablet active Not Available Not Available Not Available clonidine HCl 0.1 mg tablet active Not Available Not Availabl e Not Available doxycycline hyclate 100 mg capsule active Not Available Not Available Not Available fluconazole 150 mg tablet TAKE 1 TABLET BY MOUTH EVERY DAY FOR 1 DAY active Not Available Not Available No t Available sertraline 100 mg tablet TAKE ONE TABLET AND A HALF BY MOUTH DAILY FOR 30 DAYS active Not Available Not Available No t Available amlodipine 10 mg tablet active Not Available Not Available No t Available cephalexin 500 mg capsule Take 1 capsule every 6 hours by oral route for 7 days. active Not Available Not Available No t Available metformin 1,000 mg tablet active Not Available Not Available Not Available buspirone 10 mg tablet active Not Available Not Available No t Available omeprazole 20 mg capsule,delaye d release active Not Available Not Available No t Available mirtazapine 15 mg tablet active Not Available Not Available No t Available metoprolol succinate ER 25 mg tablet,extende d release 24 hr active Not Available Not Available Not Available lorazepam 1 mg tablet TAKE ONE TABLET BY MOUTH EVERY 8 HOURS NEEDED FOR ANXIETY active Not Available Not Available No t Available lisinopril 40 mg tablet TAKE 1 TABLET BY MOUTH TWICE A DAY active Not Available Not Available No t Available Lubricant Eye Drops 0.5 % active Not Available Not Available Not Available FreeStyle Lite Strips active Not Available Not Available Not Available Tresiba FlexTouch U-100 insulin 100 unit/mL (3 mL) subcutaneous pen INJECT 30 UNITS 0.3 ML) UNDER THE SKIN AT BEDTIME ONCE DAILY active Not Available Not Available No t Available BD Stephanie 2nd Gen Pen Needle 32 gauge x 5/32 USE DIRECTED active Not Available Not Available No t Available Vitals Date Recorded Heart rate Body temperature Respiratory rate Oxygen saturation Systolic And Diastolic Provider Name and Address Organization Details Last Updated DateTime 4 86 /min 98.8 [degF] 16 /min 97 % 190/88 mm[Hg] Not Available [facility] - production 4 13:14:21 Date Recorded Oxygen saturation Body temperature Respiratory rate Heart rate Systolic And Diastolic Provider Name and Address Organization Details Last Updated DateTime 4 93 % 97.5 [degF] 20 /min 92 /min 140/88 mm[Hg] Not Available [facility] - production 4 13:22:03 Date Recorded Respiratory rate Body temperature Body weight Body height Oxygen saturation Heart rate Systolic And Diastolic Provider Name and Address Organization Details Last Updated DateTime 4 16 /min 97 [degF] 22030.5 6 g 157.48 cm 95 % 89 /min 175/72 mm[Hg] Not Available [facility] - production 17:24:48 Date Recorded Oxygen saturation Heart rate Respiratory rate Body temperature Systolic And Diastolic Provider Name and Address Organization Details Last Updated DateTime 4 97 % 76 /min 20 /min 97 [degF] 138/65 mm[Hg] Not Available [facility] - production 11:38:14 Social History None recorded. Functional Status None recorded. Mental Status None recorded. Family History Nothing Reported. Medical History No medical history recorded. Gynecological HistoryNo gynecological history recorded. Obstetrics History GPAL:G 0 P 0 0 0 0 Past Encounters Encounter ID Performer Location Encounter Start Date Encounter Closed Date Diagnosis/Indication Diagnosis SNOMED-CT Code Diagnosis ICD10 Code Diagnosis IMO Codes Diagnosis Note [id number] Sierra Macias MD Main - [address] [phone] 08/05/2023 13:14:16 08/07/2023 21:07:03 Candidiasis of vagina 96759983 B37.31 I provided real -time medical direction via phone for this encounter, and was available for additional phone based assistance as needed. I have reviewed and agree with the Assessment and Plan as documented by the Civil Rights Attorney. Patient given the opportunit y to ask questions. UA reassuring . Sx c/w vaginal candiasis. No risk factors re diflucan; pt amenable to oral therapy as indicated by standards of care. [id number] Joshua Inman MD Main - [address] [address] 08/21/2023 13:21:58 08/22/2023 17:36:28 Cellulitis [id number] L03.90 New foot wound; patient unable to explain whether small laceration occurred; no pus noted though there is surroundin g erythema and warmth. Will treat with Cephalexin and sent to pharmacy. Discussed red flag signs and symptoms for which to seek higher level of care. [id number] Shaheed Darby MD Main - [address] [address] 08/27/2023 17:24:37 08/27/2023 21:31:28 Ulcer of big toe [id number] L97.509 This 78-year-ol d female is seen for follow-up of a left big toe ulcer treated with Keflex. It seems a bit better. I recommende d that she continue taking Keflex and add warm soaks bid. She will follow-up with her PCP.. The patient agreed with this plan. [id number] Aniya Pepper MD Main - [address] [address] 09/19/2023 11:38:05 09/19/2023 16:27:34 Dyspnea on exertion [id number] R06.09 As noted, we were called to see this patient regarding concerns of DOMINGO and chest pressure. Evaluation in the field was performed by my fur stylist colleague, as noted above, I provided real-time direction and supervisio n for this visit. The evaluation revealed 78 y/o woman with DM, HTN, followed by VNA for dyspnea. History is obtained from patient and daughter via phone. VNA requested a visit as the patient has been having L sided chest pressure without radiation for the last several days. The pain is constant, not worsening with exercise or relieved by anything specific. She has mild dyspnea on exertion (moving from chair to standing) but no orthopnea. On exam her BP is well controlled at 138/65 and she has no LE edema. Her chest is not TTP.EKG is not consistent with acute cardiac eventShe has follow up with cardiology Sep 28. Impression :Mild dyspnea, chest pressure Plan:Revie wed possible causes of chest pressure. Her current presentati on and testing are not consistent with ACS. Recommende d follow up with cardiology as scheduled. If chest pressure or dyspnea worsens would present to ER. Dispositio n: We discussed the diagnostic uncertaint y of home visits and the risk associated with this. In this case, the patient and I felt this to be an acceptable and reasonable amount of risk given the benefit of avoiding an ED visit. We discussed the need to seek care urgently/e mergently in the setting of any new or worsening serious symptoms, particular ly changes to consciousn ess, chest pain, dyspnea. Health Concerns Section Related Observation LastModified by Organization Detai ls LastModified Time None Recorded Concern Status LastModified by Organization Details LastModified Time None Recorded Advance Directives Directive None Recorded Payers Insurance Date Sequence Insurance Name Policy Number Policy Givens Covered Member ID Givens Member ID Guarantor Name 12/26/2024 1 [facility] - DOS ON OR AFTER 2022 - DUAL ELIGIBLE - [employer] OPTIONS AND ONE CARE (MEDICARE REPLACEMENT/ADV ANTAGE - HMO) Clarisa Souza [id number] Clarisa Souza Notes Date Note Type Note Provider Name and Address Organization Details Recorded Time 4 text/html HPI: Member said she has been having vaginal itching whenver she urinates. ......................... ......................... ......................... ......................... ......................... ................ [facility] Nurse Triage Notes (Pau Crawford): Comments: HPI reviewed. No further information needed to process visit. Civil Rights Attorney POC Test Results from [facility] Urine Dipstick (1) [12:30] Urine leukocytes: Neg AME Urine nitrites: neg NIT Urine urobilinogen: 0.2-3.5 URO Urine protein: 2000++ PRO Urine pH: 5.0 pH Urine blood: +/- BLO Urine specific gravity: 1.015 SG Urine ketones: neg KET Urine bilirubin: 1+ DEBRA Urine glucose: neg GLU ......................... ......................... ......................... ......................... ......................... ................ Civil Rights Attorney Note From [facility]: Dispatched to the above location for a 78 yo F c/o itchiness in the vaginal area.Pt is Micronesian speaking only, stating the discomfort started about 1 week ago. Pt denies polyuria, and only dysuria with an itchy sensation primarily with urination, and no pain. Pt does not appear to be in severe distress, able to perform all ADL, walking with a steady gait. Pt speaking in full sentences, non-labored breathing. Pt denies fever, N/V/D, chills, or pain elsewhere. Pt also denies SOB, CP, or HERRERA. Skin is warm, pink and dry, with clear lung sounds. Urine collected via clean catch. Urinalysis preformed. No Leukocytes noted in urine. Urine is clear, yellow, non-cloudy, and no strong odor was noted.Pt has not attempted to alleviate or treat the itch prior. Prolong on scene time, waiting for [facility] to call back - busy with other calls, waited about 40 mins.Rx called in to pt's pharmacy. Discussed red flags with pt. ......................... ......................... ......................... ......................... ......................... ................ Disposition: Fulfilled Sierra Macias MD [address] [facility],[address], [place], [phone], [employer] 08/07/2023 19:05:08 4 text/html ROS as noted in the HPI HPI: Call transferred to U from [facility]. Micronesian speaking member, solar electric practitioner ID#[id number] utilized for the call. Member reports L toe wound, noticed yesterday by her daughter, reports black area to L toe with surrounding redness, swelling and pain 09/02. Mbr unable to visualize wound herself at time of call to fully answer triage questions. Mbr denies known drainage or pus from wound. Reports chills and subjective fever over the past few days. Mbr with hx DM2 and reports family hx of DM with lower extremity amputations. Mbr was offered [facility] which she is agreeable to. Advised referral will be submitted and to call [facility] back for new/worsening sx or addl concerns. Mbr agrees.PMH includes but not limited to: DM2, HTN, CKD, CHF, PTSD, ANTONIETA, OA, incontinence, asthma, frequent falls, depression, hypercholesterolemia ......................... ......................... ......................... ......................... ......................... ................ [facility] Nurse Triage Notes (Anjelica Ramirez): Comments: CRC RN DID NOT NEED FURTHER INFO ......................... ......................... ......................... ......................... ......................... ................ Civil Rights Attorney Note From Saud Rojas: Dispatched to above address for evaluation of wound on foot. On arrival patient 78 y/o F, found sitting on couch, AOX4, airway patent, speaking in full sentences, good color, in no apparent distress. Patient Micronesian speaking only, daughter translating. Patient reports she is a diabetic with neuropathy, family noticed a wound on L big toe yesterday, denies any pain fevers chills or any additional complaints. Family states she was seen by her condenser cleaner 2 weeks ago and had no wounds, states this has never happened before. Patients vital signs checked. On exam patient has a dime sized wound on outer bottom edge of L big toe, slightly warm to touch, red around toe with some swelling. [facility] contacted, spoke with Dr. Inman, advised of patient complaints and exam findings. [facility] reviewed photo of wound. [facility] to prescribe ABX therapy, advises follow up with PCP and condenser cleaner. Patient and family advised of prescription, [facility] recommendations, home care and red flags. Patient and family have no additional questions or concerns at this time. SC8 clear. EOR. ......................... ......................... ......................... ......................... ......................... ................ Disposition: Fulfilled Joshua Inman MD [address] [place] [address],[address], [place], [address], [facility] [employer] 08/21/2023 18:35:49 4 text/html ROS as noted in the HPI HPI: VAIBHAV is a 78 y/o female with a PMH of, but not limited to: DM II (oral agents), CHF, CKD III, PTSD, anxiety, HLD, GERD, incontinence of bladder and bowel, HTN, and depression. VAIBHAV states that four days ago, she noticed a wound on her L great toe. She does not recall an injury. She called [facility] and had an [facility] visit on 08/21/23. VAIBHAV was seen and placed on Cephalexin 500mg QID. VAIBHAV has been taking the ATBx as prescribed. Today, VAIBHAV states that her L great toe is more red, slightly purplish on top of toe, painful, and now p us can be seen. MBR denies any other symptoms. LIZETR is requesting another visit from [facility]. LIZETR is assured that a referral will be placed on her behalf. After confirming address and phone number of file, VAIBHAV is advised to call 911 for any new or worsening symptoms. VAIBHAV understands and will do so. VAIBHAV can be reached at [phone]. ......................... ......................... ......................... ......................... ......................... ................ CRC Nurse Triage Notes (Jad Brock): Comments: Reviewed HPI Shaheed Darby MD [address] [facility],[address], [place], [address], [employer] 08/27/2023 17:31:21 4 text/html CRC Nurse Triage Notes (Jad Brock): Reason For Request: Pt's PHOTOGRAPHER NEWS Mary reporting pressure in her chest, potential fluid build up with some swelling of the top of the left foot>congestive heart failure, on lasix>Iris, VNA from [facility], is on scene and able to speak with nursing Patient Reports: Lower extremity swelling; Shortness of breath with exertion; Pain with inspiration Denies: Increased work of breathing/labored with or without fever Unable to speak in full sentences without distress Discoloration of skin -cyanosis Shortness of breath in setting of confusion Cough, fever greater than 2 days History of asthma, increased use of inhaler COPD Sputum increase Cough Chief Complaints: Syncope/Dizziness/Lighthe adedness PMH: Diabetes, Heart Disease, Hypertension, CHF, COPD/Asthma, Other Other Allergies: NKA Comments: Station Attendant verified the member's name//address and phone number. Education provided on the response time and the member was advised to monitor reported s/s and seek emergency treatment if needed.AMARA RN reports the member is having SOB - Hx of CHF - Increased lower extremity swelling - Current blood pressures is 130/70 , O2 97 on room air - HR 69 - Member is able to speak full sentences and non labored - Weakness reported - Denies CP at this time. Member is not currently taking any diuretics. Member has been taking her son's Lasix - Education provided.EULAA reports the member has NKA is not on any blood thinners. Denies fever - 96.9 - Wellness checkPast medical History -AnxietyDepressionInsomni ahypertensionDiabetesCata racts, bilateral (removed)PTSD (post-traumatic stress disorder)Generalized joint pain Civil Rights Attorney POC Test Results from [facility] - ALS EKG (11:35:04) EKG test performed. Attachments uploaded as part of this test result can be found under Documents section. ......................... ......................... ......................... ......................... ......................... ................ Civil Rights Attorney Note From [facility]: Pt reports 2-3 days of right-sided anterior chest pressure without radiation and SOB on exertion. A&ox3, vs as noted, afebrile; cp worse on inhalation, non-tender on palpation, denies abd pain, n/v/d, headache, dizziness, vision changes, or weakness. Ls clear in all vallejo bilaterally, 94-97% on RA with no increased WOB, no observed extremity edema. EKG as noted. [facility] consulted, pt will follow up with cardiology and continue to monitor s/s. Red flags reviewed. ......................... ......................... ......................... ......................... ......................... ................ Disposition: Fulfilled Aniya Pepper MD [address] [facility],[address], [place], [phone], [employer] [facility] 09/19/2023 13:03:27 OBGyn Episode No OBEpisode recorded.
== END 2025-02-11 13:41 | disposition home or self-care (01) ==
LOC: HO.HMCH 12:55
PROVIDERS: PCP Internal Medicine; Visit Provider Nurse Practitioner Family
DX: Z91.81 History of falling (principal); R11.2 Nausea with vomiting, unspecified; R19.7 Diarrhea, unspecified

== ENCOUNTER → 2025-02-11 12:55 | Outpatient (BNVA) | payer OTHER, SELFPAY | PROVIDERS: Visit Provider Nurse Practitioner Family | DX: Z09 Encounter for follow-up examination after completed treatment for conditions other than malignant neoplasm (principal); R11.2 Nausea with vomiting, unspecified; R19.7 Diarrhea, unspecified; Z91.81 History of falling | CPT/HCPCS: 99212 ==